=== PATIENT | female | born 1975 | race American Indian/Alaskan Native ===

== ENCOUNTER 2022-09-16 13:29 | Outpatient (REF) | payer MEDICAID, SELFPAY ==
[2022-09-16 16:16] LABS: MANUAL DIFF FLAG NO
[2022-09-16 16:20] LABS: Basophils Percent Auto 0.4 % (0-2); Eosinophils Absolute Auto 0.2 X10*3/uL (0.0-0.4); Eosinophils Percent Auto 2.6 % (0-4); Imm Gran Abs Auto 0.03 X10*3/uL (0.00-0.03); Imm Gran Pct Auto 0.4 % (0.0-0.4); Lymphocytes Absolute Auto 1.6 X10*3/uL (1.2-4.9); Lymphocytes Percent Auto 19.1 % (20-40); Mean Corpuscular HGB Conc 31.4 g/dl (31.0-35.0); Mean Corpuscular Hemoglobin 29.3 pg (27.0-33.0); Mean Corpuscular Volume 93.1 fL (80.0-98.0); Mean Platelet Volume 9.5 fL (9.4-12.3); Monocytes Absolute Auto 0.5 X10*3/uL (0.1-1.2); Monocytes Percent Auto 6.3 % (2-11); Neutrophils Absolute Auto 5.8 x10*3/uL (2.0-8.3); Neutrophils Percent Auto 71.2 % (45-73); Platelet Count 151 X10*3/uL (160-400); Red Blood Count 3.76 X10*6/uL (4.20-5.50); Red Cell Distribution Width 14.3 % (11.0-16.0); White Blood Count 8.1 X10*3/uL (4.8-10.8)
[2022-09-16 16:58] LABS: Alanine Aminotransferase 17 U/L (0-31); Albumin Level 3.9 g/dL (3.5-5.0); Alkaline Phosphatase 78 U/L (39-117); Anion Gap 11 (12-20); Aspartate Amino Transferase 16 U/L (5-31); Bilirubin Total 0.2 mg/dL (0.0-1.0); Blood Urea Nitrogen 11 mg/dL (9-16); C Reactive Protein 1.68 mg/dL (< or = 0.50); Calcium 9.3 mg/dL (8.4-10.2); Carbon Dioxide 26 mmol/L (22-29); Chloride 108 mmol/L (96-108); Estimated Glomerular Filt Rate > 60; Glucose Random 82 mg/dL (60-115); Potassium 3.7 mmol/L (3.3-5.1); Sodium 141 mmol/L (135-145); Total Protein 7.4 g/dL (6.5-8.0)
[2022-09-16 17:00] LABS: Cholesterol 153 mg/dL; HDL Cholesterol 33 mg/dL; LDL Cholesterol Calculated 85 mg/dl; Rheumatoid Factor < 13.0 IU/mL (<15.0); Triglycerides 176 mg/dL
[2022-09-16 17:06] LABS: TSH reflex Free T4 0.88 uIU/mL (0.32-4.0); Vitamin D 25-OH Total 52.2 ng/mL (>30)
[2022-09-16 18:33] LABS: Reflex LDLD? No
[2022-09-17 04:02] LABS: Syphilis Screen Nonreactive (Nonreactive)
[2022-09-17 04:19] LABS: HBS Num1 0.36 mIU/mL (0-7.99); HBc Num1 0.74 S/CO (0.00-0.79); HBsAGNum1 0.34 S/CO (0.00-0.99); HIV AB/AG Nonreactive (Nonreactive); HIV Num 1 0.08 S/CO (0.00-0.99); Hepatitis A Antibody IgM 0.25 Index (0-0.79); Hepatitis B Core Antibody Nonreactive (Nonreactive); Hepatitis B Surface Antigen Negative (Negative); ~HepC Num1 0.31 S/CO (0.00-0.79); ~Hepatitis A Antibody IgM Nonreactive (Nonreactive); ~Hepatitis B Surface Antibody NONREACTIVE (Nonreactive); ~Hepatitis C Antibody Nonreactive (Nonreactive)
[2022-09-18 07:08] LABS: Lyme Abs Screen <0.90 index
[2022-09-18 12:19] LABS: TS Negative Control Passed; TS Panel A 0; TS Panel B 0; TS Positive Control Passed; TSpotTB Negative (Negative)
[2022-09-18 14:33] LABS: Cyclic Citrullinated Peptide <16 UNITS
[2022-09-20 19:44] LABS: HCV Log PCR <1.18 NOT DETECTED Log IU/mL (NOT DETECTED); HepC Viral Load <15 NOT DETECTED IU/mL (NOT DETECTED)
[2022-09-28 13:29] LABS: Anti Nuclear Antibody Screen POSITIVE (NEGATIVE)
== END 2022-09-16 13:30 | disposition home or self-care (01) ==
LOC: HO.HHCL 13:29
PROVIDERS: Visit Provider Internal Medicine
DX: Z11.4 Encounter for screening for human immunodeficiency virus [HIV] (principal); Z11.1 Encounter for screening for respiratory tuberculosis; M06.9 Rheumatoid arthritis, unspecified; D64.9 Anemia, unspecified; I34.1 Nonrheumatic mitral (valve) prolapse
CPT/HCPCS: 36415; 80053; 80061; 82306; 84443; 85025; 86038; 86039; 86140; 86200; 86431; 86481; 86617; 86618; 86704; 86706; 86709; 86780; 86803; 87340; 87389; 87522

== ENCOUNTER → 2022-10-16 13:00 | Outpatient (REF) | payer MEDICAID, SELFPAY ==
--- NOTE | 2022-10-16 13:06 | CA_ITS ---
Transthoracic Echocardiogram Patient (Last, First, Middle): Yessi Hess, Gender: Female Date of : 1975 Age: 46 Procedure Date: 10/16/2022 Procedure Type: Transthoracic Echocardiogram Location: OP Height: 157.48 cm Weight: 65.77 kg BSA: 1.67 m2 Heart Rate: bpm BP: 108 / 68 mmHg Perfect Bind Machine Operator: TO Referring MD: Aleida Cameron MD Hogshead Wrecker: Phil Hughes MD Symptoms: MVP Study Quality: Fair, contrast ECG Rhythm: Sinus Conclusions: - 1. Normal LV systolic function with grade 1 diastolic dysfunction 2. Normal cardiac valvular Doppler 3. No gross pericardial effusion Findings Procedure Information Contrast agent, definity, is being given per protocol without apparent complications. Left Ventricle Normal left ventricular size, thickness, and systolic function. The visually estimated ejection fraction is between 60-65%. Spectral Doppler is indicative of an impaired relaxation filling pattern. E/E prime ratio is <8, consistent with normal filling pressures. Evidence suggests grade I (mild) diastolic dysfunction. Right Ventricle Normal right ventricular cavity size and systolic function. Atria Both atria are normal in size. Interatrial shunt cannot be excluded. Aortic Valve Normal aortic valve structure and function. There is no aortic valve stenosis. There is no aortic valve regurgitation. Mitral Valve Normal mitral valve structure and function. There is no mitral valve regurgitation. There is no mitral valve stenosis. Pulmonic Valve The pulmonic valve is likely normal. There is trace pulmonic valve regurgitation. Tricuspid Valve Normal tricuspid valve structure. Tricuspid regurgitation envelope is inadequate for calculation of right ventricular systolic pressure. Normal right atrial pressure. Great Vessels All visible segments of the aorta are normal in size. The pulmonary artery was not well visualized. Venous The inferior vena cava is normal in size and collapses greater than 50% with inspiration. Pericardium/Pleural There is no evidence of pericardial effusion. Prior Study Comparison No prior study available for comparison. Measurements 2D Linear Measurements IVSd: 1.00 0.6-0.9/0.6-1.0 cm LVIDd: 4.30 3.9-5.3/4.2-5.9 cm LVIDd Index: 2.57 2.4-3.2/2.2-3.1 cm/m2 LVIDs: 2.70 2.0-3.6 cm LVPWd: 1.00 0.7-1.1 cm LA Diam: 3.60 2.7-3.8/3.0-4.0 cm LAIDs Index: 2.16 1.5-2.3 cm/m2 LV Mass: 177.36 67-162/88-224 g LV Mass Index: 106.20 43-95/49-115 g/m2 LVOT Diam: 2.10 3.0+(-)1.3 cm 2D Systolic Function EF 4C: 60.80 >55% EF 2C: 58.30 >55% EF BiP: 60.00 >55% Mitral Valve MV Pk E: 0.48 MV PK A: 0.59 MV Decel Time: 159.00 E/A: 0.80 E'Lateral: 8.81 E'Medial: 8.59 E/E' Med: 5.60 E/E' Lat: 5.40 PHT: 47.00 MVA PHT: 4.68 Decel [place]: 3.02 Aortic Valve AoV Pk Edd: 1.39 AoV Mn Edd: 0.90 AoV VTI: 0.23 AoV Pk Grad: 8.00 Aov Mn Grad: 4.00 ELISABETH Cont.VTI: 2.06 LVOT LVOT Pk Edd: 0.80 LVOT Mn Edd: 0.55 LVOT VTI: 0.14 LVOT Pk Grad: 3.00 LVOT Mn Grad: 1.00 LVOT Diam: 2.10 LVOT Area: 3.46 Diastolic Function MV Pk E: 0.48 MV Pk A: 0.59 E/A: 0.80 E'Medial: 8.59 E/E' Med: 5.60 E' Laterial: 8.81 E/E' Lat: 5.40 Right Ventricle TAPSE (mm): 19.90 TVS' Edd: 10.80 Tricuspid Valve RA Press: 3.00 Great Vessels Aorta Sinus of Valsalva: 2.60 2.0-3.5 cm Ao Asc: 2.80 2.1-3.4 cm Updated in Other Vendor System with Status of Final Phil Hughes MD electronically signed on 10/17/2022 12:17:01 PM with status of Final
== END ==
LOC: HO.CARD 13:00
PROVIDERS: PCP Student in an Organized Health Care Education/Training Program; Visit Provider Internal Medicine
DX: I34.1 Nonrheumatic mitral (valve) prolapse (principal)
CPT/HCPCS: 93306; Q9957

== ENCOUNTER → 2022-10-16 13:06 | Outpatient (BNV) | payer MEDICAID, SELFPAY | PROVIDERS: PCP Student in an Organized Health Care Education/Training Program; Visit Provider Internal Medicine Cardiovascular Disease | DX: I34.1 Nonrheumatic mitral (valve) prolapse (principal) | CPT/HCPCS: 93306 ==

== ENCOUNTER 2022-10-21 12:42 | Outpatient (REF) | payer MEDICAID, SELFPAY ==
[2022-10-21 13:35] LABS: MANUAL DIFF FLAG NO
[2022-10-21 13:54] LABS: Basophils Percent Auto 0.2 % (0-2); Eosinophils Absolute Auto 0.1 X10*3/uL (0.0-0.4); Eosinophils Percent Auto 0.7 % (0-4); Hematocrit 34.2 % (37.0-47.0); Hemoglobin 10.9 g/dl (12.0-16.0); Imm Gran Abs Auto 0.04 X10*3/uL (0.00-0.03); Imm Gran Pct Auto 0.4 % (0.0-0.4); Lymphocytes Absolute Auto 0.8 X10*3/uL (1.2-4.9); Lymphocytes Percent Auto 7.8 % (20-40); Mean Corpuscular HGB Conc 31.9 g/dl (31.0-35.0); Mean Corpuscular Hemoglobin 29.1 pg (27.0-33.0); Mean Corpuscular Volume 91.4 fL (80.0-98.0); Mean Platelet Volume 9.5 fL (9.4-12.3); Monocytes Absolute Auto 0.3 X10*3/uL (0.1-1.2); Monocytes Percent Auto 3.1 % (2-11); Neutrophils Absolute Auto 9.4 x10*3/uL (2.0-8.3); Neutrophils Percent Auto 87.8 % (45-73); Platelet Count 167 X10*3/uL (160-400); Red Blood Count 3.74 X10*6/uL (4.20-5.50); Red Cell Distribution Width 13.8 % (11.0-16.0); White Blood Count 10.7 X10*3/uL (4.8-10.8)
[2022-10-21 14:05] LABS: Estimated Average Glucose 103 mg/dL; Hemoglobin A1c % 5.2 % (<6.0)
[2022-10-21 14:35] LABS: Iron 29 mcg/dL (30-160); Lactate Dehydrogenase 263 U/L (122-220); Percent Iron Saturation 14 % (15-50); Total Iron Binding Capacity 205 mcg/dL (228-428); Unsaturated Iron Binding 176 ug/dL
[2022-10-21 14:51] LABS: Ferritin 47 ng/mL (10-250)
[2022-10-21 15:04] LABS: Folate 12.4 ng/mL (> or = 4.0); Vitamin B12 497 pg/mL (200-900)
[2022-10-21 16:22] LABS: CT PCR NOT DETECTED (Not Detect.); NG PCR NOT DETECTED (Not Detect.)
== END 2022-10-21 12:43 | disposition home or self-care (01) ==
LOC: HO.HHCL 12:42
PROVIDERS: Visit Provider Student in an Organized Health Care Education/Training Program
DX: Z00.00 Encounter for general adult medical examination without abnormal findings (principal); D64.9 Anemia, unspecified; A04.8 Other specified bacterial intestinal infections; Z20.2 Contact with and (suspected) exposure to infections with a predominantly sexual mode of transmission
CPT/HCPCS: 0353U; 82607; 82728; 82746; 83036; 83540; 83615; 85025

== ENCOUNTER 2022-10-28 08:33 | Outpatient (REF) | payer MEDICAID, SELFPAY ==
--- NOTE | ~2022-10-28 | MM_ITS ---
EXAMINATION: MM SCREENING DIGITAL BREAST TOMOSYNTHESIS, BILATERAL CLINICAL INFORMATION: Screening. Asymptomatic. The patient has a history of prior left breast excision for benign disease. COMPARISON: Mammography: This study is compared with prior exams dating back to 2021. TECHNIQUE: Digital breast tomosynthesis is performed in both the craniocaudal and mediolateral oblique views along with computer-aided detection (CAD). Synthesized 2D images are generated from the tomosynthesis. FINDINGS: There are scattered areas of fibroglandular density (ACR BI-RADS breast composition Category b). There are no significant masses, abnormal calcifications, or other abnormalities. There is tissue marker in the superior aspect of the left breast from prior percutaneous biopsy. MM/MM tomosynthesis screening BI IMPRESSION: No mammographic evidence of malignancy. ASSESSMENT: BI-RADS BI-RADS 2 - Benign Findings RECOMMENDATION: Routine annual mammography screening. 1 year F/U This examination should not preclude the clinical evaluation of a suspicious palpable abnormality. This patient's information was entered into a reminder system with a target due date for their next mammogram.
== END 2022-10-28 08:34 | disposition home or self-care (01) ==
LOC: HO.MAMMO 08:33
PROVIDERS: PCP Student in an Organized Health Care Education/Training Program; Visit Provider Student in an Organized Health Care Education/Training Program
DX: Z12.31 Encounter for screening mammogram for malignant neoplasm of breast (principal)
CPT/HCPCS: 77063; 77067

== ENCOUNTER → 2022-10-28 08:45 | Outpatient (BNV) | payer MEDICAID, SELFPAY | PROVIDERS: PCP Student in an Organized Health Care Education/Training Program; Visit Provider Radiology Diagnostic Radiology | DX: Z12.31 Encounter for screening mammogram for malignant neoplasm of breast (principal) | CPT/HCPCS: 77063; 77067 ==

== ENCOUNTER 2022-10-30 | Outpatient (REF) | payer MEDICAID, SELFPAY ==
[2022-10-31 09:12] LABS: OBS1 NEGATIVE (NEGATIVE)
[2022-10-31 09:13] LABS: OBS Int Ctl Valid YES; OBS2 NEGATIVE (NEGATIVE); OBS3 NEGATIVE (NEGATIVE)
== END 2022-10-30 00:01 | disposition home or self-care (01) ==
LOC: HO.HHCLNP
PROVIDERS: Visit Provider Student in an Organized Health Care Education/Training Program
DX: D64.9 Anemia, unspecified (principal)
CPT/HCPCS: 82270

== ENCOUNTER 2022-12-10 09:46 | Outpatient (REF) | payer MEDICAID, SELFPAY ==
[2022-12-10 11:27] LABS: MANUAL DIFF FLAG NO
[2022-12-10 11:46] LABS: Basophils Percent Auto 0.3 % (0-2); Eosinophils Absolute Auto 0.2 X10*3/uL (0.0-0.4); Hemoglobin 10.9 g/dl (12.0-16.0); Imm Gran Abs Auto 0.01 X10*3/uL (0.00-0.03); Imm Gran Pct Auto 0.1 % (0.0-0.4); Lymphocytes Absolute Auto 1.7 X10*3/uL (1.2-4.9); Lymphocytes Percent Auto 24.9 % (20-40); Mean Corpuscular HGB Conc 31.1 g/dl (31.0-35.0); Mean Corpuscular Hemoglobin 28.3 pg (27.0-33.0); Mean Corpuscular Volume 90.9 fL (80.0-98.0); Mean Platelet Volume 9.8 fL (9.4-12.3); Monocytes Absolute Auto 0.4 X10*3/uL (0.1-1.2); Monocytes Percent Auto 6.4 % (2-11); Neutrophils Absolute Auto 4.4 x10*3/uL (2.0-8.3); Neutrophils Percent Auto 65.3 % (45-73); Platelet Count 155 X10*3/uL (160-400); Red Blood Count 3.85 X10*6/uL (4.20-5.50); Red Cell Distribution Width 13.8 % (11.0-16.0); White Blood Count 6.8 X10*3/uL (4.8-10.8)
[2022-12-10 11:59] LABS: C Reactive Protein 1.86 mg/dL (< or = 0.50)
[2022-12-10 12:22] LABS: Erythrocyte Sedimentation Rate 43 MM/HR (0-20)
== END 2022-12-10 09:47 | disposition home or self-care (01) ==
LOC: HO.HHCL 09:46
PROVIDERS: Visit Provider Internal Medicine
DX: L03.011 Cellulitis of right finger (principal)
CPT/HCPCS: 36415; 85025; 85652; 86140

== ENCOUNTER 2022-12-12 13:36 | Outpatient (REF) | payer MEDICAID, SELFPAY ==
[2022-12-17 15:24] LABS: H Pylori Breath Test Negative (Negative)
== END 2022-12-12 13:37 | disposition home or self-care (01) ==
LOC: HO.LNP 13:36
PROVIDERS: Visit Provider Student in an Organized Health Care Education/Training Program
DX: A04.8 Other specified bacterial intestinal infections (principal)
CPT/HCPCS: 83013

== ENCOUNTER 2022-12-19 14:59 | Outpatient (AMB) | payer MEDICAID, SELFPAY ==
--- NOTE | 2022-12-19 15:00 | MHC.OFFVIS ---
Intake Vital Signs 12/19/22 15:11 Height 5 ft 2 in Weight 143 lb 1.28 oz BMI 26.2 BP 108/64 Blood Pressure Location Rt brachial Position Sitting Pulse 120 H Pulse Source Pulse Oximeter Temp 97.2 F Temp Source Skin Pulse Oximetry (%) 98 Intake Visit Reasons: RA Intake Note: New pt presents today for RA consult. Previously seen by rheumatology in [place]. She has tried mtx and did not tolerate this due to gi upset. She is on Enbrel 50mg qwk, last dose was last week. She will need new rx as she brought this from [place] and is all out. [employer] Supervisor Required: Yes [employer] Supervisor Name: Sawyer [id number] Accompanied by: Self / Same As Patient Allergies No Known Allergies Allergy (Verified 12/19/22 15:22) Medication List - Last Reconciled 12/19/22 by Yahaira Sutherland MD acetaminophen 500 mg PO Q6H PRN ascorbic acid (vitamin C) 250 mg PO QAM etanercept (Enbrel SureClick) 50 mg subcut QWEEK famotidine 20 mg PO DAILY PRN ferrous sulfate (FeroSul) 325 mg PO QAM folic acid 1 mg PO QAM melatonin 3 mg PO BEDTIME PRN meloxicam mg PO HPI HPI Comments History of Present Illness Details This is a 47-year-old female with seronegative RA who presents as a new patient. She recently moved from [place]. She states that she was diagnosed with rheumatoid arthritis back in 2015. She was on methotrexate briefly and it was discontinued due to GI upset. She had been on Enbrel since 2017 and it is effective. She states that her joint pain is well controlled overall. She takes 2 mg of Medrol sporadically about once a week as needed for joint pain and fatigue. States that over last 2 weeks she noticed a painful mass on the radial aspect of her right middle finger. She was prescribed antibiotics by her PCP and it was not helpful. She denies any trauma to the finger. Mentions that her maternal uncle has RA. She denies any history of DVT/PE. Denies any fatigue or weight loss. [facility] Medical History Rheumatoid arthritis Surgical History History of partial hysterectomy Hx of cholecystectomy Family History Mother History of mastectomy, total HX: breast cancer Diabetes Hypertension Father No problems noted. Maternal Uncle Rheumatoid arthritis Social History Alcohol intake: current Alcohol intake frequency: does not drink Patient Tobacco Use Status: Never used Tobacco Female Reproductive History Menstrual Total pregnancies: 3 Number of Living Children: 1 Ab spontaneous: 2 Review of Systems Const Denies fatigue, Denies fever(s) and Denies weight loss Card Reports no additional complaints Musc Reports arthralgias Skin/Breast Reports new lesions and Reports skin swelling Psych Reports abnormal sleep pattern Endo Denies fatigue Physical Exam Vital Signs: Last Vital Signs Temp 97.2 F 12/19/22 15:11 Pulse 120 H 12/19/22 15:11 BP 108/64 12/19/22 15:11 Pulse Ox 98 12/19/22 15:11 BMI result Body Mass Index 26.2 Const General: cooperative, healthy appearing and comfortable Nutritional Appearance: overweight Orientation/consciousness: patient oriented x3 Limitations: no limitations HEENT Head: Yes normocephalic and Yes atraumatic Mouth: moist mucous membranes Resp Effort & Inspection: normal respiratory effort and able to speak in complete sentences Auscultation: clear to auscultation bilaterally Cardio Rate: regular rate Rhythm: regular rhythm Heart sounds: S1 normal heart sound present and S2 normal heart sound present GI Inspection: No distended Palpation (GI): Soft to palpation and nontender Skin Other: Neuro Other: No active synovitis General: patient oriented x3 Results Reviewed Results Reviewed: Labs 10/2020 CRP 2.28 nl <0.5 ESR 60 Assessment & Plan Assessment & Plan (1) Rheumatoid arthritis: Comment: -ve RF -ve CCP dx 2016 MTX 2016 ineffective and caused GI upset Enbrel 2017 effective Code(s): M06.9 - Rheumatoid arthritis, unspecified Qualifiers: Rheumatoid arthritis location: multiple sites Rheumatoid factor presence: without rheumatoid factor Qualified Code(s): M06.09 - Rheumatoid arthritis without rheumatoid factor, multiple sites Plan: This is a 47-year-old female who presents for evaluation of rheumatoid arthritis. She was diagnosed with a seronegative RA in [place] back in 2016. Records reviewed. She was initially started on methotrexate which was ineffective and caused GI upset. She had been on Enbrel since 2017 which had been effective. She has been using Enbrel weekly until last week. She just ran out. Today patient is doing well with no active synovitis. Her labs have shown persistently elevated inflammatory markers. She states that she takes Medrol 2 mg about once weekly. Will start prior authorization for Enbrel 50 mg once weekly. Patient can continue to take Medrol 2 mg as needed. Advised patient to keep a log of her Medrol intake and we will reassess next visit. Labs and x-rays before next visit in 6 weeks (2) Finger mass, right: Code(s): R22.31 - Localized swelling, mass and lump, right upper limb Plan: Patient has a mass on the radial aspect of the right middle finger. This started about 2 weeks ago. She was prescribed antibiotics without relief. Mass is tender. I referred her to Hand surgery for further evaluation Plan I spent 47 minutes reviewing patient's chart, evaluating patient, ordering diagnostic workup, counseling patient and documenting in the chart Orders: Orders Comprehensive Met. Panel 5 Weeks M06.9 - Rheumatoid arthritis, unspecified C Reactive Protein 5 Weeks M06.9 - Rheumatoid arthritis, unspecified XR hand wrist RT 5 Weeks M06.9 - Rheumatoid arthritis, unspecified XR foot LT min 3V 5 Weeks M06.9 - Rheumatoid arthritis, unspecified XR foot RT min 3V 5 Weeks M06.9 - Rheumatoid arthritis, unspecified Complete Blood Count Auto Diff 5 Weeks M06.9 - Rheumatoid arthritis, unspecified Erythrocyte Sedimentation Rate 5 Weeks M06.9 - Rheumatoid arthritis, unspecified XR hand wrist LT 5 Weeks M06.9 - Rheumatoid arthritis, unspecified Referrals Hand Surgery Referral R22.31 - Localized swelling, mass and lump, right upper limb Coding Level of Care Code New Pt Level 4 (95733) Diagnoses Rheumatoid arthritis of multiple sites with negative rheumatoid factor M06.09 Rheumatoid arthritis location: multiple sites Rheumatoid factor presence: without rheumatoid factor Finger mass, right R22.31
[2022-12-19 15:11] VITALS: BP 108/64; PULSE 120; TEMP 36.2; O2SAT 98; BMI 26.2
== END 2022-12-19 16:01 | disposition home or self-care (01) ==
PROVIDERS: PCP Student in an Organized Health Care Education/Training Program; Visit Provider Student in an Organized Health Care Education/Training Program
DX: M06.09 Rheumatoid arthritis without rheumatoid factor, multiple sites (principal); R22.31 Localized swelling, mass and lump, right upper limb
CPT/HCPCS: 99204

== ENCOUNTER → 2022-12-19 14:59 | Outpatient (BNVA) | payer MEDICAID, SELFPAY | PROVIDERS: Visit Provider Student in an Organized Health Care Education/Training Program | DX: M06.09 Rheumatoid arthritis without rheumatoid factor, multiple sites (principal); R22.31 Localized swelling, mass and lump, right upper limb | CPT/HCPCS: 99202 ==

== ENCOUNTER 2022-12-23 12:40 | Outpatient (AMB) | payer MEDICAID, SELFPAY ==
--- NOTE | 2022-12-23 13:34 | A.OFFVIS_ITS ---
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 This is located on her middle finger and started three weeks ago. She states she tries to remove the lump but the next day it returns. She denies any injury and it is causing her pain with touch and the tip of her finger feels hard. 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 She complains of a painful scab along the right middle finger radial paronychial fold. She says this began about 3 weeks ago when it was painful and swollen. She was given 7 days of antibiotics which helped maybe a little bit. She is concerned because the scab is still painful. [facility] Medical History Rheumatoid arthritis Surgical History History of partial hysterectomy Hx of cholecystectomy Family History Mother History of mastectomy, total HX: breast cancer Diabetes Hypertension Father No problems noted. Maternal Uncle Rheumatoid arthritis Social History Alcohol intake: current Alcohol intake frequency: does not drink Patient Tobacco Use Status: Never used Tobacco Physical Exam Const General: cooperative, healthy appearing and no acute distress Orientation/consciousness: oriented to person and oriented to place HEENT Head: Yes normocephalic and Yes atraumatic Eyes EOM: EOMs intact bilaterally Resp Effort & Inspection: normal respiratory effort and able to speak in complete sentences Cardio Jugular venous distension: no JVD Skin General skin exam: turgor normal Rashes: no rashes Neuro General: oriented to person and oriented to place Extrem Other: Evaluation of right Upper Extremity: Neuro: Median, ulnar, radial nerves motor and sensory intact. Vascular: Cap refill brisk. Regarding the right middle finger she does have a small scab measuring perhaps 2-3 mm in diameter along the radial aspect of the eponychial fold. The scab itself is tender to palpation. She is not particularly tender over the pad of the middle finger or about the rest of the finger. She has no tenderness when pushing on the nail itself. She can fully extend all of her digits and bring them all closed to a tight fist including the right middle finger. No surrounding erythema. Minimal if any swelling right around that eponychial area. Radiographs: None Psych Appearance: grossly normal Affect: normal affect Attitude: cooperative Assessment & Plan Assessment & Plan (1) Paronychia of finger of right hand: Code(s): L03.011 - Cellulitis of right finger Plan Assessment and plan: 1. Right middle finger resolving paronychia Again this began about 3 weeks ago. She did have 1 course of some kind of antibiotic for about 7 days. She says she has only been small soaking the finger intermittently. I educated her about paronychia infection. I told her I want her to soak this 7 or 8 times a day and hot salt water. When to give her another antibiotic for 7 days. At this point is pretty mild. She does not have any generalized swelling of the finger. We will have her come back in a week for a wound check. She can call and cancel if everything is going well. Coding Level of Care Code New Pt Level 3 (08061) Diagnoses Paronychia of finger of right hand L03.011
== END 2022-12-23 13:59 | disposition home or self-care (01) ==
PROVIDERS: PCP Student in an Organized Health Care Education/Training Program; Visit Provider Orthopaedic Surgery
DX: L03.011 Cellulitis of right finger (principal)
CPT/HCPCS: 99203

== ENCOUNTER → 2022-12-23 12:40 | Outpatient (BNVA) | payer MEDICAID, SELFPAY | PROVIDERS: PCP Student in an Organized Health Care Education/Training Program; Visit Provider Orthopaedic Surgery | DX: L03.011 Cellulitis of right finger (principal) | CPT/HCPCS: 99202 ==

== ENCOUNTER 2022-12-30 10:06 | Outpatient (AMB) | payer MEDICAID, SELFPAY ==
--- NOTE | 2022-12-30 10:32 | A.OFFVIS_ITS ---
Intake Intake Visit Reasons: OV- Paronychia wound check Intake Note: Yessi is a 47 year old belarusian speaking female who presents today for a wound check of her right hand middle finger. Allergies No Known Allergies Allergy (Verified 12/30/22 10:33) HPI OV- Paronychia wound check HPI Details 47-year-old right hand dominant female who presents in the office today for a follow up of a paronychia on the right hand middle digit, which began in the beginning of 11/2022. [facility] Medical History Rheumatoid arthritis Surgical History History of partial hysterectomy Hx of cholecystectomy Family History Mother History of mastectomy, total HX: breast cancer Diabetes Hypertension Father No problems noted. Maternal Uncle Rheumatoid arthritis Alcohol intake: current Alcohol intake frequency: does not drink Patient Tobacco Use Status: Never used Tobacco Review of Systems Const All systems reviewed & are unremarkable except as noted in HPI and below Physical Exam Const General: cooperative, healthy appearing and no acute distress Resp Effort & Inspection: normal respiratory effort and able to speak in complete sentences Cardio Rate: regular rate Peripheral pulses: Peripheral pulses 2+ throughout GI Palpation (GI): Soft to palpation Skin Lesions: no lesions Rashes: no rashes Extrem Other: Right middle finger: Pea sized eschar tissue along the radial aspect of the nail bed distal to the DIP. Mild surrounding erythema. No drainage. No signs of active infection. Able to flex and extend at the DIP. Sensation intact. Capillary refill is brisk. Assessment & Plan Assessment & Plan (1) Paronychia of finger of right hand: Code(s): L03.011 - Cellulitis of right finger Plan Ms. Hess is a 47-year-old right hand dominant female who presents in the office today for a follow up of a paronychia on the right hand middle digit, which began in the beginning of 11/2022. The patient is going to continue her antibiotics until the course is complete. I did educate the patient that there is a chance the antibiotics could be suppressing an infection. I explained to her that her symptoms may increase upon completion. She was educated on signs of infection, which are as follows but not limited to erythema, edema, drainage, or warmth. If she is to experience any of these symptoms she is to contact the office immediately or present to the ED. Follow up will be in 1 week for a wound check, or sooner if needed. Patient Instructions: Scribed for Claudine Moses PA-C by Sulma Burton medical sales associate, on 12/30/2022 at 10:12 am, EST. Coding Level of Care Code Global (12785) Diagnoses Paronychia of finger of right hand L03.011
== END 2022-12-30 10:40 | disposition home or self-care (01) ==
PROVIDERS: PCP Student in an Organized Health Care Education/Training Program; Visit Provider Physician Assistant
DX: L03.011 Cellulitis of right finger (principal)
CPT/HCPCS: 99213

== ENCOUNTER → 2022-12-30 10:06 | Outpatient (BNVA) | payer MEDICAID, SELFPAY | PROVIDERS: PCP Student in an Organized Health Care Education/Training Program; Visit Provider Physician Assistant | DX: L03.011 Cellulitis of right finger (principal) | CPT/HCPCS: 99212 ==

== ENCOUNTER 2023-01-05 11:54 | Outpatient (AMB) | payer MEDICAID, SELFPAY ==
--- NOTE | 2023-01-05 12:13 | MHC.OFFVIS ---
Intake Vital Signs 01/05/23 12:17 Height 5 ft 2 in Weight 143 lb BMI 26.2 Handedness Right Intake Visit Reasons: ov- Paronychia of finger of right hand Intake Note: Yessi is a 47 year old right hand dominant Mauritian speaking female who presents today for a wound check of her right hand middle finger. Patient reports is causing her a lot of pain, even when she bangs it accidentally. Allergies No Known Allergies Allergy (Verified 01/05/23 12:16) HPI ov- Paronychia of finger of right hand HPI Details 47-year-old right hand dominant female, who is Mauritian speaking, presents in the office today for a follow up of a paronychia on the right hand middle digit, which began in the beginning of 11/2022. The patient reports she has a lot of pain in the right hand and has been accidentally hitting the hand. [facility] Medical History Rheumatoid arthritis Surgical History History of partial hysterectomy Hx of cholecystectomy Family History Mother History of mastectomy, total HX: breast cancer Diabetes Hypertension Father No problems noted. Maternal Uncle Rheumatoid arthritis Alcohol intake: current Alcohol intake frequency: does not drink Patient Tobacco Use Status: Never used Tobacco Review of Systems Const All systems reviewed & are unremarkable except as noted in HPI and below Physical Exam Vital Signs: BMI result Body Mass Index 26.2 Const General: cooperative, healthy appearing and no acute distress Resp Effort & Inspection: normal respiratory effort and able to speak in complete sentences Cardio Rate: regular rate Peripheral pulses: Peripheral pulses 2+ throughout GI Palpation (GI): Soft to palpation Skin Lesions: no lesions Rashes: no rashes Extrem Other: Right middle finger: Pea sized eschar tissue along the radial aspect of the nail bed distal to the DIP. No erythema. No drainage. No signs of active infection. Able to flex and extend at the DIP. Sensation intact. Capillary refill is brisk. Assessment & Plan Assessment & Plan (1) Paronychia of finger of right hand: Code(s): L03.011 - Cellulitis of right finger Plan Ms. Hess is a 47-year-old right hand dominant female, who is Mauritian speaking, presents in the office today for a follow up of a paronychia on the right hand middle digit, which began in the beginning of 11/2022. The patient reports she has a lot of pain in the right hand and has been accidentally hitting the hand. The patient is going to continue her antibiotics until the course is complete. I did educate the patient that there is a chance the antibiotics could be suppressing an infection. I explained to her that her symptoms may increase upon completion. She was educated on signs of infection, which are as follows but not limited to erythema, edema, drainage, or warmth. If she is to experience any of these symptoms she is to contact the office immediately or present to the ED. Follow up will be in 2 weeks, or sooner if needed. Patient Instructions: Scribed for Claudine Moses PA-C by Sulma Burton medical education specialist, on 01/05/2023 at 11:59 am, EST. Coding Level of Care Code Est Pt Level 3 (96961) Diagnoses Paronychia of finger of right hand L03.011
[2023-01-05 12:17] VITALS: BMI 26.2
== END 2023-01-05 12:21 | disposition home or self-care (01) ==
PROVIDERS: PCP Student in an Organized Health Care Education/Training Program; Visit Provider Physician Assistant
DX: L03.011 Cellulitis of right finger (principal)
CPT/HCPCS: 99213

== ENCOUNTER → 2023-01-05 11:54 | Outpatient (BNVA) | payer MEDICAID, SELFPAY | PROVIDERS: PCP Student in an Organized Health Care Education/Training Program; Visit Provider Physician Assistant | DX: L03.011 Cellulitis of right finger (principal); M06.9 Rheumatoid arthritis, unspecified | CPT/HCPCS: 99212 ==

== ENCOUNTER 2023-01-12 18:20 | Outpatient (REF) | payer MEDICAID, SELFPAY ==
[2023-01-17 09:38] LABS: HPV 16 RNA NOT DETECTED (NOT DETECTED); HPV mRNA E6/E7 rflx Detected (Not Detected)
== END 2023-01-12 18:21 | disposition home or self-care (01) ==
LOC: HO.HHCLNP 18:20
PROVIDERS: Visit Provider Advanced Practice Midwife
DX: Z12.4 Encounter for screening for malignant neoplasm of cervix (principal); Z11.51 Encounter for screening for human papillomavirus (HPV)
CPT/HCPCS: 87624; 87625; 88142

== ENCOUNTER 2023-01-22 11:44 | Outpatient (REF) | payer MEDICAID, SELFPAY ==
--- NOTE | ~2023-01-22 | XR_ITS ---
EXAMINATION: XR BILATERAL FEET CLINICAL INFORMATION: Rheumatoid arthritis. COMPARISON: None available. TECHNIQUE: 3 views of each foot. FINDINGS: Left Foot: Mild degenerative changes in the first tarsometatarsal joint with joint space narrowing and hypertrophic change. Small plantar calcaneal spur. Tiny calcific/ossific fragment along the lateral aspect of the first metatarsophalangeal joint of indeterminate age and etiology. Tiny calcifications in the soft tissues of the distal leg. Right Foot: Tiny calcific/ossific fragment along the medial aspect of the IP joint of the great toe of indeterminate age and etiology. Tiny calcifications in the soft tissues of the distal leg. Small amorphous calcifications adjacent to the lateral sesamoid of the first metatarsal head. Tiny calcific/ossific density adjacent to the first metatarsal head more medially. XR/XR foot RT min 3V IMPRESSION: Tiny calcific/ossific fragments in the bilateral feet as detailed above of indeterminate age and etiology. Correlation with clinical exam recommended to determine further management. Recommend follow-up imaging in 10-14 days if fracture is suspected.
--- NOTE | ~2023-01-22 | XR_ITS ---
EXAMINATION: XR RIGHT HAND AND WRIST SERIES XR LEFT HAND AND WRIST SERIES CLINICAL INFORMATION: Rheumatoid arthritis, unspecified. COMPARISON: Radiographs of the right and left feet January 2023. TECHNIQUE: 4 views of the right hand and wrist. 4 views of the left hand and wrist. FINDINGS: RIGHT HAND AND WRIST: There is mild deformity of the distal 5th metacarpal compatible with an old fracture. The bones, joints and soft tissues are otherwise unremarkable. No joint space narrowing. No marginal erosions. No soft tissue calcifications. LEFT HAND AND WRIST: The bones, joints and soft tissues appear normal. No joint space narrowing, erosions, soft tissue calcifications, or malalignment. XR/XR hand wrist LT IMPRESSION: RIGHT HAND AND WRIST: Old 5th metacarpal fracture. No radiographic signs of arthritis. LEFT HAND AND WRIST: Normal. No radiographic signs of arthritis.
--- NOTE | ~2023-01-22 | XR_ITS ---
EXAMINATION: XR RIGHT HAND AND WRIST SERIES XR LEFT HAND AND WRIST SERIES CLINICAL INFORMATION: Rheumatoid arthritis, unspecified. COMPARISON: Radiographs of the right and left feet January 2023. TECHNIQUE: 4 views of the right hand and wrist. 4 views of the left hand and wrist. FINDINGS: RIGHT HAND AND WRIST: There is mild deformity of the distal 5th metacarpal compatible with an old fracture. The bones, joints and soft tissues are otherwise unremarkable. No joint space narrowing. No marginal erosions. No soft tissue calcifications. LEFT HAND AND WRIST: The bones, joints and soft tissues appear normal. No joint space narrowing, erosions, soft tissue calcifications, or malalignment. XR/XR hand wrist RT IMPRESSION: RIGHT HAND AND WRIST: Old 5th metacarpal fracture. No radiographic signs of arthritis. LEFT HAND AND WRIST: Normal. No radiographic signs of arthritis.
--- NOTE | ~2023-01-22 | XR_ITS ---
EXAMINATION: XR BILATERAL FEET CLINICAL INFORMATION: Rheumatoid arthritis. COMPARISON: None available. TECHNIQUE: 3 views of each foot. FINDINGS: Left Foot: Mild degenerative changes in the first tarsometatarsal joint with joint space narrowing and hypertrophic change. Small plantar calcaneal spur. Tiny calcific/ossific fragment along the lateral aspect of the first metatarsophalangeal joint of indeterminate age and etiology. Tiny calcifications in the soft tissues of the distal leg. Right Foot: Tiny calcific/ossific fragment along the medial aspect of the IP joint of the great toe of indeterminate age and etiology. Tiny calcifications in the soft tissues of the distal leg. Small amorphous calcifications adjacent to the lateral sesamoid of the first metatarsal head. Tiny calcific/ossific density adjacent to the first metatarsal head more medially. XR/XR foot LT min 3V IMPRESSION: Tiny calcific/ossific fragments in the bilateral feet as detailed above of indeterminate age and etiology. Correlation with clinical exam recommended to determine further management. Recommend follow-up imaging in 10-14 days if fracture is suspected.
[2023-01-22 12:08] LABS: MANUAL DIFF FLAG NO
[2023-01-22 12:49] LABS: Basophils Percent Auto 0.1 % (0-2); Eosinophils Absolute Auto 0.2 X10*3/uL (0.0-0.4); Eosinophils Percent Auto 3.4 % (0-4); Hematocrit 34.5 % (37.0-47.0); Hemoglobin 10.8 g/dl (12.0-16.0); Imm Gran Abs Auto 0.02 X10*3/uL (0.00-0.03); Imm Gran Pct Auto 0.3 % (0.0-0.4); Lymphocytes Absolute Auto 1.3 X10*3/uL (1.2-4.9); Lymphocytes Percent Auto 18.1 % (20-40); Mean Corpuscular HGB Conc 31.3 g/dl (31.0-35.0); Mean Corpuscular Hemoglobin 27.3 pg (27.0-33.0); Mean Corpuscular Volume 87.3 fL (80.0-98.0); Mean Platelet Volume 8.9 fL (9.4-12.3); Monocytes Absolute Auto 0.4 X10*3/uL (0.1-1.2); Monocytes Percent Auto 6.2 % (2-11); Neutrophils Percent Auto 71.9 % (45-73); Platelet Count 143 X10*3/uL (160-400); Red Blood Count 3.95 X10*6/uL (4.20-5.50)
[2023-01-22 13:15] LABS: Alanine Aminotransferase 13 U/L (0-31); Alkaline Phosphatase 71 U/L (39-117); Anion Gap 14 (12-20); Aspartate Amino Transferase 21 U/L (5-31); Bilirubin Total 0.4 mg/dL (0.0-1.0); Blood Urea Nitrogen 11 mg/dL (9-16); C Reactive Protein 4.87 mg/dL (< or = 0.50); Calcium 9.6 mg/dL (8.4-10.2); Carbon Dioxide 25 mmol/L (22-29); Chloride 106 mmol/L (96-108); Estimated Glomerular Filt Rate > 60; Glucose Random 87 mg/dL (60-115); Potassium 4.1 mmol/L (3.3-5.1); Sodium 141 mmol/L (135-145); Total Protein 7.8 g/dL (6.5-8.0)
[2023-01-22 13:45] LABS: Erythrocyte Sedimentation Rate 55 MM/HR (0-20)
== END 2023-01-22 11:45 | disposition home or self-care (01) ==
LOC: HO.LAB 11:44
PROVIDERS: PCP Student in an Organized Health Care Education/Training Program; Visit Provider Student in an Organized Health Care Education/Training Program
DX: M06.9 Rheumatoid arthritis, unspecified (principal)
CPT/HCPCS: 36415; 73110; 73130; 73630; 80053; 85025; 85652; 86140

== ENCOUNTER 2023-01-29 08:52 | Outpatient (AMB) | payer MEDICAID, SELFPAY ==
[2023-01-29 09:07] VITALS: BP 120/74; PULSE 76; TEMP 36.2; BMI 25.4
--- NOTE | 2023-01-29 09:07 | A.OFFVIS_ITS ---
Intake Vital Signs 3 01/29/23 09:07 Height 5 ft 2 in Weight 138 lb 14.259 oz BMI 25.4 BP 120/74 Blood Pressure Location Rt brachial Position Sitting Pulse 76 Pulse Source Pulse Oximeter Temp 97.2 F Temp Source Skin Intake Visit Reasons: RA Intake Note: Pt last seen 12/19/22 presents today for follow up and test results. Reports not taking Enbrel for about two months due to growth on right middle finger. Cobol Engineer Required: Yes Cobol Engineer Name: [email or web address] [id number] Information Interpreted: clinical only Accompanied by: Self / Same As Patient Allergies No Known Allergies Allergy (Verified 01/29/23 09:07) Medication List - Last Reconciled 01/29/23 by Yahaira Sutherland MD acetaminophen 500 mg PO Q6H PRN ascorbic acid (vitamin C) 250 mg PO QAM Enbrel SureClick (etanercept) 50 mg subcut QWEEK NS famotidine 20 mg PO DAILY PRN ferrous sulfate (FeroSul) 325 mg PO QAM folic acid 1 mg PO QAM melatonin 3 mg PO BEDTIME PRN meloxicam mg PO methylprednisolone (Medrol) 2 mg PO DAILY HPI HPI Comments 2 History of Present Illness0 Details 47-year-old female with seronegative RA returns for follow-up. She has remained off Enbrel since last visit. She was evaluated by hand surgery for her right finger mass and was deemed to have a resolving paronychia. She was prescribed an Augmentin course. She states that her finger feels about the same. She has minimal pain deep to the site of the scab. The scab has grown somewhat. She feels that she needs to restart her Enbrel. She continues to take Medrol 2 mg daily Initial history: This is a 47-year-old female with seronegative RA who presents as a new patient. She recently moved from [place]. She states that she was diagnosed with rheumatoid arthritis back in 2016. She was on methotrexate briefly and it was discontinued due to GI upset. She had been on Enbrel since 2017 and it is effective. She states that her joint pain is well controlled overall. She takes 2 mg of Medrol sporadically about once a week as needed for joint pain and fatigue. States that over last 2 weeks she noticed a painful mass on the radial aspect of her right middle finger. She was prescribed antibiotics by her PCP and it was not helpful. She denies any trauma to the finger. Mentions that her maternal uncle has RA. She denies any history of DVT/PE. Denies any fatigue or weight loss. [facility] Medical History Rheumatoid arthritis Surgical History History of partial hysterectomy Hx of cholecystectomy Family History Mother History of mastectomy, total HX: breast cancer Diabetes Hypertension Father No problems noted. Maternal Uncle Rheumatoid arthritis Social History Alcohol intake: never Patient Tobacco Use Status: Never used Tobacco Review of Systems Card Reports no additional complaints Musc Reports arthralgias Skin/Breast Reports new lesions and Reports skin swelling Physical Exam Vital Signs: Last Vital Signs Temp 97.2 F 01/29/23 09:07 Pulse 76 01/29/23 09:07 BP 120/74 01/29/23 09:07 BMI result Body Mass Index 25.4 Const General: cooperative, healthy appearing and comfortable Nutritional Appearance: overweight Orientation/consciousness: patient oriented x3 Limitations: no limitations HEENT Head: Yes normocephalic and Yes atraumatic Mouth: moist mucous membranes Resp Effort & Inspection: normal respiratory effort and able to speak in complete sentences Auscultation: clear to auscultation bilaterally Cardio Rate: regular rate Rhythm: regular rhythm Heart sounds: S1 normal heart sound present and S2 normal heart sound present GI Inspection: No distended Palpation (GI): Soft to palpation and nontender Skin Other: Neuro Other: No active synovitis General: patient oriented x3 Extrem Other: No active synovitis The eschar on the radial aspect of the right middle finger DIP has enlarged in size. There is no surrounding erythema or tenderness. No warmth. Patient is able to move her finger normally Results Reviewed Results Reviewed: Labs 10/2020 CRP 2.28 nl <0.5 ESR 60 Assessment & Plan Assessment & Plan (1) Rheumatoid arthritis: Comment: -ve RF -ve CCP dx 2016 MTX 2016 ineffective and caused GI upset Enbrel 2017 effective Code(s): M06.9 - Rheumatoid arthritis, unspecified Qualifiers: Rheumatoid arthritis location: multiple sites Rheumatoid factor presence: without rheumatoid factor Qualified Code(s): M06.09 - Rheumatoid arthritis without rheumatoid factor, multiple sites Plan: This is a 47-year-old female who presents for evaluation of rheumatoid arthritis. She was diagnosed with a seronegative RA in [place] back in 2016. Records reviewed. She was initially started on methotrexate which was ineffective and caused GI upset. She had been on Enbrel since 2017 which had been effective. Enbrel was held for the last 6-7 weeks due to a resolving Arlene infection on her right middle finger. On exam today I do not believe patient has any active infection. She has a large eschar the radial aspect of the right middle finger DIP. Restart Enbrel 50 mg weekly. Advised patient to stop Medrol 2 mg after 2 weeks Labs before next visit in 3 months (2) Finger mass, right: Code(s): R22.31 - Localized swelling, mass and lump, right upper limb Plan: Patient has an eschar on the radial aspect of the right 3rd finger DIP, the eschar has enlarged. There are no signs of infection. Will refer patient to wound care. Advised patient to let us know if the wound becomes painful, draining or she starts getting a fever Plan I spent 27 minutes reviewing patient's chart, evaluating patient, ordering diagnostic workup, counseling patient and documenting in the chart Orders: Orders 2 Complete Blood Count Auto Diff 3 Months M06.9 - Rheumatoid arthritis, unspecified C Reactive Protein 3 Months M06.9 - Rheumatoid arthritis, unspecified Comprehensive Met. Panel 3 Months M06.9 - Rheumatoid arthritis, unspecified Erythrocyte Sedimentation Rate 3 Months M06.9 - Rheumatoid arthritis, unspecified Referrals 2 Wound Care Referral L03.011 - Cellulitis of right finger Coding Level of Care Code Est Pt Level 4 (13716) Diagnoses Rheumatoid arthritis of multiple sites with negative rheumatoid factor M06.09 Rheumatoid arthritis location: multiple sites Rheumatoid factor presence: without rheumatoid factor Finger mass, right R22.31
== END 2023-01-29 09:48 | disposition home or self-care (01) ==
PROVIDERS: PCP Student in an Organized Health Care Education/Training Program; Visit Provider Student in an Organized Health Care Education/Training Program
DX: M06.09 Rheumatoid arthritis without rheumatoid factor, multiple sites (principal); R22.31 Localized swelling, mass and lump, right upper limb
CPT/HCPCS: 99214

== ENCOUNTER → 2023-01-29 08:52 | Outpatient (BNVA) | payer MEDICAID, SELFPAY | PROVIDERS: PCP Student in an Organized Health Care Education/Training Program; Visit Provider Student in an Organized Health Care Education/Training Program | DX: M06.09 Rheumatoid arthritis without rheumatoid factor, multiple sites (principal); R22.31 Localized swelling, mass and lump, right upper limb | CPT/HCPCS: 99212 ==

== ENCOUNTER 2023-04-29 12:51 | Outpatient (REF) | payer MEDICAID, SELFPAY ==
[2023-04-29 13:03] LABS: MANUAL DIFF FLAG NO
[2023-04-29 14:07] LABS: Basophils Percent Auto 0.3 % (0-2); Eosinophils Absolute Auto 0.2 X10*3/uL (0.0-0.4); Eosinophils Percent Auto 2.8 % (0-4); Hematocrit 32.9 % (37.0-47.0); Hemoglobin 10.4 g/dl (12.0-16.0); Imm Gran Abs Auto 0.02 X10*3/uL (0.00-0.03); Imm Gran Pct Auto 0.3 % (0.0-0.4); Lymphocytes Absolute Auto 1.7 X10*3/uL (1.2-4.9); Lymphocytes Percent Auto 21.7 % (20-40); Mean Corpuscular HGB Conc 31.6 g/dl (31.0-35.0); Mean Corpuscular Hemoglobin 27.8 pg (27.0-33.0); Mean Platelet Volume 9.2 fL (9.4-12.3); Monocytes Absolute Auto 0.6 X10*3/uL (0.1-1.2); Monocytes Percent Auto 7.8 % (2-11); Neutrophils Absolute Auto 5.3 x10*3/uL (2.0-8.3); Neutrophils Percent Auto 67.1 % (45-73); Platelet Count 143 X10*3/uL (160-400); Red Blood Count 3.74 X10*6/uL (4.20-5.50); Red Cell Distribution Width 15.8 % (11.0-16.0); White Blood Count 7.8 X10*3/uL (4.8-10.8)
[2023-04-29 14:41] LABS: Alanine Aminotransferase 42 U/L (0-31); Alkaline Phosphatase 71 U/L (39-117); Anion Gap 10 (12-20); Aspartate Amino Transferase 37 U/L (5-31); Bilirubin Total 0.4 mg/dL (0.0-1.0); Blood Urea Nitrogen 11 mg/dL (9-16); C Reactive Protein 2.73 mg/dL (< or = 0.50); Calcium 9.3 mg/dL (8.4-10.2); Carbon Dioxide 27 mmol/L (22-29); Chloride 108 mmol/L (96-108); Estimated Glomerular Filt Rate > 60; Glucose Random 85 mg/dL (60-115); Potassium 3.5 mmol/L (3.3-5.1); Sodium 141 mmol/L (135-145); Total Protein 7.6 g/dL (6.5-8.0)
[2023-04-29 14:50] LABS: Erythrocyte Sedimentation Rate 46 MM/HR (0-20)
== END 2023-04-29 12:52 | disposition home or self-care (01) ==
LOC: HO.LAB 12:51
PROVIDERS: PCP Student in an Organized Health Care Education/Training Program; Visit Provider Student in an Organized Health Care Education/Training Program
DX: M06.9 Rheumatoid arthritis, unspecified (principal)
CPT/HCPCS: 36415; 80053; 85025; 85652; 86140

== ENCOUNTER 2023-04-30 13:30 | Outpatient (AMB) | payer MEDICAID, SELFPAY ==
--- NOTE | 2023-04-30 13:37 | A.OFFVIS_ITS ---
Intake Vital Signs 3 04/30/23 13:38 Height 5 ft 2 in Weight 136 lb 14.513 oz BMI 25.0 BP 122/68 Blood Pressure Location Rt brachial Position Sitting Intake Visit Reasons: RA/CONFIRMED Intake Note: Patient last seen 01/29/23 presents today for follow up and test results. Journeyman Electrician Pv Installer Required: Yes Journeyman Electrician Pv Installer Language: Visitor Services Specialist Name: [id number] Accompanied by: Self / Same As Patient Allergies No Known Allergies Allergy (Verified 04/30/23 13:42) Medication List - Last Reconciled 04/30/23 by Yahaira Sutherland MD acetaminophen 500 mg PO Q6H PRN ascorbic acid (vitamin C) 250 mg PO QAM Enbrel SureClick (etanercept) 50 mg subcut QWEEK NS famotidine 20 mg PO DAILY PRN ferrous sulfate (FeroSul) 325 mg PO QAM folic acid 1 mg PO QAM melatonin 3 mg PO BEDTIME PRN meloxicam mg PO methylprednisolone (Medrol) 2 mg PO DAILY silver sulfadiazine 1% (Silvadene) 1 appl topical BID HPI HPI Comments 2 History of Present Illness0 Details 47-year-old female with seronegative RA returns for follow-up. She states that she has been doing fairly well overall. She was having a healing wound on the tip of her right 3rd finger., when she went to [place] it healed, when she came back to [place] the wound opened up and is a little painful. She states that she is doing fairly well in terms of her arthritis. She continues to take Enbrel regularly. Initial history: This is a 47-year-old female with seronegative RA who presents as a new patient. She recently moved from [place]. She states that she was diagnosed with rheumatoid arthritis back in 2016. She was on methotrexate briefly and it was discontinued due to GI upset. She had been on Enbrel since 2017 and it is effective. She states that her joint pain is well controlled overall. She takes 2 mg of Medrol sporadically about once a week as needed for joint pain and fatigue. States that over last 2 weeks she noticed a painful mass on the radial aspect of her right middle finger. She was prescribed antibiotics by her PCP and it was not helpful. She denies any trauma to the finger. Mentions that her maternal uncle has RA. She denies any history of DVT/PE. Denies any fatigue or weight loss. [facility] Medical History Rheumatoid arthritis Surgical History History of partial hysterectomy Hx of cholecystectomy Family History Mother History of mastectomy, total HX: breast cancer Diabetes Hypertension Father No problems noted. Maternal Uncle Rheumatoid arthritis Social History Alcohol intake: never Patient Tobacco Use Status: Never used Tobacco Review of Systems Card Reports no additional complaints and Denies dyspnea Resp Denies cough and Denies dyspnea Musc Denies arthralgias and Denies joint swelling Skin/Breast Reports new lesions and Reports skin swelling Physical Exam Vital Signs: Last Vital Signs BP 122/68 04/30/23 13:38 BMI result Body Mass Index 25.0 Const General: cooperative, healthy appearing and comfortable Nutritional Appearance: overweight Orientation/consciousness: patient oriented x3 Limitations: no limitations HEENT Head: Yes normocephalic and Yes atraumatic Mouth: moist mucous membranes Resp Effort & Inspection: normal respiratory effort and able to speak in complete sentences Auscultation: clear to auscultation bilaterally Cardio Rate: regular rate Rhythm: regular rhythm Heart sounds: S1 normal heart sound present and S2 normal heart sound present GI Inspection: No distended Palpation (GI): Soft to palpation and nontender Skin Other: Neuro Other: No active synovitis General: patient oriented x3 Extrem Other: Clear Raynaud's affecting right 3rd and 4th digits with cool tips and bluish discoloration Closed wound on right 3rd digital tip. Mildly tender to palpation, no erythema. No discharge Left 4th PIP swelling without tenderness Results Reviewed Results Reviewed: Labs 10/2020 CRP 2.28 nl <0.5 ESR 60 Assessment & Plan Assessment & Plan (1) Rheumatoid arthritis: Comment: -ve RF -ve CCP dx 2016 MTX 2016 ineffective and caused GI upset Enbrel 2017 effective Code(s): M06.9 - Rheumatoid arthritis, unspecified Qualifiers: Rheumatoid arthritis location: multiple sites Rheumatoid factor presence: without rheumatoid factor Qualified Code(s): M06.09 - Rheumatoid arthritis without rheumatoid factor, multiple sites Plan: This is a 47-year-old female with seronegative RA who presents for follow-up. Doing well overall on Enbrel 50 mg weekly. She gets intermittent swollen joints. Patient was prescribed Medrol 2 mg daily before. She does not want to take anymore Medrol. Can take meloxicam 7.5 mg twice daily as needed for joint pain or swelling Labs before next visit in 3 months (2) Raynaud's disease: Code(s): I73.00 - Raynaud's syndrome without gangrene Qualifiers: Raynaud?s-associated gangrene presence: without gangrene Qualified Code(s): I73.00 - Raynaud's syndrome without gangrene Plan: Patient has clear Raynaud's on exam today. Digital tip ulceration likely related to Raynaud's. Symptoms improved when in [place] and worsened when back in [facility] Discussed Raynaud's and different management strategies including keeping core and extremity temperature form. Using gloves, glove warmers. Start amlodipine 2.5 mg daily for 1 week then stay on 5 mg daily Use Silvadene on any open wounds Use cloth based Band-Aids Will check scleroderma antibodies (3) HANNAH positive: Code(s): R76.8 - Other specified abnormal immunological findings in serum Plan: Will check further sub serologies Plan I spent 46 minutes reviewing patient's chart, evaluating patient, ordering diagnostic workup, counseling patient and documenting in the chart Orders: Orders 2 Comprehensive Met. Panel 3 Months M60.9 - Myositis, unspecified MSA Panel Extended 3 Months M60.9 - Myositis, unspecified Anti DNA DS Antibody 3 Months M32.9 - Systemic lupus erythematosus, unspecified DNA Double Stranded-Crithidia 3 Months M32.9 - Systemic lupus erythematosus, unspecified UA w Microscopic 3 Months M32.9 - Systemic lupus erythematosus, unspecified Scleroderma 12 Panel 3 Months M34.9 - Systemic sclerosis, unspecified Complete Blood Count Auto Diff 3 Months M60.9 - Myositis, unspecified C Reactive Protein 3 Months M60.9 - Myositis, unspecified Creatine Kinase Total 3 Months M60.9 - Myositis, unspecified Erythrocyte Sedimentation Rate 3 Months M60.9 - Myositis, unspecified Anti Extractable Nuclear Ag 3 Months M32.9 - Systemic lupus erythematosus, unspecified Complement C3 3 Months M32.9 - Systemic lupus erythematosus, unspecified Complement C4 3 Months M32.9 - Systemic lupus erythematosus, unspecified Protein Creatinine Ratio, Ur 3 Months M32.9 - Systemic lupus erythematosus, unspecified Sjogren's Antibodies 3 Months M32.9 - Systemic lupus erythematosus, unspecified Medications: New 2 meloxicam 7.5 mg PO BID PRN 30 tabs 1RF pain (scale score 7-10) silver sulfadiazine 1% (Silvadene) apply a 1.5 mm thickness 1 appl topical BID 20 grams 1RF amlodipine Take 1 tab daily for 1 week then 2 tabs daily 180 tabs 0RF Coding Level of Care Code Est Pt Level 4 (81946) Diagnoses Rheumatoid arthritis of multiple sites with negative rheumatoid factor M06.09 Rheumatoid arthritis location: multiple sites Rheumatoid factor presence: without rheumatoid factor Raynaud's disease without gangrene I73.00 Raynaud?s-associated gangrene presence: without gangrene HANNAH positive R76.8
[2023-04-30 13:38] VITALS: BP 122/68; BMI 25.0
== END 2023-04-30 14:10 | disposition home or self-care (01) ==
PROVIDERS: PCP Student in an Organized Health Care Education/Training Program; Visit Provider Student in an Organized Health Care Education/Training Program
DX: M06.09 Rheumatoid arthritis without rheumatoid factor, multiple sites (principal); I73.00 Raynaud's syndrome without gangrene; R76.8 Other specified abnormal immunological findings in serum
CPT/HCPCS: 99214

== ENCOUNTER → 2023-04-30 13:30 | Outpatient (BNVA) | payer MEDICAID, SELFPAY | PROVIDERS: PCP Student in an Organized Health Care Education/Training Program; Visit Provider Student in an Organized Health Care Education/Training Program | DX: M06.09 Rheumatoid arthritis without rheumatoid factor, multiple sites (principal); I73.00 Raynaud's syndrome without gangrene; R76.8 Other specified abnormal immunological findings in serum | CPT/HCPCS: 99212 ==

== ENCOUNTER 2023-05-26 10:18 | Outpatient (REF) | payer MEDICAID, SELFPAY ==
[2023-05-26 11:34] LABS: MANUAL DIFF FLAG NO
[2023-05-26 11:55] LABS: Basophils Percent Auto 0.2 % (0-2); Eosinophils Absolute Auto 0.3 X10*3/uL (0.0-0.4); Eosinophils Percent Auto 3.1 % (0-4); Hematocrit 35.3 % (37.0-47.0); Hemoglobin 10.9 g/dl (12.0-16.0); Imm Gran Abs Auto 0.02 X10*3/uL (0.00-0.03); Imm Gran Pct Auto 0.2 % (0.0-0.4); Lymphocytes Percent Auto 24.5 % (20-40); Mean Corpuscular HGB Conc 30.9 g/dl (31.0-35.0); Mean Corpuscular Hemoglobin 27.6 pg (27.0-33.0); Mean Corpuscular Volume 89.4 fL (80.0-98.0); Mean Platelet Volume 9.8 fL (9.4-12.3); Monocytes Absolute Auto 0.5 X10*3/uL (0.1-1.2); Monocytes Percent Auto 5.7 % (2-11); Neutrophils Absolute Auto 5.4 x10*3/uL (2.0-8.3); Neutrophils Percent Auto 66.3 % (45-73); Platelet Count 136 X10*3/uL (160-400); Red Blood Count 3.95 X10*6/uL (4.20-5.50); White Blood Count 8.1 X10*3/uL (4.8-10.8)
[2023-05-26 11:59] LABS: Appearance Urine Cloudy; Color Urine Yellow; Glucose Urine UA Negative (Negative); Leukocyte Esterase Urine Trace (Negative); Nitrite Urine Negative (Negative); PH 5.5 (5.0-9.0); Specific Gravity - Urine 1.025 (1.005-1.025); UMIC TRIGGER UA YES; Urine Blood Negative (Negative); Urine Ketones Negative (Negative); Urine Protein Negative (Neg-Trace)
[2023-05-26 12:08] LABS: Bacteria Urine 1+ (None Seen); Hyaline Casts Urine 0-2 /LPF (0-2); RBC Urine 0-2 /HPF (0-2)
[2023-05-26 12:54] LABS: Erythrocyte Sedimentation Rate 49 MM/HR (0-20)
[2023-05-26 16:47] LABS: Alanine Aminotransferase 52 U/L (0-31); Albumin Level 4.1 g/dL (3.5-5.0); Alkaline Phosphatase 63 U/L (39-117); Anion Gap 13 (12-20); Aspartate Amino Transferase 40 U/L (5-31); Bilirubin Total 0.3 mg/dL (0.0-1.0); Blood Urea Nitrogen 11 mg/dL (9-16); C Reactive Protein 2.03 mg/dL (< or = 0.50); Calcium 9.5 mg/dL (8.4-10.2); Carbon Dioxide 26 mmol/L (22-29); Chloride 107 mmol/L (96-108); Estimated Glomerular Filt Rate > 60; Glucose Random 87 mg/dL (60-115); Potassium 3.9 mmol/L (3.3-5.1); Sodium 142 mmol/L (135-145)
[2023-05-26 20:34] LABS: Creatinine Urine 205.58 mg/dL; Protein/Creatinine Ratio, Ur 0.05 (<0.2); Total Protein Urine Random 11 mg/dL (<12)
[2023-05-27 19:38] LABS: Anti DNA DS Antibody <1 IU/mL; Antibody to SS-A Antigen 3.1 POS AI (<1.0 NEG); Antibody to SS-B Antigen <1.0 NEG AI (<1.0 NEG); SM/Ribonucleoprotein Ab <1.0 NEG AI (<1.0 NEG); Smith Protein <1.0 NEG AI (<1.0 NEG)
[2023-05-28 14:33] LABS: Complement C3 110 mg/dL (83-193)
[2023-05-31 13:27] LABS: DNAds, Crithidia Antibody Negative (Negative)
[2023-06-04 18:14] LABS: Centromere Protein A Ab <11 SI (<11); Centromere Protein B Ab <11 SI (<11); Fibrillarin Ab <11 SI (<11); PM SCL 100 Ab <11 SI (<11); PM SCL 75 Ab <11 SI (<11); RNA Polymerase III RP11 Ab <11 SI (<11); RNA Polymerase III RP155 Ab <11 SI (<11); SCL-70 Extractable Nuclear Ab <11 SI (<11); Th-To Ab <11 SI (<11); U1 SNRNP RNP 70KD <11 SI (<11); U1 SNRNP RNP A <11 SI (<11); U1 SNRNP RNP C <11 SI (<11)
[2023-06-07 19:04] LABS: Cytosolic 5'nuc 1A Ab IgG 7 Units; Ej Ab <11 SI (<11); HMGCR Ab IgG <2 CU (<20); Jo-1 Ab <11 SI (<11); MDA5 Ab <11 SI (<11); Mi-2 alpha Ab <11 SI (<11); Mi-2 beta Ab <11 SI (<11); NXP-2 (MJ) Ab <11 SI (<11); Oj Ab <11 SI (<11); Pl-12 Ab <11 SI (<11); SRP Ab <11 SI (<11); TIF1 gamma Ab <11 SI (<11)
[2023-06-12 12:48] LABS: Pl-7 Ab 80
== END 2023-05-26 10:19 | disposition home or self-care (01) ==
LOC: HO.HHCL 10:18
PROVIDERS: Visit Provider Student in an Organized Health Care Education/Training Program
DX: M32.9 Systemic lupus erythematosus, unspecified (principal); M34.9 Systemic sclerosis, unspecified
CPT/HCPCS: 36415; 80053; 81001; 82550; 82570; 83516; 83520; 84156; 84182; 85025; 85652; 86140; 86160; 86225; 86235; 86255

== ENCOUNTER 2023-05-27 09:15 | Outpatient (AMB) | payer MEDICAID, SELFPAY ==
[2023-05-27 09:22] VITALS: BP 112/68; BMI 25.1
--- NOTE | 2023-05-27 09:22 | MHC.OFFVIS ---
Intake Vital Signs 05/27/23 09:22 Height 5 ft 2 in Weight 137 lb 5.568 oz BMI 25.1 BP 112/68 Blood Pressure Location Rt brachial Position Sitting Pulse Source Pulse Oximeter Oxygen Delivery Method Room Air Intake Visit Reasons: RA Intake Note: Pt seen today with complaints of R hand pain and swelling. Senior Product Integrity Engineer Required: Yes Senior Product Integrity Engineer Language: Char Conveyor Tender Cellar Name: [email or web address] Information Interpreted: clinical only Accompanied by: Self / Same As Patient Allergies No Known Allergies Allergy (Verified 05/27/23 09:24) Medication List - Last Reconciled 05/27/23 by Yahaira Sutherland MD acetaminophen 500 mg PO Q6H PRN ascorbic acid (vitamin C) 250 mg PO QAM Enbrel SureClick (etanercept) 50 mg subcut QWEEK NS famotidine 20 mg PO DAILY PRN ferrous sulfate (FeroSul) 325 mg PO QAM folic acid 1 mg PO QAM melatonin 3 mg PO BEDTIME PRN meloxicam 7.5 mg PO BID PRN silver sulfadiazine 1% (Silvadene) 1 appl topical BID HPI HPI Comments History of Present Illness Details 47-year-old female with seronegative RA returns for follow-up. Patient called last week due to swelling of her left hand. She had been recently started on amlodipine by me. She was advised to reduce her amlodipine to 2.5 mg daily. She stated that the swelling of her left hand improved. She denies any swelling of her ankles. Wounds on her fingertips improving Initial history: This is a 47-year-old female with seronegative RA who presents as a new patient. She recently moved from [place]. She states that she was diagnosed with rheumatoid arthritis back in 2016. She was on methotrexate briefly and it was discontinued due to GI upset. She had been on Enbrel since 2017 and it is effective. She states that her joint pain is well controlled overall. She takes 2 mg of Medrol sporadically about once a week as needed for joint pain and fatigue. States that over last 2 weeks she noticed a painful mass on the radial aspect of her right middle finger. She was prescribed antibiotics by her PCP and it was not helpful. She denies any trauma to the finger. Mentions that her maternal uncle has RA. She denies any history of DVT/PE. Denies any fatigue or weight loss. [facility] Medical History Rheumatoid arthritis Surgical History History of partial hysterectomy Hx of cholecystectomy Family History Mother History of mastectomy, total HX: breast cancer Diabetes Hypertension Father No problems noted. Maternal Uncle Rheumatoid arthritis Social History Alcohol intake: never Patient Tobacco Use Status: Never used Tobacco Review of Systems [facility] Denies arthralgias and Reports joint swelling Physical Exam Vital Signs: Last Vital Signs BP 112/68 05/27/23 09:22 Oxygen Delivery Method Room Air 05/27/23 09:22 BMI result Body Mass Index 25.1 Const General: cooperative, healthy appearing and comfortable Nutritional Appearance: overweight Orientation/consciousness: patient oriented x3 Limitations: no limitations HEENT Head: Yes normocephalic and Yes atraumatic Mouth: moist mucous membranes Resp Effort & Inspection: normal respiratory effort and able to speak in complete sentences Skin Other: Wounds on her fingertips closed Neuro Other: No active synovitis General: patient oriented x3 Extrem Other: Mild right wrist swelling and pain with flexion and extension Tenderness along the right 3rd extensor tendon Left 3rd PIP swelling without much tenderness No ankle pitting edema Assessment & Plan Assessment & Plan (1) Rheumatoid arthritis: Comment: -ve RF -ve CCP dx 2016 MTX 2016 ineffective and caused GI upset Enbrel 2017 partially effective Code(s): M06.9 - Rheumatoid arthritis, unspecified Qualifiers: Rheumatoid arthritis location: multiple sites Rheumatoid factor presence: without rheumatoid factor Qualified Code(s): M06.09 - Rheumatoid arthritis without rheumatoid factor, multiple sites Plan: This is a 47-year-old female with seronegative RA who presents for follow-up. On Enbrel 50 mg weekly. Does not take Medrol or meloxicam. On exam patient has multiple swollen joints, inflammatory markers remain elevated. Will need to switch DMARDs. Discussed risks and benefits of Humira. Patient agreed to proceed. Will start prior authorization for Humira Labs before next visit in 2 months (2) Raynaud's disease: Code(s): I73.00 - Raynaud's syndrome without gangrene Qualifiers: Raynaud?s-associated gangrene presence: without gangrene Qualified Code(s): I73.00 - Raynaud's syndrome without gangrene Plan: Raynaud's symptoms improving. Wounds have healed. Patient called last week complaining of left hand swelling. On exam however this seems like an RA flare rather than edema from amlodipine. Patient is back to 2.5 mg daily which is not effective for Raynaud's. The weather has warmed up. Patient can discontinue amlodipine for now and we will watch her symptoms Discussed Raynaud's and different management strategies including keeping core and extremity temperature form. Using gloves, glove warmers. Use Silvadene on any open wounds Use cloth based Band-Aids scleroderma antibodies pending (3) HANNHA positive: Code(s): R76.8 - Other specified abnormal immunological findings in serum Plan: Will check further sub serologies Plan I spent 46 minutes reviewing patient's chart, evaluating patient, ordering diagnostic workup, counseling patient and documenting in the chart Orders: Orders Comprehensive Met. Panel 2 Months M06.09 - Rheumatoid arthritis without rheumatoid factor, multiple sites Erythrocyte Sedimentation Rate 2 Months M06.09 - Rheumatoid arthritis without rheumatoid factor, multiple sites Complete Blood Count Auto Diff 2 Months M06.09 - Rheumatoid arthritis without rheumatoid factor, multiple sites C Reactive Protein 2 Months M06.09 - Rheumatoid arthritis without rheumatoid factor, multiple sites Creatine Kinase Total 2 Months G72.9 - Myopathy, unspecified Coding Level of Care Code Est Pt Level 5 (42214) Diagnoses Rheumatoid arthritis of multiple sites with negative rheumatoid factor M06.09 Rheumatoid arthritis location: multiple sites Rheumatoid factor presence: without rheumatoid factor Raynaud's disease without gangrene I73.00 Raynaud?s-associated gangrene presence: without gangrene HANNAH positive R76.8
== END 2023-05-27 09:50 | disposition home or self-care (01) ==
PROVIDERS: PCP Student in an Organized Health Care Education/Training Program; Visit Provider Student in an Organized Health Care Education/Training Program
DX: M06.09 Rheumatoid arthritis without rheumatoid factor, multiple sites (principal); I73.00 Raynaud's syndrome without gangrene; R76.8 Other specified abnormal immunological findings in serum
CPT/HCPCS: 99215

== ENCOUNTER → 2023-05-27 09:15 | Outpatient (BNVA) | payer MEDICAID, SELFPAY | PROVIDERS: PCP Student in an Organized Health Care Education/Training Program; Visit Provider Student in an Organized Health Care Education/Training Program | DX: M06.09 Rheumatoid arthritis without rheumatoid factor, multiple sites (principal); R76.8 Other specified abnormal immunological findings in serum; I73.00 Raynaud's syndrome without gangrene | CPT/HCPCS: 99212 ==

== ENCOUNTER 2023-06-15 08:00 | Outpatient (REF) | payer MEDICAID, SELFPAY ==
--- NOTE | ~2023-06-15 | US_ITS ---
EXAMINATION: US ABDOMEN COMPLETE CLINICAL INFORMATION: Transaminitis. COMPARISON: None available. TECHNIQUE: Real-time imaging of the abdominal viscera. FINDINGS: PANCREAS: Obscured by bowel gas. ABDOMINAL AORTA: The proximal, mid, and distal segments are normal in caliber. INFERIOR VENA CAVA: Visualized portions are normal. LIVER: The liver is normal in size. The liver contour is normal. There is diffuse increased liver parenchymal echogenicity, most commonly hepatic steatosis. No focal hepatic lesion. There is no intrahepatic biliary duct dilatation seen. GALLBLADDER: Surgically absent. COMMON BILE DUCT: Normal in caliber measuring 0.2 cm in diameter. RIGHT KIDNEY: Normal. No hydronephrosis. No renal calculi or focal parenchymal lesions. The kidney measures 8.9 cm in maximum dimension. LEFT KIDNEY: Normal. No hydronephrosis. No renal calculi or focal parenchymal lesions. The kidney measures 10.6 cm in maximum dimension. SPLEEN: Normal. The spleen measures 10.5 cm in maximum dimension. FREE FLUID: None. US/US abdomen complete IMPRESSION: Diffuse increased liver parenchymal echogenicity most commonly due to hepatic steatosis, but other chronic hepatocellular disease can have a similar ultrasound appearance. No biliary ductal dilatation.
== END 2023-06-15 08:01 | disposition home or self-care (01) ==
LOC: HO.US 08:00
PROVIDERS: PCP Student in an Organized Health Care Education/Training Program; Visit Provider Student in an Organized Health Care Education/Training Program
DX: R74.01 Elevation of levels of liver transaminase levels (principal)
CPT/HCPCS: 76700

== ENCOUNTER 2023-06-22 14:38 | Outpatient (REF) | payer MEDICAID, SELFPAY ==
[2023-06-22 17:27] LABS: MANUAL DIFF FLAG NO
[2023-06-22 17:41] LABS: Basophils Percent Auto 0.3 % (0-2); Eosinophils Absolute Auto 0.5 X10*3/uL (0.0-0.4); Eosinophils Percent Auto 6.9 % (0-4); Hematocrit 31.6 % (37.0-47.0); Hemoglobin 9.8 g/dl (12.0-16.0); Imm Gran Abs Auto 0.02 X10*3/uL (0.00-0.03); Imm Gran Pct Auto 0.3 % (0.0-0.4); Lymphocytes Absolute Auto 1.3 X10*3/uL (1.2-4.9); Lymphocytes Percent Auto 19.6 % (20-40); Mean Corpuscular Hemoglobin 28.3 pg (27.0-33.0); Mean Corpuscular Volume 91.3 fL (80.0-98.0); Mean Platelet Volume 10.9 fL (9.4-12.3); Monocytes Absolute Auto 0.4 X10*3/uL (0.1-1.2); Monocytes Percent Auto 5.1 % (2-11); Neutrophils Absolute Auto 4.6 x10*3/uL (2.0-8.3); Neutrophils Percent Auto 67.8 % (45-73); Platelet Count 100 X10*3/uL (160-400); Red Blood Count 3.46 X10*6/uL (4.20-5.50); Red Cell Distribution Width 15.5 % (11.0-16.0); White Blood Count 6.8 X10*3/uL (4.8-10.8)
[2023-06-22 17:51] LABS: Alanine Aminotransferase 89 U/L (0-31); Albumin Level 3.6 g/dL (3.5-5.0); Alkaline Phosphatase 65 U/L (39-117); Aspartate Amino Transferase 52 U/L (5-31); Bilirubin Direct 0.1 mg/dL (0.0-0.5); Bilirubin Total 0.3 mg/dL (0.0-1.0); Total Protein 7.4 g/dL (6.5-8.0)
[2023-06-22 18:31] LABS: Erythrocyte Sedimentation Rate 60 MM/HR (0-20)
[2023-06-23 08:36] LABS: HBS Num1 0.68 mIU/mL (0-7.99); HBc Num1 0.15 S/CO (0.00-0.79); HBsAGNum1 0.18 S/CO (0.00-0.99); Hepatitis A Antibody IgM 0.09 Index (0-0.79); Hepatitis B Core Antibody Nonreactive (Nonreactive); Hepatitis B Surface Antigen Negative (Negative); ~HepC Num1 0.18 S/CO (0.00-0.79); ~Hepatitis A Antibody IgM Nonreactive (Nonreactive); ~Hepatitis B Surface Antibody NONREACTIVE (Nonreactive); ~Hepatitis C Antibody Nonreactive (Nonreactive)
== END 2023-06-22 14:39 | disposition home or self-care (01) ==
LOC: HO.HHCL 14:38
PROVIDERS: Visit Provider Internal Medicine
DX: M65.9 Synovitis and tenosynovitis, unspecified (principal)
CPT/HCPCS: 36415; 80076; 85025; 85652; 86704; 86706; 86709; 86803; 87340

== ENCOUNTER 2023-07-07 08:28 | Outpatient (REF) | payer MEDICAID, SELFPAY ==
[2023-07-07 11:52] LABS: Hematocrit 33.6 % (37.0-47.0); Hemoglobin 10.5 g/dl (12.0-16.0); Mean Corpuscular HGB Conc 31.3 g/dl (31.0-35.0); Mean Corpuscular Hemoglobin 28.4 pg (27.0-33.0); Mean Corpuscular Volume 90.8 fL (80.0-98.0); Mean Platelet Volume 10.3 fL (9.4-12.3); Platelet Count 138 X10*3/uL (160-400); Red Cell Distribution Width 15.9 % (11.0-16.0); White Blood Count 7.1 X10*3/uL (4.8-10.8)
[2023-07-07 12:10] LABS: Alanine Aminotransferase 104 U/L (0-31); Alkaline Phosphatase 69 U/L (39-117); Anion Gap 10 (12-20); Aspartate Amino Transferase 64 U/L (5-31); Bilirubin Total 0.2 mg/dL (0.0-1.0); Blood Urea Nitrogen 8 mg/dL (9-16); Calcium 9.5 mg/dL (8.4-10.2); Carbon Dioxide 28 mmol/L (22-29); Chloride 107 mmol/L (96-108); Cholesterol 166 mg/dL (<200); Estimated Glomerular Filt Rate > 60; Glucose Random 90 mg/dL (60-115); HDL Cholesterol 39 mg/dL (>40); Iron 50 mcg/dL (30-160); LDL Cholesterol Calculated 105 mg/dL (<100); Percent Iron Saturation 24 % (15-50); Potassium 3.7 mmol/L (3.3-5.1); Sodium 141 mmol/L (135-145); Total Iron Binding Capacity 211 mcg/dL (228-428); Total Protein 7.7 g/dL (6.5-8.0); Triglycerides 112 mg/dL (<150); Unsaturated Iron Binding 161 ug/dL
[2023-07-07 12:28] LABS: Ferritin 57 ng/mL (10-250)
== END 2023-07-07 08:29 | disposition home or self-care (01) ==
LOC: HO.HHCL 08:28
PROVIDERS: Visit Provider Student in an Organized Health Care Education/Training Program
DX: D64.9 Anemia, unspecified (principal); B35.1 Tinea unguium
CPT/HCPCS: 36415; 80053; 80061; 82728; 83540; 85027

== ENCOUNTER 2023-07-20 10:17 | Outpatient (REF) | payer MEDICAID, SELFPAY ==
[2023-07-20 10:30] LABS: MANUAL DIFF FLAG NO
[2023-07-20 10:51] LABS: Basophils Percent Auto 0.4 % (0-2); Eosinophils Absolute Auto 0.1 X10*3/uL (0.0-0.4); Eosinophils Percent Auto 2.4 % (0-4); Hematocrit 32.5 % (37.0-47.0); Hemoglobin 10.1 g/dl (12.0-16.0); Imm Gran Abs Auto 0.02 X10*3/uL (0.00-0.03); Imm Gran Pct Auto 0.4 % (0.0-0.4); Lymphocytes Absolute Auto 1.3 X10*3/uL (1.2-4.9); Lymphocytes Percent Auto 23.6 % (20-40); Mean Corpuscular HGB Conc 31.1 g/dl (31.0-35.0); Mean Corpuscular Hemoglobin 28.1 pg (27.0-33.0); Mean Corpuscular Volume 90.3 fL (80.0-98.0); Mean Platelet Volume 10.2 fL (9.4-12.3); Monocytes Absolute Auto 0.3 X10*3/uL (0.1-1.2); Monocytes Percent Auto 5.3 % (2-11); Neutrophils Absolute Auto 3.7 x10*3/uL (2.0-8.3); Neutrophils Percent Auto 67.9 % (45-73); Platelet Count 148 X10*3/uL (160-400); Red Cell Distribution Width 15.8 % (11.0-16.0); White Blood Count 5.5 X10*3/uL (4.8-10.8)
[2023-07-20 11:13] LABS: Alanine Aminotransferase 85 U/L (0-31); Albumin Level 3.7 g/dL (3.5-5.0); Alkaline Phosphatase 70 U/L (39-117); Anion Gap 9 (12-20); Aspartate Amino Transferase 61 U/L (5-31); Bilirubin Total 0.3 mg/dL (0.0-1.0); Blood Urea Nitrogen 7 mg/dL (9-16); C Reactive Protein 3.37 mg/dL (< or = 0.50); Calcium 9.6 mg/dL (8.4-10.2); Carbon Dioxide 28 mmol/L (22-29); Chloride 109 mmol/L (96-108); Estimated Glomerular Filt Rate > 60; Glucose Random 88 mg/dL (60-115); Potassium 3.8 mmol/L (3.3-5.1); Sodium 142 mmol/L (135-145); Total Protein 7.5 g/dL (6.5-8.0)
[2023-07-20 11:34] LABS: Erythrocyte Sedimentation Rate 54 MM/HR (0-20)
[2023-07-21 10:44] LABS: Alpha 1 Anti-trypsin 181 mg/dL (83-199); Ceruloplasmin 28 mg/dL (14-48); IgA 350 mg/dL (47-310); IgG 1568 mg/dL (600-1640); IgM 104 mg/dL (50-300)
[2023-07-21 20:08] LABS: Myeloperoxidase Antibody <1.0 AI; Proteinase 3 PR3 Antibodies <1.0 AI
[2023-07-23 12:33] LABS: Anti Nuclear Antibody Screen POSITIVE (NEGATIVE)
[2023-07-23 12:52] LABS: Mitochondrial Antibodies NEGATIVE (NEGATIVE)
[2023-07-24 22:48] LABS: Smooth Muscle Antibody <20 U (<20)
[2023-07-27 04:15] LABS: Liver Kidney Microsomal Ab <=20.0 U (<=20.0)
== END 2023-07-20 10:18 | disposition home or self-care (01) ==
LOC: HO.LAB 10:17
PROVIDERS: Absent Provider Student in an Organized Health Care Education/Training Program; PCP Student in an Organized Health Care Education/Training Program; Visit Provider Student in an Organized Health Care Education/Training Program
DX: R74.01 Elevation of levels of liver transaminase levels (principal); M06.09 Rheumatoid arthritis without rheumatoid factor, multiple sites; G72.9 Myopathy, unspecified; L98.9 Disorder of the skin and subcutaneous tissue, unspecified
CPT/HCPCS: 36415; 80053; 82103; 82390; 82550; 82595; 82784; 85025; 85652; 86015; 86021; 86038; 86039; 86140; 86376; 86381

== ENCOUNTER 2023-07-22 12:56 | Outpatient (REF) | payer MEDICAID, SELFPAY ==
[2023-07-29 22:49] LABS: Cryoglobulin, Qual Negative (Negative)
== END 2023-07-22 12:57 | disposition home or self-care (01) ==
LOC: HO.LAB 12:56
PROVIDERS: PCP Student in an Organized Health Care Education/Training Program; Visit Provider Student in an Organized Health Care Education/Training Program
DX: R74.01 Elevation of levels of liver transaminase levels (principal)
CPT/HCPCS: 36415; 82595

== ENCOUNTER 2023-07-27 14:09 | Outpatient (AMB) | payer MEDICAID, SELFPAY ==
--- NOTE | 2023-07-27 14:15 | MHC.OFFVIS ---
Vital Signs 07/27/23 14:16 Height 5 ft 2 in Weight 138 lb 10.732 oz BMI 25.4 BP 118/64 Blood Pressure Location Rt brachial Position Sitting Pulse 98 Pulse Source Pulse Oximeter Pulse Oximetry (%) 100 Oxygen Delivery Method Room Air Intake Visit Reasons: RA/MCTD Intake Note: Patient last seen 05/27/23 presents today for follow up and test results. Manager Mountain Required: Yes Manager Mountain Language: Skid Road Man Name: Lucie PERKINS # Allergies No Known Allergies Allergy (Verified 07/27/23 14:18) Medication List - Last Reconciled 07/27/23 by Yahaira Sutherland MD acetaminophen 500 mg PO Q6H PRN ascorbic acid (vitamin C) 250 mg PO QAM famotidine 20 mg PO DAILY PRN ferrous sulfate (FeroSul) 325 mg PO QAM folic acid 1 mg PO QAM melatonin 3 mg PO BEDTIME PRN meloxicam 7.5 mg PO BID PRN prednisone 20 mg PO DAILY 28 days silver sulfadiazine 1% (Silvadene) 1 appl topical BID HPI Comments Details: 47-year-old female with seronegative RA returns for follow-up. She did not start Humira as she was not sure how to use the pens. She states that she is doing well overall. Denies any joint pain or swelling. She has having a lesion on her right 4th finger. Feels that she has a wound. She has not sure whether the wound has healed. Denies any skin rashes. Denies any cough or shortness of breath Initial history: This is a 47-year-old female with seronegative RA who presents as a new patient. She recently moved from [place]. She states that she was diagnosed with rheumatoid arthritis back in 2016. She was on methotrexate briefly and it was discontinued due to GI upset. She had been on Enbrel since 2017 and it is effective. She states that her joint pain is well controlled overall. She takes 2 mg of Medrol sporadically about once a week as needed for joint pain and fatigue. States that over last 2 weeks she noticed a painful mass on the radial aspect of her right middle finger. She was prescribed antibiotics by her PCP and it was not helpful. She denies any trauma to the finger. Mentions that her maternal uncle has RA. She denies any history of DVT/PE. Denies any fatigue or weight loss. PFSH Medical History Rheumatoid arthritis Surgical History History of partial hysterectomy Hx of cholecystectomy Family History Mother History of mastectomy, total HX: breast cancer Diabetes Hypertension Father No problems noted. Maternal Uncle Rheumatoid arthritis Social History Alcohol intake: never Patient Tobacco Use Status: Never used Tobacco Female Reproductive History Menstrual Total pregnancies: 3 Number of Living Children: 1 Ab spontaneous: 2 Review of Systems Const Denies fever(s) and Denies weight loss Card Denies dyspnea and Denies dyspnea on exertion Resp Denies cough, Denies dyspnea and Denies dyspnea on exertion Musc Denies arthralgias and Denies joint swelling Skin/Breast Reports wounds Physical Exam Vital Signs: Last Vital Signs Pulse 98 07/27/23 14:16 BP 118/64 07/27/23 14:16 Pulse Ox 100 07/27/23 14:16 Oxygen Delivery Method Room Air 07/27/23 14:16 BMI result Body Mass Index 25.4 Const General: cooperative, healthy appearing and comfortable Nutritional Appearance: overweight Orientation/consciousness: patient oriented x3 Limitations: no limitations HEENT Head: Yes normocephalic and Yes atraumatic Mouth: moist mucous membranes Resp Effort & Inspection: normal respiratory effort and able to speak in complete sentences Skin Other: V neck sign Muscle heliotrope rash Neuro General: patient oriented x3 Extrem Other: Mild right wrist swelling but no pain with flexion and extension Left 3rd PIP swelling without tenderness Negative MCP squeeze test bilaterally No ankle pitting edema Results Reviewed Results Reviewed: Labs 10/2020 CRP 2.28 nl <0.5 ESR 60 Assessment & Plan Assessment & Plan (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 Labs showed positive anti PL [address] antibody. Clinical picture consistent with antisynthetase syndrome. Discussed with patient the nature of the condition with help of Lucie our medical delivery technician. Patient denies any cough or shortness of breath however given the significant association of antisynthetase syndrome with ILD will check HRCT chest. Hold Humira for now. Start prednisone 20 mg daily for 4 weeks. Labs before next visit in 4 weeks Plan I spent 46 minutes reviewing patient's chart, evaluating patient, ordering diagnostic workup, counseling patient and documenting in the chart Orders: Orders Comprehensive Met. Panel 4 Weeks G72.9 - Myopathy, unspecified C Reactive Protein 4 Weeks G72.9 - Myopathy, unspecified Erythrocyte Sedimentation Rate 4 Weeks G72.9 - Myopathy, unspecified Gamma Glutamyl Transpeptidase 4 Weeks G72.9 - Myopathy, unspecified CT chest wo con - High Res Today J84.9 - Interstitial pulmonary disease, unspecified Complete Blood Count Auto Diff 4 Weeks G72.9 - Myopathy, unspecified Creatine Kinase Total 4 Weeks G72.9 - Myopathy, unspecified Medications: New prednisone 20 mg PO DAILY 28 days 28 tabs 0RF Coding Level of Care Code Est Pt Level 4 (49044) Diagnoses Antisynthetase syndrome D89.89
[2023-07-27 14:16] VITALS: BP 118/64; PULSE 98; O2SAT 100; BMI 25.4
== END 2023-07-27 14:32 | disposition home or self-care (01) ==
PROVIDERS: PCP Student in an Organized Health Care Education/Training Program; Referring Provider Student in an Organized Health Care Education/Training Program; Visit Provider Student in an Organized Health Care Education/Training Program
DX: D89.89 Other specified disorders involving the immune mechanism, not elsewhere classified (principal)
CPT/HCPCS: 99214

== ENCOUNTER → 2023-07-27 14:09 | Outpatient (BNVA) | payer MEDICAID, SELFPAY | PROVIDERS: PCP Student in an Organized Health Care Education/Training Program; Visit Provider Student in an Organized Health Care Education/Training Program | DX: D89.89 Other specified disorders involving the immune mechanism, not elsewhere classified (principal) | CPT/HCPCS: 99212 ==

== ENCOUNTER 2023-08-27 07:24 | Outpatient (REF) | payer MEDICAID, SELFPAY ==
--- NOTE | ~2023-08-27 | CT_ITS ---
EXAMINATION: CT CHEST WITHOUT CONTRAST HIGH RESOLUTION CLINICAL INFORMATION: 47-year-old female, Interstitial pulmonary disease, unspecified. COMPARISON: No prior available. TECHNIQUE: Multidetector volumetric CT imaging of the chest was obtained after without intravenous contrast. Thin section axial, Axial MIP volume rendering instructed from the axial data set. Sagittal and coronal reformatted images were obtained. An expiratory phase was not acquired. A prone acquisition was not acquired. This CT examination was performed using dose optimization techniques as appropriate, variously including the following: *Automated exposure control *Adjustment of mA and/or kV according to patient size (this includes techniques or standardized protocols for targeted exams where dose is matched to indication/reason for exam; i.e. extremities or head) *Use of iterative reconstruction technique DLP: 139 mGy-cm Please note, due to [facility] contractual, systems, and staffing issues, an [facility] radiologist was not available for review and dictation of this case until 10/09/2023. FINDINGS: PULMONARY NODULES: -None. There are no suspicious pulmonary nodules. LUNGS: -Lungs demonstrate subtle subpleural interstitial changes consisting of inter and intralobular septal thickening with superimposed subpleural groundglass opacity, involving the superolateral bilateral upper lobes, right middle lobe, lingula, and lateral and posterior lower lobes, with lower lobe predominance. No peribronchovascular interstitial thickening. -No significant bronchiectasis or bronchial thickening. -No fissural thickening or retraction. -No segmental consolidations. -Small airways, and central airways and trachea are normal. -There is mild prominence of the pulmonary arteries accompanying the associated bronchi, which may reflect increased pulmonary pressures. -No pleural effusions or pneumothorax. No gross subpleural honeycombing is present. -No pleural mass. MEDIASTINUM: -Of note is diffuse dilation and mild thickening of the esophagus throughout its course, with a small amount of layering internal debris/secretions. -There are a few subcentimeter mediastinal lymph nodes, the largest measuring 8 mm in the precarinal region. No pathologic lymphadenopathy is present. -The main pulmonary artery is prominent but does not measure enlarged by strict size criteria. It is larger than the ascending aorta, a nonspecific finding. -The aorta is normal in caliber and course without aneurysm. There is a two-vessel branching pattern. -The heart size is top normal. No pericardial effusion. AXILLA/CHEST WALL: No abnormal lymphadenopathy or mass. UPPER ABDOMEN: There has been a prior cholecystectomy. There is a calcific granuloma in segment 3 of the liver. Liver otherwise normal. -Remainder of the imaged upper abdominal contents appear normal. OSSEOUS STRUCTURES: No suspicious lytic or blastic bone lesions. Mild arthritic changes are noted in the spine. CT/CT chest wo con - High Res IMPRESSION: 1. Early subpleural interstitial changes as described, predominantly in the anterolateral upper lobes, right middle lobe, lingula, and posterolateral lower lobes, with basilar predominance. Differential diagnosis includes NSIP, UIP, and fibrotic lung disease based upon underlying collagen vascular disease. Other etiologies not excluded although provided history is essentially absent. 2. Diffuse dilation and thickening of the esophagus, raising the possibility of SCLERODERMA and scleroderma related lung disease. 3. Mild prominence of the main pulmonary artery could suggest underlying mild pulmonary hypertension. 4. No suspicious adenopathy. No suspicious pulmonary nodules. No significant bronchiectasis or bronchial wall thickening. Electronically signed by: Jorje Camarillo MD 10/09/2023 05:11 PM EDT
[2023-08-27 08:01] LABS: MANUAL DIFF FLAG NO
[2023-08-27 08:17] LABS: Basophils Percent Auto 0.4 % (0-2); Eosinophils Absolute Auto 0.1 X10*3/uL (0.0-0.4); Eosinophils Percent Auto 0.9 % (0-4); Hematocrit 36.3 % (37.0-47.0); Hemoglobin 11.4 g/dl (12.0-16.0); Imm Gran Abs Auto 0.02 X10*3/uL (0.00-0.03); Imm Gran Pct Auto 0.3 % (0.0-0.4); Lymphocytes Absolute Auto 2.5 X10*3/uL (1.2-4.9); Lymphocytes Percent Auto 32.2 % (20-40); Mean Corpuscular HGB Conc 31.4 g/dl (31.0-35.0); Mean Corpuscular Hemoglobin 28.5 pg (27.0-33.0); Mean Corpuscular Volume 90.8 fL (80.0-98.0); Mean Platelet Volume 8.8 fL (9.4-12.3); Monocytes Absolute Auto 0.5 X10*3/uL (0.1-1.2); Neutrophils Absolute Auto 4.7 x10*3/uL (2.0-8.3); Neutrophils Percent Auto 60.2 % (45-73); Platelet Count 120 X10*3/uL (160-400); Red Cell Distribution Width 16.1 % (11.0-16.0); White Blood Count 7.9 X10*3/uL (4.8-10.8)
[2023-08-27 08:51] LABS: Alanine Aminotransferase 43 U/L (0-31); Albumin Level 3.7 g/dL (3.5-5.0); Alkaline Phosphatase 73 U/L (39-117); Anion Gap 15 (12-20); Aspartate Amino Transferase 19 U/L (5-31); Bilirubin Total 0.3 mg/dL (0.0-1.0); Blood Urea Nitrogen 13 mg/dL (9-16); Calcium 9.2 mg/dL (8.4-10.2); Carbon Dioxide 24 mmol/L (22-29); Chloride 107 mmol/L (96-108); Estimated Glomerular Filt Rate > 60; Gamma Glutamyl Transpeptidase 28 U/L (7-33); Glucose Random 86 mg/dL (60-115); Potassium 3.8 mmol/L (3.3-5.1); Sodium 142 mmol/L (135-145); Total Protein 6.6 g/dL (6.5-8.0)
[2023-08-27 09:02] LABS: Erythrocyte Sedimentation Rate 17 MM/HR (0-20)
== END 2023-08-27 07:25 | disposition home or self-care (01) ==
LOC: HO.CT 07:24
PROVIDERS: PCP Student in an Organized Health Care Education/Training Program; Visit Provider Student in an Organized Health Care Education/Training Program
DX: J84.9 Interstitial pulmonary disease, unspecified (principal); G72.9 Myopathy, unspecified
CPT/HCPCS: 36415; 71250; 80053; 82550; 82977; 85025; 85652; 86140

== ENCOUNTER → 2023-08-27 07:26 | Outpatient (BNV) | payer MEDICAID, SELFPAY | PROVIDERS: PCP Student in an Organized Health Care Education/Training Program; Visit Provider Radiology Diagnostic Radiology | DX: J84.9 Interstitial pulmonary disease, unspecified (principal) | CPT/HCPCS: 71250 ==

== ENCOUNTER 2023-08-31 12:42 | Outpatient (AMB) | payer MEDICAID, SELFPAY ==
--- NOTE | 2023-08-31 12:43 | MHC.OFFVIS ---
Vital Signs 08/31/23 12:48 Height 5 ft 2 in Weight 134 lb 7.712 oz BMI 24.6 BP 115/74 Blood Pressure Location Lt brachial Position Sitting Respiration 16 Pulse 76 Pulse Source Pulse Oximeter Pulse Oximetry (%) 98 Oxygen Delivery Method Room Air Intake Visit Reasons: Anti-synthetase/CM Intake Note: Patient presents for Anti-synthetase. Regional Coordinator Required: Yes Regional Coordinator Services: Regional Coordinator Present Regional Coordinator Name: Kevin [id number] Allergies No Known Allergies Allergy (Verified 08/31/23 12:47) Medication List - Last Reconciled 08/31/23 by Yahaira Sutherland MD acetaminophen 500 mg PO Q6H PRN ascorbic acid (vitamin C) 250 mg PO QAM famotidine 20 mg PO DAILY PRN ferrous sulfate (FeroSul) 325 mg PO QAM folic acid 1 mg PO QAM melatonin 3 mg PO BEDTIME PRN meloxicam 7.5 mg PO BID PRN prednisone 20 mg PO DAILY 28 days silver sulfadiazine 1% (Silvadene) 1 appl topical BID HPI Comments Details: 47-year-old female with newly diagnosed and different state antibody syndrome previously diagnosed with seronegative RA who presents for follow-up. She has been taking prednisone 20 mg daily for the last month. States that she feels well overall. No side effects related to prednisone. Denies any swollen or tender joints today. Initial history: This is a 47-year-old female with seronegative RA who presents as a new patient. She recently moved from [place]. She states that she was diagnosed with rheumatoid arthritis back in 2016. She was on methotrexate briefly and it was discontinued due to GI upset. She had been on Enbrel since 2017 and it is effective. She states that her joint pain is well controlled overall. She takes 2 mg of Medrol sporadically about once a week as needed for joint pain and fatigue. States that over last 2 weeks she noticed a painful mass on the radial aspect of her right middle finger. She was prescribed antibiotics by her PCP and it was not helpful. She denies any trauma to the finger. Mentions that her maternal uncle has RA. She denies any history of DVT/PE. Denies any fatigue or weight loss. [facility] Medical History Rheumatoid arthritis Surgical History History of partial hysterectomy Hx of cholecystectomy Family History Mother History of mastectomy, total HX: breast cancer Diabetes Hypertension Father No problems noted. Maternal Uncle Rheumatoid arthritis Social History Alcohol intake: never Patient Tobacco Use Status: Never used Tobacco Female Reproductive History Menstrual Total pregnancies: 3 Number of Living Children: 1 Ab spontaneous: 2 Review of Systems Const Denies fever(s) and Denies weight loss Card Denies dyspnea and Denies dyspnea on exertion Resp Denies cough, Denies dyspnea and Denies dyspnea on exertion Musc Denies arthralgias and Denies joint swelling Physical Exam Vital Signs: Last Vital Signs Pulse 76 08/31/23 12:48 Resp 16 08/31/23 12:48 BP 115/74 08/31/23 12:48 Pulse Ox 98 08/31/23 12:48 Oxygen Delivery Method Room Air 08/31/23 12:48 BMI result Body Mass Index 24.6 Const General: cooperative, healthy appearing and comfortable Nutritional Appearance: overweight Orientation/consciousness: patient oriented x3 Limitations: no limitations HEENT Head: Yes normocephalic and Yes atraumatic Mouth: moist mucous membranes Resp Effort & Inspection: normal respiratory effort and able to speak in complete sentences Skin Other: V neck sign Mechanics hands Subtle heliotrope rash Neuro General: patient oriented x3 Extrem Other: No active synovitis today Nailfold capillaroscopy shows few dilated loops Assessment & Plan Assessment & Plan (1) Antisynthetase syndrome: Comment: previously diagnosed with seroneg RA -ve RF -ve CCP dx 2016 MTX 2016 ineffective and caused GI upset Enbrel 2017 partially effective Antisynthetase antibody syndrome diagnosed 07/2023 based on (V-neck sign, heliotrope rash, 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 She has been on prednisone 20 mg daily for the last month with improvement. There is no active synovitis on exam, CPK remarkably improved. HRCT chest was done no official read that but I do not see any significant ILD. I will await official radiology read Reduce prednisone 15 mg daily for 1 month, 10 mg daily for 1 month Discussed risks and benefits of hydroxychloroquine. Patient agreed to proceed. Start hydroxychloroquine 300 mg daily Check TPMT level, can consider adding azathioprine. In the future a JASON inhibitor can be considered Labs before next visit in 2 months (2) Long-term use of hydroxychloroquine: Code(s): Z79.899 - Other longitudinal float operator (current) drug therapy Category: Medical Plan: Discussed risk of retinopathy associated with hydroxychloroquine. 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 wheel polisher (3) Thrombocytopenia: Code(s): D69.6 - Thrombocytopenia, unspecified Category: Medical Plan: Referred to heme/Onc Plan I spent 46 minutes reviewing patient's chart, evaluating patient, ordering diagnostic workup, counseling patient and documenting in the chart Orders: Orders Complete Blood Count Auto Diff 2 Months D89.89 - Other specified disorders involving the immune mechanism, not elsewhere classified, G72.9 - Myopathy, unspecified Comprehensive Met. Panel 2 Months D89.89 - Other specified disorders involving the immune mechanism, not elsewhere classified, G72.9 - Myopathy, unspecified Beta-2 Glycoprotein Antibody 2 Months R76.0 - Raised antibody titer Cardiolipin Antibodies 2 Months R76.0 - Raised antibody titer Lupus Anticoagulant Panel 2 Months R76.0 - Raised antibody titer C Reactive Protein 2 Months D89.89 - Other specified disorders involving the immune mechanism, not elsewhere classified, G72.9 - Myopathy, unspecified Erythrocyte Sedimentation Rate 2 Months D89.89 - Other specified disorders involving the immune mechanism, not elsewhere classified, G72.9 - Myopathy, unspecified Hepatitis A,B,C Profile 2 Months Z11.59 - Encounter for screening for other viral diseases T Spot TB 2 Months Z11.7 - Encounter for testing for latent tuberculosis infection HIV Ab/Ag 2 Months Z11.59 - Encounter for screening for other viral diseases Creatine Kinase Total 2 Months D89.89 - Other specified disorders involving the immune mechanism, not elsewhere classified, G72.9 - Myopathy, unspecified Gamma Glutamyl Transpeptidase 2 Months D89.89 - Other specified disorders involving the immune mechanism, not elsewhere classified, G72.9 - Myopathy, unspecified Thiopurine Methyltransferase 2 Months Z51.81 - Encounter for therapeutic drug level monitoring, Z79.624 - termite treater (current) use of inhibitors of nucleotide synthesis Referrals Hematology & Oncology Referral D69.6 - Thrombocytopenia, unspecified Ophthalmology Referral Z79.899 - Other longitudinal float operator (current) drug therapy Medications: New prednisone Take 3 tabs daily for 1 month, then 2 tabs daily for 1 month 150 tabs 0RF hydroxychloroquine 300 mg (1.5 x 200 mg) PO DAILY 90 tabs 0RF Discontinued prednisone Discontinued Reason: Doctor's Order 20 mg PO DAILY 28 days 28 tabs 0RF Coding Level of Care Code Est Pt Level 5 (57205) Complex EM visit Add On G2211 Diagnoses Antisynthetase syndrome D89.89 Long-term use of hydroxychloroquine Z79.899 Thrombocytopenia D69.6
[2023-08-31 12:48] VITALS: BP 115/74; PULSE 76; RESP 16; O2SAT 98; BMI 24.6
== END 2023-08-31 13:10 | disposition home or self-care (01) ==
PROVIDERS: PCP Student in an Organized Health Care Education/Training Program; Referring Provider Student in an Organized Health Care Education/Training Program; Visit Provider Student in an Organized Health Care Education/Training Program
DX: D89.89 Other specified disorders involving the immune mechanism, not elsewhere classified (principal); Z79.899 Other long term (current) drug therapy; D69.6 Thrombocytopenia, unspecified
CPT/HCPCS: 99215

== ENCOUNTER → 2023-08-31 12:42 | Outpatient (BNVA) | payer MEDICAID, SELFPAY | PROVIDERS: PCP Student in an Organized Health Care Education/Training Program; Visit Provider Student in an Organized Health Care Education/Training Program | DX: D89.89 Other specified disorders involving the immune mechanism, not elsewhere classified (principal); D69.6 Thrombocytopenia, unspecified; G72.9 Myopathy, unspecified; Z79.52 Long term (current) use of systemic steroids; Z79.899 Other long term (current) drug therapy | CPT/HCPCS: 99212 ==

== ENCOUNTER 2023-10-29 13:29 | Outpatient (REF) | payer MEDICAID, SELFPAY ==
[2023-10-29 13:47] LABS: MANUAL DIFF FLAG NO
[2023-10-29 13:55] LABS: Basophils Percent Auto 0.3 % (0-2); Eosinophils Absolute Auto 0.1 X10*3/uL (0.0-0.4); Eosinophils Percent Auto 1.8 % (0-4); Hemoglobin 10.9 g/dl (12.0-16.0); Imm Gran Abs Auto 0.02 X10*3/uL (0.00-0.03); Imm Gran Pct Auto 0.3 % (0.0-0.4); Lymphocytes Absolute Auto 1.1 X10*3/uL (1.2-4.9); Lymphocytes Percent Auto 13.8 % (20-40); Mean Corpuscular HGB Conc 32.1 g/dl (31.0-35.0); Mean Corpuscular Hemoglobin 29.2 pg (27.0-33.0); Mean Corpuscular Volume 91.2 fL (80.0-98.0); Mean Platelet Volume 9.3 fL (9.4-12.3); Monocytes Absolute Auto 0.4 X10*3/uL (0.1-1.2); Monocytes Percent Auto 4.6 % (2-11); Neutrophils Absolute Auto 6.3 x10*3/uL (2.0-8.3); Neutrophils Percent Auto 79.2 % (45-73); Platelet Count 112 X10*3/uL (160-400); Red Blood Count 3.73 X10*6/uL (4.20-5.50); Red Cell Distribution Width 14.3 % (11.0-16.0); White Blood Count 7.9 X10*3/uL (4.8-10.8)
[2023-10-29 14:26] LABS: Alanine Aminotransferase 21 U/L (0-31); Albumin Level 3.8 g/dL (3.5-5.0); Alkaline Phosphatase 74 U/L (39-117); Anion Gap 10 (12-20); Aspartate Amino Transferase 22 U/L (5-31); Bilirubin Total 0.2 mg/dL (0.0-1.0); Blood Urea Nitrogen 9 mg/dL (9-16); C Reactive Protein 3.11 mg/dL (< or = 0.50); Calcium 9.2 mg/dL (8.4-10.2); Carbon Dioxide 29 mmol/L (22-29); Chloride 109 mmol/L (96-108); Estimated Glomerular Filt Rate > 60; Gamma Glutamyl Transpeptidase 19 U/L (7-33); Glucose Random 81 mg/dL (60-115); Potassium 3.6 mmol/L (3.3-5.1); Sodium 144 mmol/L (135-145)
[2023-10-29 14:35] LABS: Erythrocyte Sedimentation Rate 36 MM/HR (0-20)
[2023-10-30 08:37] LABS: HBS Num1 1.04 mIU/mL (0-7.99); HBc Num1 0.14 S/CO (0.00-0.79); HBsAGNum1 2.03 S/CO (0.00-0.99); Hepatitis A Antibody IgM 0.12 Index (0-0.79); Hepatitis B Core Antibody Nonreactive (Nonreactive); ~HepC Num1 0.14 S/CO (0.00-0.79); ~Hepatitis A Antibody IgM Nonreactive (Nonreactive); ~Hepatitis B Surface Antibody NONREACTIVE (Nonreactive); ~Hepatitis C Antibody Nonreactive (Nonreactive)
[2023-10-30 09:25] LABS: HBsAGNum2 Nonreactive; HBsAGNum3 Nonreactive; HIV AB/AG Nonreactive (Nonreactive); HIV Num 2 0.06 S/CO; HIV Num 3 0.07 S/CO; Hepatitis B Surface Antigen NEGATIVE (Negative)
[2023-10-30 21:28] LABS: Cardiolipin IgG Ab <2.0 GPL-U/mL; Cardiolipin IgM Ab <2.0 MPL-U/mL
[2023-11-01 23:23] LABS: TS Negative Control Passed; TS Panel A 0; TS Panel B 1; TS Positive Control Passed; TSpotTB Negative (Negative)
[2023-11-02 06:59] LABS: Beta-2 Glycoprotein IgA <2.0 U/mL (<20.0); Beta-2 Glycoprotein IgG <2.0 U/mL (<20.0); Beta-2 Glycoprotein IgM <2.0 U/mL (<20.0)
[2023-11-10 17:17] LABS: TPMT Activity 13
== END 2023-10-29 13:30 | disposition home or self-care (01) ==
LOC: HO.LAB 13:29
PROVIDERS: PCP Student in an Organized Health Care Education/Training Program; Visit Provider Student in an Organized Health Care Education/Training Program
DX: G72.9 Myopathy, unspecified (principal); R76.0 Raised antibody titer; D89.89 Other specified disorders involving the immune mechanism, not elsewhere classified; Z11.59 Encounter for screening for other viral diseases; Z11.7 Encounter for testing for latent tuberculosis infection; Z51.81 Encounter for therapeutic drug level monitoring; Z79.624 Long term (current) use of inhibitors of nucleotide synthesis
CPT/HCPCS: 36415; 80053; 82550; 82977; 84433; 85025; 85597; 85598; 85613; 85652; 85730; 86140; 86146; 86147; 86481; 86704; 86706; 86709; 86803; 87340; 87389

== ENCOUNTER 2023-11-02 12:32 | Outpatient (AMB) | payer MEDICAID, SELFPAY ==
[2023-11-02 12:39] VITALS: BP 116/62; PULSE 78; BMI 24.4
--- NOTE | 2023-11-02 12:39 | A.OFFVIS_ITS ---
Vital Signs 11/02/23 12:39 Height 5 ft 2 in Weight 133 lb 6.075 oz BMI 24.4 BP 116/62 Blood Pressure Location Lt brachial Position Sitting Pulse 78 Pulse Source Pulse Oximeter Intake Visit Reasons: Antisynthetase Intake Note: Patient last seen by Doctor Yahaira Sutherland on 08/31/23. Presents today for Antisynthetase follow up and test results. 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 She states that her joints are doing well now. She is currently on hydroxychloroquine 200 mg daily and prednisone 10 mg daily. Has not had any recent skin ulcers. Denies any cough or shortness of breath. She states that she can do multiple fights of stairs without any shortness of breath. States that she gets intermittent acid reflux, she uses famotidine about twice a week. Initial history: This is a 47-year-old female with seronegative RA who presents as a new patient. She recently moved from [place]. She states that she was diagnosed with rheumatoid arthritis back in 2016. She was on methotrexate briefly and it was discontinued due to GI upset. She had been on Enbrel since 2017 and it is effective. She states that her joint pain is well controlled overall. She takes 2 mg of Medrol sporadically about once a week as needed for joint pain and fatigue. States that over last 2 weeks she noticed a painful mass on the radial aspect of her right middle finger. She was prescribed antibiotics by her PCP and it was not helpful. She denies any trauma to the finger. Mentions that her maternal uncle has RA. She denies any history of DVT/PE. Denies any fatigue or weight loss. [facility] Medical History (Updated 11/02/23 @ 13:29 by Yahaira Sutherland MD) Paronychia of finger of right hand Rheumatoid arthritis Surgical History History of partial hysterectomy Hx of cholecystectomy Family History Mother History of mastectomy, total HX: breast cancer Diabetes Hypertension Father No problems noted. Maternal Uncle Rheumatoid arthritis Social History Alcohol intake: never Patient Tobacco Use Status: Never used Tobacco Female Reproductive History Menstrual Total pregnancies: 3 Number of Living Children: 1 Ab spontaneous: 2 Review of Systems Const Denies fever(s) and Denies weight loss Card Denies dyspnea and Denies dyspnea on exertion Resp Denies cough, Denies dyspnea and Denies dyspnea on exertion GI Reports heartburn Musc Denies arthralgias, Denies joint swelling and Denies muscle weakness Physical Exam Vital Signs: Last Vital Signs Pulse 78 11/02/23 12:39 BP 116/62 11/02/23 12:39 BMI result Body Mass Index 24.4 Const General: cooperative, healthy appearing and comfortable Nutritional Appearance: overweight Orientation/consciousness: patient oriented x3 Limitations: no limitations HEENT Head: Yes normocephalic and Yes atraumatic Mouth: moist mucous membranes Resp Effort & Inspection: normal respiratory effort and able to speak in complete sentences Skin Other: Subtle V neck sign Mechanics hands almost resolved Subtle heliotrope rash Neuro General: patient oriented x3 Extrem Other: No active synovitis today Nailfold capillaroscopy shows few dilated loops Mild bluish discoloration of her fingertips Proximal muscle strength 5/5 all 4 extremities Results Reviewed Results Reviewed: CT/CT chest wo con - High Res IMPRESSION: 1. Early subpleural interstitial changes as described, predominantly in the anterolateral upper lobes, right middle lobe, lingula, and posterolateral lower lobes, with basilar predominance. Differential diagnosis includes NSIP, UIP, and fibrotic lung disease based upon underlying collagen vascular disease. Other etiologies not excluded although provided history is essentially absent. 2. Diffuse dilation and thickening of the esophagus, raising the possibility of SCLERODERMA and scleroderma related lung disease. 3. Mild prominence of the main pulmonary artery could suggest underlying mild pulmonary hypertension. 4. No suspicious adenopathy. No suspicious pulmonary nodules. No significant bronchiectasis or bronchial wall thickening. 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 She is on prednisone 10 mg daily and hydroxychloroquine 200 mg daily. Doing well with no active synovitis. No muscle weakness on exam. Denies any pulmonary complaints. Gets intermittent GERD symptoms. Uses famotidine about twice a week. CT chest reviewed with patient. She only has minimal early ILD. She also has prominence of her pulmonary artery however her 2D echo in 2022 was unremarkable shows dilated esophagus I discussed patient's condition and multiple organ involvement and its management Raynaud's: Well controlled now, advised patient that the weather will be getting colder in the coming few months Use gloves and glove warmers avoid any cuts. Amlodipine may be added in the future if needed GERD and esophageal dysmotility: Advised patient to sleep elevated. Use multiple pillows. Discontinue famotidine and take omeprazole 40 mg regularly daily Inflammatory arthritis: Doing well on current regimen of hydroxychloroquine 300 mg daily and prednisone 10 mg daily. Azathioprine 50 mg daily will be added today in an attempt to further lower the prednisone requirement ILD: Referred to pulm GI dysmotility: Advised patient to sleep elevated and take omeprazole 40 mg daily 30 minutes before breakfast Labs in 1 month, if labs are good, I will refill the azathioprine (2) Long-term use of hydroxychloroquine: Code(s): Z79.899 - Other computer terminal operator (current) drug therapy Category: Medical Plan: Discussed risk of retinopathy associated with hydroxychloroquine. 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 die lay out worker (3) Thrombocytopenia: Code(s): D69.6 - Thrombocytopenia, unspecified Category: Medical Plan: Referred to heme/Onc (4) GERD (gastroesophageal reflux disease): Code(s): K21.9 - Gastro-esophageal reflux disease without esophagitis Category: Medical Qualifiers: Esophagitis presence: esophagitis presence not specified Qualified Code(s): K21.9 - Gastro-esophageal reflux disease without esophagitis (5) ILD (interstitial lung disease): Code(s): J84.9 - Interstitial pulmonary disease, unspecified Category: Medical Plan I spent 46 minutes reviewing patient's chart, evaluating patient, ordering diag nostic workup, counseling patient and documenting in the chart Orders: Orders C Reactive Protein 2 Months G72.9 - Myopathy, unspecified Erythrocyte Sedimentation Rate 2 Months G72.9 - Myopathy, unspecified Creatine Kinase Total 2 Months G72.9 - Myopathy, unspecified Comprehensive Met. Panel 1 Month D89.89 - Other specified disorders involving the immune mechanism, not elsewhere classified, G72.9 - Myopathy, unspecified Erythrocyte Sedimentation Rate 1 Month D89.89 - Other specified disorders involving the immune mechanism, not elsewhere classified, G72.9 - Myopathy, unspecified Complete Blood Count Auto Diff 2 Months G72.9 - Myopathy, unspecified Comprehensive Met. Panel 2 Months G72.9 - Myopathy, unspecified Complete Blood Count Auto Diff 1 Month D89.89 - Other specified disorders involving the immune mechanism, not elsewhere classified, G72.9 - Myopathy, unspecified C Reactive Protein 1 Month D89.89 - Other specified disorders involving the immune mechanism, not elsewhere classified, G72.9 - Myopathy, unspecified Creatine Kinase Total 1 Month D89.89 - Other specified disorders involving the immune mechanism, not elsewhere classified, G72.9 - Myopathy, unspecified Referrals Ophthalmology Referral Z79.899 - Other computer terminal operator (current) drug therapy Pulmonology Referral D89.89 - Other specified disorders involving the immune mechanism, not elsewhere classified Medications: New omeprazole 30 minutes before breakfast 40 mg PO DAILY 90 caps 1RF azathioprine 50 mg PO DAILY 30 tabs 0RF Changed From prednisone Take 3 tabs daily for 1 month, then 2 tabs daily for 1 month 150 tabs 0RF To prednisone 10 mg (2 x 5 mg) PO DAILY 180 tabs 0RF Refilled hydroxychloroquine 300 mg (1.5 x 200 mg) PO DAILY 135 tabs 1RF Coding Level of Care Code Est Pt Level 5 (20562) Complex EM visit Add On G2211 Diagnoses Antisynthetase syndrome D89.89 Long-term use of hydroxychloroquine Z79.899 Thrombocytopenia D69.6 Gastroesophageal reflux disease, unspecified whether esophagitis present K21.9 Esophagitis presence: esophagitis presence not specified ILD (interstitial lung disease) J84.9
== END 2023-11-02 13:14 | disposition home or self-care (01) ==
PROVIDERS: PCP Student in an Organized Health Care Education/Training Program; Visit Provider Student in an Organized Health Care Education/Training Program
DX: D89.89 Other specified disorders involving the immune mechanism, not elsewhere classified (principal); Z79.899 Other long term (current) drug therapy; D69.6 Thrombocytopenia, unspecified; K21.9 Gastro-esophageal reflux disease without esophagitis; J84.9 Interstitial pulmonary disease, unspecified
CPT/HCPCS: 99215

== ENCOUNTER → 2023-11-02 12:32 | Outpatient (BNVA) | payer MEDICAID, SELFPAY | PROVIDERS: PCP Student in an Organized Health Care Education/Training Program; Visit Provider Student in an Organized Health Care Education/Training Program | DX: D89.89 Other specified disorders involving the immune mechanism, not elsewhere classified (principal); D69.6 Thrombocytopenia, unspecified; J84.9 Interstitial pulmonary disease, unspecified; K21.9 Gastro-esophageal reflux disease without esophagitis; G72.9 Myopathy, unspecified; Z79.899 Other long term (current) drug therapy | CPT/HCPCS: 99212 ==

== ENCOUNTER → 2023-11-04 10:02 | Outpatient (BNV) | payer MEDICAID, SELFPAY | PROVIDERS: PCP Student in an Organized Health Care Education/Training Program; Referring Provider Student in an Organized Health Care Education/Training Program; Visit Provider Internal Medicine | DX: D69.6 Thrombocytopenia, unspecified (principal) | CPT/HCPCS: 99204 ==

== ENCOUNTER 2023-11-19 09:28 | Outpatient (AMB) | payer MEDICAID, SELFPAY ==
[2023-11-19 09:37] VITALS: BP 110/72; PULSE 109; O2SAT 99; BMI 24.8
--- NOTE | 2023-11-19 09:37 | A.OFFVIS_ITS ---
Vital Signs 11/19/23 09:37 Height 5 ft 2 in Weight 135 lb 9.349 oz BMI 24.8 BP 110/72 Blood Pressure Location Lt brachial Position Sitting Pulse 109 H Pulse Source Doppler Pulse Oximetry (%) 99 Oxygen Delivery Method Room Air Intake Visit Reasons: ILD Hydro Technician Required: Yes Hydro Technician Name: Nimisha Ambrocio Keesha Allergies No Known Allergies Allergy (Verified 11/19/23 09:43) HPI HPI ILD: Details: 48-year-old lady, nonsmoker, with recent diagnosis of antisynthetase syndrome and rheumatoid arthritis referred for pulmonary evaluation after CT chest showed early interstitial lung disease. Patient denies any pulmonary related concerns or complaints. She is currently on hydroxychloroquine and azathioprine. She denies family history of inflammatory, immunologic, or pulmonary diseases. [facility] Medical History (Updated 11/04/23 @ 12:25 by Tammi Wright MD) Complicated grief Health care maintenance Severe anxiety Paronychia of finger of right hand Rheumatoid arthritis Surgical History (Updated 11/04/23 @ 12:25 by Tammi Wright MD) History of partial hysterectomy Hx of cholecystectomy Family History Mother History of mastectomy, total HX: breast cancer Diabetes Hypertension Father No problems noted. Maternal Uncle Rheumatoid arthritis Social History Alcohol intake: never Patient Tobacco Use Status: Never used Tobacco Current occupational status: unemployed Gender identity: Female Review of Systems Const Denies daytime sleepiness, Denies excessive sweating, Denies fatigue, Denies fever(s), Denies lethargy, Denies malaise, Denies night sweats, Denies snoring and Denies weight loss Eyes Denies blurry vision and Denies itchy eyes ENT Denies nasal congestion, Denies post nasal drip, Denies sinus pain, Denies sinus pressure and Denies other ( Thrush) Card Denies chest pain, Denies pedal edema, Denies dyspnea, Denies orthopnea and Denies paroxysmal nocturnal dyspnea Resp Denies cough, Denies hemoptysis, Denies excessive phlegm production, Denies dyspnea, Denies snoring and Denies wheezing GI Denies abdominal pain and Denies heartburn Musc Denies myalgias, Denies arthralgias and Denies joint swelling Skin/Breast Denies rash Neuro Denies memory loss and Denies seizure-like activity Psych Denies abnormal sleep pattern, Denies anxiety and Denies memory loss Endo Denies excessive sweating, Denies fatigue and Denies heat intolerance Ever/Lymph Denies easy bruising Aller/Immun Denies itchy eyes, Denies seasonal rhinorrhea and Denies wheezing Physical Exam Vital Signs: Last Vital Signs Pulse 109 H 11/19/23 09:37 BP 110/72 11/19/23 09:37 Pulse Ox 99 11/19/23 09:37 Oxygen Delivery Method Room Air 11/19/23 09:37 BMI result Body Mass Index 24.8 Const General: no acute distress and alert Nutritional Appearance: not obese Orientation/consciousness: Other orientation findings ( oriented) HEENT Head: Yes atraumatic Eyes General: appearance normal, both eyes and all related structures Sclerae: sclerae normal EOM: EOMs intact bilaterally Neck Neck: Yes supple Lymphatic: no lymphadenopathy noted Resp Effort & Inspection: normal respiratory effort and no use of accessory muscles Auscultation: clear to auscultation bilaterally Cardio Rate: regular rate Rhythm: regular rhythm Heart sounds: no gallops, no murmurs and no rubs Skin General skin exam: other ( warm) Extrem General: No clubbing, No cyanosis and No edema Assessment & Plan Assessment & Plan (1) ILD (interstitial lung disease): Code(s): J84.9 - Interstitial pulmonary disease, unspecified Category: Medical (2) Rheumatoid arthritis: Code(s): M06.9 - Rheumatoid arthritis, unspecified Category: Medical Qualifiers: Rheumatoid arthritis location: multiple sites Rheumatoid factor presence: without rheumatoid factor Qualified Code(s): M06.09 - Rheumatoid arthritis without rheumatoid factor, multiple sites Plan Likely rheumatoid arthritis related interstitial lung disease. Results of CT chest reviewed, only minimal early fibrosis. Will obtain full PFT. Will continue to monitor clinically. Orders: Orders PFT pulmonary function test Today J84.9 - Interstitial pulmonary disease, unspecified Coding Level of Care Code New Pt Level 4 (37139) Diagnoses ILD (interstitial lung disease) J84.9 Rheumatoid arthritis of multiple sites with negative rheumatoid factor M06.09 Rheumatoid arthritis location: multiple sites Rheumatoid factor presence: without rheumatoid factor
== END 2023-11-19 10:02 | disposition home or self-care (01) ==
PROVIDERS: PCP Student in an Organized Health Care Education/Training Program; Referring Provider Student in an Organized Health Care Education/Training Program; Visit Provider Internal Medicine Pulmonary Disease
DX: J84.9 Interstitial pulmonary disease, unspecified (principal); M06.09 Rheumatoid arthritis without rheumatoid factor, multiple sites
CPT/HCPCS: 99204

== ENCOUNTER → 2023-11-19 09:28 | Outpatient (BNVA) | payer MEDICAID, SELFPAY | PROVIDERS: PCP Student in an Organized Health Care Education/Training Program; Referring Provider Student in an Organized Health Care Education/Training Program; Visit Provider Internal Medicine Pulmonary Disease | DX: K76.0 Fatty (change of) liver, not elsewhere classified (principal); K21.9 Gastro-esophageal reflux disease without esophagitis; R74.01 Elevation of levels of liver transaminase levels; Z86.19 Personal history of other infectious and parasitic diseases | CPT/HCPCS: 99212 ==

== ENCOUNTER 2023-11-19 10:13 | Outpatient (AMB) | payer MEDICAID, SELFPAY ==
[2023-11-19 10:18] VITALS: BP 113/55; BMI 24.8
--- NOTE | 2023-11-19 10:18 | MHC.OFFVIS ---
Vital Signs 11/19/23 10:18 Height 5 ft 2 in Weight 135 lb 12.876 oz BMI 24.8 BP 113/55 L Blood Pressure Location Lt brachial Position Sitting Intake Visit Reasons: Transaminitis Intake Note: New patient in office today referred for transaminitis. CC: Patient reports that she underwent an EGD and colonoscopy in [place] but she was never told the results. She states that her PCP, Dr. Fan has the records. Denies having any GI symptoms or concerns today. Commercial Credit Reviewer Required: Yes Accompanied by: Self / Same As Patient Allergies No Known Allergies Allergy (Verified 11/19/23 10:22) HPI HPI Transaminitis: Details: 47-year-old female here for initial evaluation of transaminitis. She is referred by [facility]. PMX Rheumatoid arthritis History of H pylori Severe GERD Severe anxiety with depression a history of thrombocytopenia Anitsynthase syndrome Raynaud's * SURGICAL HISTORY Hysterectomy Cholecystectomy EGD/COLONOSCOPY 2022 in [place] neg study colon, HP EGD; per pt report - No fhx of crc or polyps but mom NIDDM and breast ca * ALLERGIES: NKDA * [employer] LABS: Laboratory Tests 10/29/23 11/04/23 13:47 10:56 WBC 8.1 Hgb 11.4 L Hct 35.9 L MCV 90.7 MCH 28.8 Plt Count 110 L Estimated GFR > 60 Ferritin 39 Total Bilirubin 0.2 GGT 19 AST 22 ALT 21 Alkaline Phosphatase 74 Laboratory Tests 06/22/23 10/29/23 14:47 13:47 Hepatitis A IgM Ab Nonreactive Hep Bs Antigen Negative Hep Bs Antibody NONREACTIVE Hep B Core Total Ab Nonreactive Hepatitis C Ab (EIA) Nonreactive HIV 1&2 Ab/P24 Ag 4thGn Nonreactive US ABD 06/16/23 FINDINGS: PANCREAS: Obscured by bowel gas. ABDOMINAL AORTA: The proximal, mid, and distal segments are normal in caliber. INFERIOR VENA CAVA: Visualized portions are normal. LIVER: The liver is normal in size. The liver contour is normal. There is diffuse increased liver parenchymal echogenicity, most commonly hepatic steatosis. No focal hepatic lesion. There is no intrahepatic biliary duct dilatation seen. GALLBLADDER: Surgically absent. COMMON BILE DUCT: Normal in caliber measuring 0.2 cm in diameter. RIGHT KIDNEY: Normal. No hydronephrosis. No renal calculi or focal parenchymal lesions. The kidney measures 8.9 cm in maximum dimension. LEFT KIDNEY: Normal. No hydronephrosis. No renal calculi or focal parenchymal lesions. The kidney measures 10.6 cm in maximum dimension. SPLEEN: Normal. The spleen measures 10.5 cm in maximum dimension. FREE FLUID: None. US/US abdomen complete IMPRESSION: Diffuse increased liver parenchymal echogenicity most commonly due to hepatic steatosis, but other chronic hepatocellular disease can have a similar ultrasound appearance. No biliary ductal dilatation. TODAY'S VISIT French #HANNAH Jha She was concerned because they did a study in [place] and they found some fatty liver. she has normal transaminases but thrombocytopenia that appears chronic. She has seen Dr. Wright for this. They seem to be monitoring it and not finding any concerning pathology. Her mother has fatty liver and NIDDM and breast ca. She does not drink ETOH. Will complete autoimmune work up to be thorough. Patient was educated this is likely fatty liver and that she needs to control her weight, control her blood sugar should she become diabetic and avoid alcohol. Will get repeat HP stool - she did not take the abx r/t lack of education and strange taste in throat (flagyl?) If we confirm that she does have H pylori then will consider treating care with a regimen that does not contain Flagyl to see if we can find something that she will tolerate better. She was not educate about the importance of treating the infection nor about using probiotics to sweeney off any untoward affects of the strong antibiotics. She is agreeable to being treated pending the test results. She is appreciative of the better Education and understanding. Only occasional diarrhea with greasy foods s/p alberto. ROV 4 weeks. [facility] Medical History Complicated grief Health care maintenance Severe anxiety Paronychia of finger of right hand Rheumatoid arthritis Surgical History History of esophagogastroduodenoscopy (EGD) H/O colonoscopy History of partial hysterectomy Hx of cholecystectomy Family History Mother History of mastectomy, total HX: breast cancer Diabetes Hypertension Father No problems noted. Maternal Uncle Rheumatoid arthritis Social History Alcohol intake: never Patient Tobacco Use Status: Never used Tobacco Current occupational status: unemployed Gender identity: Female Review of Systems Const Denies fatigue, Denies fever(s), Denies night sweats, Denies poor appetite and Denies weight loss ENT Reports Normal hearing present, Denies dysphagia, Denies odynophagia, Denies throat swelling and Denies tongue swelling Card Reports no additional complaints Resp Reports no additional complaints GI Details: Denies abdominal pain, Denies melena, Denies bloating, Denies hematochezia, Denies constipation, Denies GI cramping, Denies dysphagia, Denies excessive flatus, Denies early satiety, Reports heartburn, Denies diarrhea, Denies nausea, Denies odynophagia, Denies vomiting and Denies hematemesis Skin/Breast Denies pruritus, Denies lesions, Denies rash and Denies jaundice Neuro Reports Normal hearing present and Denies Abnormal speech present Endo Denies fatigue Aller/Immun Denies throat swelling and Denies tongue swelling Physical Exam Vital Signs: Last Vital Signs BP 113/55 L 11/19/23 10:18 BMI result Body Mass Index 24.8 Const General: cooperative, no acute distress, well developed and well groomed Nutritional Appearance: average body habitus and well nourished Orientation/consciousness: oriented to person, oriented to place and oriented to time Limitations: language barrier HEENT Head: Yes normocephalic and Yes atraumatic Eyes General: appearance normal, both eyes and all related structures Pupils: Equal, round and reactive pupils present Neck Neck: Yes normal visual inspection and Yes no lymphadenopathy Thyroid: Thyroid normal Resp Effort & Inspection: normal respiratory effort and able to speak in complete sentences Auscultation: clear to auscultation bilaterally Cardio Rate: regular rate Rhythm: regular rhythm Heart sounds: Normal, physiologic split S2 sound present Peripheral pulses: radial pulses present and posterior tibial pulses present GI Inspection: No distended, No Abdominal panniculus present and Yes obesity (some central adiposity) Palpation (GI): Soft to palpation, nontender, no guarding, not rigid and No hepatosplenomegaly present Percussion: Yes normal to percussion Auscultation: normal bowel sounds Rectal Exam - Female: deferred Abdomen image: 1. surgical scar Skin General skin exam: no rashes or lesions noted, turgor normal, skin not dry, no jaundice, No spider nevi and no striae Rashes: no rashes Nails: normal Neuro General: oriented to person, oriented to place and oriented to time Cranial nerves: Yes Equal, round and reactive pupils present and Yes Normal hearing present Speech: No Abnormal speech present Extrem General: Yes normal to inspection, No clubbing, No cyanosis and No edema Psych Appearance: grossly normal and well kempt Mental Status: mental status grossly normal Speech and movement: Normal speech and movement present Affect: normal affect Attitude: cooperative Thought process: Normal thought process present and not confabulating Thought content: Normal thought content present Insight: Limited insight present (Psych) Judgement: Limited judgement present (Psych) Assessment & Plan Assessment & Plan (1) Hepatic steatosis: Code(s): K76.0 - Fatty (change of) liver, not elsewhere classified Category: Medical (2) History of Helicobacter pylori infection: Code(s): Z86.19 - Personal history of other infectious and parasitic diseases Category: Medical (3) GERD (gastroesophageal reflux disease): Code(s): K21.9 - Gastro-esophageal reflux disease without esophagitis Category: Medical Qualifiers: Esophagitis presence: esophagitis presence not specified Qualified Code(s): K21.9 - Gastro-esophageal reflux disease without esophagitis Plan French #HANNAH Live She was concerned because they did a study in [place] and they found some fatty liver. she has normal transaminases but thrombocytopenia that appears chronic. She has seen Dr. Wright for this. They seem to be monitoring it and not finding any concerning pathology. Her mother has fatty liver and NIDDM and breast ca. She does not drink ETOH. Will complete autoimmune work up to be thorough. Patient was educated this is likely fatty liver and that she needs to control her weight, control her blood sugar should she become diabetic and avoid alcohol. Will get repeat HP stool - she did not take the abx r/t lack of education and strange taste in throat (flagyl?) If we confirm that she does have H pylori then will consider treating care with a regimen that does not contain Flagyl to see if we can find something that she will tolerate better. She was not educate about the importance of treating the infection nor about using probiotics to sweeney off any untoward affects of the strong antibiotics. She is agreeable to being treated pending the test results. She is appreciative of the better Education and understanding. Only occasional diarrhea with greasy foods s/p alberto. ROV 4 weeks. Orders: Orders Alpha Fetoprotein Today K21.9 - Gastro-esophageal reflux disease without esophagitis, Z86.19 - Personal history of other infectious and parasitic diseases HANNAH Reflex Titer and Pattern Today K21.9 - Gastro-esophageal reflux disease without esophagitis, Z86.19 - Personal history of other infectious and parasitic diseases Mitochondrial Antibody Today K21.9 - Gastro-esophageal reflux disease without esophagitis, Z86.19 - Personal history of other infectious and parasitic diseases Smooth Muscle Antibody Today K21.9 - Gastro-esophageal reflux disease without esophagitis, Z86.19 - Personal history of other infectious and parasitic diseases Liver Fibrosis Pnl Today K21.9 - Gastro-esophageal reflux disease without esophagitis, Z86.19 - Personal history of other infectious and parasitic diseases Gamma Glutamyl Transpeptidase Today K21.9 - Gastro-esophageal reflux disease without esophagitis, Z86.19 - Personal history of other infectious and parasitic diseases H pylori Ag Stool Today K21.9 - Gastro-esophageal reflux disease without esophagitis, Z86.19 - Personal history of other infectious and parasitic diseases Coding Level of Care Code New Pt Level 3 (31621) Diagnoses Hepatic steatosis K76.0 History of Helicobacter pylori infection Z86.19 Gastroesophageal reflux disease, unspecified whether esophagitis present K21.9 Esophagitis presence: esophagitis presence not specified
== END 2023-11-19 11:16 | disposition home or self-care (01) ==
PROVIDERS: PCP Student in an Organized Health Care Education/Training Program; Visit Provider Nurse Practitioner
DX: K76.0 Fatty (change of) liver, not elsewhere classified (principal); Z86.19 Personal history of other infectious and parasitic diseases; K21.9 Gastro-esophageal reflux disease without esophagitis
CPT/HCPCS: 99203

== ENCOUNTER 2023-11-19 11:26 | Outpatient (REF) | payer MEDICAID, SELFPAY ==
[2023-11-19 12:36] LABS: Gamma Glutamyl Transpeptidase 42 U/L (7-33)
[2023-11-24 09:18] LABS: Alpha Fetoprotein 1.7 ng/mL
[2023-11-24 10:18] LABS: Mitochondrial Antibodies NEGATIVE (NEGATIVE)
[2023-11-25 11:49] LABS: Anti Nuclear Antibody Screen POSITIVE (NEGATIVE)
[2023-11-25 14:09] LABS: Smooth Muscle Antibody <20 U (<20)
[2023-11-25 17:09] LABS: FIB-ALT 61 U/L (6-29); FIB-Alpha-2-Macroglobulin 178 mg/dL (106-279); FIB-Apolipoprotein A1 124 mg/dL (101-198); FIB-GGT 35 U/L (3-55); FIB-Haptoglobin 230 mg/dL (43-212); FIB-Total Bilirubin 0.2 mg/dL (0.2-1.2); Liver Fibrosis Score 0.07; Liver Fibrosis Stage F0; Nec Inflam Act Grade A0-A1; Nec Inflam Act Score 0.29; Reference ID 5155455
== END 2023-11-19 11:27 | disposition home or self-care (01) ==
LOC: HO.LAB 11:26
PROVIDERS: PCP Student in an Organized Health Care Education/Training Program; Visit Provider Nurse Practitioner
DX: J84.9 Interstitial pulmonary disease, unspecified (principal); M06.09 Rheumatoid arthritis without rheumatoid factor, multiple sites; K21.9 Gastro-esophageal reflux disease without esophagitis; Z86.19 Personal history of other infectious and parasitic diseases
CPT/HCPCS: 36415; 81596; 82105; 82977; 86015; 86038; 86039; 86381; 99202

== ENCOUNTER 2023-11-20 13:38 | Outpatient (AMB) | payer MEDICAID, SELFPAY ==
--- NOTE | 2023-11-20 13:41 | MHC.OFFVIS ---
Vital Signs 11/20/23 13:50 Height 5 ft 2 in Weight 137 lb 12.623 oz BMI 25.2 BP 92/60 Blood Pressure Location Lt brachial Position Sitting Pulse 94 Pulse Source Pulse Oximeter Pulse Oximetry (%) 99 Oxygen Delivery Method Room Air Intake Visit Reasons: Antisynthetase syndrome Intake Note: Patient presents for Antisynthetase Syndrome. Patient is requesting Medrol once a moth for pain. Patient stated she use to take them in [place] and it really helped with pain. Youth Care Worker Required: Yes Youth Care Worker Language: [employer] Worker Services: Youth Care Worker Present Youth Care Worker Name: [id number] Information Interpreted: non-clinical & clinical Allergies No Known Allergies Allergy (Verified 11/20/23 13:49) Medication List - Last Reconciled 11/20/23 by Yahaira Sutherland MD acetaminophen 500 mg PO Q6H PRN azathioprine 50 mg PO DAILY famotidine 20 mg PO DAILY PRN hydroxychloroquine 300 mg (1.5 x 200 mg) PO DAILY omeprazole 40 mg PO DAILY prednisone 10 mg (2 x 5 mg) PO DAILY silver sulfadiazine 1% (Silvadene) 1 appl topical BID HPI Comments Details: 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 She states that her joints are doing well now. She is currently on hydroxychloroquine 300 mg daily, azathioprine 50 mg daily and prednisone 10 mg daily. Has not had any recent skin ulcers. Denies any cough or shortness of breath. She states that she can do multiple fights of stairs without any shortness of breath. States that azathioprine has been well tolerated so far without any significant GI upset Initial history: This is a 47-year-old female with seronegative RA who presents as a new patient. She recently moved from [place]. She states that she was diagnosed with rheumatoid arthritis back in 2016. She was on methotrexate briefly and it was discontinued due to GI upset. She had been on Enbrel since 2017 and it is effective. She states that her joint pain is well controlled overall. She takes 2 mg of Medrol sporadically about once a week as needed for joint pain and fatigue. States that over last 2 weeks she noticed a painful mass on the radial aspect of her right middle finger. She was prescribed antibiotics by her PCP and it was not helpful. She denies any trauma to the finger. Mentions that her maternal uncle has RA. She denies any history of DVT/PE. Denies any fatigue or weight loss. [facility] Medical History Complicated grief Health care maintenance Severe anxiety Paronychia of finger of right hand Rheumatoid arthritis Surgical History History of esophagogastroduodenoscopy (EGD) H/O colonoscopy History of partial hysterectomy Hx of cholecystectomy Family History Mother History of mastectomy, total HX: breast cancer Diabetes Hypertension Father No problems noted. Maternal Uncle Rheumatoid arthritis Social History Alcohol intake: never Patient Tobacco Use Status: Never used Tobacco Current occupational status: unemployed Gender identity: Female Female Reproductive History Menstrual Total pregnancies: 3 Number of Living Children: 1 Ab spontaneous: 2 Review of Systems Const Denies fever(s) and Denies weight loss Card Denies dyspnea and Denies dyspnea on exertion Resp Denies cough, Denies dyspnea and Denies dyspnea on exertion Musc Denies arthralgias, Denies joint swelling and Denies muscle weakness Physical Exam Vital Signs: Last Vital Signs Pulse 94 11/20/23 13:50 BP 92/60 11/20/23 13:50 Pulse Ox 99 11/20/23 13:50 Oxygen Delivery Method Room Air 11/20/23 13:50 BMI result Body Mass Index 25.2 Const General: cooperative, healthy appearing and comfortable Nutritional Appearance: overweight Orientation/consciousness: patient oriented x3 Limitations: no limitations HEENT Head: Yes normocephalic and Yes atraumatic Mouth: moist mucous membranes Resp Effort & Inspection: normal respiratory effort and able to speak in complete sentences Skin Other: Subtle V neck sign Subtle Gottron's rashes on PIPs Subtle heliotrope rash Neuro General: patient oriented x3 Extrem Other: No active synovitis today Nailfold capillaroscopy shows few dilated loops Proximal muscle strength 5/5 all 4 extremities Results Reviewed Results Reviewed: CT/CT chest wo con - High Res IMPRESSION: 1. Early subpleural interstitial changes as described, predominantly in the anterolateral upper lobes, right middle lobe, lingula, and posterolateral lower lobes, with basilar predominance. Differential diagnosis includes NSIP, UIP, and fibrotic lung disease based upon underlying collagen vascular disease. Other etiologies not excluded although provided history is essentially absent. 2. Diffuse dilation and thickening of the esophagus, raising the possibility of SCLERODERMA and scleroderma related lung disease. 3. Mild prominence of the main pulmonary artery could suggest underlying mild pulmonary hypertension. 4. No suspicious adenopathy. No suspicious pulmonary nodules. No significant bronchiectasis or bronchial wall thickening. Electronically signed by: Jorje Camarillo MD 10/09/2023 05:11 PM Assessment & Plan Assessment & Plan (1) Antisynthetase syndrome: Comment: previously diagnosed with seroneg RA -ve RF -ve CCP dx 2016 MTX 2016 ineffective and caused GI upset Enbrel 2017 partially effective DC 07/2023 Antisynthetase antibody syndrome diagnosed 07/2023 based on (V-neck sign, heliotrope rash, experimental mechanic's hands, Raynaud's, esophageal dysmotility, CPK 2k no associated muscle weakness ++Pl-7 Ab ++SSa) Prednisone started 07/2023 effective HCQ added 08/2023 Aza added 10/2023 Code(s): D89.89 - Other specified disorders involving the immune mechanism, not elsewhere classified Category: Medical Plan: 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 She is on prednisone 10 mg daily azathioprine 50 mg daily and hydroxychloroquine 200 mg daily. Doing well with no active synovitis. No muscle weakness on exam. Denies any pulmonary complaints. I discussed patient's condition and multiple organ involvement and its management Raynaud's: Well controlled now, advised patient that the weather will be getting colder in the coming few months Use gloves and glove warmers avoid any cuts. Amlodipine may be added in the future if needed GERD and esophageal dysmotility: Advised patient to sleep elevated. Use multiple pillows. Continue with take omeprazole 40 mg regularly daily Inflammatory arthritis: Doing well on current regimen of hydroxychloroquine 300 mg daily, azathioprine 50 mg daily and prednisone 10 mg daily. Patient prefers Medrol over prednisone. I will switch prednisone 10 mg daily to Medrol 8 mg daily. Plan to increase azathioprine to 100 mg daily if safety labs are normal in 2 weeks ILD: Evaluated by Pulmonary, PFTs were ordered Labs in 2 weeks, if labs are good, I increase azathioprine to 100 mg daily Labs before next visit in 2 months (2) Long-term use of hydroxychloroquine: Code(s): Z79.899 - Other medical terminologist (current) drug therapy Category: Medical Plan: Discussed risk of retinopathy associated with hydroxychloroquine. 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 keg raiser (3) Thrombocytopenia: Code(s): D69.6 - Thrombocytopenia, unspecified Category: Medical Plan: Evaluated by heme/Onc. Nothing concerning was found. I will check G6PD (4) GERD (gastroesophageal reflux disease): Code(s): K21.9 - Gastro-esophageal reflux disease without esophagitis Category: Medical Qualifiers: Esophagitis presence: esophagitis presence not specified Qualified Code(s): K21.9 - Gastro-esophageal reflux disease without esophagitis Plan: Continue with omeprazole. Recently evaluated by GI (5) ILD (interstitial lung disease): Code(s): J84.9 - Interstitial pulmonary disease, unspecified Category: Medical Plan: As mentioned above Plan I spent 26 minutes reviewing patient's chart, evaluating patient, ordering diagnostic workup, counseling patient and documenting in the chart Orders: Orders Mztnrbz-5-Unfyefufy Dehydrogen 2 Weeks Z79.899 - Other long-term (current) drug therapy Medications: New methylprednisolone (Medrol) 8 mg (2 x 4 mg) PO DAILY 60 tabs 2RF Discontinued prednisone Discontinued Reason: Doctor's Order 10 mg (2 x 5 mg) PO DAILY 180 tabs 0RF Coding Level of Care Code Est Pt Level 4 (13723) Complex EM visit Add On G2211 Diagnoses Antisynthetase syndrome D89.89 Long-term use of hydroxychloroquine Z79.899 Thrombocytopenia D69.6 Gastroesophageal reflux disease, unspecified whether esophagitis present K21.9 Esophagitis presence: esophagitis presence not specified ILD (interstitial lung disease) J84.9
[2023-11-20 13:50] VITALS: BP 92/60; PULSE 94; O2SAT 99; BMI 25.2
== END 2023-11-20 14:13 | disposition home or self-care (01) ==
PROVIDERS: PCP Student in an Organized Health Care Education/Training Program; Referring Provider Student in an Organized Health Care Education/Training Program; Visit Provider Student in an Organized Health Care Education/Training Program
DX: D89.89 Other specified disorders involving the immune mechanism, not elsewhere classified (principal); Z79.899 Other long term (current) drug therapy; D69.6 Thrombocytopenia, unspecified; K21.9 Gastro-esophageal reflux disease without esophagitis; J84.9 Interstitial pulmonary disease, unspecified
CPT/HCPCS: 99214

== ENCOUNTER → 2023-11-20 13:38 | Outpatient (BNVA) | payer MEDICAID, SELFPAY | PROVIDERS: PCP Student in an Organized Health Care Education/Training Program; Visit Provider Student in an Organized Health Care Education/Training Program | DX: D89.89 Other specified disorders involving the immune mechanism, not elsewhere classified (principal); D69.6 Thrombocytopenia, unspecified; K21.9 Gastro-esophageal reflux disease without esophagitis; J84.9 Interstitial pulmonary disease, unspecified; Z79.899 Other long term (current) drug therapy | CPT/HCPCS: 99212 ==

== ENCOUNTER 2023-11-25 18:06 | Outpatient (REF) | payer MEDICAID, SELFPAY ==
[2023-11-30 12:47] LABS: HPV mRNA E6/E7 Not Detected (Not Detected)
== END 2023-11-25 18:07 | disposition home or self-care (01) ==
LOC: HO.LNP 18:06
PROVIDERS: Visit Provider Advanced Practice Midwife
DX: R87.810 Cervical high risk human papillomavirus (HPV) DNA test positive (principal)
CPT/HCPCS: 87624; 88175

== ENCOUNTER 2023-11-27 13:58 | Outpatient (REF) | payer MEDICAID, SELFPAY ==
--- NOTE | ~2023-11-27 | MM_ITS ---
EXAMINATION: MM SCREENING DIGITAL BREAST TOMOSYNTHESIS, BILATERAL CLINICAL INFORMATION: Screening. Asymptomatic. COMPARISON: Mammography: Comparison is made with available priors TECHNIQUE: Digital breast mammography with tomosynthesis is performed in both the craniocaudal and mediolateral oblique views along with computer-aided detection (CAD). FINDINGS: The breasts are heterogeneously dense, which may obscure small masses (ACR BI-RADS breast composition Category c). Left marker clip. There are no significant masses, abnormal calcifications, or other abnormalities. MM/MM tomosynthesis screening BI IMPRESSION: No mammographic evidence of malignancy. ASSESSMENT: BI-RADS BI-RADS 2 - Benign Findings RECOMMENDATION: Routine annual mammography screening. 1 year F/U This examination should not preclude the clinical evaluation of a suspicious palpable abnormality. This patient's information was entered into a reminder system with a target due date for their next mammogram. Electronically signed by: Arlene Little DO 12/09/2023 04:03 PM EDT
== END 2023-11-27 13:59 | disposition home or self-care (01) ==
LOC: HO.MAMMO 13:58
PROVIDERS: PCP Student in an Organized Health Care Education/Training Program; Visit Provider Advanced Practice Midwife
DX: Z12.31 Encounter for screening mammogram for malignant neoplasm of breast (principal)
CPT/HCPCS: 77063; 77067

== ENCOUNTER → 2023-11-27 14:00 | Outpatient (BNV) | payer MEDICAID, SELFPAY | PROVIDERS: PCP Student in an Organized Health Care Education/Training Program; Visit Provider Internal Medicine | DX: Z12.31 Encounter for screening mammogram for malignant neoplasm of breast (principal) | CPT/HCPCS: 77063; 77067 ==

== ENCOUNTER 2023-12-09 13:13 | Outpatient (REF) | payer MEDICAID, SELFPAY ==
[2023-12-09 13:38] LABS: MANUAL DIFF FLAG NO
[2023-12-09 14:14] LABS: Basophils Percent Auto 0.3 % (0-2); Eosinophils Absolute Auto 0.1 X10*3/uL (0.0-0.4); Eosinophils Percent Auto 1.2 % (0-4); Hematocrit 37.8 % (37.0-47.0); Hemoglobin 12.1 g/dl (12.0-16.0); Imm Gran Abs Auto 0.04 X10*3/uL (0.00-0.03); Imm Gran Pct Auto 0.4 % (0.0-0.4); Lymphocytes Absolute Auto 1.8 X10*3/uL (1.2-4.9); Lymphocytes Percent Auto 15.9 % (20-40); Mean Corpuscular Hemoglobin 29.4 pg (27.0-33.0); Mean Corpuscular Volume 91.7 fL (80.0-98.0); Mean Platelet Volume 9.5 fL (9.4-12.3); Monocytes Absolute Auto 0.6 X10*3/uL (0.1-1.2); Monocytes Percent Auto 5.7 % (2-11); Neutrophils Absolute Auto 8.5 x10*3/uL (2.0-8.3); Neutrophils Percent Auto 76.5 % (45-73); Platelet Count 148 X10*3/uL (160-400); Red Blood Count 4.12 X10*6/uL (4.20-5.50); Red Cell Distribution Width 14.7 % (11.0-16.0); White Blood Count 11.1 X10*3/uL (4.8-10.8)
[2023-12-09 14:44] LABS: Alanine Aminotransferase 19 U/L (0-31); Albumin Level 4.2 g/dL (3.5-5.0); Alkaline Phosphatase 85 U/L (39-117); Anion Gap 17 (12-20); Aspartate Amino Transferase 24 U/L (5-31); Bilirubin Total 0.3 mg/dL (0.0-1.0); Blood Urea Nitrogen 12 mg/dL (9-16); C Reactive Protein 3.12 mg/dL (< or = 0.50); Calcium 9.6 mg/dL (8.4-10.2); Carbon Dioxide 23 mmol/L (22-29); Chloride 107 mmol/L (96-108); Estimated Glomerular Filt Rate > 60; Glucose Random 84 mg/dL (60-115); Sodium 143 mmol/L (135-145); Total Protein 7.7 g/dL (6.5-8.0)
[2023-12-09 14:54] LABS: Erythrocyte Sedimentation Rate 40 MM/HR (0-20)
[2023-12-17 16:18] LABS: Glucose-6-Phosphate Dehydrogen 22.9 U/g Hgb (7.0-20.5)
== END 2023-12-09 13:14 | disposition home or self-care (01) ==
LOC: HO.LAB 13:13
PROVIDERS: PCP Student in an Organized Health Care Education/Training Program; Visit Provider Student in an Organized Health Care Education/Training Program
DX: G72.9 Myopathy, unspecified (principal); D89.89 Other specified disorders involving the immune mechanism, not elsewhere classified; Z79.899 Other long term (current) drug therapy
CPT/HCPCS: 36415; 80053; 82550; 82955; 85025; 85652; 86140

== ENCOUNTER 2023-12-17 14:21 | Outpatient (AMB) | payer MEDICAID, SELFPAY ==
--- NOTE | 2023-12-17 14:31 | A.OFFVIS_ITS ---
Vital Signs 12/17/23 14:33 Height 5 ft 2 in Weight 138 lb BMI 25.2 BP 101/54 L Blood Pressure Location Lt brachial Position Sitting Pulse 100 Intake Visit Reasons: Follow up labs /elevated liver enzymes Intake Note: Yessi presents to in office visit today follow up of labs and Hepatic steatosis. CC: Patient reports doing well and denies having any GI symptoms. Optomechanical Technician Required: Yes Accompanied by: Self / Same As Patient Allergies No Known Allergies Allergy (Verified 01/28/24 13:03) HPI HPI Follow up labs /elevated liver enzymes: Details: Assessment & Plan (1) Hepatic steatosis: Code(s): K76.0 - Fatty (change of) liver, not elsewhere classified Category: Medical (2) History of Helicobacter pylori infection: Code(s): Z86.19 - Personal history of other infectious and parasitic diseases Category: Medical (3) GERD (gastroesophageal reflux disease): Code(s): K21.9 - Gastro-esophageal reflux disease without esophagitis Category: Medical Qualifiers: Esophagitis presence: esophagitis presence not specified Qualified Code(s): K21.9 - Gastro-esophageal reflux disease without esophagitis Plan [place] #HANNAH Live She was concerned because they did a study in [place] and they found some fatty liver. she has normal transaminases but thrombocytopenia that appears chronic. She has seen Dr. Wright for this. They seem to be monitoring it and not finding any concerning pathology. Her mother has fatty liver and NIDDM and breast ca. She does not drink ETOH. Will complete autoimmune work up to be thorough. Patient was educated this is likely fatty liver and that she needs to control her weight, control her blood sugar should she become diabetic and avoid alcohol. Will get repeat HP stool - she did not take the abx r/t lack of education and strange taste in throat (flagyl?) If we confirm that she does have H pylori then will consider treating care with a regimen that does not contain Flagyl to see if we can find something that she will tolerate better. She was not educate about the importance of treating the infection nor about using probiotics to sweeney off any untoward affects of the strong antibiotics. She is agreeable to being treated pending the test results. She is appreciative of the better Education and understanding. Only occasional diarrhea with greasy foods s/p alberto. ROV 4 weeks. Orders: Orders Alpha Fetoprotein Today K21.9 - Gastro-esophageal reflux disease without esophagitis, Z86.19 - Personal history of other infectious and parasitic disease s HANNAH Reflex Titer and Pattern Today K21.9 - Gastro-esophageal reflux disease without esophagitis, Z86.19 - Personal history of other infectious and parasitic diseases Mitochondrial Antibody Today K21.9 - Gastro-esophageal reflux disease without esophagitis, Z86.19 - Personal history of other infectious and parasitic diseases Smooth Muscle Antibody Today K21.9 - Gastro-esophageal reflux disease without esophagitis, Z86.19 - Personal history of other infectious and parasitic diseases Liver Fibrosis Pnl Today K21.9 - Gastro-esophageal reflux disease without esophagitis, Z86.19 - Personal history of other infectious and parasitic diseases Gamma Glutamyl Transpeptidase Today K21.9 - Gastro-esophageal reflux disease without esophagitis, Z86.19 - Personal history of other infectious and parasitic diseases H pylori Ag Stool Today K21.9 - Gastro-esophageal reflux disease without esophagitis, Z86.19 - Personal history of other infectious and parasitic diseases LABS: Laboratory Tests 11/19/23 12/09/23 11:50 13:35 WBC 11.1 H Hgb 12.1 Hct 37.8 Plt Count 148 L D Estimated GFR > 60 Total Bilirubin 0.3 AST 24 ALT 19 Alkaline Phosphatase 85 Liver GGT 35 Liver Fibrosis Stage F0 Necroinflammator Grade A0-A1 C-Reactive Protein 3.12 H Alpha Fetoprotein 1.7 HANNAH Screen POSITIVE A HANNAH Titer 1:320 H HANNAH Pattern A Anti-Mitochondrial Ab NEGATIVE Anti-Smooth Muscle Ab <20 TODAY'S VISIT [place] #[facility] Live I explain the findings and that she has CINTRON and can be monitored by her PCP and if the transaminases rise above 2x the upper limit then return her to our service. SHe has no sx r/t HP and so declines to retest and this is not terribly important unless sx retrun. Would have to do stool sample since she is on chronic o2o. prn/ PFSH Medical History (Updated 02/18/24 @ 12:28 by VINCENT Tee) Hepatic steatosis Transaminitis Complicated grief Health care maintenance Severe anxiety Paronychia of finger of right hand Rheumatoid arthritis Surgical History History of esophagogastroduodenoscopy (EGD) H/O colonoscopy History of partial hysterectomy Hx of cholecystectomy Family History Mother History of mastectomy, total HX: breast cancer Diabetes Hypertension Father No problems noted. Maternal Uncle Rheumatoid arthritis Social History Alcohol intake: never Patient Tobacco Use Status: Never used Tobacco Current occupational status: unemployed Gender identity: Female Review of Systems Const Denies fatigue, Denies fever(s), Denies night sweats, Denies poor appetite and Denies weight loss ENT Reports Normal hearing present, Denies dental pain, Denies dysphagia, Denies hearing loss, Denies mouth pain, Denies odynophagia, Denies throat swelling, Denies tongue swelling and Reports other (Dentition adequate) Card Reports no additional complaints Resp Reports no additional complaints GI Details: Denies abdominal pain, Denies melena, Denies bloating, Denies hematochezia, Denies constipation, Denies GI cramping, Denies dysphagia, Denies excessive flatus, Denies early satiety, Denies heartburn, Denies diarrhea, Denies nausea, Denies odynophagia, Denies vomiting and Denies hematemesis Skin/Breast Denies pruritus, Denies lesions, Denies rash and Denies jaundice Neuro Reports Normal hearing present and Denies Abnormal speech present Endo Denies fatigue Aller/Immun Denies throat swelling and Denies tongue swelling Physical Exam Vital Signs: Last Vital Signs Pulse 100 12/17/23 14:33 BP 101/54 L 12/17/23 14:33 BMI result Body Mass Index 25.2 Const General: cooperative, no acute distress, well developed and well groomed Nutritional Appearance: average body habitus and well nourished Orientation/consciousness: oriented to person, oriented to place and oriented to time Limitations: No language barrier HEENT Head: Yes normocephalic and Yes atraumatic Eyes General: appearance normal, both eyes and all related structures Pupils: Equal, round and reactive pupils present Neck Neck: Yes normal visual inspection and Yes no lymphadenopathy Thyroid: Thyroid normal Resp Effort & Inspection: normal respiratory effort and able to speak in complete sentences Auscultation: clear to auscultation bilaterally Cardio Rate: regular rate Rhythm: regular rhythm Heart sounds: Normal, physiologic split S2 sound present Peripheral pulses: radial pulses present and posterior tibial pulses present GI Inspection: No distended and No Abdominal panniculus present Palpation (GI): Soft to palpation, nontender, no guarding, not rigid and No hepatosplenomegaly present Percussion: Yes normal to percussion Auscultation: normal bowel sounds Rectal Exam - Female: deferred Skin General skin exam: no rashes or lesions noted, turgor normal, skin not dry, no jaundice, No spider nevi and no striae Rashes: no rashes Nails: normal Neuro General: oriented to person, oriented to place and oriented to time Cranial nerves: Yes Equal, round and reactive pupils present and Yes Normal hearing present Speech: No Abnormal speech present Extrem General: Yes normal to inspection, No clubbing, No cyanosis and No edema Psych Appearance: grossly normal and well kempt Mental Status: mental status grossly normal Speech and movement: Normal speech and movement present Affect: normal affect Attitude: cooperative Thought process: Normal thought process present and not confabulating Thought content: Normal thought content present Insight: Good insight present (Psych) Judgement: Good judgement present (Psych) Results Reviewed Results Reviewed: Laboratory Tests 11/19/23 12/09/23 11:50 13:35 WBC 11.1 H Hgb 12.1 Hct 37.8 Plt Count 148 L D Estimated GFR > 60 Total Bilirubin 0.3 AST 24 ALT 19 Alkaline Phosphatase 85 Liver GGT 35 Liver Fibrosis Stage F0 Necroinflammator Grade A0-A1 C-Reactive Protein 3.12 H Alpha Fetoprotein 1.7 HANNAH Screen POSITIVE A HANNAH Titer 1:320 H HANNAH Pattern A Anti-Mitochondrial Ab NEGATIVE Anti-Smooth Muscle Ab <20 Assessment & Plan Assessment & Plan (1) GERD (gastroesophageal reflux disease): Code(s): K21.9 - Gastro-esophageal reflux disease without esophagitis Category: Medical Qualifiers: Esophagitis presence: esophagitis presence not specified Qualified Code(s): K21.9 - Gastro-esophageal reflux disease without esophagitis (2) History of Helicobacter pylori infection: Code(s): Z86.19 - Personal history of other infectious and parasitic diseases Category: Medical (3) CINTRON (nonalcoholic steatohepatitis): Comment: CINTRON and can be monitored by her PCP and if the transaminases rise above 2x the upper limit then return her to GI service. Laboratory Tests BASELINE LAB 10/29/23 11/04/23 13:47 10:56 WBC 8.1 Hgb 11.4 L Hct 35.9 L MCV 90.7 MCH 28.8 Plt Count 110 L Estimated GFR > 60 Ferritin 39 Total Bilirubin 0.2 GGT 19 AST 22 ALT 21 Alkaline Phosphatase 74 06/22/23 10/29/23 Hepatitis A IgM Ab Nonreactive Hep Bs Antigen Negative Hep Bs Antibody NONREACTIVE Hep B Core Total Ab Nonreactive Hepatitis C Ab (EIA) Nonreactive HIV 1&2 Ab/P24 Ag 4thGn Nonreactive 11/18/2409/30/24 WBC 11.1 H Hgb 12.1 Hct 37.8 Plt Count 148 L D Estimated GFR > 60 Total Bilirubin 0.3 AST 24 ALT 19 Alkaline Phosphatase 85 Liver GGT 35 Liver Fibrosis Stage F0 Necroinflammator Grade A0-A1 C-Reactive Protein 3.12 H Alpha Fetoprotein 1.7 HANNAH Screen POSITIVE A HANNAH Titer 1:320 H HANNAH Pattern A Anti-Mitochondrial Ab NEGATIVE Anti-Smooth Muscle Ab <20 US ABD 06/16/23 FINDINGS: PANCREAS: Obscured by bowel gas. ABDOMINAL AORTA: The proximal, mid, and distal segments are normal in caliber. INFERIOR VENA CAVA: Visualized portions are normal. LIVER: The liver is normal in size. The liver contour is normal. There is diffuse increased liver parenchymal echogenicity, most commonly hepatic steatosis. No focal hepatic lesion. There is no intrahepatic biliary duct dilatation seen. GALLBLADDER: Surgically absent. COMMON BILE DUCT: Normal in caliber measuring 0.2 cm in diameter. RIGHT KIDNEY: Normal. No hydronephrosis. No renal calculi or focal parenchymal lesions. The kidney measures 8.9 cm in maximum dimension. LEFT KIDNEY: Normal. No hydronephrosis. No renal calculi or focal parenchymal lesions. The kidney measures 10.6 cm in maximum dimension. SPLEEN: Normal. The spleen measures 10.5 cm in maximum dimension. FREE FLUID: None. US/US abdomen complete IMPRESSION: Diffuse increased liver parenchymal echogenicity most commonly due to hepatic steatosis, but other chronic hepatocellular disease can have a similar ultrasound appearance. No biliary ductal dilatation. Code(s): K75.81 - Nonalcoholic steatohepatitis (CINTRON) Category: Medical Plan [place] #[facility] Live I explain the findings and that she has CINTRON and can be monitored by her PCP and if the transaminases rise above 2x the upper limit then return her to our service. SHe has no sx r/t HP and so declines to retest and this is not terribly important unless sx retrun. Would have to do stool sample since she is on chronic o2o. prn Coding Level of Care Code Est Pt Level 3 (48724) Diagnoses Gastroesophageal reflux disease, unspecified whether esophagitis present K21.9 Esophagitis presence: esophagitis presence not specified History of Helicobacter pylori infection Z86.19 CINTRON (nonalcoholic steatohepatitis) K75.81
[2023-12-17 14:33] VITALS: BP 101/54; PULSE 100; BMI 25.2
== END 2023-12-17 14:48 | disposition home or self-care (01) ==
LOC: HO.HGI 14:22
PROVIDERS: PCP Student in an Organized Health Care Education/Training Program; Visit Provider Nurse Practitioner
DX: K21.9 Gastro-esophageal reflux disease without esophagitis (principal); Z86.19 Personal history of other infectious and parasitic diseases; K75.81 Nonalcoholic steatohepatitis (NASH)
CPT/HCPCS: 99213

== ENCOUNTER → 2023-12-17 14:21 | Outpatient (BNVA) | payer MEDICAID, SELFPAY | PROVIDERS: PCP Student in an Organized Health Care Education/Training Program; Visit Provider Nurse Practitioner | DX: K76.0 Fatty (change of) liver, not elsewhere classified (principal); K21.9 Gastro-esophageal reflux disease without esophagitis; K75.81 Nonalcoholic steatohepatitis (NASH); Z86.19 Personal history of other infectious and parasitic diseases | CPT/HCPCS: 99212 ==

== ENCOUNTER 2023-12-23 12:37 | Outpatient (REF) | payer MEDICAID, SELFPAY | END 2023-12-23 12:38 | disposition home or self-care (01) | LOC: HO.RESP 12:37 | PROVIDERS: PCP Student in an Organized Health Care Education/Training Program; Visit Provider Internal Medicine Pulmonary Disease | DX: Z13.89 Encounter for screening for other disorder (principal) ==

== ENCOUNTER 2024-01-28 12:54 | Outpatient (AMB) | payer MEDICAID, SELFPAY ==
--- NOTE | 2024-01-28 13:00 | MHC.OFFVIS ---
Vital Signs 01/28/24 13:04 Height 5 ft 2 in Weight 143 lb 11.862 oz BMI 26.3 BP 98/70 Blood Pressure Location Lt brachial Position Sitting Pulse 94 Pulse Source Pulse Oximeter Pulse Oximetry (%) 98 Oxygen Delivery Method Room Air Intake Visit Reasons: Antisynthetase Intake Note: Patient presents for Antisynthetase. 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 She is currently on hydroxychloroquine 300 mg daily, azathioprine 100 mg daily and Medrol 8 mg daily. Right middle finger has been a little painful, when she bumps it when washing dishes it is quite tender. She has not had any open wounds. She denies any joint pain, swelling or stiffness. Denies any muscle weakness, denies any cough or shortness of breath. Initial history: This is a 47-year-old female with seronegative RA who presents as a new patient. She recently moved from [place]. She states that she was diagnosed with rheumatoid arthritis back in 2016. She was on methotrexate briefly and it was discontinued due to GI upset. She had been on Enbrel since 2017 and it is effective. She states that her joint pain is well controlled overall. She takes 2 mg of Medrol sporadically about once a week as needed for joint pain and fatigue. States that over last 2 weeks she noticed a painful mass on the radial aspect of her right middle finger. She was prescribed antibiotics by her PCP and it was not helpful. She denies any trauma to the finger. Mentions that her maternal uncle has RA. She denies any history of DVT/PE. Denies any fatigue or weight loss. [facility] Medical History Complicated grief Health care maintenance Severe anxiety Paronychia of finger of right hand Rheumatoid arthritis Surgical History History of esophagogastroduodenoscopy (EGD) H/O colonoscopy History of partial hysterectomy Hx of cholecystectomy Family History Mother History of mastectomy, total HX: breast cancer Diabetes Hypertension Father No problems noted. Maternal Uncle Rheumatoid arthritis Social History Alcohol intake: never Patient Tobacco Use Status: Never used Tobacco Current occupational status: unemployed Gender identity: Female Female Reproductive History Menstrual Total pregnancies: 3 Number of Living Children: 1 Ab spontaneous: 2 Review of Systems Const Denies fever(s) and Denies weight loss Card Denies dyspnea and Denies dyspnea on exertion Resp Denies cough, Denies dyspnea and Denies dyspnea on exertion Musc Denies arthralgias, Denies joint swelling and Denies muscle weakness Skin/Breast Reports lesions Physical Exam Vital Signs: Last Vital Signs Pulse 94 01/28/24 13:04 BP 98/70 01/28/24 13:04 Pulse Ox 98 01/28/24 13:04 Oxygen Delivery Method Room Air 01/28/24 13:04 BMI result Body Mass Index 26.3 Const General: cooperative, healthy appearing and comfortable Nutritional Appearance: overweight Orientation/consciousness: patient oriented x3 Limitations: no limitations HEENT Head: Yes normocephalic and Yes atraumatic Mouth: moist mucous membranes Resp Effort & Inspection: normal respiratory effort and able to speak in complete sentences Skin Other: Subtle V neck sign Neuro General: patient oriented x3 Extrem Other: No active synovitis today Normal bilateral hand financial services counselor strength Nailfold capillaroscopy shows few dilated loops Proximal muscle strength 5/5 all 4 extremities There are no open skin ulcers today. 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 She is on Medrol 8 mg daily azathioprine 100 mg daily and hydroxychloroquine 300 mg daily. Doing well with no active synovitis. No muscle weakness on exam. Denies any pulmonary complaints. I discussed patient's condition and multiple organ involvement and its management Raynaud's: Seems that patient has a digital ulcer under her right 3rd nail that is already healed. There are no active open ulcers. I again emphasized the importance of conservative measures for Raynaud's. Advised patient to keep her fingers and core warm. Use gloves, glove warmers if needed. Avoid any trauma to her hands, avoid any cuts. Advised patient to avoid trauma to her finger. Amlodipine may be considered but patient is borderline hypotensive, fluoxetine may be considered in the future GERD and esophageal dysmotility: Advised patient to sleep elevated. Use multiple pillows. Continue with take omeprazole 40 mg regularly daily Inflammatory arthritis: Doing great on current regimen of hydroxychloroquine 300 mg daily, azathioprine 100 mg daily and Medrol 8 mg daily. 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 dairy bacteriologist (3) Thrombocytopenia: Code(s): D69.6 - Thrombocytopenia, unspecified Category: Medical Plan: Evaluated by heme/Onc. Nothing concerning was found. (4) GERD (gastroesophageal reflux disease): Code(s): K21.9 - Gastro-esophageal reflux disease without esophagitis Category: Medical Qualifiers: Esophagitis presence: esophagitis presence not specified Qualified Code(s): K21.9 - Gastro-esophageal reflux disease without esophagitis Plan: Continue with omeprazole. Recently evaluated by GI (5) ILD (interstitial lung disease): Code(s): J84.9 - Interstitial pulmonary disease, unspecified Category: Medical Plan: As mentioned above Plan I spent 26 minutes reviewing patient's chart, evaluating patient, ordering diagnostic workup, counseling patient and documenting in the chart Orders: Orders Complete Blood Count Auto Diff 3 Months D89.89 - Other specified disorders involving the immune mechanism, not elsewhere classified, K76.0 - Fatty (change of) liver, not elsewhere classified, R74.01 - Elevation of levels of liver transaminase levels Comprehensive Met. Panel 3 Months D89.89 - Other specified disorders involving the immune mechanism, not elsewhere classified, K76.0 - Fatty (change of) liver, not elsewhere classified, R74.01 - Elevation of levels of liver transaminase levels Erythrocyte Sedimentation Rate 3 Months D89.89 - Other specified disorders involving the immune mechanism, not elsewhere classified, K76.0 - Fatty (change of) liver, not elsewhere classified, R74.01 - Elevation of levels of liver transaminase levels Creatine Kinase Total 3 Months D89.89 - Other specified disorders involving the immune mechanism, not elsewhere classified, K76.0 - Fatty (change of) liver, not elsewhere classified, R74.01 - Elevation of levels of liver transaminase levels C Reactive Protein Today D89.89 - Other specified disorders involving the immune mechanism, not elsewhere classified, K76.0 - Fatty (change of) liver, not elsewhere classified, R74.01 - Elevation of levels of liver transaminase levels Erythrocyte Sedimentation Rate Today D89.89 - Other specified disorders involving the immune mechanism, not elsewhere classified, K76.0 - Fatty (change of) liver, not elsewhere classified, R74.01 - Elevation of levels of liver transaminase levels C Reactive Protein 3 Months D89.89 - Other specified disorders involving the immune mechanism, not elsewhere classified, K76.0 - Fatty (change of) liver, not elsewhere classified, R74.01 - Elevation of levels of liver transaminase levels Complete Blood Count Auto Diff Today D89.89 - Other specified disorders involving the immune mechanism, not elsewhere classified, K76.0 - Fatty (change of) liver, not elsewhere classified, R74.01 - Elevation of levels of liver transaminase levels Comprehensive Met. Panel Today D8.89 - Other specified disorders involving the immune mechanism, not elsewhere classified, K76.0 - Fatty (change of) liver, not elsewhere classified, R74.01 - Elevation of levels of liver transaminase levels Creatine Kinase Total Today D89.89 - Other specified disorders involving the immune mechanism, not elsewhere classified, K76.0 - Fatty (change of) liver, not elsewhere classified, R74.01 - Elevation of levels of liver transaminase levels Coding Level of Care Code Est Pt Level 4 (41587) Complex EM visit Add On G2211 Diagnoses Antisynthetase syndrome D89.89 Long-term use of hydroxychloroquine Z79.899 Thrombocytopenia D69.6 Gastroesophageal reflux disease, unspecified whether esophagitis present K21.9 Esophagitis presence: esophagitis presence not specified ILD (interstitial lung disease) J84.9
[2024-01-28 13:04] VITALS: BP 98/70; PULSE 94; O2SAT 98; BMI 26.3
== END 2024-01-28 13:27 | disposition home or self-care (01) ==
PROVIDERS: PCP Student in an Organized Health Care Education/Training Program; Visit Provider Student in an Organized Health Care Education/Training Program
DX: D89.89 Other specified disorders involving the immune mechanism, not elsewhere classified (principal); Z79.899 Other long term (current) drug therapy; D69.6 Thrombocytopenia, unspecified; K21.9 Gastro-esophageal reflux disease without esophagitis; J84.9 Interstitial pulmonary disease, unspecified
CPT/HCPCS: 99214

== ENCOUNTER 2024-01-28 12:54 | Outpatient (REF) | payer MEDICAID, SELFPAY ==
[2024-01-28 13:51] LABS: MANUAL DIFF FLAG NO
[2024-01-28 14:05] LABS: Basophils Percent Auto 0.3 % (0-2); Eosinophils Absolute Auto 0.1 X10*3/uL (0.0-0.4); Eosinophils Percent Auto 1.2 % (0-4); Hematocrit 36.1 % (37.0-47.0); Hemoglobin 11.5 g/dl (12.0-16.0); Imm Gran Abs Auto 0.04 X10*3/uL (0.00-0.03); Imm Gran Pct Auto 0.4 % (0.0-0.4); Lymphocytes Absolute Auto 1.5 X10*3/uL (1.2-4.9); Lymphocytes Percent Auto 14.1 % (20-40); Mean Corpuscular HGB Conc 31.9 g/dl (31.0-35.0); Mean Corpuscular Hemoglobin 28.8 pg (27.0-33.0); Mean Corpuscular Volume 90.5 fL (80.0-98.0); Mean Platelet Volume 9.2 fL (9.4-12.3); Monocytes Absolute Auto 0.8 X10*3/uL (0.1-1.2); Monocytes Percent Auto 7.1 % (2-11); Neutrophils Absolute Auto 8.3 x10*3/uL (2.0-8.3); Neutrophils Percent Auto 76.9 % (45-73); Platelet Count 132 X10*3/uL (160-400); Red Blood Count 3.99 X10*6/uL (4.20-5.50); Red Cell Distribution Width 14.4 % (11.0-16.0); White Blood Count 10.8 X10*3/uL (4.8-10.8)
[2024-01-28 14:33] LABS: Alanine Aminotransferase 34 U/L (0-31); Alkaline Phosphatase 69 U/L (39-117); Anion Gap 9 (12-20); Aspartate Amino Transferase 27 U/L (5-31); Bilirubin Total 0.3 mg/dL (0.0-1.0); Blood Urea Nitrogen 11 mg/dL (9-16); C Reactive Protein 2.31 mg/dL (< or = 0.50); Calcium 9.1 mg/dL (8.4-10.2); Carbon Dioxide 28 mmol/L (22-29); Chloride 110 mmol/L (96-108); Estimated Glomerular Filt Rate > 60; Glucose Random 93 mg/dL (60-115); Potassium 3.6 mmol/L (3.3-5.1); Sodium 143 mmol/L (135-145); Total Protein 7.2 g/dL (6.5-8.0)
[2024-01-28 14:45] LABS: Erythrocyte Sedimentation Rate 29 MM/HR (0-20)
== END 2024-01-28 12:55 | disposition home or self-care (01) ==
LOC: HO.LAB 12:54
PROVIDERS: PCP Student in an Organized Health Care Education/Training Program; Visit Provider Student in an Organized Health Care Education/Training Program
DX: D89.89 Other specified disorders involving the immune mechanism, not elsewhere classified (principal); K76.0 Fatty (change of) liver, not elsewhere classified; R74.01 Elevation of levels of liver transaminase levels; Z79.899 Other long term (current) drug therapy; D69.6 Thrombocytopenia, unspecified; K21.9 Gastro-esophageal reflux disease without esophagitis; J84.9 Interstitial pulmonary disease, unspecified
CPT/HCPCS: 36415; 80053; 82550; 85025; 85652; 86140; 99212

== ENCOUNTER 2024-02-11 07:33 | Outpatient (REF) | payer MEDICAID, SELFPAY ==
--- NOTE | 2024-02-11 08:03 | PFT_ITS ---
Indication: Interstitial lung disease Spirometry [FEV1 to FVC 88%; FEV1 1.61 L; FVC 1.84 L. No significant response to bronchodilators noted.] Lung Volumes [Total lung capacity 58% predicted; expiratory reserve volume 71% predicted] Diffusion Capacity [DLCO 60% predicted] Comparisons [Not available] Interpretation [No obstructive ventilatory defects identified. No significant response to bronchodilators noted. However, there is a restrictive ventilatory defect consistent with moderate restrictive lung disease. This is consistent with her underlying parenchymal disease. The patient does have a moderate diffusion impairment as well. Clinical correlation warranted.] MTDD
[2024-02-11 09:34] VITALS: PULSE 89; O2SAT 99
== END 2024-02-11 07:34 | disposition home or self-care (01) ==
LOC: HO.RESP 07:33
PROVIDERS: PCP Student in an Organized Health Care Education/Training Program; Visit Provider Internal Medicine Pulmonary Disease
DX: J84.9 Interstitial pulmonary disease, unspecified (principal)
CPT/HCPCS: 94010; 94640; 94727; 94729

== ENCOUNTER → 2024-02-11 08:03 | Outpatient (BNV) | payer MEDICAID, SELFPAY | PROVIDERS: PCP Student in an Organized Health Care Education/Training Program; Visit Provider Hospitalist | DX: J84.9 Interstitial pulmonary disease, unspecified (principal) | CPT/HCPCS: 94060; 94727; 94729 ==

== ENCOUNTER → 2024-05-19 13:44 | Outpatient (BNVA) | payer SELFPAY | PROVIDERS: PCP Student in an Organized Health Care Education/Training Program; Visit Provider Internal Medicine Pulmonary Disease ==

== ENCOUNTER 2024-06-14 13:44 | Outpatient (REF) | payer MEDICAID, SELFPAY ==
[2024-06-14 14:44] LABS: Bacterial Vaginosis PCR NEGATIVE (Negative); Candida Group PCR NOT DETECTED (Not Detect); Candida glab krusei PCR NOT DETECTED (Not Detect); Trichomonas vaginalis PCR NOT DETECTED (Not Detect)
--- OUTSIDE RECORDS SUMMARY | 2024-06-14 15:04 | XMS_ITS | Encounter Summary ---
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 Operator Name Role Phone Nenita Croft MD Primary Care Pro vider Encounter Details Date Type Department Care Team ([facility] st Contact Info) Description 01/19/2024 Orders Only [facility] [address] [place] [address] Provider, MD Paul Social History Tobacco Use Types Packs/Day Years Used Date Smoking Tobacco: Never Smokeless Tobacco: Never Alcohol Use Standard Drinks/Week Comments Not Currently 0 (1 standard drink = 0.6 oz pur e alcohol) social Depression Answer Date Recorded Patient Health Questionnaire-9 Score 17 01/21/2023 Patient Health Questionnaire-9 Score 17 01/21/2023 Last PHQ-9: Questionnaire Data Not on file 1 03/24/2022 Housing Stability Answer Date Recorded What is your housing situation today? I do not have housing (Staying with others, in a hotel, in a fpc, living outside on the street, on a beach, in a car, or in a park 11/19/[address] you li ve. Do you have problems with any of the following? None of the above 11/19/2022 Food Insecurity Answer Date Recorded Within the past 12 months, y ou worried that your food would run out before you got money to buy more: Never True 12/09/2022 Within the past 12 months,th e food you bought just didn't last and you didn't have enough money to get more: Never True Transportation Answer Date Recorded In the past 12 months, has l ack of transportation kept you from medical appts, meetings, work or from getting things needed for daily living? Yes, it has kept me from medical appointments or getting medications. 11/19/2022 Utilities Answer Date Recorded In the past 12 months, has t he electric, gas, oil or water company threatened to shut off services in your home? No 12/09/2022 Depression Answer Date Recorded Patient Health Questionnaire-2 Score 4 01/21/2023 Comments No Sex and Gender Information Value Date Recorded Sex Assigned at Female 09/11/2022 1:22 PM EDT Legal Sex Female 1:21 PM EDT Gender Identity Female 09/11/2022 1:22 PM EDT Sexual Orientation Straight 09/11/2022 1: 22 PM EDT documented as of this encounter Plan of Treatment Upcoming Encounters Date Type Department Care Team (Late st Contact Info) Description 07/06/2024 10:45 AM EDT Office Visit [facility] [address] [place] [address] [phone] Nenita Croft MD [address] [place] [address] [phone] documented as of this encounter Procedures Procedure Name Priority Date/Time Associated Diagnosis Comments COLONOSCOPY Routine 01/23/2022 7:33 AM EST documented in this encounter Results * Hm Colonoscopy (01/23/2022 7:33 AM EST) Colonoscopy Normal Normal Narrative Sugar Valdez - 01/23/2022 7:33 AM EST Please see scanned result on 05/29/2023 in 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
--- OUTSIDE RECORDS SUMMARY | 2024-06-14 15:05 | XMS_ITS | Clinical Summary ---
Author Organization [employer] Address [address] [place] [address] 7 [place] [address] Care Team Providers Care Product Responsibility Liaison Name Role Phone Nenita Croft MD Primary Care Pro vider Allergies No known active allergies Medications * This document contains information received from the source organization and may not represent a complete record from that organization. azaTHIOprine (Imuran) 50 MG tablet Take 50 mg by mouth Once per day. 4 Active hydroxychloroqu ine (Plaquenil) 200 MG tablet TAKE 1.5 TABLETS BY MOUTH EVERY DAY 4 Active predniSONE (Deltasone) 5 MG tablet Take 10 mg by mouth Once per day. 4 Active famotidine (Pepcid) 20 MG tablet Take 1 tablet (20 mg) by mouth if needed at bedtime for heartburn. 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 See above Take PRD x 1w then restart Enbrel 1w later. 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 [place] Other straight-identified cis- female (pronouns she/her/hers) with previous documented hx of Depression, Anxiety, and grief who presents for Anxiety and Depression During IBH Consult Yessi presenting with depressed mood, loss of interests/pleasure , changes in sleep difficulty falling asleep and restless/keyed up/On edge, easily fatigued, difficulty concentrating/Mind going blank , irritability, muscle tension, and sleep disturbance difficulty falling asleep; for a period of 6-12 mo, for all symptoms in the context of one year anniversary of the of her and moving from other stated. Not having her own place and still adjusting to her moving from [place] to [place] on 08/2022. PLAN: New/Additional Services needed Off-site services for , Behavioral Health Integration Plan External OP BH therapy referral and OP psychiatry Referral, Patient Self Plan Patient to utilize skills provided in intervention , Patient to reach out to [facility] team as needed, Patient to engage in OP therapy , and Patient to reach out to [facility] as needed. Patient provided with [facility] information to contact them and request status of referral submitted in 10/2022. Patient will reach out to this ad copy writer to provide an update. Assessment & Plan (12/12/2022 9:59 AM EDT): Assessment: Patient presents with anxiety, depression and grief symptoms. Passive SI without plan or intention. Reason for visit was to assess symptoms and provide support to patient. Symptoms are present in the context of 1 year of her , moving to [place] from on 08/2022, not having her own place. Provided psychoeducation around coping mechanisms to manage anxiety and depressive sxs and discuss the grief process. Referral previously made to [facility] for OP services. At this time Yessi Hess meets criteria for Visit Diagnoses: Problem List Items Addressed This Visit Other Moderately severe depression Complicated grief Severe anxiety Patient ready to address current needs Yes Strengths include Yessi is in action stage of change and her motivation will serve as treatment engagement. PLAN: 1. Follow up with [facility] [place]: Recommended for follow-up: Patient will be follow up with [facility]-, per provider request. 2. Patient goal is improve mental health 3. Behavioral Recommendations a. Ind. Therapy, referral submitted b. Use of coping skills provided c. [facility] follow up Assessment & Plan (11/06/2022 10:03 AM EDT): Patient with symptoms of anhedonia, hopelessness, sleep disturbance, fatigued, poor appetite, feelings of guilt, over-worrying, trouble relaxing, fearfulness, persistent yearning, emotional pain, bitterness, avoidance of reminders of the loss, detached, feelings of loneliness, finding life meaningless and emotional numbness. Symptoms occur nearly everyday and have been present since February 2021 when Yessi's unexpectedly . These symptoms are presented in the context of losing her in February 2021. Referral for OP individual therapy placed on 10/22/22 with Alejandra ([phone]). Pt reported feeling better since our last appointment. She has started incorporating coping mechanisms to bring her back to the present. At this time Yessi Hess meets criteria for Visit Diagnoses: Problem List Items Addressed This Visit Other Depression Complicated grief Patient ready to address current needs Yes Strengths include motivation and readiness to change. PLAN: 1. Follow up with [facility] [place]: Not recommended for follow-up 2. Patient goal is to start individual therapy 3. Behavioral Recommendations a. Continue practicing mindfulness techniques b. Do activities in memory of her loved one c. Referral for OP individual therapy (placed on 10/22) Complicated grief 10/21/2022 Assessment & Plan (11/06/2022 10:03 AM EDT): Patient with symptoms of anhedonia, hopelessness, sleep disturbance, fatigued, poor appetite, feelings of guilt, over-worrying, trouble relaxing, fearfulness, persistent yearning, emotional pain, bitterness, avoidance of reminders of the loss, detached, feelings of loneliness, finding life meaningless and emotional numbness. Symptoms occur nearly everyday and have been present since February 2021 when Yessi's unexpectedly . These symptoms are presented in the context of losing her in February 2021. Referral for OP individual therapy placed on 10/22/22 with Alejandra ([phone]). Pt reported feeling better since our last appointment. She has started incorporating coping mechanisms to bring her back to the present. At this time Yessi Hess meets criteria for Visit Diagnoses: Problem List Items Addressed This Visit Other Depression Complicated grief Patient ready to address current needs Yes Strengths include motivation and readiness to change. PLAN: 1. Follow up with [facility] [place]: Not recommended for follow-up 2. Patient goal is to start individual therapy 3. Behavioral Recommendations a. Continue practicing mindfulness techniques b. Do activities in memory of her loved one c. Referral for OP individual therapy (placed on 10/22) Assessment & Plan (10/24/2022 3:18 PM EDT): Patient with symptoms of anhedonia, hopelessness, sleep disturbance, fatigued, poor appetite and feelings, over-worrying, trouble relaxing and fearfulness. Yessi addressed symptoms of persistent yearning, emotional pain, bitterness, avoidance of reminders of the loss, detached, feelings of loneliness, finding life meaningless and emotional numbness. Symptoms occur nearly everyday and have been present since February 2021 when Yessi's unexpectedly . These symptoms are presented in the context of losing her in February 2021. Patient will benefit from receiving OP individual therapy and incorporating mindfulness techniques/self-care into daily routine. At this time Yessi Hess meets criteria for Visit Diagnoses: Problem List Items Addressed This Visit Other Complicated grief - Primary Relevant Orders Referral to Behavioral Health Patient ready to address current needs Yes Strengths include strong family jarquin. PLAN: 1. Follow up with [facility] [place]: Not recommended for follow-up 2. Patient goal is to create a new normal after her 's . 3. Behavioral Recommendations a. Referral for OP individual therapy b. Incorporating mindfulness techniques and self-care c. Do activities in memory of her loved one. Encounters Date Type Department Care Team Description 06/14/2024 10:15 AM EDT Office Visit [facility] [address] [place] [phone] Joe Alejandra CNM Vulvar itching (Primary Dx) 06/14/2024 Telephone [facility] [address] [facility] [place] [address] Joe Alejandra CNM Results 06/14/2024 Orders Only [facility] [address] [place] [address] Joe Alejandra CNM 06/14/2024 Travel 06/10/2024 Telephone [facility] [place] [address] Nenita Croft MD chartprep 04/22/2024 Population Health Risk Score [facility] [address] [place] [phone] Provider, Population Health Generic 04/19/2024 Telephone [facility] [place] [address] Nenita Croft MD June recalls from Last 3 Months Immunizations Name Administration Dates Next Due Pneumococcal Conjugate PCV 20 07/08/2023 Tdap 07/08/2023 Family History Medical History Relation Name Comments Breast cancer Mother Diabetes type II Mother htn Mother Relation Name Status Comments Mother Social History Tobacco Use Types Packs/Day Years Used Date Smoking Tobacco: Former Cigarettes Passive Smoke Exposure: Past Smokeless Tobacco: Former Tobacco Cessation:Counseling Given: Not Answered Alcohol Use Standard Drinks/Week Comments Not Currently [...] with others, in a hotel, in a skilled nursing, living outside on the street, on a [...] Orientation Straight 09/11/2022 1: 22 PM EDT Last Filed Vital Signs Vital Sign Reading Time Taken Comments Blood Pressure 131/68 06/14/2024 10:10 AM EDT Pulse 98 06/14/2024 10:10 AM EDT Temperature 36.8 ??C (98.2 ??F) 06/14/2024 10:10 AM E DT Respiratory Rate 16 06/14/2024 10:10 AM EDT Oxygen Saturation 99% 06/14/2024 10:10 AM EDT Inhaled Oxygen Concentration - - Weight 61.7 kg (136 lb 2 oz) 06/14/2024 10:10 AM EDT Height 157.5 cm (5' 2 ) 06/14/2024 10:10 AM EDT Body Mass Index 24.9 06/14/2024 10:10 AM EDT Plan of Treatment Upcoming Encounters Date Type Department Care Team (Late st Contact Info) Description 07/06/2024 10:45 AM EDT Office Visit [facility] [address] [place], [place] [phone] Nenita Croft MD [address] [place], [place] [phone] Health Maintenance Due Date Last Done Comments CT Colonography 1977 FIT DNA/Cologuard 1977 FIT 1977 FOBT 1975 Sigmoidoscopy 1977 COVID-19 Vaccine (#1) 1982 Alcohol/Substance Use Screening 1989 Family Planning (PISQ) 1992 Hepatitis B Vaccines (1 of 3 - 19+ 3-dose series) 1996 Zoster Vaccines (1 of 2) 1996 Influenza Vaccine (#1) 2023 SDOH Screening 10/22/2023 10/21/2022 Depression Screening 01/22/2024 01/21/2023, 01/22/20 23 HPV/Cotest 11/24/2024 11/25/2023, 01/12/2023 Pap Smear 11/24/2024 11/25/2023, 01/12/2023 Tobacco Screening 06/14/2025 06/14/2024 Mammogram 11/26/2025 11/27/2023, 10/28/2022 Colonoscopy 01/23/2027 01/23/2022 Colorectal Cancer Screening 01/23/2027 DTaP/Tdap/Td Vaccines (2 - Td or Tdap) 07/07/2033 07/08/2023 RSV Patients and Patients Aged 60 years or older (1 - 1-dose 75+ series) 2052 Pneumococcal Vaccine: Pediatrics (0 to 5 Years) and At-Risk Patients (6 to 49) Years) Completed 07/08/2023 HIV Screening Completed 10/29/2023, 09/16/2022 Hepatitis C Screening Completed 10/29/2023 , 06/22/2023, 09/16/2022, Additional history exists HIB Vaccines Aged Out No longer eligi ble based on patient's age to complete this topic HPV Vaccines Aged Out No longer eligi ble based on patient's age to complete this topic Hepatitis A Vaccines Aged Out No long er eligible based on patient's age to complete this topic IPV Vaccines Aged Out No longer eligi ble based on patient's age to complete this topic Meningococcal Vaccine Aged Out No bartolome renae eligible based on patient's age to complete this topic RSV under 20 months Aged Out No longe r eligible based on patient's age to complete this topic Rotavirus Vaccines Aged Out No longer eligible based on patient's age to complete this topic Procedures Procedure Name Priority Date/Time Associated Diagnosis Comments BACTERIAL VAGINOSIS PANEL Routine 06/14/2024 10:41 AM EDT Vulvar itching BI MAMMOGRAM SCREENING TOMOSYNTHESIS BILATERAL Routine 11/27/2023 2:00 PM EDT Breast cancer screening by mammogram [facility] PAP AND HPV MRNA E6/E7 Routine 11/25/2023 11:50 AM EDT HEPATITIS PANEL, GENERAL Routine 10/29/2023 1:47 PM EDT HIV 1/2 ANTIGEN/ANTIBODY, FOURTH GENERATION W/RFL Routine 10/29/2023 1:47 PM EDT HM COLONOSCOPY Routine 01/23/2022 7:33 AM EST from Last 3 Months or Most Recently Relevant to Health Maintenance Results * Bacterial Vaginosis Panel (06/14/2024 10:41 AM EDT) TRICHOMONAS VAGINALIS DETECTION BY PCR NOT DETECTED Not Detect [facility] BACTERIAL VAGINOSIS DETECTION BY PCR NEGATIVE Negative [facility] Comment:The BV organism targ ets of the Xpert Xpress MVP test can becommensal in women; Xpert Xpress MVP positive results forbacterial vaginosis should be considered in conjunction withother clinical and patient information to determine thedisease status. Organisms that are not detected by the XpertXpress MVP test have also been reported to be associatedwith BV and aerobic vaginitis.The Xpert Xpress MVP test performance has not been evaluatedin patients under the age of 14. TIKI GROUP DETECTION BY PCR NOT DETECTED Not Detect [facility] Tiki glab krusei PCR NOT DETECTED Not Detect [facility] Swab Vaginal structure / Unknown 06/14/2024 10:41 AM EDT 06/14/2024 1:45 PM EDT us Joe RODRIGUEZ LAB MICROBIOLOGY - GENERA L ORDERABLES Final Result [facility] [address] [place] [address] [place] [phone] * BI Mammogram Screening Tomosynthesis Bilateral (11/27/2023 2:00 PM EDT) Anatomical Region Laterality Modality Breast Bilateral Mammography 11/27/2023 2:00 PM EDT Narrative 12/09/2023 4:05 PM EDT ? [facility] [place] ? [address] ?[place] [address] ? Mammography Report ? Signed ? Patient: Deshawn Toth,Yessi I ?MR#: ?? [id number] ? : 1975 ?Acct:[id number] ? Age/Sex: 48 / F ?ADM Date: 11/26/ ? Loc: HO.MAMMO ? Attending Dr: Joe Alejandra CNM ? Ordering Physician: JOE ALEJANDRA CNM ?Results: 2 ?? Benign Findings ? Date of Service: 11/26/ ?Follow Up: 1 Year From Orig ?? inal Mammogram ? Procedure(s): MM tomosynthesis screening BI ?? Accession Number(s): [id number] ? cc: Nenita Croft MD; JOE ALEJANDRA CNM ? EXAMINATION: ?? MM SCREENING DIGITAL BREAST TOMOSYNTHESIS, BILATERAL ? CLINICAL INFORMATION: ? Screening. Asymptomatic. ? COMPARISON: ?? Mammography: Comparison is made with available priors ? TECHNIQUE: ?? Digital breast mammography with tomosynthesis is performed in both the ?? craniocaudal and mediolateral oblique views along with computer-aided ?? detection (CAD). ? FINDINGS: ?? The breasts are heterogeneously dense, which may obscure small masses ?? (ACR BI-RADS breast composition Category c). ?? Left marker clip. ?? There are no significant masses, abnormal calcifications, or other ?? abnormalities. ? MM/MM tomosynthesis screening BI ?? IMPRESSION: ?? No mammographic evidence of malignancy. ? ASSESSMENT: ? BI-RADS BI-RADS 2 - Benign Findings ? RECOMMENDATION: ?? Routine annual mammography screening. ? 1 year F/U ? This examination should not preclude the clinical evaluation of a ?? suspicious palpable abnormality. ? This patient's information was entered into a reminder system with a ?? target due date for their next mammogram. ? Electronically signed by: ??Arlene Little DO ??12/09/2023 04:03 PM EDT ? Dictated By: ?Arlene Little DO ? Signed By: ?<Electronically signed by Arlene Little, DO in OV> ? 12/09/23 1603 ? DD/ 1400 ? TD/TT: 11/27/23 1420 ? Metal Cut Off Saw Tender: ? Procedure Note Kiel, Image - 12/09/2023 [facility] [address] [place] [address] Mammography Report Signed Patient: Yessi Garcia IMR#: [id number] : 1975Acct:[id number] Age/Sex: 48 / FADM Date: 11/27/23 Loc: [facility] Attending Dr: Joe Alejandra CNM Ordering Physician: JOE ALEJANDRAesults: 2 Benign Findings Date of Service: 11/27/23Follow Up: 1 Year From Orig inal Mammogram Procedure(s): MM tomosynthesis screening BI Accession Number(s): [id number] cc: Nenita Croft MD; JOE ALEJANDRA CNM EXAMINATION: MM SCREENING DIGITAL BREAST TOMOSYNTHESIS, BILATERAL CLINICAL INFORMATION: Screening. Asymptomatic. COMPARISON: Mammography: Comparison is made with available priors TECHNIQUE: Digital breast mammography with tomosynthesis is performed in both the craniocaudal and mediolateral oblique views along with computer-aided detection (CAD). FINDINGS: The breasts are heterogeneously dense, which may obscure small masses (ACR BI-RADS breast composition Category c). Left marker clip. There are no significant masses, abnormal calcifications, or other abnormalities. MM/MM tomosynthesis screening BI IMPRESSION: No mammographic evidence of malignancy. ASSESSMENT: BI-RADS BI-RADS 2 - Benign Findings RECOMMENDATION: Routine annual mammography screening. 1 year F/U This examination should not preclude the clinical evaluation of a suspicious palpable abnormality. This patient's information was entered into a reminder system with a target due date for their next mammogram. Electronically signed by: Arlene Little DO 12/09/2023 04:03 PM EDT Dictated By: Arlene Little DO Signed By: <Electronically signed by Arlene Little DO in OV> 12/09/23 1603 DD/ 1400 TD/TT: 11/27/23 1420 Metal Cut Off Saw Tender: Joe Alejandra CNM IMG BI PROCEDURES Final R esult * ThinPrep Imaging Pap and HPV mRNA E6/E7 (11/25/2023 11:50 AM EDT) HPV nRNA E6/E7 Not Detected Not Detected [facility] Comment:Methodology: Transcr iption-Mediated AmplificationThis assay detects E6/E7 viral messenger RNA (mRNA) from 14high-risk HPV types (16,18,31,33,35,39,45,51,52,56,58,59,66,68).Cervical sources are required for HPV testing.If a vaginal source from a patient who has had atotal hysterectomy with removal of cervix wassubmitted, please contact the testing laboratoryfor alternative testing options.For additional information, please refer tohttp://education.Mysafeplace.natue/faq/WUY207o5(This link if provided for information/educational purposes only.)THIS TEST WAS PERFORMED AT:[facility] [address] [phone] WALTON MD SOURCE: SEE NOTE [facility] Comment:Cervix Report Status: [facility] Clinical Information: SEE NOTE [facility] Comment:None given LMP: SEE NOTE [facility] Comment:NONE GIVEN Prev. PAP: SEE NOTE [facility] Comment:NONE GIVEN Prev. BX: SEE NOTE [facility] Comment:NONE GIVEN Statement Of Adequacy: SEE NOTE [facility] Comment:Satisfactory for micha luation.Endocervical/transformation zone component absent. General Categorization: [facility] Interpretation/Result: SEE NOTE [facility] Comment:Cytology Results: Ne gative for intraepitheliallesion or malignancy. Cytology Comment SEE NOTE [facility] Comment:This Pap test has be en evaluated with computerassisted technology. Proof Technician: SEE NOTE [facility] Comment:[place], CT(ASCP)CT scre ening location: [address] [address] Review Proof Technician: SEE NOTE [facility] Comment:MSM, CT(ASCP)CT scre ening location: [place] [address] Pathologist [facility] PAP Infection [facility] See Note SEE NOTE [facility] Comment:EXPLANATORY NOTE:The Pap is a screening test for cervical cancer. It isnot a diagnostic test and is subject to false negativeand false positive results. It is most reliable when asatisfactory sample, regularly obtained, is submittedwith relevant clinical findings and history, and whenthe Pap result is evaluated along with historic andcurrent clinical information. 11/25/2023 11:5 0 AM EDT 11/25/2023 6:08 PM EDT Narrative [facility] - 12/01/2023 11:20 AM EDT SEE SCANNED RESULTS IN EMRCERVIX us Joe Alejandra [facility] PATHOLOGY ORDERABLES Final Result Performing Organization Address [facility] Co de Phone Number [facility] [address] [place] [address] [phone] * Hepatitis Panel, General (10/29/2023 1:47 PM EDT) Hepatitis A IgM Nonreactive Nonreactive [facility] Comment:IgM antibodies to TRINH V not detected; does not exclude earlyacute or recovered HAV infection. ~Hepatitis B Surface Antibody NONREACTIVE Nonreactive [facility] Comment:Nonreactive: < 8.00 mIU/mL Hepatitis B Core Antibody Nonreactive Nonreactive [facility] Hepatitis C Antibody Nonreactive Nonreactive [facility] Comment:Antibodies to HCV no t detected; does not exclude early acuteHCV infection. 10/29/2023 1:47 PM EDT 10/29/2023 1:47 PM EDT us Generic External Data Provider LAB BLOOD ORDERAB LES Final Result Performing Organization Address [facility] Co de Phone Number [facility] [address] [place] [phone] * HIV-1/2 Antigen and Antibodies, Fourth Generation, with Reflexes (10/29/2023 1:47 PM EDT) Pathologist [facility] HIV AB/AG Nonreactive Nonreactive [facility] Comment:HIV-1 p24 Ag and/or HIV-1/HIV-2 Ab not detected.A test result that is nonreactive does not exclude thepossibility of exposure to or infection with HIV-1 and/orHIV-2. Nonreactive results in this assay for individualswith prior exposure to HIV-1 and/or HIV-2 may be due toantigen and antibody levels that are below the limit ofdetection of this assay.The [employer] HIV Ag/Ab Combo assay result andsupplemental assay results should be interpreted inconjunction with the patient's clinical presentation,history and other laboratory results. If the results areinconsistent with clinical evidence, additional testing issuggested to confirm the result. 10/29/2023 1:47 PM EDT 10/29/2023 1:47 PM EDT us Generic External Data Provider LAB BLOOD ORDERAB LES Final Result [facility] [address] [place] [address] [phone] * Hm Colonoscopy (01/23/2022 7:33 AM EST) Colonoscopy Normal Normal Narrative Sugar Valdez - 01/23/2022 7:33 AM EST Please see scanned result on 05/29/2023 in multimedia services manager ,unable to attach report Historical Provider HEALTH MAINTENANCE Edited Result - Final from Last 3 Months or Most Recently Relevant to Health Maintenance Insurance [facility] Care Teams Product Responsibility Liaison Relationship Specialty Start Date End Date Nenita Croft MD [address] [place] [phone] PCP - General Internal Medicine 09/11/22
--- OUTSIDE RECORDS SUMMARY | 2024-06-14 15:05 | XMS_ITS | Encounter Summary ---
Author Organization [employer] Address [address] [place] [id number] Care Team Providers Care Automotive Metalsmith Name Role Phone Nenita Croft MD Primary Care Pro vider Reason for Visit * Reason Onset Date Comments chartprep 06/10/2024 Encounter Details Date Type Department Care Team (Late st Contact Info) Description 06/10/[address] [facility] MEDICINE [address] [place] [address] Nenita Croft MD [address] [place] [address] chartprep Social History Tobacco Use Types Packs/Day Years [...] PM EDT documented as of this encounter Miscellaneous Notes * Telephone Encounter - Fe Kumar MA - 06/10/2024 2:58 PM EDT ..Chart Prep Labs: not done Images: not applicable Vaccines due: Covid Due, Hep B Due, Flu Due, and Shingles in pharmacy Due Referrals: Not Applicable Screenings: Not Applicable Overdue care gaps: SDOH, PQ9, Disability , and Oral Health documented in this encounter Plan of Treatment Upcoming Encounters Date Type Department Care Team (Late st Contact Info) Description 07/06/2024 10:45 AM EDT Office Visit [facility] MED[facility]INE [address] [place] [address] Nenita Croft MD [address] [place] [address] documented as of this encounter Visit Diagnoses Not on filedocumented in this encounter Additional Health Concerns Assessment Noted Time PHQ-9 Depression Total Score: 17 023 4:18 PM EST documented as of this encounter Care Teams Automotive Metalsmith Relationship Specialty Start Date End Date Nenita Croft MD [address] [place] [phone] PCP - General Internal Medicine 09/11/22 documented as of this encounter
--- OUTSIDE RECORDS SUMMARY | 2024-06-14 15:05 | XMS_ITS | Encounter Summary ---
Author Organization [employer] Address [address] [place] [address] [place] [address] Care Team Providers Care Deboner Name Role Phone Nenita Croft MD Primary Care Pro vider Reason for Visit * Reason Onset Date Comments Results 06/14/2024 Encounter Details Date Type Department Care Team ([facility] st Contact Info) Description 06/14/2024 Telephone [facility] MEDICINE [address] [place] [address] Nena Escobar CNM [address] [place] [address] Results Social History Tobacco Use Types Packs/Day Years Used Date Smoking Tobacco: Former Cigarettes Passive Smoke Exposure: Past Smokeless Tobacco: Former Alcohol Use Standard Drinks/Week Comments Not Currently [...] with others, in a hotel, in a long-term, living outside on the street, on a [...] encounter Miscellaneous Notes * Telephone Encounter - Doreen Santamaria RN - 06/14/2024 3:00 PM EDT Telephone call x1 to pt, no answer at main number, left voicemail to call back [facility]. Called other number on file, not in service. Will task to call again. * Telephone Encounter - Doreen Santamaria RN - 06/14/2024 2:57 PM EDT ----- Message from Nena Escobar sent at 06/14/2024 2:46 PM EDT ----- Please let Yessi know her yeast and bacterial vaginosis testing was negative. I am going to send invaginal estrogen cream for her to try. Use a small amount (about finger tip worth) and apply to vaginal opening nightly x 2 weeks, then continue twi ce a week after that. Let me know if not helpful. Thanks! documented in this encounter Plan of Treatment Upcoming Encounters Date Type Department Care Team (Late st Contact Info) Description 07/06/2024 10:45 AM EDT Office Visit [facility] MEDICINE [address] [place] [address] Nenita Croft MD [address] [place] [address] documented as of this encounter Visit Diagnoses Not on filedocumented in this encounter Additional Health Concerns Assessment Noted Time PHQ-9 Depression Total Score: 17 023 4:18 PM EST documented as of this encounter Care Teams Deboner Relationship Specialty Start Date End Date Nenita Croft MD [address] [place], [place] [phone] PCP - General Internal Medicine 09/11/22 documented as of this encounter
--- OUTSIDE RECORDS SUMMARY | 2024-06-14 15:05 | XMS_ITS | Encounter Summary ---
Author Organization [employer] Address [address] [place] [address] 7 [place] [address] Care Team Providers Care Trust Accounts Supervisor Name Role Phone Nenita Croft MD Primary Care Pro vider Encounter Details Date Type Department Care Team (Latest Contact Info) Description 06/14/2024 Travel Social History Tobacco Use Types Packs/Day Years [...] with others, in a hotel, in a care home, living outside on the street, on a [...] Description 07/06/2024 10:45 AM EDT Office Visit [facility] [address] [place] [address] Nenita Croft MD [address] [place] [phone] documented as of this encounter Visit Diagnoses Not on filedocumented in this encounter Additional Health Concerns Assessment Noted Time PHQ-9 Depression Total Score: 17 023 4:18 PM EST documented as of this encounter Care Teams Trust Accounts Supervisor Relationship Specialty Start Date End Date Nenita Croft MD [address] [place] [phone] PCP - General Internal Medicine 09/11/22 documented as of this encounter
--- OUTSIDE RECORDS SUMMARY | 2024-06-14 15:05 | XMS_ITS | Encounter Summary ---
Author Organization [email or web address] Address [address] [place] [address] 7 [place] [address] Care Team Providers Care Senior Care Provider Name Role Phone Nenita Croft MD Primary Care Pro vider Encounter Details Date Type Department Care Team ([facility] st Contact Info) Description 06/14/2024 10:15 AM EDT Office Visit [facility] MEDICINE [address] [place] [address] Nena Escobar, [facility] [address] [place] [address] Vulvar itching (Primary Dx) Social History Tobacco Use Types Packs/Day Years [...] the past 12 months, has t he [email or web address], oil or water [employer] threatened to shut off services in your home? No 12/09/2022 Depression Answer Date Recorded Patient Health Questionnaire-2 Score 4 01/21/2023 Comments No Sex and Gender Information Value Date Recorded Sex Assigned at Female 09/11/2022 1:22 PM EDT Legal Sex Female 1:21 PM EDT Gender Identity Female 09/11/2022 1:22 PM EDT Sexual Orientation Straight 09/11/2022 1: 22 PM EDT documented as of this encounter Last Filed Vital Signs Vital Sign Reading [...] Mass Index 24.9 06/14/2024 10:10 AM EDT documented in this encounter Progress Notes * Nena Escobar CNM - 06/14/2024 10:15 AM EDT Subjective Patient ID: Yessi Toth is a 48 y.o. female who presents for [employer] visit Notes external vulvar itching for 2 weeks. No other urinary or vaginal symptoms. Not sexually active since last visit with me. No vasomotor symptoms. Pap NIL/HPV neg 11/2023. 1Pap NIL/HPV pos, neg 16/18/45 in 11/2022. NIL/HPV neg pap 11/2021, preceded by LSIL/HPV pos, neg 16/18 subtypes in 2017. Cotesting due 11/2024. Hysterectomy for inflammation in her mid 30s, ovaries remain. 2021. On daily prednisone. Mammogram BIRADS 2, cat c 11/2023. Review of Systems Constitutional: Negative for chills and fever. Genitourinary: Negative for dysuria, hematuria, vaginal bleeding, vaginal discharge and vaginal pain. Objective BP 131/68 (BP Location: Left arm, Patient Position: Sitting, BP Cuff Size: Adult) Pulse 98 Temp98.2 ??F (36.8 ??C) (Oral) Resp 16 Ht 5' 2 (1.575 m) Wt 136 lb 2 oz (61.7 kg) SpO2 99% BMI 24.90 kg/m?? Physical Exam Constitutional: Appearance: Normal appearance. Genitourinary: Labia: Right: No rash, tenderness, lesion or injury. Left: No rash, tenderness, lesion or injury. Comments: Mild atrophic changes of introitus Neurological: Mental Status: She is alert. Psychiatric: Mood and Affect: Mood normal. Behavior: Behavior normal. Assessment/Plan Diagnoses and all orders for this visit: Vulvar itching - Bacterial Vaginosis Panel Exam suggestive of atrophy. Will rule out bacterial vaginosis/vulvovaginal candidiasis and contact with results. If all testing negative, let's try vaginal estrogen cream. documented in this encounter Miscellaneous Notes * Result Encounter Note - Nena Escobar CNM - 06/14/2024 10:15 AM EDT Please let Yessi know her yeast and bacterial vaginosis testing was negative. I am going to send invaginal estrogen cream for her to try. Use a small amount (about finger tip worth) and apply to vaginal opening nightly x 2 weeks, then continue twice a week after that. Let me know if not helpful. Thanks! documented in this encounter Plan of Treatment Upcoming Encounters Date Type Department Care Team (Late st Contact Info) Description 07/06/2024 10:45 AM EDT Office Visit [facility] MEDICINE [address] [place] [address] Nenita Croft MD [address] [place] [address] documented as of this encounter Procedures Procedure Name Priority Date/Time Associated Diagnosis Comments BACTERIAL VAGINOSIS PANEL Routine 06/14/2024 10:41 AM EDT Vulvar itching documented in this encounter Results * Bacterial Vaginosis Panel (06/14/2024 10:41 AM EDT) TRICHOMONAS VAGINALIS DETECTION BY PCR NOT DETECTED Not Detect [facility] BACTERIAL VAGINOSIS DETECTION BY PCR NEGATIVE Negative [facility] Comment:The BV organism targ ets of [...] DETECTION BY PCR NOT DETECTED Not Detect [facility] Tiki glab krusei PCR NOT DETECTED Not Detect [facility] Swab Vaginal structure / Unknown 06/14/2024 10:41 AM EDT 06/14/2024 1:45 PM EDT us Nena Escobar CNM LAB MICROBIOLOGY - GENERA L ORDERABLES Final Result [facility] [address] [place] [address] [phone] documented in this encounter Visit Diagnoses Diagnosis Vulvar itching- Primary documented in this encounter Additional Health Concerns Assessment Noted Time PHQ-9 Depression Total Score: 17 12/13/2 023 4:18 PM EST documented as of this encounter Care Teams Senior Care Provider Relationship Specialty Start Date End Date Nenita Croft MD [address] [place] [phone] PCP - General Internal Medicine 09/11/22 documented as of this encounter
--- OUTSIDE RECORDS SUMMARY | 2024-06-14 15:05 | XMS_ITS | Encounter Summary ---
Author Organization [employer] Address [address] [facility] 7 [place] [address] Care Team Providers Care Sales Representative Health Insurance Name Role Phone Nenita Croft MD Primary Care Pro vider Encounter Details Date Type Department Care Team ([facility] st Contact Info) Description 06/14/2024 Orders Only [facility] MEDICINE [address] [place] [address] Nena Escobar CNM [address] [place] [address] Social History Tobacco Use Types Packs/Day Years [...] with others, in a hotel, in a mcc, living outside on the street, on a [...] Description 07/06/2024 10:45 AM EDT Office Visit [facility] MEDICINE [address] [place] [phone] Nenita Croft MD [address] [place] [address] [phone] documented as of this encounter Visit Diagnoses Not on filedocumented in this encounter Additional Health Concerns Assessment Noted Time PHQ-9 Depression Total Score: 17 023 4:18 PM EST documented as of this encounter Care Teams Sales Representative Health Insurance Relationship Specialty Start Date End Date Nenita Croft MD [address] [place] [phone] PCP - General Internal Medicine 09/11/22 documented as of this encounter
== END 2024-06-14 13:45 | disposition home or self-care (01) ==
LOC: HO.HHCLNP 13:44
PROVIDERS: Visit Provider Advanced Practice Midwife
DX: L29.2 Pruritus vulvae (principal)
CPT/HCPCS: 81515

== ENCOUNTER 2024-06-17 09:55 | Outpatient (REF) | payer MEDICAID, SELFPAY ==
[2024-06-17 10:05] LABS: MANUAL DIFF FLAG NO
--- OUTSIDE RECORDS SUMMARY | 2024-06-17 10:20 | XMS_ITS | Encounter Summary ---
Author Organization [employer] Address [address] [facility] 7 [place] [address] Care Team Providers Care Sawmill Moulder Operator Name Role Phone Nenita Croft MD Primary Care Pro vider Encounter Details Date Type Department Care Team ([facility] st Contact Info) Description 01/19/2024 Orders Only [facility] MEDICINE [address] [place] [address] Provider, MD Paul Social History Tobacco Use [...] Description 07/06/2024 10:45 AM EDT Office Visit [facility] MED[facility]INE [address] [place] [address] [phone] Nenita Croft MD [address] [place] [address] [phone] documented as of this encounter Procedures Procedure Name Priority Date/Time Associated Diagnosis Comments COLONOSCOPY Routine 01/23/2022 7:33 AM EST documented in this encounter Results * Hm Colonoscopy (01/23/2022 7:33 AM EST) Colonoscopy Normal Normal Narrative Sugar Valdez - 01/23/2022 7:33 AM EST Please see scanned result on 05/29/2023 in family mediator ,unable to attach report us Historical Provider HEALTH MAINTENANCE Edited Result - Final documented in this encounter Visit Diagnoses Not on filedocumented in this encounter Additional Health Concerns Assessment Noted Time PHQ-9 Depression Total Score: 17 023 4:18 PM EST documented as of this encounter Care Teams Sawmill Moulder Operator Relationship Specialty Start Date End Date Nenita Croft MD [address] [place] [address] [phone] PCP - General Internal Medicine 09/11/22 documented as of this encounter
--- OUTSIDE RECORDS SUMMARY | 2024-06-17 10:20 | XMS_ITS | Encounter Summary ---
Author Organization [employer] Address [address] [place] [address] [place] [address] Care Team Providers Care Habilitation Worker Name Role Phone Nenita Croft MD Primary Care Pro vider Reason for Visit * Reason Onset Date Comments Results 06/14/2024 Encounter Details Date Type Department Care Team ([facility] st Contact Info) Description 06/14/2024 Telephone [facility] MEDICINE [address] [place] [address] Nena Escobar CNM [address] [place] [address] Results Social History Tobacco Use Types Packs/Day [...] the past 12 months, has t he [employer], gas, oil or water company threatened to [...] Telephone Encounter - Doreen Santamaria RN - 06/15/2024 9:14 AM EDT Telephone call x2 to pt with [facility] financial planning consultant #[id number] after initial call drop. Advised pt that testing for yeast and bacterial vaginosis was negative. Informed that provider sent vaginal estrogen creamto pharmacy, reviewed med instructions: small amount (about finger tip worth) and apply to vaginal opening nightly x 2 weeks, then continue twice a week after that. Advised pt to call back if ineffective after a few weeks. Pt verbalized understanding, no further questions. * Telephone Encounter - Doreen Santamaria RN - 06/14/2024 3:00 PM EDT Telephone call x1 to pt, no answer at main number, left voicemail to call back [facility]. Called other number on file, not in service. Will task to call again. * Telephone Encounter - Doreen Santamaria RN - 06/14/2024 2:57 PM EDT ----- Message from Nena Shawn sent at 06/14/2024 2:46 PM EDT ----- [...] Description 07/06/2024 10:45 AM EDT Office Visit [facility] MEDICINE [address] [place] [phone] Nenita Croft MD [address] [place] [phone] documented as of this encounter Visit Diagnoses Not on filedocumented in this encounter Additional Health Concerns Assessment Noted Time PHQ-9 Depression Total Score: 17 023 4:18 PM EST documented as of this encounter Care Teams Habilitation Worker Relationship Specialty Start Date End Date Nenita Croft MD [address] [place] [phone] PCP - General Internal Medicine 09/11/22 documented as of this encounter
--- OUTSIDE RECORDS SUMMARY | 2024-06-17 10:20 | XMS_ITS | Clinical Summary ---
Author Organization [employer] Address [address] [place] [address] 7 [place] [address] Care Team Providers Care Autocad Technician Name Role Phone Nenita Croft MD Primary [...] NOTE: ID: Yessi is a 47 y.o. Persian Other straight-identified cis- female (pronouns she/her/hers) with [...] and still adjusting to her moving from [place] to [place] on 08/2022. PLAN: New/Additional Services needed Off-site services for , Behavioral Health Integration Plan External OP BH therapy referral and OP psychiatry Referral, Patient Self Plan Patient to utilize skills provided in intervention , [facility], Patient to engage in OP therapy , and Patient to reach out to [facility] as needed. Patient provided with [place] information to contact them and request status of referral submitted in 10/2022. Patient will reach out to this journalists and other writers to provide an update. Assessment & Plan (12/12/2022 9:59 AM EDT): Assessment: Patient presents with anxiety, depression and grief symptoms. Passive SI without plan or intention. Reason for visit was to assess symptoms and provide support to patient. Symptoms are present in the context of 1 year of her , moving to [place] from on 08/2022, not having her own place. Provided psychoeducation around coping mechanisms to manage anxiety and depressive sxs and discuss the grief process. Referral previously made to [place] for OP services. At this time Yessi Hess meets criteria for Visit Diagnoses: Problem List Items Addressed This Visit Other Moderately severe depression Complicated grief Severe anxiety Patient ready to address current needs Yes Strengths include Yessi is in action stage of change and her motivation will serve as treatment engagement. PLAN: 1. Follow up with [facility]: Recommended for follow-up: Patient will be follow up with [facility]-, per provider request. 2. Patient goal is improve mental health 3. Behavioral Recommendations a. Ind. Therapy, referral submitted b. Use of coping skills provided c. [facility] follow up Assessment & Plan (11/06/2022 10:03 [...] individual therapy placed on 10/22/22 with Alejandra ([phone]). Pt reported feeling better since our last appointment. She has started incorporating coping mechanisms to bring her back to the present. At this time Yessi Hess meets criteria for Visit Diagnoses: Problem List Items Addressed This Visit Other Depression Complicated grief Patient ready to address current needs Yes Strengths include motivation and readiness to change. PLAN: 1. Follow up with [facility]: Not recommended for follow-up 2. Patient goal [...] individual therapy placed on 10/22/22 with Alejandra ([phone]). Pt reported feeling better since our last appointment. She has started incorporating coping mechanisms to bring her back to the present. At this time Yessi Hess meets criteria for Visit Diagnoses: Problem List Items Addressed This Visit Other Depression Complicated grief Patient ready to address current needs Yes Strengths include motivation and readiness to change. PLAN: 1. Follow up with [facility]: Not recommended for follow-up 2. Patient goal [...] family jarquin. PLAN: 1. Follow up with [facility]: Not recommended for follow-up 2. Patient goal is to create a new normal after her 's . 3. Behavioral Recommendations a. Referral for OP individual therapy b. Incorporating mindfulness techniques and self-care c. Do activities in memory of her loved one. Encounters Date Type Department Care Team Description 06/14/2024 10:15 AM EDT Office Visit [facility] [address] [place] [phone] Joe Alejandra CNM Vulvar itching (Primary Dx) 06/14/2024 Telephone [facility] [address] [facility] [place] [address] Joe Alejandra CNM Results 06/14/2024 Orders Only [facility] [address] [place] [address] Joe Alejandra CNM 06/14/2024 Travel 06/10/2024 Telephone [facility] [place] [address] Nenita Croft MD chartprep 04/22/2024 Population Health Risk Score [facility] [address] [place] [phone] Provider, Population Health Generic 04/19/2024 Telephone [facility] [place] [address] Nenita Croft MD June recalls from Last [...] with others, in a hotel, in a fci, living outside on the street, on a [...] 10:45 AM EDT Office Visit [facility] [address] [place], [place] [phone] Nenita Croft MD [address] [place], [place] [phone] Health Maintenance Due Date Last Done Comments [...] DETECTION BY PCR NOT DETECTED Not Detect [facility] BACTERIAL VAGINOSIS DETECTION BY PCR NEGATIVE Negative [facility] Comment:The BV organism targ ets [...] DETECTION BY PCR NOT DETECTED Not Detect [facility] Tiki glab krusei PCR NOT DETECTED Not Detect [facility] Swab Vaginal structure / Unknown 06/14/2024 10:41 AM EDT 06/14/2024 1:45 PM EDT us Joe RODIRGUEZ LAB MICROBIOLOGY - GENERA L ORDERABLES Final Result [facility] [address] [place] [address] [place] [phone] * BI Mammogram Screening Tomosynthesis Bilateral (11/27/2023 2:00 PM EDT) Anatomical Region Laterality Modality Breast Bilateral Mammography 11/27/2023 2:00 PM EDT Narrative 12/09/2023 4:05 PM EDT ? [facility] ? [address] ?[place] [address] ? Mammography Report ? Signed ? Patient: Deshawn Toth,Yessi I ?MR#: ?? [id number] ? : 1975 ?Acct:[id number] ? Age/Sex: 48 / F ?ADM Date: 11/26/ ? Loc: HO.MAMMO ? Attending Dr: Joe Alejandra CNM ? Ordering Physician: JOE ALEJANDRA CNM ?Results: 2 ?? Benign Findings ? Date of Service: 11/26/ ?Follow Up: 1 Year From Orig ?? inal Mammogram ? Procedure(s): MM tomosynthesis screening BI ?? Accession Number(s): [id number] ? cc: Nenita Croft MD; JOE ALEJANDRA [...] DD/ 1400 ? TD/TT: 11/27/23 1420 ? Biological Lab Technician: ? Procedure Note Kiel, Image - 12/09/2023 [facility] [address] [place] [address] Mammography Report Signed Patient: Yessi Garcia IMR#: [id number] : 1975Acct:[id number] Age/Sex: 48 / FADM Date: 11/27/23 Loc: [facility] Attending Dr: Joe Alejandra CNM Ordering Physician: JOE ALEJANDRAesults: 2 Benign Findings Date of Service: 11/27/23Follow Up: 1 Year From Orig inal Mammogram Procedure(s): MM tomosynthesis screening BI Accession Number(s): [id number] cc: Nenita Croft MD; JOE ALEJANDRA CNM [...] 12/09/23 1603 DD/ 1400 TD/TT: 11/27/23 1420 Biological Lab Technician: Joe Alejandra CNM IMG BI PROCEDURES Final R esult * ThinPrep Imaging Pap and HPV mRNA E6/E7 (11/25/2023 11:50 AM EDT) HPV nRNA E6/E7 Not Detected Not Detected [facility] Comment:Methodology: Transcr iption-Mediated AmplificationThis assay detects E6/E7 viral messenger RNA (mRNA) from 14high-risk HPV types (16,18,31,33,35,39,45,51,52,56,58,59,66,68).Cervical sources are required for HPV testing.If a vaginal source from a patient who has had atotal hysterectomy with removal of cervix wassubmitted, please contact the testing laboratoryfor alternative testing options.For additional information, please refer [email or web address]/BBJ785e7(This link if provided for information/educational purposes only.)THIS TEST WAS PERFORMED AT:[employer] [address] [phone] WALTON MD SOURCE: SEE NOTE [facility] Comment:Cervix Report Status: [facility] Clinical Information: SEE NOTE [facility] Comment:None given LMP: SEE NOTE [facility] Comment:NONE GIVEN Prev. PAP: SEE NOTE [facility] Comment:NONE GIVEN Prev. BX: SEE NOTE [facility] Comment:NONE GIVEN Statement Of Adequacy: SEE NOTE [facility] Comment:Satisfactory for micha luation.Endocervical/transformation zone component absent. General Categorization: [facility] Interpretation/Result: SEE NOTE [facility] Comment:Cytology Results: Ne gative for intraepitheliallesion or malignancy. Cytology Comment SEE NOTE [facility] Comment:This Pap test has be en evaluated with computerassisted technology. Drafting Instructor: SEE NOTE [facility] Comment:[place], [place](ASCP)CT scre ening location: [address] [address] Review Drafting Instructor: SEE NOTE [facility] Comment:[place], CT(ASCP)CT scre ening location: [place] [address] Pathologist [facility] PAP Infection [facility] See Note SEE NOTE [facility] Comment:EXPLANATORY NOTE:The Pap is a [...] AM EDT 11/25/2023 6:08 PM EDT Narrative [facility] - 12/01/2023 11:20 AM EDT SEE SCANNED RESULTS IN EMRCERVIX us Joe Alejandra [facility] PATHOLOGY ORDERABLES Final Result Performing Organization Address [facility] Co de Phone Number [facility] [address] [place] [phone] [phone] * Hepatitis Panel, General (10/29/2023 1:47 PM EDT) Hepatitis A IgM Nonreactive Nonreactive [facility] Comment:IgM antibodies to TRINH V not detected; does not exclude earlyacute or recovered HAV infection. ~Hepatitis B Surface Antibody NONREACTIVE Nonreactive [facility] Comment:Nonreactive: < 8.00 mIU/mL Hepatitis B Core Antibody Nonreactive Nonreactive [facility] Hepatitis C Antibody Nonreactive Nonreactive [facility] Comment:Antibodies to HCV no t detected; does not exclude early acuteHCV infection. 10/29/2023 1:47 PM EDT 10/29/2023 1:47 PM EDT us Generic External Data Provider LAB BLOOD ORDERAB LES Final Result Performing Organization Address [facility] Co de Phone Number [facility] [address] [place] [phone] * HIV-1/2 Antigen and Antibodies, Fourth Generation, with Reflexes (10/29/2023 1:47 PM EDT) Pathologist [facility] HIV AB/AG Nonreactive Nonreactive [facility] Comment:HIV-1 p24 Ag and/or HIV-1/HIV-2 Ab not detected.A test result that is nonreactive does not exclude thepossibility of exposure to or infection with HIV-1 and/orHIV-2. Nonreactive results in this assay for individualswith prior exposure to HIV-1 and/or HIV-2 may be due toantigen and antibody levels that are below the limit ofdetection of this assay.The [employer] HIV Ag/Ab Combo assay result andsupplemental assay results should be interpreted inconjunction with the patient's clinical presentation,history and other laboratory results. If the results areinconsistent with clinical evidence, additional testing issuggested to confirm the result. 10/29/2023 1:47 PM EDT 10/29/2023 1:47 PM EDT us Generic External Data Provider LAB BLOOD ORDERAB LES Final Result [facility] [address] [place] [address] [phone] * Hm Colonoscopy (01/23/2022 7:33 AM EST) Colonoscopy Normal Normal Narrative Sugar Valdez - 01/23/2022 7:33 AM EST Please see scanned result on 05/29/2023 in media relations specialist ,unable to attach report Historical Provider HEALTH MAINTENANCE Edited Result - Final from Last 3 Months or Most Recently Relevant to Health Maintenance Insurance [facility] STANDARD Care Teams Autocad Technician Relationship Specialty Start Date End Date Nenita Croft MD [address] [place] [phone] PCP - General Internal Medicine 09/11/22
--- OUTSIDE RECORDS SUMMARY | 2024-06-17 10:20 | XMS_ITS | Encounter Summary ---
Author Organization [employer] Address [address] [facility] 7 [place] [address] Care Team Providers Care Furniture Restorer Name Role Phone Nenita Croft MD Primary Care Pro vider Encounter Details Date Type Department Care Team ([facility] st Contact Info) Description 06/14/2024 Orders Only [facility] [address] [place] [address] Nena Escobar CNM [address] [place] [address] Social History Tobacco Use Types Packs/Day Years [...] with others, in a hotel, in a half-way, living outside on the street, on a [...] Description 07/06/2024 10:45 AM EDT Office Visit [facility] [address] [place] [phone] Nenita Croft MD [address] [place] [phone] documented as of this encounter Visit Diagnoses Not on filedocumented in this encounter Additional Health Concerns Assessment Noted Time PHQ-9 Depression Total Score: 17 023 4:18 PM EST documented as of this encounter Care Teams Furniture Restorer Relationship Specialty Start Date End Date Nenita Croft MD [address] [place] [phone] PCP - General Internal Medicine 09/11/22 documented as of this encounter
--- OUTSIDE RECORDS SUMMARY | 2024-06-17 10:21 | XMS_ITS | Encounter Summary ---
Author Organization [employer] Address [address] [place] [address] 7 [place] [address] Care Team Providers Care Box Blank Machine Feeder Name Role Phone Nenita Croft MD Primary [...] with others, in a hotel, in a penitentiary, living outside on the street, on a [...] Description 07/06/2024 10:45 AM EDT Office Visit [facility] [address] [place] [phone] Nenita Croft MD [address] [place] [phone] documented as of this encounter Visit Diagnoses Not on filedocumented in this encounter Additional Health Concerns Assessment Noted Time PHQ-9 Depression Total Score: 17 023 4:18 PM EST documented as of this encounter Care Teams Box Blank Machine Feeder Relationship Specialty Start Date End Date Nenita Croft MD [address] [place] [phone] PCP - General Internal Medicine 09/11/22 documented as of this encounter
--- OUTSIDE RECORDS SUMMARY | 2024-06-17 10:21 | XMS_ITS | Encounter Summary ---
Author Organization [employer] Address [address] [place] [address] 7 [place] [address] Care Team Providers Care Puddler Helper Name Role Phone Nenita Croft MD Primary Care Pro vider Encounter Details Date Type Department Care Team ([facility] st Contact Info) Description 06/14/2024 10:15 AM EDT Office Visit [facility] [address] [place] [address] Nena Escobar, [facility] [address] [place] [address] Vulvar itching (Primary Dx) Social History Tobacco [...] with others, in a hotel, in a halfway, living outside on the street, on a [...] the past 12 months, has t he Tyres on the Drive, [place], oil or water [employer] threatened to shut off services in your [...] a 48 y.o. 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 Notes external vulvar itching for 2 [...] Miscellaneous Notes * Result Encounter Note - eNna Escobra CNM - 06/14/2024 10:15 AM EDT Please [...] 07/06/2024 10:45 AM EDT Office Visit [facility] [address] [place] [address] Nenita Croft MD [address] [place] [address] documented as of this encounter Procedures Procedure Name Priority Date/Time Associated Diagnosis Comments BACTERIAL VAGINOSIS PANEL Routine 06/14/2024 10:41 AM EDT Vulvar itching documented in this encounter Results * Bacterial Vaginosis Panel (06/14/2024 10:41 AM EDT) TRICHOMONAS VAGINALIS DETECTION BY PCR NOT DETECTED Not Detect [facility] BACTERIAL VAGINOSIS DETECTION BY PCR NEGATIVE Negative [facility] Comment:The BV organism targ ets [...] DETECTION BY PCR NOT DETECTED Not Detect [facility] Tiki glab krusei PCR NOT DETECTED Not Detect [facility] Swab Vaginal structure / Unknown 06/14/2024 10:41 AM EDT 06/14/2024 1:45 PM EDT us Nena Escobar CNM LAB MICROBIOLOGY - GENERA L ORDERABLES Final Result [facility] [address] [place] [phone] [phone] documented in this encounter Visit Diagnoses Diagnosis Vulvar itching- Primary documented in this encounter Additional Health Concerns Assessment Noted Time PHQ-9 Depression Total Score: 17 12/13/2 023 4:18 PM EST documented as of this encounter Care Teams Puddler Helper Relationship Specialty Start Date End Date Nenita Croft MD [address] [place] [phone] PCP - General Internal Medicine 09/11/22 documented as of this encounter
[2024-06-17 10:35] LABS: Basophils Percent Auto 0.3 % (0-2); Eosinophils Absolute Auto 0.1 X10*3/uL (0.0-0.4); Eosinophils Percent Auto 2.2 % (0-4); Hematocrit 34.5 % (37.0-47.0); Hemoglobin 10.8 g/dl (12.0-16.0); Imm Gran Abs Auto 0.01 X10*3/uL (0.00-0.03); Imm Gran Pct Auto 0.2 % (0.0-0.4); Lymphocytes Absolute Auto 1.1 X10*3/uL (1.2-4.9); Lymphocytes Percent Auto 16.4 % (20-40); Mean Corpuscular HGB Conc 31.3 g/dl (31.0-35.0); Mean Corpuscular Hemoglobin 28.1 pg (27.0-33.0); Mean Corpuscular Volume 89.6 fL (80.0-98.0); Mean Platelet Volume 9.6 fL (9.4-12.3); Monocytes Absolute Auto 0.4 X10*3/uL (0.1-1.2); Monocytes Percent Auto 5.5 % (2-11); Neutrophils Absolute Auto 4.9 x10*3/uL (2.0-8.3); Neutrophils Percent Auto 75.4 % (45-73); Platelet Count 127 X10*3/uL (160-400); Red Blood Count 3.85 X10*6/uL (4.20-5.50); Red Cell Distribution Width 14.2 % (11.0-16.0); White Blood Count 6.4 X10*3/uL (4.8-10.8)
[2024-06-17 11:12] LABS: Alanine Aminotransferase 20 U/L (0-31); Albumin Level 3.9 g/dL (3.5-5.0); Alkaline Phosphatase 78 U/L (39-117); Anion Gap 11 (12-20); Aspartate Amino Transferase 26 U/L (5-31); Bilirubin Total 0.2 mg/dL (0.0-1.0); Blood Urea Nitrogen 9 mg/dL (9-16); C Reactive Protein 2.75 mg/dL (< or = 0.50); Carbon Dioxide 25 mmol/L (22-29); Chloride 107 mmol/L (96-108); Estimated Glomerular Filt Rate > 60; Glucose Random 90 mg/dL (60-115); Potassium 3.6 mmol/L (3.3-5.1); Sodium 139 mmol/L (135-145); Total Protein 7.2 g/dL (6.5-8.0)
[2024-06-17 11:16] LABS: Erythrocyte Sedimentation Rate 48 MM/HR (0-20)
== END 2024-06-17 09:56 | disposition home or self-care (01) ==
LOC: HO.LAB 09:55
PROVIDERS: Absent Provider Student in an Organized Health Care Education/Training Program; PCP Student in an Organized Health Care Education/Training Program; Referring Provider Student in an Organized Health Care Education/Training Program; Visit Provider Student in an Organized Health Care Education/Training Program
DX: D89.89 Other specified disorders involving the immune mechanism, not elsewhere classified (principal); R74.01 Elevation of levels of liver transaminase levels; K76.0 Fatty (change of) liver, not elsewhere classified
CPT/HCPCS: 36415; 80053; 82550; 85025; 85652; 86140

== ENCOUNTER 2024-06-30 14:24 | Outpatient (AMB) | payer MEDICAID, SELFPAY ==
[2024-06-30 14:27] VITALS: BP 104/62; PULSE 95; O2SAT 100; BMI 25.1
--- NOTE | 2024-06-30 14:27 | A.OFFVIS_ITS ---
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 Patient denies any changes in her underlying symptoms. She denies dyspnea on exertion. Patient continues on Mastisol prednisone, azathioprine, and hydroxychloroquine from her relationship advisor. [facility] Medical History (Updated 02/18/24 @ 12:28 by VINCENT Tee) Hepatic steatosis Transaminitis Complicated grief Health care maintenance Severe anxiety Paronychia of finger of right hand Rheumatoid arthritis Surgical History History of esophagogastroduodenoscopy (EGD) H/O colonoscopy History of partial hysterectomy Hx of cholecystectomy Family History Mother History of mastectomy, total HX: breast cancer Diabetes Hypertension Father No problems noted. Maternal Uncle Rheumatoid arthritis Social History Alcohol intake: never Patient Tobacco Use Status: Never used Tobacco Current occupational status: unemployed Gender identity: Female Review of Systems Const Denies daytime sleepiness, Denies excessive sweating, Denies fatigue, Denies fever(s), Denies lethargy, Denies malaise, Denies night sweats, Denies snoring and Denies weight loss Eyes Denies blurry vision and Denies itchy eyes ENT Denies nasal congestion, Denies post nasal drip, Denies sinus pain, Denies sinus pressure and Denies other ( Thrush) Card Denies chest pain, Denies pedal edema, Denies dyspnea, Denies orthopnea and Denies paroxysmal nocturnal dyspnea Resp Denies cough, Denies hemoptysis, Denies excessive phlegm production, Denies dyspnea, Denies snoring and Denies wheezing GI Denies abdominal pain and Denies heartburn Musc Denies myalgias, Denies arthralgias and Denies joint swelling Skin/Breast Denies rash Neuro Denies memory loss and Denies seizure-like activity Psych Denies abnormal sleep pattern, Denies anxiety and Denies memory loss Endo Denies excessive sweating, Denies fatigue and Denies heat intolerance Ever/Lymph Denies easy bruising Aller/Immun Denies itchy eyes, Denies seasonal rhinorrhea and Denies wheezing Physical Exam Vital Signs: Last Vital Signs Pulse 95 06/30/24 14:27 BP 104/62 06/30/24 14:27 Pulse Ox 100 06/30/24 14:27 Oxygen Delivery Method Room Air 06/30/24 14:27 BMI result Body Mass Index 25.1 Const General: no acute distress and alert Nutritional Appearance: not obese Orientation/consciousness: Other orientation findings ( oriented) HEENT Head: Yes atraumatic Eyes General: appearance normal, both eyes and all related structures Sclerae: sclerae normal EOM: EOMs intact bilaterally Neck Neck: Yes supple Lymphatic: no lymphadenopathy noted Resp Effort & Inspection: normal respiratory effort and no use of accessory muscles Auscultation: clear to auscultation bilaterally Cardio Rate: regular rate Rhythm: regular rhythm Heart sounds: no gallops, no murmurs and no rubs Skin General skin exam: other ( warm) Extrem General: No clubbing, No cyanosis and No edema Assessment & Plan Assessment & Plan (1) ILD (interstitial lung disease): Code(s): J84.9 - Interstitial pulmonary disease, unspecified Category: Medical (2) Rheumatoid arthritis: Code(s): M06.9 - Rheumatoid arthritis, unspecified Category: Medical Qualifiers: Rheumatoid arthritis location: multiple sites Rheumatoid factor presence: without rheumatoid factor Qualified Code(s): M06.09 - Rheumatoid arthritis without rheumatoid factor, multiple sites Plan Rheumatoid arthritis associated interstitial lung disease, currently on hydroxychloroquine, azathioprine, and methylprednisolone by her relationship advisor. From pulmonary perspective now essentially asymptomatic. Does have underlying restrictive physiology and fibrosis. Will repeat CT chest in 12 months. Orders: Orders CT chest wo IV con 06/28/25 J84.9 - Interstitial pulmonary disease, unspecified Coding Level of Care Code Est Pt Level 4 (41720) Diagnoses ILD (interstitial lung disease) J84.9 Rheumatoid arthritis of multiple sites with negative rheumatoid factor M06.09 Rheumatoid arthritis location: multiple sites Rheumatoid factor presence: without rheumatoid factor
== END 2024-06-30 14:44 | disposition home or self-care (01) ==
LOC: HO.HPS 14:25
PROVIDERS: PCP Student in an Organized Health Care Education/Training Program; Visit Provider Internal Medicine Pulmonary Disease
DX: J84.9 Interstitial pulmonary disease, unspecified (principal); M06.09 Rheumatoid arthritis without rheumatoid factor, multiple sites
CPT/HCPCS: 99214

== ENCOUNTER → 2024-06-30 14:24 | Outpatient (BNVA) | payer MEDICAID, SELFPAY | PROVIDERS: PCP Student in an Organized Health Care Education/Training Program; Visit Provider Internal Medicine Pulmonary Disease | DX: J84.9 Interstitial pulmonary disease, unspecified (principal); M06.09 Rheumatoid arthritis without rheumatoid factor, multiple sites | CPT/HCPCS: 99212 ==

== ENCOUNTER 2024-07-01 12:16 | Outpatient (AMB) | payer MEDICAID, SELFPAY ==
--- NOTE | 2024-07-01 12:29 | MHC.OFFVIS ---
Vital Signs 07/01/24 12:34 Height 5 ft 2 in Weight 137 lb 12.623 oz BMI 25.2 BP 112/62 Blood Pressure Location Lt brachial Position Sitting Pulse 85 Pulse Source Pulse Oximeter Pulse Oximetry (%) 98 Oxygen Delivery Method Room Air Intake Visit Reasons: Antisynthetase Intake Note: Patient presents for Antisynthetase follow up. 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 Sutherland. At that time she was following up for her antisynthetase antibody syndrome. She was on hydroxychloroquine 300 mg daily, azathioprine 100 mg daily and Medrol 8 mg daily. Exam showed an patient came with ulcer to the tip of her right 3rd finger under the nail. There was no evidence of active synovitis. Conservative management for her Raynaud's was emphasized and plan was to decrease her Medrol Today, Patient doing well No worsening rashes No worsening SOB No prolonged AM stiffness Rheumatologic History: Initial history: This is a 47-year-old female with seronegative RA who presents as a new patient. She recently moved from [place]. She states that she was diagnosed with rheumatoid arthritis back in 2016. She was on methotrexate briefly and it was discontinued due to GI upset. She had been on Enbrel since 2017 and it is effective. She states that her joint pain is well controlled overall. She takes 2 mg of Medrol sporadically about once a week as needed for joint pain and fatigue. States that over last 2 weeks she noticed a painful mass on the radial aspect of her right middle finger. She was prescribed antibiotics by her PCP and it was not helpful. She denies any trauma to the finger. Mentions that her maternal uncle has RA. She denies any history of DVT/PE. Denies any fatigue or weight loss. Current Rheumatology Medication(s): Medrol 4mg bid Hydroxychloroquine 300mg daily Azathioprine 100mg daily [facility] Medical History (Updated 07/01/24 @ 12:53 by Mercedez Mckenzie MD) Hepatic steatosis Transaminitis Complicated grief Health care maintenance Severe anxiety Paronychia of finger of right hand Surgical History History of esophagogastroduodenoscopy (EGD) H/O colonoscopy History of partial hysterectomy Hx of cholecystectomy Family History Mother History of mastectomy, total HX: breast cancer Diabetes Hypertension Father No problems noted. Maternal Uncle Rheumatoid arthritis Social History Alcohol intake: never Patient Tobacco Use Status: Never used Tobacco Current occupational status: unemployed Gender identity: Female Review of Systems Const Details: Review of Systems Constitutional: Denies fever, chills, weight loss ENT: Denies vision changes, eye pain or eye redness, dental caries, dry mouth GI: Denies nausea, vomiting, diarrhea, abdominal pain, change in BM Pulm: Denies SOB, ARGUETA, hemoptysis, wheezing Cards: Denies chest pain, palpitations Skin: Denies Raynaud's, rash, nail changes, photosensitivity, PATIENT CARE SECRETARY: Denies headaches, weakness, paresthesias, recurrent falls MSK: as per HPI All other systems reviewed and are unremarkable except noted above Physical Exam Vital Signs: Last Vital Signs Pulse 85 07/01/24 12:34 BP 112/62 07/01/24 12:34 Pulse Ox 98 07/01/24 12:34 Oxygen Delivery Method Room Air 07/01/24 12:34 BMI result Body Mass Index 25.2 Vital signs reviewed Physical Examination CONSTITUITIONAL Patient alert and cooperative. Well appearing and in no apparent painful distress HEENT Conjunctiva and sclera clear. ?Pupils equal round and reactive to light. ?No lymphadenopathy. ? CHEST/RESPIRATORY SYSTEM Normal respiratory effort and able to speak in complete sentences. ?Clear to auscultation bilaterally. ?No crackles, rales, rhonchi, wheezes heard. CARDIAC SYSTEM Regular rate and rhythm. ?S1 and S2 heard no murmurs. ?Radial pulses intact bilaterally MSK Hands: ?Able to make a fist. No synovitis noted to the MCPs, PIPs or DIPs. ?No tenderness to palpation of these joints. No deformities noted. ? Wrists: ?Full range of motion at the wrists without pain. ?No tenderness to palpation or synovitis noted to the wrists. Elbows: Full range of motion without pain. No tenderness, weakness, swelling, increased warmth or erythema. Shoulders: Full range of active range of motion without pain. No tenderness, weakness, swelling, increased warmth or erythema. Hips: Full range of motion without pain. Hip bursa: No tenderness to palpation Knees: ?Full range of motion. ?No tenderness, swelling, increased warmth or erythema.?No effusion or crepitations Ankles: Full range of motion. ?No tenderness, swelling, increased warmth or erythema.? Feet: ?Negative squeeze test. ?No tenderness to palpation or swelling of the MTPs. Tender points:?No tenderness to palpation of the bilateral trapezius, supraspinatus, greater trochanters, anterior costochondral junctions, bilateral gluteal areas, bilateral suboccipital muscle insertions SKIN Salt and pepper rash to scalp V sign to anterior chest Results Reviewed Results Reviewed: Laboratory Tests 01/28/24 06/17/24 13:50 10:05 WBC 6.4 RBC 3.85 L Hgb 10.8 L Hct 34.5 L Plt Count 127 L ESR 29 H 48 H Sodium 139 Potassium 3.6 Chloride 107 Carbon Dioxide 25 BUN 9 Creatinine 0.73 AST 26 ALT 20 Alkaline Phosphatase 78 Total Creatine Kinase 227 H 493 H C-Reactive Protein 2.31 H 2.75 H Laboratory Tests 09/16/22 05/26/23 11/19/23 13:41 10:24 11:50 Rheumatoid Factor < 13.0 Cycl Citrul Peptide IgG <16 HANNAH Screen POSITIVE A HANNAH Titer 1:320 H PL-7 Antibody 80 H SS-A/Ro Antibody 3.1 POS A FINDINGS: PULMONARY NODULES: -None. There are no suspicious pulmonary nodules. LUNGS: -Lungs demonstrate subtle subpleural interstitial changes consisting of inter and intralobular septal thickening with superimposed subpleural groundglass opacity, involving the superolateral bilateral upper lobes, right middle lobe, lingula, and lateral and posterior lower lobes, with lower lobe predominance. No peribronchovascular interstitial thickening. -No significant bronchiectasis or bronchial thickening. -No fissural thickening or retraction. -No segmental consolidations. -Small airways, and central airways and trachea are normal. -There is mild prominence of the pulmonary arteries accompanying the associated bronchi, which may reflect increased pulmonary pressures. -No pleural effusions or pneumothorax. No gross subpleural honeycombing is present. -No pleural mass. MEDIASTINUM: -Of note is diffuse dilation and mild thickening of the esophagus throughout its course, with a small amount of layering internal debris/secretions. -There are a few subcentimeter mediastinal lymph nodes, the largest measuring 8 mm in the precarinal region. No pathologic lymphadenopathy is present. -The main pulmonary artery is prominent but does not measure enlarged by strict size criteria. It is larger than the ascending aorta, a nonspecific finding. -The aorta is normal in caliber and course without aneurysm. There is a two-vessel branching pattern. -The heart size is top normal. No pericardial effusion. AXILLA/CHEST WALL: No abnormal lymphadenopathy or mass. UPPER ABDOMEN: There has been a prior cholecystectomy. There is a calcific granuloma in segment 3 of the liver. Liver otherwise normal. -Remainder of the imaged upper abdominal contents appear normal. OSSEOUS STRUCTURES: No suspicious lytic or blastic bone lesions. Mild arthritic changes are noted in the spine. IMPRESSION: 1. Early subpleural interstitial changes as described, predominantly in the anterolateral upper lobes, right middle lobe, lingula, and posterolateral lower lobes, with basilar predominance. Differential diagnosis includes NSIP, UIP, and fibrotic lung disease based upon underlying collagen vascular disease. Other etiologies not excluded although provided history is essentially absent. 2. Diffuse dilation and thickening of the esophagus, raising the possibility of SCLERODERMA and scleroderma related lung disease. 3. Mild prominence of the main pulmonary artery could suggest underlying mild pulmonary hypertension. 4. No suspicious adenopathy. No suspicious pulmonary nodules. No significant bronchiectasis or bronchial wall thickening. Assessment & Plan Assessment & Plan (1) Antisynthetase syndrome: Comment: previously diagnosed with seroneg RA -ve RF -ve CCP dx 2016 MTX 2016 ineffective and caused GI upset Enbrel 2017 partially effective DC 07/2023 Antisynthetase antibody syndrome diagnosed 07/2023 based on (V-neck sign, heliotrope rash, washing machine mechanic's hands, Raynaud's, esophageal dysmotility, CPK 2k no associated muscle weakness ++Pl-7 Ab ++SSa) Prednisone started 07/2023 effective HCQ added 08/2023 Aza added 10/2023 Code(s): D89.89 - Other specified disorders involving the immune mechanism, not elsewhere classified Category: Medical Plan: #Antisynthetase syndrome Patient is a 48 y.o. female with antisynthetase syndrome. Having more rash type symptoms. Start MMF, stop azathioprine. We will try to taper her prednisone Plan - Decrease medrol 4mg daily - Stop azathioprine - MMF 500mg bid - Hydroxychloroquine 300mg daily - RTC 3 months - Labs before visit: CBC, CMP, ESR, CRP, CK, Aldolase (2) Raynaud's disease: Code(s): I73.00 - Raynaud's syndrome without gangrene Category: Medical Qualifiers: Raynaud?s-associated gangrene presence: without gangrene Qualified Code(s): I73.00 - Raynaud's syndrome without gangrene Plan: #Raynaud's Patient with secondary raynaud's with nailfold capillary changes Recommended conservative measures such as keep core temperature warm, avoiding cold exposure, and wearing gloves (3) Encounter for continuous churn buttermaker use of mycophenolate mofetil: Code(s): Z79.624 - jail (current) use of inhibitors of nucleotide synthesis Plan: #Long-term Use of Mycophenolate/Mycophenolic Acid Discussed with patient the benefits and risks of mycophenolate/mycophenolic acid for the management of the rheumatic condition Benefits include improved disease control and reduction of mortality Risks include GI upset especially diarrhea, anemia, leukopenia, hepatotoxicity, lymphoproliferative malignancies, PML Mycophenolate and mycophenolic acid are teratogenic and should be avoided in patients who are desiring the Monitoring: ?CBC, LFTs, BMP Recommended holding medication during and for up to 1 week after resolution of a febrile illness (4) jail (current) use of systemic steroids: Code(s): Z79.52 - jail (current) use of systemic steroids Plan: #Long-term Use of Steroids Discussed with patient the risks and benefits of steroid for managing the rheumatic condition Benefits include: - Reduced pain, improved mobility, increased participation in activities, and decreased progression of disease Risks include: - GI upset, potential ultrasound worsening or formation (especially in patients > 65 years old), elevated blood pressure/worsening hypertension, elevated blood sugar/worsening diabetes control, worsening of bone density, elevated lipids/worsening triglycerides, cataract formation, weight gain Recommended using proton pump inhibitors (PPIs) for the duration of steroid use to reduce the risk of gastric ulcers and vitamin-D daily to reduce the risk of osteoporosis Labs checked: ?A1c, T spot, hepatitis-B and C serologies Pneumocystis jiroveci prophylaxis: ?Patient with risk factors including steroids greater than 50 mg for more than 30 days, age greater than 60 years, and lung involvement from underlying rheumatic disease requires prophylaxis and will be given so (5) Long-term use of hydroxychloroquine: Code(s): Z79.899 - Other continuous churn buttermaker (current) drug therapy Category: Medical Plan: #Long-term Use of Hydroxychloroquine Discussed with patient the risks and benefits of hydroxychloroquine in managing the rheumatic condition Benefits include: - Reduced pain, reduce mortality, maintenance of remission and reduction of flares Risks include: - GI upset, skin hyperpigmentation, retinal toxicity (especially after more than 5 years of use), myopathy Advised yearly ophthalmology visits Plan I spent 30 minutes reviewing the record and labs, taking a history, examining the patient, discussing the treatment plan, ordering diagnostic work up and documenting in the medical record Medications: New mycophenolate mofetil 500 mg PO BID 90 days 180 tabs 1RF D89.89 - Other specified disorders involving the immune mechanism, not elsewhere classified Changed From methylprednisolone (Medrol) 8 mg (2 x 4 mg) PO DAILY 60 tabs 2RF D89.89 - Other specified disorders involving the immune mechanism, not elsewhere classified To methylprednisolone (Medrol) 4 mg PO DAILY 90 days 90 tabs 1RF D89.89 - Other specified disorders involving the immune mechanism, not elsewhere classified Refilled hydroxychloroquine 300 mg (1.5 x 200 mg) PO DAILY 135 tabs 1RF Discontinued azathioprine Discontinued Reason: Doctor's Order 100 mg PO DAILY 90 tabs 0RF Coding Level of Care Code Est Pt Level 4 (24813) Complex EM visit Add On G2211 Diagnoses Antisynthetase syndrome D89.89 Raynaud's disease without gangrene I73.00 Raynaud?s-associated gangrene presence: without gangrene Encounter for senior care use of mycophenolate mofetil Z79.624 intermediate frame tender (current) use of systemic steroids Z79.52 Long-term use of hydroxychloroquine Z79.899
[2024-07-01 12:34] VITALS: BP 112/62; PULSE 85; O2SAT 98; BMI 25.2
== END 2024-07-01 13:17 | disposition home or self-care (01) ==
LOC: HO.RHE 12:17
PROVIDERS: PCP Student in an Organized Health Care Education/Training Program; Visit Provider Student in an Organized Health Care Education/Training Program
DX: D89.89 Other specified disorders involving the immune mechanism, not elsewhere classified (principal); I73.00 Raynaud's syndrome without gangrene; Z79.624 Long term (current) use of inhibitors of nucleotide synthesis; Z79.52 Long term (current) use of systemic steroids; Z79.899 Other long term (current) drug therapy
CPT/HCPCS: 99214

== ENCOUNTER → 2024-07-01 12:16 | Outpatient (BNVA) | payer MEDICAID, SELFPAY | PROVIDERS: PCP Student in an Organized Health Care Education/Training Program; Visit Provider Student in an Organized Health Care Education/Training Program | DX: D89.89 Other specified disorders involving the immune mechanism, not elsewhere classified (principal); M06.00 Rheumatoid arthritis without rheumatoid factor, unspecified site; I73.00 Raynaud's syndrome without gangrene; Z79.624 Long term (current) use of inhibitors of nucleotide synthesis; Z79.52 Long term (current) use of systemic steroids; Z79.899 Other long term (current) drug therapy | CPT/HCPCS: 99212 ==

== ENCOUNTER 2024-08-10 15:54 | Outpatient (REF) | payer MEDICAID, SELFPAY ==
--- NOTE | ~2024-08-10 | US_ITS ---
CLINICAL HISTORY: PALPABLE MASS LEFT LOWER CHEST WALL Targeted ultrasound of left lower chest wall mass Comparison: None Technique: Targeted sonographic imaging, including color Doppler imaging to the area of interest of left lower chest wall was performed by the engraving supervisor. Multiple wine sales representative static and cine images were saved for review. Findings/impression: The imaged soft tissues normal, no mass, fluid collection or abnormal vascular flow. This document has been electronically signed by: Venecia Ryan MD on 08/11/2024 14:44:08
== END 2024-08-10 15:55 | disposition home or self-care (01) ==
LOC: HO.US 15:54
PROVIDERS: PCP Student in an Organized Health Care Education/Training Program; Visit Provider Student in an Organized Health Care Education/Training Program
DX: R22.2 Localized swelling, mass and lump, trunk (principal)
CPT/HCPCS: 76705

== ENCOUNTER → 2024-08-10 16:18 | Outpatient (BNV) | payer MEDICAID, SELFPAY | PROVIDERS: PCP Student in an Organized Health Care Education/Training Program; Visit Provider Radiology Diagnostic Radiology | DX: R22.2 Localized swelling, mass and lump, trunk (principal) | CPT/HCPCS: 76705 ==

== ENCOUNTER 2024-08-22 09:27 | Outpatient (REF) | payer MEDICAID, SELFPAY ==
--- OUTSIDE RECORDS SUMMARY | 2024-08-22 09:53 | XMS_ITS | Encounter Summary ---
Author Organization [employer] Address [address] [facility] [address] [place] [address] Care Team Providers Care Web Specialist Name Role Phone Nenita Croft MD Primary Care Pro vider Encounter Details Date Type Department Care Team ([facility] st Contact Info) Description 01/19/2024 Orders Only [facility] [address] [place] [address] Provider, MD Paul Social History Tobacco Use [...] with others, in a hotel, in a [place] [facility] [place], living outside on the street, on a [...] Care Team (Late st Contact Info) Description 09/07/2024 11:30 AM EDT Office Visit [facility] [address] [place] [address] [phone] Nenita Croft MD [address] [place] [address] [phone] documented as of this encounter Procedures Procedure Name Priority Date/Time Associated Diagnosis Comments COLONOSCOPY Routine 01/23/2022 7:33 AM EST documented in this encounter Results * Hm Colonoscopy (01/23/2022 7:33 AM EST) Colonoscopy Normal Normal Narrative Sugar Valdez - 01/23/2022 7:33 AM EST Please see scanned result on 05/29/2023 in supervisor intermediates ,unable to attach report us Historical Provider HEALTH MAINTENANCE Edited Result - Final documented in this encounter Visit Diagnoses Not on filedocumented in this encounter Additional Health Concerns Assessment Noted Time PHQ-9 Depression Total Score: 17 023 4:18 PM EST documented as of this encounter Care Teams Web Specialist Relationship Specialty Start Date End Date Nenita Croft MD [address] [place] [address] [phone] PCP - General Internal Medicine 09/11/22 documented as of this encounter
[2024-08-22 11:01] LABS: Hematocrit 36.0 % (37.0-47.0); Hemoglobin 11.2 g/dl (12.0-16.0); Mean Corpuscular HGB Conc 31.1 g/dl (31.0-35.0); Mean Corpuscular Hemoglobin 28.0 pg (27.0-33.0); Mean Corpuscular Volume 90.0 fL (80.0-98.0); NRBC Abs Auto 0.000 X10*3/uL (0.0-0.012); NRBC Pct Auto 0.0 /100WBC (0.0-0.2); Platelet Count 113 X10*3/uL (160-400); Red Blood Count 4.00 X10*6/uL (4.20-5.50); White Blood Count 6.6 X10*3/uL (4.8-10.8)
[2024-08-22 11:07] LABS: Hemoglobin A1C 110.5187 umol/L; Total Hemoglobin (HGBA1C) 2976.3564 umol/L
[2024-08-22 11:59] LABS: Alanine Aminotransferase 14 U/L (0-31); Albumin Level 4.3 g/dL (3.5-5.0); Alkaline Phosphatase 78 U/L (39-117); Anion Gap 9 (12-20); Aspartate Amino Transferase 17 U/L (5-31); Blood Urea Nitrogen 12 mg/dL (9-16); Calcium 9.1 mg/dL (8.4-10.2); Carbon Dioxide 28 mmol/L (22-29); Chloride 109 mmol/L (96-108); Cholesterol 153 mg/dL (<200); Estimated Glomerular Filt Rate > 60; HDL Cholesterol 38 mg/dL (>40); Iron 74 mcg/dL (30-160); Percent Iron Saturation 33 % (15-50); Potassium 3.1 mmol/L (3.3-5.1); Sodium 143 mmol/L (135-145); Total Iron Binding Capacity 224 mcg/dL (228-428); Total Protein 7.3 g/dL (6.5-8.0); Triglycerides 107 mg/dL (<150); Unsaturated Iron Binding 150 ug/dL
[2024-08-22 12:17] LABS: HBS Num1 1.10 mIU/mL (0-7.99); HBc Num1 0.07 S/CO (0.00-0.79); HBsAGNum1 0.31 S/CO (0.00-0.99); HIV Num 1 0.05 S/CO (0.00-0.99); Hepatitis B Surface Antigen Negative (Negative); ~HepC Num1 0.15 S/CO (0.00-0.79); ~Hepatitis B Surface Antibody NONREACTIVE (Nonreactive); ~Hepatitis C Antibody Nonreactive (Nonreactive)
[2024-08-22 12:20] LABS: Syphilis Screen Nonreactive (Nonreactive)
[2024-08-22 12:26] LABS: Folate 13.1 ng/mL (> or = 4.0); Vitamin B12 434 pg/mL (200-900)
[2024-08-22 12:27] LABS: Ferritin 29 ng/mL (10-250)
== END 2024-08-22 09:28 | disposition home or self-care (01) ==
LOC: HO.LAB 09:27
PROVIDERS: PCP Student in an Organized Health Care Education/Training Program; Visit Provider Student in an Organized Health Care Education/Training Program
DX: Z11.4 Encounter for screening for human immunodeficiency virus [HIV] (principal); Z11.3 Encounter for screening for infections with a predominantly sexual mode of transmission; Z11.59 Encounter for screening for other viral diseases; Z00.00 Encounter for general adult medical examination without abnormal findings
CPT/HCPCS: 36415; 80053; 80061; 82306; 82607; 82728; 82746; 83036; 83540; 84443; 85027; 86704; 86706; 86780; 86803; 87340; 87389

== ENCOUNTER 2024-08-31 10:04 | Outpatient (REF) | payer MEDICAID, SELFPAY ==
--- OUTSIDE RECORDS SUMMARY | 2024-08-31 10:55 | XMS_ITS | Encounter Summary ---
Author Organization [employer] Address [address] [facility] [address] [place] [address] Care Team Providers Care Shactor Name Role Phone Nenita Croft MD Primary Care Pro vider Encounter Details Date Type Department Care Team ([facility] st Contact Info) Description 01/19/2024 Orders Only [facility] [address] [place] [address] Provider, MD Paul Social History Tobacco Use [...] Description 09/07/2024 11:30 AM EDT Office Visit [facility] [address] [place] [address] [phone] Nenita Croft MD [address] [place] [address] [phone] documented as of this encounter Procedures Procedure Name Priority Date/Time Associated Diagnosis Comments COLONOSCOPY Routine 01/23/2022 7:33 AM EST documented in this encounter Results * Hm Colonoscopy (01/23/2022 7:33 AM EST) Colonoscopy Normal Normal Narrative Sugar Valdez - 01/23/2022 7:33 AM EST Please see scanned result on 05/29/2023 in assistant media planner ,unable to attach report us Historical Provider HEALTH MAINTENANCE Edited Result - Final documented in this encounter Visit Diagnoses Not on filedocumented in this encounter Additional Health Concerns Assessment Noted Time PHQ-9 Depression Total Score: 17 023 4:18 PM EST documented as of this encounter Care Teams Shactor Relationship Specialty Start Date End Date Nenita Croft MD [address] [place] [address] [phone] PCP - General Internal Medicine 09/11/22 documented as of this encounter
[2024-08-31 11:31] LABS: MANUAL DIFF FLAG NO
[2024-08-31 11:37] LABS: Hematocrit 35.1 % (37.0-47.0); Hemoglobin 11.2 g/dl (12.0-16.0); Imm Gran Abs Auto 0.01 X10*3/uL (0.00-0.03); Imm Gran Pct Auto 0.2 % (0.0-0.4); Lymphocytes Absolute Auto 1.4 X10*3/uL (1.2-4.9); Mean Corpuscular HGB Conc 31.9 g/dl (31.0-35.0); Mean Corpuscular Hemoglobin 28.8 pg (27.0-33.0); Mean Corpuscular Volume 90.2 fL (80.0-98.0); NRBC Abs Auto 0.000 X10*3/uL (0.0-0.012); NRBC Pct Auto 0.0 /100WBC (0.0-0.2); Platelet Count 115 X10*3/uL (160-400); Red Blood Count 3.89 X10*6/uL (4.20-5.50); White Blood Count 6.1 X10*3/uL (4.8-10.8)
[2024-08-31 11:47] LABS: Anion Gap 10 (12-20); Blood Urea Nitrogen 10 mg/dL (9-16); Calcium 8.8 mg/dL (8.4-10.2); Carbon Dioxide 26 mmol/L (22-29); Chloride 111 mmol/L (96-108); Estimated Glomerular Filt Rate > 60; Magnesium 2.0 mg/dL (1.6-2.6); Potassium 4.0 mmol/L (3.3-5.1); Sodium 143 mmol/L (135-145)
[2024-08-31 13:20] LABS: CT PCR Urine NOT DETECTED (Not Detect.); NG PCR Urine NOT DETECTED (Not Detect.)
== END 2024-08-31 10:05 | disposition home or self-care (01) ==
LOC: HO.HHCL 10:04
PROVIDERS: Student in an Organized Health Care Education/Training Program; PCP Student in an Organized Health Care Education/Training Program; Visit Provider Student in an Organized Health Care Education/Training Program
DX: Z00.00 Encounter for general adult medical examination without abnormal findings (principal); E87.6 Hypokalemia; D89.89 Other specified disorders involving the immune mechanism, not elsewhere classified; R74.01 Elevation of levels of liver transaminase levels; K76.0 Fatty (change of) liver, not elsewhere classified
CPT/HCPCS: 36415; 80048; 82550; 83735; 85025; 87491; 87591

== ENCOUNTER 2024-09-09 09:32 | Outpatient (REF) | payer MEDICAID, SELFPAY ==
--- OUTSIDE RECORDS SUMMARY | 2024-09-07 11:30 | XMS_ITS | Encounter Summary ---
Author Organization [employer] Address [address] [place] [id number] Care Team Providers Care Supervisor Car And [employer] Name Role Phone Nenita Croft MD Primary Care Pro vider Encounter Details Date Type Department Care Team (Late st Contact Info) Description 09/07/2024 11:30 AM EDT Office Visit [facility] [address] [place] [address] Nenita Croft MD [address] [place] [address] Health care maintenance (Primary Dx); Moderately severe depression; Antisynthetase syndrome (CMS/HCC); Housing insecurity; Food insecurity Social History Tobacco Use Types Packs/Day Years Used Date Smoking Tobacco: Never Passive Smoke Exposure: Past Smokeless Tobacco: Former Tobacco Cessation:Counseling Given: Not Answered Alcohol Use Standard Drinks/Week Comments Not Currently 0 (1 standard drink = 0.6 oz pur e alcohol) social Depression Answer Date Recorded Patient Health Questionnaire-9 Score 9 07/06/2024 Patient Health Questionnaire-9 Score 9 07/06/2024 Last PHQ-9: Questionnaire Data Not on file 0 07/06/2024 Housing Stability Answer Date Recorded What is your housing situation today? I do not have housing (Staying with others, in a hotel, in a retirement, living outside on the street, on a beach, in a car, or in a park 06/28/[address] you li ve. Do you have problems with any of the following? None of the above 06/28/2024 Food Insecurity Answer Date Recorded Within the past 12 months, y ou worried that your food would run out before you got money to buy more: Never True 06/28/2024 Within the past 12 months,th e food you bought just didn't last and you didn't have enough money to get more: Never True Transportation Answer Date Recorded In the past 12 months, has l ack of transportation kept you from medical appts, meetings, work or from getting things needed for daily living? No 06/28/2024 Utilities Answer Date Recorded In the past 12 months, has t he electric, gas, oil or water company threatened to shut off services in your home? No 06/28/2024 Depression Answer Date Recorded Patient Health Questionnaire-2 Score 4 07/06/2024 Internet Access Answer Date Recorded Internet Access Q1 Yes 06/28/2024 Internet Access Q2 Not on file 06/28/2024 Comments No Sex and Gender Information Value Date Recorded Sex Assigned at Female 09/11/2022 1:22 PM EDT Legal Sex Female 1:21 PM EDT Gender Identity Female 09/11/2022 1:22 PM EDT Sexual Orientation Straight 09/11/2022 1: 22 PM EDT documented as of this encounter Last Filed Vital Signs Vital Sign Reading Time Taken Comments Blood Pressure 110/80 09/07/2024 11:30 AM EDT Pulse 67 09/07/2024 11:30 AM EDT Temperature 36.1 C (96.9 F) 09/07/2024 11:30 AM EDT Respiratory Rate 20 09/07/2024 11:3 0 AM EDT Oxygen Saturation 96% 09/07/2024 11: 30 AM EDT Inhaled Oxygen Concentration - - Weight 59.3 kg (130 lb 12.8 oz) 025 11:30 AM EDT Height 157.5 cm (5' 2 ) 09/07/2024 11:3 0 AM EDT Body Mass Index 23.92 09/07/2024 11:30 AM EDT documented in this encounter Progress Notes * Nenita Do MD - 09/07/2024 11:30 AM EDT Subjective Patient ID: Yessi Toth is a 48 y.o. female who presents for f up apt HPI 48 y o F from [place] (came [place] live in [place] ago) with PMX of antisynthetase antibody syndrome, ILD ,thrombocytopenia , hx of MV prolapse per pt,depression,anemia , hx of H pylori s/p incomplete tx w neg PARAG Comes to f up labs -reports resolution of mass sensation in her left side of lower chest ,normal soft tissue US ----- -LMP: s/p hysterectomy from unknown reason ------- Assessment and Plan: Health care maintenance -Annual exam done 06/2024 -T-spot 10/2023 neg -pap smear 11/2023 Neg/ HPV Neg to repeat in 1 y for hx of abn pap smear w JR -MM 11/2023 BI-RADS 2 ,dense breast -Tyrer-Cuzick Risk Assessment Calculator 9.4% -colonoscopy 02/2022( brought records from [facility]) :hemorrhoids ,diverticulosis,bx wnl -vaccines: Tdap 06/2023 and p20 06/2023 , Hep B not immune -refuse vaccine for now,s/p COVID 19 x3 per pt -refuse booster and refuse Flu vaccine . Denies HPV vaccine and not interested. ----- -08/31/2024 k+ 4-wnl , mag wnl, CK 102 wnl<----08/22/2024 K3.1 Noted on labs to have low potassium K+ 3.1 initially that self resolved on repeated chem Pt started recently on mycophenolate that may cause low K+ Advised for food rich in potassium and to continue to monitor w his office support specialist Antisynthetase antibody syndrome Inflammatory arthritis From review labs done in [place] she has neg antiCCP and RF w + HANNAH and elevated ESR and CRP -08/31/2024 CK 102 wnl -06/17/2024 CK 493 ,CRP 2.75,ESR 48 -06/2023 CRP 2.73<--4.87, ESR 60<-- 46<--55 -09/2022 As well w neg RF,neg CCP,HANNAH + 1: 320 ,CRP 1.68 mild elevated -She has dx RA x 6-8y -TTE 10/16/2022: normal LV systolic function ,EF 60-65% with grade 1 diastolic dysfunction. Normal cardiac valvular doppler only trace pulmonic valve regurgitation -rheumato 07/01/2024 -Started recently on mycophenolate mofetil 500 mg PO BID ,continue methylprednisolone (Medrol) 4 mg from 8 mg PO daily,continue hydroxychloroquine 300 mg (1.5 x 200 mg) daily and stopped azathioprine -Pt will f in 3 mo if not happy will care then will request here rheumatology referral for 2nd [place] [facility] [place]advised tylenol prn x for mild pain ,px meloxicam 7.5 mg -1 tab prn for mod pain and 2 tab prn formore severe pain -Referred to 3d artist-pt on hydroxychloroquine ---states in waiting list to [facility] for to 11/2024 GERD ,hx of h pylori infection -reports dx of h pylori in [place] by EGD but never completed tx Now symptoms of mainly GERD -EGD 02/2022( done at [facility]) : hiatal hernia ,gastritis , h pylori + chronic gastritis in bx -h pylori neg 12/2022 -CT chest wo contrast 08/27/23 : Diffuse dilation and thickening of the esophagus, raising the possibility of SCLERODERMA and scleroderma related lung disease. -f w GI already -famotidine prn avoid -- for thrombocytopenia -explained to take only PRN -try tumps prn Anemia Thrombocytopenia -08/22/2024 hb 11.2platelets 113 ,iron panel wnl ,ferritin wnl -06/17/2024 hb 10.8, WBC 6.4, platelets 127 ,chem wnl 11/2023 hb 10.9, platelets 112<----Hb 10.5<--- 9.8<--- 10.4<--10.8, platelet 138<---100 < ---143<---143<--155 ,ferritin and iron panel wnl 01/2023 MCV wnl, iron is low ,ferritin wnl LDH 263 elv , FOBT x3 neg -off iron -so not seem to do difference LDH elev can be seen from rheumatologic dx,last chem w normal bilirubin so unlikely hemolysis denies BRPR melenas,hematuria ,S/p hysterectomy -f w sleeping car conductor-Dr Wright for thrombocytopenia/anemia-states was told f PRN -Advised avoid NSAIDS for thrombocytopenia Depression/Grieving PHQ9: 9<--11, no SI but thoughts to be better off ,insomnia , no hallucinations and no miguel Feeling depressed since of > 1 year ago but states to be stable -BH refuse -pt wants to hold on antidepressants Housing problem Food access issues -referred to housing for CM -pt received info already-has [employer] -lost 7 pounds in last 2 mo ,issues getting food access--I called CM today and request they come and talk to pt in office to further assist w this , pt reports to have food stamps -Multivitamin px per pt request today --pt w food insecurities Onychomycosis Findings of possible onychomycosis in her toenails -will hold for now terbinafine for LFTs. Pt tried ciclopirox for 2 mo w no major changes ,wants to hold for now on continue med -may consider in future for terbinafine if stable LFTS -From last labs LFTS normalized -will re exam feet at next apt Transaminitis -08/22/2024 LFTs wnl -F w GI 11/2023 : Chem Lfts wnl<--05/2023 AST 64<---52 ALT 104<--89 , liver fibrosis F0 ,antismooth neg, HANNAH + 1:320,AMA neg,AFP neg, GGT 42-mild levated ,T-spot neg ,cardiolipins neg, ESR 36CRP 3.11 CK 503 -07/2023 cryoglobulin neg .immunoglobulin A elevated ,ceruloplasmin wnl.A1AT wnl, ANCA wnl .previoushep viral panel neg -Abd US 06/2023 :Diffuse increased liver parenchymal echogenicity most commonly due to hepatic steatosis, but other chronic hepatocellular disease can have a similar ultrasound appearance. No biliary ductal dilatation -11/2023 fIBrosure no fibrosis F0 -GI 12/2023 f for CINTRON and can be monitored by her PCP and if the transaminases rise above 2x the upper limit then return her to our service. 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 Results of CT chest reviewed, only minimal early fibrosis. -CT chest wo contrast 08/27/23 : Early subpleural interstitial changes as described, predominantly in the anterolateral upper lobes, right middle lobe, lingula, and posterolateral lower lobes, with basilar predominance. Differential diagnosis includes NSIP,UIP, and fibrotic lung disease based upon underlying collagen vascular disease. Other etiologies not excluded although provided history is essentially absent. Diffuse dilation and thickening of the esophagus, raising the possibility of SCLERODERMA and scleroderma related lung disease. Mild prominence of the main pulmonary artery could suggest underlying mild pulmonary hypertension. No suspicious adenopathy. No suspicious pulmonary nodules. No significant bronchiectasis or bronchial wall thickening. -pulmo 06/2024 Does have underlying restrictive physiology and fibrosis. Will repeat CT chest in 12months. Chest wall mass-resolved -Soft tissue US 08/2024 The imaged soft tissues normal, no mass, fluid collection or abnormal vascular flow. Per pt no longer noted mass sensation Chronic insomnia -refuse BH for CBT -will avoid mirtazapine and trazodone for med interactions w her rheumatologic meds -trial w melatonin 5 mg HS-helping Review of Systems Constitutional: Negative. Respiratory: Negative. Cardiovascular: Negative. Objective BP 110/80 (BP Location: Left arm, Patient Position: Sitting, BP Cuff Size: Adult) Pulse 67 Temp96.9 ??F (36.1 ??C) (Temporal) Resp 20 Ht 5' 2 (1.575 m) Wt 130 lb 12.8 oz (59.3 kg) FbV728% BMI 23.92 kg/m?? Physical Exam Constitutional: General: She is not in acute distress. Appearance: Normal appearance. Neurological: Mental Status: She is alert. 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
[2024-09-09 10:45] LABS: Alanine Aminotransferase 18 U/L (0-31); Albumin Level 4.2 g/dL (3.5-5.0); Alkaline Phosphatase 84 U/L (39-117); Anion Gap 12 (12-20); Aspartate Amino Transferase 17 U/L (5-31); Blood Urea Nitrogen 13 mg/dL (9-16); Calcium 8.5 mg/dL (8.4-10.2); Carbon Dioxide 27 mmol/L (22-29); Chloride 108 mmol/L (96-108); Estimated Glomerular Filt Rate > 60; Potassium 3.8 mmol/L (3.3-5.1); Sodium 143 mmol/L (135-145); Total Protein 7.1 g/dL (6.5-8.0)
== END 2024-09-09 09:33 | disposition home or self-care (01) ==
LOC: HO.LAB 09:32
PROVIDERS: PCP Student in an Organized Health Care Education/Training Program; Referring Provider Student in an Organized Health Care Education/Training Program; Visit Provider Student in an Organized Health Care Education/Training Program
DX: Z79.899 Other long term (current) drug therapy (principal)
CPT/HCPCS: 36415; 80053; 85652; 86140

== ENCOUNTER 2024-10-12 13:38 | Outpatient (AMB) | payer MEDICAID, SELFPAY ==
[2024-10-12 13:41] VITALS: BP 112/66; PULSE 70; O2SAT 100; BMI 24.1
--- NOTE | 2024-10-12 13:41 | MHC.OFFVIS ---
Vital Signs 10/12/24 13:41 Height 5 ft 2 in Weight 131 lb 9.855 oz BMI 24.1 BP 112/66 Blood Pressure Location Lt brachial Position Sitting Pulse 70 Pulse Source Pulse Oximeter Pulse Oximetry (%) 100 Oxygen Delivery Method Room Air Intake Visit Reasons: Antisynthetase Intake Note: Patient last seen by Doctor Mercedez Mckenzie on 07/01/24. Presents today for ASyS follow up and test results. 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 here today for follow up Interval History: Patient last seen 07/01/24 with me - On medrol 4mg bid, azathioprine, and HCQ - Doing well but complaining of rashes - Stopped Aza and started MMF - decreased medrol to 4mg daily Today - On medrol 4mg od, MMF 500mg bid, and HCQ 300mg daily - Doing well, rashes improved - No complaints - Requesting derm referral for skin hyperpigmentation Rheumatologic History: previously diagnosed with seroneg RA -ve RF -ve CCP dx 2016 MTX 2016 ineffective and caused GI upset Enbrel 2017 partially effective DC 07/2023 Antisynthetase antibody syndrome diagnosed 07/2023 based on (V-neck sign, heliotrope rash, mechanic general operational test's hands, Raynaud's, esophageal dysmotility, CPK 2k no associated muscle weakness ++Pl-7 Ab ++SSa) Prednisone started 07/2023 effective HCQ added 08/2023 Aza added 10/2023 - 06/2024 MMF 06/2024 Initial history: This is a 47-year-old female with seronegative RA who presents as a new patient. She recently moved from [place]. She states that she was diagnosed with rheumatoid arthritis back in 2015. She was on methotrexate briefly and it was discontinued due to GI upset. She had been on Enbrel since 2017 and it is effective. She states that her joint pain is well controlled overall. She takes 2 mg of Medrol sporadically about once a week as needed for joint pain and fatigue. States that over last 2 weeks she noticed a painful mass on the radial aspect of her right middle finger. She was prescribed antibiotics by her PCP and it was not helpful. She denies any trauma to the finger. Mentions that her maternal uncle has RA. She denies any history of DVT/PE. Denies any fatigue or weight loss. Current Rheumatology Medication(s): Medrol 4mg daily Hydroxychloroquine 300mg daily MMF 500mg bid [facility] Medical History Hepatic steatosis Transaminitis Complicated grief Health care maintenance Severe anxiety Paronychia of finger of right hand Surgical History History of esophagogastroduodenoscopy (EGD) H/O colonoscopy History of partial hysterectomy Hx of cholecystectomy Family History Mother History of mastectomy, total HX: breast cancer Diabetes Hypertension Father No problems noted. Maternal Uncle Rheumatoid arthritis Social History Alcohol intake: never Patient Tobacco Use Status: Never used Tobacco Current occupational status: unemployed Gender identity: Female Review of Systems Const Details: Review of Systems Constitutional: Denies fever, chills, weight loss ENT: Denies vision changes, eye pain or eye redness, dental caries, dry mouth GI: Denies nausea, vomiting, diarrhea, abdominal pain, change in BM Pulm: Denies SOB, ARGUETA, hemoptysis, wheezing Cards: Denies chest pain, palpitations Skin: Denies Raynaud's, nail changes, photosensitivity, CAR SEAT UPHOLSTERER: Denies headaches, weakness, paresthesias, recurrent falls MSK: as per HPI All other systems reviewed and are unremarkable except noted above Physical Exam Exam Exam: Vital signs reviewed Physical Examination CONSTITUITIONAL Patient alert and cooperative. Well appearing and in no apparent painful distress HEENT Conjunctiva and sclera clear. No lymphadenopathy. CHEST/RESPIRATORY SYSTEM Normal respiratory effort and able to speak in complete sentences. Clear to auscultation bilaterally. No crackles, rales, rhonchi, wheezes heard. CARDIAC SYSTEM Regular rate and rhythm. S1 and S2 heard no murmurs. Radial pulses intact bilaterally MSK Hands Right Hand: Able to make a fist. No swelling or tenderness to palpation of the MCPs, PIPs or DIPs. No deformities noted. Left Hand: Able to make a fist. No swelling or tenderness to palpation of the MCPs, PIPs or DIPs. No deformities noted. Wrists Right Wrist: Full ROM to flexion and extension. No swelling or TTP Left Wrist: Full ROM to flexion and extension. No swelling or TTP Elbows Right Elbow: Full ROM. No swelling or TTP. No TTP of the medial epicondyle. No TTP of the lateral epicondyle Left Elbow: Full ROM. No swelling or TTP. No TTP of the medial epicondyle. No TTP of the lateral epicondyle Shoulders Right shoulder: Full ROM. No swelling noted. No TTP of the AC joint. No TTP of the subacromial bursa. No TTP of the posterior shoulder Left shoulder: Full ROM. No swelling noted. No TTP of the AC joint. No TTP of the subacromial bursa. No TTP of the posterior shoulder Knees Right knee: Full ROM. No swelling noted. No TTP of the knee joint line. No TTP of pes anserine bursa Left knee: Full ROM. No swelling noted. No TTP of the knee joint line. No TTP of pes anserine bursa. Ankles Right ankle: Good ankle dorsiflexion and plantar flexion. No swelling. No TTP of the ankle joint Left ankle: Good ankle dorsiflexion and plantar flexion. No swelling. No TTP of the ankle joint Feet Right foot: Negative squeeze test Left foot: Negative squeeze test Tender points? No tenderness to palpation of the bilateral trapezius, supraspinatus, anterior costochondral junctions, bilateral suboccipital muscle insertions SKIN Hair thinning Vital Signs: Last Vital Signs Pulse 70 10/12/24 13:41 BP 112/66 10/12/24 13:41 Pulse Ox 100 10/12/24 13:41 Oxygen Delivery Method Room Air 10/12/24 13:41 BMI result Body Mass Index 24.1 Results Reviewed Results Reviewed: Laboratory Tests 05/11/0308/31/24 09/09/24 10:05 10:14 09:48 WBC 6.1 RBC 3.89 L Hgb 11.2 L Hct 35.1 L Plt Count 115 L ESR 48 H 28 H Sodium 143 Potassium 3.8 Chloride 108 Carbon Dioxide 27 BUN 13 Creatinine 0.80 AST 17 ALT 18 C-Reactive Protein 1.07 H Assessment & Plan Assessment & Plan (1) Antisynthetase syndrome: Comment: previously diagnosed with seroneg RA -ve RF -ve CCP dx 2016 MTX 2016 ineffective and caused GI upset Enbrel 2017 partially effective DC 07/2023 Antisynthetase antibody syndrome diagnosed 07/2023 based on (V-neck sign, heliotrope rash, mechanic general operational test's hands, Raynaud's, esophageal dysmotility, CPK 2k no associated muscle weakness ++Pl-7 Ab ++SSa) Prednisone started 07/2023 effective HCQ added 08/2023 Aza added 10/2023 Code(s): D89.89 - Other specified disorders involving the immune mechanism, not elsewhere classified Category: Medical Plan: #Antisynthetase syndrome Patient is a 48 y.o. female with antisynthetase syndrome. Doing well on MMF Plan - Continue medrol 4mg daily, plan to srop at next visit - MMF 500mg bid - Hydroxychloroquine 300mg daily - RTC 4 months - Labs before visit: CBC, CMP, ESR, CRP (2) Raynaud's disease: Code(s): I73.00 - Raynaud's syndrome without gangrene Category: Medical Qualifiers: Raynaud?s-associated gangrene presence: without gangrene Qualified Code(s): I73.00 - Raynaud's syndrome without gangrene Plan: #Raynaud's Patient with secondary raynaud's with nailfold capillary changes Recommended conservative measures such as keep core temperature warm, avoiding cold exposure, and wearing gloves (3) Encounter for long term acute care registered nurse use of mycophenolate mofetil: Code(s): Z79.624 - buttermaker helper (current) use of inhibitors of nucleotide synthesis Plan: #Long-term Use of Mycophenolate/Mycophenolic Acid Discussed with patient the benefits and risks of mycophenolate/mycophenolic acid for the management of the rheumatic condition Benefits include improved disease control and reduction of mortality Risks include GI upset especially diarrhea, anemia, leukopenia, hepatotoxicity, lymphoproliferative malignancies, PML Mycophenolate and mycophenolic acid are teratogenic and should be avoided in patients who are desiring the Monitoring: ?CBC, LFTs, BMP Recommended holding medication during and for up to 1 week after resolution of a febrile illness (4) penitentiary (current) use of systemic steroids: Code(s): Z79.52 - buttermaker helper (current) use of systemic steroids Plan: #Long-term Use of Steroids Discussed with patient the risks and benefits of steroid for managing the rheumatic condition Benefits include: - Reduced pain, improved mobility, increased participation in activities, and decreased progression of disease Risks include: - GI upset, potential ultrasound worsening or formation (especially in patients > 65 years old), elevated blood pressure/worsening hypertension, elevated blood sugar/worsening diabetes control, worsening of bone density, elevated lipids/worsening triglycerides, cataract formation, weight gain Recommended using proton pump inhibitors (PPIs) for the duration of steroid use to reduce the risk of gastric ulcers and vitamin-D daily to reduce the risk of osteoporosis Labs checked: ?A1c, T spot, hepatitis-B and C serologies Pneumocystis jiroveci prophylaxis: ?Patient with risk factors including steroids greater than 50 mg for more than 30 days, age greater than 60 years, and lung involvement from underlying rheumatic disease requires prophylaxis and will be given so (5) Long-term use of hydroxychloroquine: Code(s): Z79.899 - Other long term acute care registered nurse (current) drug therapy Category: Medical Plan: #Long-term Use of Hydroxychloroquine Discussed with patient the risks and benefits of hydroxychloroquine in managing the rheumatic condition Benefits include: - Reduced pain, reduce mortality, maintenance of remission and reduction of flares Risks include: - GI upset, skin hyperpigmentation, retinal toxicity (especially after more than 5 years of use), myopathy Advised yearly ophthalmology visits Plan I spent 30 minutes reviewing the record and labs, taking a history, examining the patient, discussing the treatment plan, ordering diagnostic work up and documenting in the medical record Orders: Orders Comprehensive Met. Panel 4 Months Z79.899 - Other care home (current) drug therapy Complete Blood Count Auto Diff 4 Months Z79.899 - Other long term acute care registered nurse (current) drug therapy C Reactive Protein 4 Months Z79.899 - Other long term acute care registered nurse (current) drug therapy Erythrocyte Sedimentation Rate 4 Months Z79.899 - Other care home (current) drug therapy Referrals Dermatology Referral L81.9 - Disorder of pigmentation, unspecified Medications: Refilled hydroxychloroquine 300 mg (1.5 x 200 mg) PO DAILY 135 tabs 1RF methylprednisolone (Medrol) 4 mg PO DAILY 90 tabs 1RF 90 days D89.89 - Other specified disorders involving the immune mechanism, not elsewhere classified mycophenolate mofetil 500 mg PO BID 180 tabs 1RF 90 days D89.89 - Other specified disorders involving the immune mechanism, not elsewhere classified Discontinued omeprazole 30 minutes before breakfast Discontinued Reason: Patient no longer taking 40 mg PO DAILY 90 caps 1RF Coding Level of Care Code Est Pt Level 4 (99953) Complex EM visit Add On G2211 Diagnoses Antisynthetase syndrome D89.89 Raynaud's disease without gangrene I73.00 Raynaud?s-associated gangrene presence: without gangrene Encounter for care home use of mycophenolate mofetil Z79.624 buttermaker helper (current) use of systemic steroids Z79.52 Long-term use of hydroxychloroquine Z79.899
--- OUTSIDE RECORDS SUMMARY | 2024-10-12 15:48 | XMS_ITS | Encounter Summary ---
Author Organization [employer] Address [address] [place] [address] Care Team Providers Care Delivery Table Feeder Name Role Phone Nenita Croft MD Primary Care Pro vider Encounter Details Date Type Department Care Team ([facility] st Contact Info) Description 01/19/2024 Orders Only [facility] [address] [place] [address] Provider, MD Paul Social History Tobacco Use [...] with others, in a hotel, in a senior living, living outside on the street, on a [...] Care Team (Late st Contact Info) Description 11/24/2024 9:45 AM EDT Procedure Visit [facility] [address] [place] [address] [phone] Nena Escobar CNM [address], [place] [phone] documented as of this encounter Procedures Procedure Name Priority Date/Time Associated Diagnosis Comments COLONOSCOPY Routine 01/23/2022 7:33 AM EST documented in this encounter Results * Colonoscopy (01/23/2022 7:33 AM EST) Colonoscopy Normal Normal Narrative CourtneySugar hooper - 01/23/2022 7:33 AM EST Please see scanned result on 05/29/2023 in media relations manager ,unable to attach report us Historical Provider HEALTH MAINTENANCE Edited Result - Final documented in this encounter Visit Diagnoses Not on filedocumented in this encounter Additional Health Concerns Assessment Noted Time PHQ-9 Depression Total Score: 17 023 4:18 PM EST documented as of this encounter Care Teams Delivery Table Feeder Relationship Specialty Start Date End Date Nenita Croft MD [address], [place] [phone] PCP - General Internal Medicine 09/11/22 documented as of this encounter
--- OUTSIDE RECORDS SUMMARY | 2024-10-12 15:49 | XMS_ITS | Clinical Summary ---
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 methylPREDNISo lone (Medrol) 4 MG tablet Take 4 mg by mouth Once per day. Active hydroxychloroq uine (Plaquenil) 200 MG tablet Take 300 mg by mouth Once per day. Active mycophenolate (Cellcept) 500 MG tablet Take 500 mg by mouth in the morning and 500 mg in the evening. Active famotidine (Pepcid) 20 MG tablet Take 1 tablet (20 mg) by mouth if needed at bedtime for heartburn. 90 tablet 08/11/19 25 Active Multiple Vitamin (multivitamin) tablet Take 1 tablet by mouth Once per day. 90 tablet 3 09/08/19 25 Active melatonin 5 MG tablet TAKE 1 TABLET BY MOUTH EVERY DAY AT BEDTIME 30 tablet 2 09/28/19 25 Active fluticasone (Flonase Allergy Relief) 50 MCG/ACT nasal spray Administer 1 spray into each nostril Once per day. Shake gently. Before first use, prime pump. After use, clean tip and replace cap. 16 g 12 10/04/19 25 026 Active Nirmatrelvir&R itonavir 300/100 (Paxlovid, 300/100,) 20 x 150 MG & 10 x 100MG tablet therapy pack Take 300 mg by mouth 2 times daily. Take 3 tablets 2x/day for 5 days 30 each 10/04/19 Active melatonin 5 MG tablet Take 1 tablet (5 mg) by mouth at bedtime. 30 tablet 2 07/07/19 25 025 Discontinued amoxicillin-cl avulanate (Augmentin) 875-125 MG tabletIndicati ons:Swelling of right parotid gland Take 1 tablet by mouth 2 times daily for 10 days. 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 See above Take PRD x 1w then restart Enbrel 1w later. FU with rheumatology Transaminitis 05/30/2023 Onychomycosis 05/30/2023 Housing insecurity 12/12/2022 Severe anxiety 12/12/2022 Anemia 10/21/2022 GERD [...] and still adjusting to [place] on [place]. PLAN: New/Additional Services needed Off-site services for BH, Behavioral Health Integration Plan External OP therapy referral and OP psychiatry Referral, Patient Self Plan Patient to utilize skills provided in intervention , Patient to reach out to [facility] team as needed, Patient to engage in OP therapy , and Patient to reach out to [facility] as needed. Patient provided with [facility] information to contact them and request status of referral submitted in 10/2022. Patient will reach out to this instructional writer to provide an update. Assessment & Plan (12/12/2022 9:59 AM EDT): Assessment: Patient presents with anxiety, depression and grief symptoms. Passive SI without plan or intention. Reason for visit was to assess symptoms and provide support to patient. Symptoms are present in the context of 1 year of her , [place] from on 08/[place], not having her own place. Provided psychoeducation around coping mechanisms to manage anxiety and depressive sxs and discuss the grief process. Referral previously made to [facility] for OP services. At this time Yessi Hess meets criteria for Visit Diagnoses: Problem List Items Addressed This Visit Other Moderately severe depression Complicated grief Severe anxiety Patient ready to address current needs Yes Strengths include Yessi is in action stage of change and her motivation will serve as treatment engagement. PLAN: 1. Follow up with [facility]: Recommended for follow-up: Patient will be follow up with [facility]-, per provider request. 2. Patient goal is improve mental health 3. Behavioral Recommendations a. Ind. Therapy, referral submitted b. Use of coping skills provided c. [facility] follow up Assessment & Plan (11/06/2022 10:03 [...] individual therapy placed on 10/22/22 with Alejandra ([phone]). Pt reported feeling better since our last appointment. She has started incorporating coping mechanisms to bring her back to the present. At this time Yessi Hess meets criteria for Visit Diagnoses: Problem List Items Addressed This Visit Other Depression Complicated grief Patient ready to address current needs Yes Strengths include motivation and readiness to change. PLAN: 1. Follow up with [facility]: Not recommended for follow-up 2. Patient [...] individual therapy placed on 10/22/22 with Alejandra ([phone]). Pt reported feeling better since our last appointment. She has started incorporating coping mechanisms to bring her back to the present. At this time Yessi Hess meets criteria for Visit Diagnoses: Problem List Items Addressed This Visit Other Depression Complicated grief Patient ready to address current needs Yes Strengths include motivation and readiness to change. PLAN: 1. Follow up with [facility]: Not recommended for follow-up 2. Patient [...] family jarquin. PLAN: 1. Follow up with [facility]: Not recommended for follow-up 2. Patient goal is to create a new normal after her 's . 3. Behavioral Recommendations a. Referral for OP individual therapy b. Incorporating mindfulness techniques and self-care c. Do activities in memory of her loved one. Resolved Problems Problem Noted Date Diagnosed Date Resolved Date Chest wall mass 07/06/2024 09/07/2024 Skin lesion 12/12/2022 09/07/2024 Encounters Date Type Department Care Team Description 10/03/2024 10:20 AM EDT Office Visit [facility] [address] [place] [phone] Imer Clemens MD COVID-19 (Primary Dx) 10/03/2024 Travel 09/27/[address] [address] Nenita Croft MD 09/21/[address] [address] Joe Alejandra CNM November09/12/2024 10:40 AM EDT Office Visit [facility] [address] [address] Sarah Sears NP Swelling of right parotid gland (Primary Dx) 09/12/2024 Travel 09/07/2024 11:30 AM EDT Office Visit [address] [address] Nenita Croft MD Health care maintenance (Primary Dx); Moderately severe depression; Antisynthetase syndrome (CMS/HCC); Housing insecurity; Food insecurity 09/07/2024 Patient Outreach [address] [address] Nenita Croft MD Care Coordination ([facility] outreach for SDOH housing search-referral completed ) 09/07/2024 Travel 09/06/[address] [address] Nenita Croft MD CHART PREP 08/31/2024 Results Follow-Up [address] [address] Nenita Croft MD Basic Metabolic Panel, Magnesium 08/31/2024 Orders Only GENERIC EXTERNAL DATA DEPARTMENT Provider, Generic External Data 08/22/2024 Results Follow-Up [address] [address] Nenita Croft MD CBC, Iron And Total Iron Binding Capacity, Ferritin, Additional followed-up results: 12 08/22/2024 Orders Only [address] [address] Nenita Croft MD Hypokalemia (Primary Dx) 08/10/2024 Orders Only [address] [address] Nenita Croft MD 08/10/[address] [address] Nenita Croft MD 08/05/2024 8:40 AM EDT Office Visit [address] [address] Sarah Sears NP Rash (Primary Dx) from Last 3 Months Immunizations Immunization Administration Dates Next Due Pneumococcal Conjugate PCV [...] with others, in a hotel, in a jail, living outside on the street, on a [...] Sign Reading Time Taken Comments Blood Pressure 111/55 10/03/2024 10:15 AM EDT Pulse 73 10/03/2024 10:15 AM EDT Temperature 37.3 C (99.1 F) 10/03/2024 10:15 AM EDT Respiratory Rate 18 10/03/2024 10:15 AM EDT Oxygen Saturation 98% 10/03/2024 10:15 AM EDT Inhaled Oxygen Concentration - - Weight 58.5 kg (129 lb) 10/03/2024 10:15 AM EDT Height 157.5 cm (5' 2 ) 09/12/2024 10:44 AM EDT Body Mass Index 23.59 09/12/2024 10:44 AM EDT Plan of Treatment Upcoming Encounters Date Type Department Care Team (Late st Contact Info) Description 11/24/2024 9:45 AM EDT Procedure Visit [facility] [address] [place], [place] [phone] Joe Alejandra, BRENDEN [address] [place] [address] Health Maintenance Due Date Last Done Comments CT Colonography 1977 FIT DNA/Cologuard 1977 FIT 1977 FOBT 1977 Sigmoidoscopy 1977 COVID-19 Vaccine (#1) 1982 Family Planning (PISQ) 1992 Hepatitis B Vaccines (1 of 3 - 19+ 3-dose series) 1996 Zoster Vaccines (1 of 2) 1996 Influenza Vaccine (#1) 2024 HPV/Cotest 11/24/2024 11/25/2023, 01/12/2023 Pap Smear 11/24/2024 11/25/2023, 01/12/2023 Depression Monitoring 01/06/2025 07/06/2024, 025 SDOH Screening 06/28/2025 06/28/2024 Alcohol/Substance Use Screening 07/06/2025 07/06/2024 Disability Screening 07/06/2025 07/06/2024 Tobacco Screening 10/03/2025 10/03/2024 Mammogram 11/26/2025 11/27/2023, 10/28/2022 Colonoscopy 01/23/2027 01/23/2022 Colorectal Cancer Screening 01/23/2027 DTaP/Tdap/Td Vaccines (2 - Td or Tdap) 07/07/2033 07/08/2023 RSV Patients and Patients Aged 60 years or older (1 - 1-dose 75+ series) 2052 Pneumococcal Vaccine: Pediatrics (0 to 5 Years) and At-Risk Patients (6 to 49) Years Completed 07/08/2023 HIV Screening Completed 08/22/2024, 10/10, 09/16/2022 Hepatitis C Screening Completed 08/22/2024 , 10/29/2023, 06/22/2023, Additional history exists HIB Vaccines Aged Out [...] patient's age to complete this topic Meningococcal B Vaccine Aged Out No l onger eligible based on patient's age to complete [...] Procedure Name Priority Date/Time Associated Diagnosis Comments POCT INFLUENZA B (ID NOW RAPID MOLECULAR) Routine 10/03/2024 11:08 AM EDT COVID-19 POCT INFLUENZA A (ID NOW RAPID MOLECULAR) Routine 10/03/2024 11:08 AM EDT COVID-19 POCT RAPID COVID ANTIGEN Routine 10/03/2024 11:08 AM EDT COVID-19 CHLAMYDIA/TRICHOMONAS/ NEISSERIA GONORRHOEAE, PCR, URINE Routine 08/31/2024 10:14 AM EDT CREATINE KINASE, TOTAL Routine 10:14 AM EDT CBC WITH AUTO DIFFERENTIAL Routine 08/31/2024 10:14 AM EDT MAGNESIUM Routine 08/31/2024 10:14 AM EDT Hypokalemia BASIC METABOLIC PANEL Routine 08/31/2024 10:14 AM EDT Hypokalemia VITAMIN B12/FOLATE, SERUM PANEL Routine 08/22/2024 9:42 AM EDT Annual physical exam VITAMIN D,25-OH,TOTAL,IA Routine 08/22/2024 9:42 AM EDT Annual physical exam TSH W/REFLEX TO FT4 Routine 08/22/2024 9 :42 AM EDT Annual physical exam SYPHILIS SCREEN Routine 08/22/2024 9:42 AM EDT Annual physical exam LIPID PANEL, STANDARD Routine 08/22/2024 9:42 AM EDT Annual physical exam HIV 1/2 ANTIGEN/ANTIBODY, FOURTH GENERATION W/RFL Routine 08/22/2024 9:42 AM EDT Annual physical exam HEPATITIS C AB W/REFL TO HCV RNA, QN, PCR Routine 08/22/2024 9:42 AM EDT Annual physical exam HEPATITIS B SURFACE ANTIGEN, EIA Routine 08/22/2024 9:42 AM EDT Annual physical exam HEPATITIS B SURFACE ANTIBODY, QUALITATIVE Routine 08/22/2024 9:42 AM EDT Annual physical exam HEPATITIS B CORE AB TOTAL Routine 08/22/2024 9:42 AM EDT Annual physical exam HEMOGLOBIN A1C Routine 08/22/2024 9:42 AM EDT Annual physical exam COMPREHENSIVE METABOLIC PANEL Routine 08/22/2024 9:42 AM EDT Annual physical exam FERRITIN Routine 08/22/2024 9:42 AM EDT Annual physical exam IRON AND TOTAL IRON BINDING CAPACITY Routine 08/22/2024 9:42 AM EDT Annual physical exam CBC Routine 08/22/2024 9:42 AM EDT Annual physical exam US ABDOMEN LIMITED Routine 08/11/2024 2: 44 PM EDT BI MAMMOGRAM SCREENING TOMOSYNTHESIS BILATERAL Routine 11/27/2023 2:00 PM EDT Breast cancer screening by mammogram THINPREP IMAGING PAP AND HPV MRNA E6/E7 Routine 11/25/2023 11:50 AM EDT HM COLONOSCOPY Routine 01/23/2022 7:33 AM EST from Last 3 Months or Most Recently Relevant to Health Maintenance Results * Influenza B (ID NOW Rapid Molecular) (10/03/2024 11:08 AM EDT) [facility] Influenza B Negative Negative, Indeterminate [facility] Swab 10/03/2024 11:0 8 AM EDT us Imer Clemens MD POINT OF CARE TEST ENTER/EDIT OR DERABLES Final Result Performing Organization Address [facility]/ZIP Co de Phone Number [facility] [address] [place] [phone] * Influenza A (ID NOW Rapid Molecular) (10/03/2024 11:08 AM EDT) [facility] Influenza A Negative Negative, Indeterminate [facility] Swab 10/03/2024 11:0 8 AM EDT us Imer Clemens MD POINT OF CARE TEST ENTER/EDIT OR DERABLES Final Result Performing Organization Address [facility] Co de Phone Number [facility] [address] [place] [phone] * (ABNORMAL) POCT Rapid COVID Ag (10/03/2024 11:08 AM EDT) [facility] Rapid COVID Ag Positive [facility] Swab 10/03/2024 11:0 8 AM EDT us Imer Clemens MD POINT OF CARE TEST ENTER/EDIT OR DERABLES Final Result Performing Organization Address City/[facility]/ZIP Co de Phone Number [facility] [address] [place] [phone] * Chlamydia/Trichomonas/Neisseria gonorrhoeae, PCR, Urine (08/31/2024 10:14 AM EDT) CT PCR, Urine NOT DETECTED Not Detect. [facility] Comment:A not detected test result does not exclude the possibilityof infection because test results can be affected byimproper specimen collection, concurrent antibiotic therapy,or the number of organisms in the specimen which may bebelow the sensitivity of the test. As with many diagnostictests, results from the Xpert CT/NG assay should beinterpreted in conjunction with other laboratory andclinical data available to the clinician.The Xpert CT/NG assay should not be used for the evaluationof suspected sexual abuse or for other medico-legalindications. Additional testing is recommended in anycircumstance when false positive or false negative resultscould lead to adverse medical, social or psychologicalconsequences. NG PCR, Urine NOT DETECTED Not Detect. [facility] Comment:A not detected test result does not exclude the possibilityof infection because test results can be affected byimproper specimen collection, concurrent antibiotic therapy,or the number of organisms in the specimen which may bebelow the sensitivity of the test. As with many diagnostictests, results from the Xpert CT/NG assay should beinterpreted in conjunction with other laboratory andclinical data available to the clinician.The Xpert CT/NG assay should not be used for the evaluationof suspected sexual abuse or for other medico-legalindications. Additional testing is recommended in anycircumstance when false positive or false negative resultscould lead to adverse medical, social or psychologicalconsequences. 08/31/2024 10:1 4 AM EDT 08/31/2024 11:29 AM EDT us Nenita Do MD LAB URINE ORDERAB LES Final Result [facility] [address] [place] [phone] * (ABNORMAL) CBC auto differential (08/31/2024 10:14 AM EDT) White Blood Count 6.1 4.8 - 10.8 X10*3/uL [facility] Red Blood Count 3.89(L) 4.20 - 5.50 X10*6/uL [facility] Hemoglobin 11.2(L) 12.0 - 16.0 g/dl [facility] Hematocrit 35.1(L) 37.0 - 47.0 % [facility] Mean Corpuscular Volume 90.2 80.0 - 98.0 fL [facility] Mean Corpuscular Hemoglobin 28.8 27.0 - 33.0 pg [facility] Mean Corpuscular HGB Conc 31.9 31.0 - 35.0 g/dl [facility] Red Cell Distribution Width 14.7 11.0 - 16.0 % [facility] Platelet Count 115(L) 160 - 400 X10*3/uL [facility] Mean Platelet Volume 10.1 9.4 - 12.3 fL [facility] Neutrophils Percent Auto 68.7 45 - 73 % [facility] Imm Gran Pct Auto 0.2 0.0 - 0.4 % [facility] Lymphocytes Percent Auto 22.3 20 - 40 % [facility] Monocytes Percent Auto 6.9 2 - 11 % [facility] Eosinophils Percent Auto 1.6 0 - 4 % [facility] Basophils Percent Auto 0.3 0 - 2 % [facility] NRBC Pct Auto 0.0 0.0 - 0.2 /100WBC [facility] Neutrophils Absolute Auto 4.2 2.0 - 8.3 x10*3/uL [facility] Imm Gran Abs Auto 0.01 0.00 - 0.03 X10*3/uL [facility] Lymphocytes Absolute Auto 1.4 1.2 - 4.9 X10*3/uL [facility] Monocytes Absolute Auto 0.4 0.1 - 1.2 X10*3/uL [facility] Eosinophils Absolute Auto 0.1 0.0 - 0.4 X10*3/uL [facility] Basophils Absolute Auto 0.0 0.0 - 0.2 X10*3/uL [facility] NRBC Abs Auto 0.000 0.0 - 0.012 X10*3/uL [facility] 08/31/2024 10:1 4 AM EDT 08/31/2024 11:24 AM EDT us Generic External Data Provider LAB BLOOD ORDERAB LES Final Result Performing Organization Address [facility]/ZIP Co de Phone Number [facility] [address] [place] [phone] * Magnesium (08/31/2024 10:14 AM EDT) Magnesium 2.0 1.6 - 2.6 mg/dL [facility] Blood Venous blood specimen / Unknown 08/31/2024 10:14 AM EDT 08/31/2024 11:24 AM EDT us Nenita Do MD LAB BLOOD ORDERAB LES Final Result Performing Organization Address [facility] Co de Phone Number [facility] [address] [place] [phone] * Creatine Kinase, Total (08/31/2024 10:14 AM EDT) Creatine Kinase Total 104 26 - 140 U/L [facility] 08/31/2024 10:1 4 AM EDT 08/31/2024 11:24 AM EDT us Generic External Data Provider LAB BLOOD ORDERAB LES Final Result Performing Organization Address [facility]/ZIP Co de Phone Number [facility] [address] [place] [phone] * (ABNORMAL) Basic Metabolic Panel (08/31/2024 10:14 AM EDT) Sodium 143 135 - 145 mmol/L [facility] Potassium 4.0 3.3 - 5.1 mmol/L [facility] Chloride 111(H) 96 - 108 mmol/L [facility] Carbon Dioxide 26 22 - 29 mmol/L [facility] Anion Gap 10(L) 12 - 20 [facility] Urea Nitrogen (BUN) 10 9 - 16 mg/dL [facility] Creatinine, Serum 0.77 0.5 - 1.4 mg/dL [facility] Estimated Glomerular Filt Rate >60 [facility] Comment:Chronic Kidney Disea se: Estimated GFR < 60 mL/min/1.44m4Nkhqhg Kidney Disease: Estimated GFR < 15 mL/min/1.73m2 Glucose 88 60 - 115 mg/dL [facility] Calcium 8.8 8.4 - 10.2 mg/dL [facility] Blood Venous blood specimen / Unknown 08/31/2024 10:14 AM EDT 08/31/2024 11:24 AM EDT us Nenita Do MD LAB BLOOD ORDERAB LES Final Result Performing Organization Address City/[facility]/ZIP Co de Phone Number [facility] [address] [place] [phone] * Syphilis Screen (08/22/2024 9:42 AM EDT) Syphilis Screen Nonreactive Nonreactive [facility] Blood 08/22/2024 9:42 AM EDT 08/22/2024 9:42 AM EDT Nenita Do MD LAB BLOOD ORDERAB LES Final Result Performing Organization Address City/[facility]/ZIP Co de Phone Number [facility] [address] [place] [phone] * Vitamin D, 25-Hydroxy, Total, Immunoassay (08/22/2024 9:42 AM EDT) Vitamin D 25-OH Total 39.4 >30 ng/mL [facility] Comment: Health Based Reference Values*< 20 ng/mL Fttxkdyon78-67 ng/mL Insufficient> 30 ng/mL Sufficient*Efraín SOUZA. N Engl J Med. 2007;357:266-280There is no well-established upper level of normal vitamin Dlevels. Some laboratories use 50 ng/mL as an upper limit ofnormal. However, toxicity is patient-dependent and may occurat any level. Careful correlation with the patient'spresentation is necessary and, if there is concern forvitamin D toxicity, treatment should be consideredirrespective of the serum level.Care must be taken in interpreting Vitamin D results fromdifferent laboratories and methodologies. Published datademonstrated that results from patients undergoinghemodialysis may show a negative bias when tested withvarious automated 25-OH vitamin D assays when compared toLC-MS/MS.When testing samples from patients whose predominant form ofVitamin D is Vitamin D2, such as patients receiving VitaminD2 supplementation, results that are subtherapeutic shouldbe confirmed with another method such as LC-MS/MS. Blood Venous blood specimen / Unknown 08/22/2024 9:42 AM EDT 08/22/2024 9:42 AM EDT us Nenita Do MD LAB BLOOD ORDERAB LES Final Result [facility] [address] [place] [phone] * Vitamin B12 (Cobalamin) and Folate Panel, Serum (08/22/2024 9:42 AM EDT) Vitamin B12 434 200 - 900 pg/mL [facility] Comment:NORMAL 200-900 PG/ML INDETERMINATE 160-199 PG/ML DEFICIENT < 160 PG/ML Folate 13.1 > or = 4.0 ng/mL [facility] Comment:Reference Values:> o r = 4.0 ng/mL< 4.0 ng/mL suggests folate deficiency Methotrexate, aminopterin and folinic acid(leucovorin) are chemotherapeutic agents whose molecularstructures are similar to folate; therefore, the Architectfolate assay cannot be used for patients using these drugs. Blood 08/22/2024 9:42 AM EDT 08/22/2024 9:42 AM EDT Nenita Do MD LAB BLOOD ORDERAB LES Final Result Performing Organization Address [facility] Co de Phone Number [facility] [address] [place] [phone] * TSH with Reflex to Free T4 (08/22/2024 9:42 AM EDT) TSH reflex Free T4 0.74 0.32 - 4.0 uIU/mL [facility] Blood 08/22/2024 9:42 AM EDT 08/22/2024 9:42 AM EDT Nenita Do MD LAB BLOOD ORDERAB LES Final Result Performing Organization Address [facility] de Phone Number [facility] [address] [place] [phone] * Hepatitis C Antibody with Reflex to HCV, RNA, Quantitative, Real-Time PCR (08/22/2024 9:42 AM EDT) Hepatitis C Antibody Nonreactive Nonreactive [facility] Comment:Antibodies to HCV no t detected; does not exclude early acuteHCV infection. Blood Venous blood specimen / Unknown 08/22/2024 9:42 AM EDT 08/22/2024 9:42 AM EDT Nenita Do MD LAB BLOOD ORDERAB LES Final Result Performing Organization Address [facility] Co de Phone Number [facility] [address] [place] [phone] * (ABNORMAL) Iron And Total Iron Binding Capacity (08/22/2024 9:42 AM EDT) Iron 74 30 - 160 mcg/dL [facility] Total Iron Binding Capacity 224(L) 228 - 428 mcg/dL [facility] Percent Iron Saturation 33 15 - 50 % [facility] Unsaturated Iron Binding 150 ug/dL [facility] Blood Venous blood specimen / Unknown 08/22/2024 9:42 AM EDT 08/22/2024 9:42 AM EDT us Nenita Do MD LAB BLOOD ORDERAB LES Final Result Performing Organization Address [facility]/ZIP Co de Phone Number [facility] [address] [place] [phone] * Hepatitis B surface antigen, EIA (08/22/2024 9:42 AM EDT) Hepatitis B Surface Ag Negative Negative [facility] Blood Venous blood specimen / Unknown 08/22/2024 9:42 AM EDT 08/22/2024 9:42 AM EDT us Nenita Do MD LAB BLOOD ORDERAB LES Final Result Performing Organization Address City/[facility]/ZIP Co de Phone Number [facility] [address] [place] [phone] * Hepatitis B Core Antibody, Total (08/22/2024 9:42 AM EDT) Hepatitis B Core Antibody Nonreactive Nonreactive [facility] Blood Venous blood specimen / Unknown 08/22/2024 9:42 AM EDT 08/22/2024 9:42 AM EDT us Nenita Do MD LAB BLOOD ORDERAB LES Final Result Performing Organization Address City/[facility]/ZIP Co de Phone Number [facility] [address] [place], [place] [phone] * HIV-1/2 Antigen and Antibodies, Fourth Generation, with Reflexes (08/22/2024 9:42 AM EDT) Pathologist [facility] HIV AB/AG Nonreactive Nonreactive [facility] Comment:HIV-1 p24 Ag and/or HIV-1/HIV-2 Ab not detected.A test result that is nonreactive does not exclude thepossibility of exposure to or infection with HIV-1 and/orHIV-2. Nonreactive results in this assay for individualswith prior exposure to HIV-1 and/or HIV-2 may be due toantigen and antibody levels that are below the limit ofdetection of this assay.The [employer] HIV Ag/Ab Combo assay result andsupplemental assay results should be interpreted inconjunction with the patient's clinical presentation,history and other laboratory results. If the results areinconsistent with clinical evidence, additional testing issuggested to confirm the result. Blood Venous blood specimen / Unknown 08/22/2024 9:42 AM EDT 08/22/2024 9:42 AM EDT us Nenita Do MD LAB BLOOD ORDERAB LES Final Result Performing Organization Address [facility]/ZIP Co de Phone Number [facility] [address] [place] [phone] * Hepatitis B Surface Antibody, Qualitative (08/22/2024 9:42 AM EDT) Pathologist [facility] ~Hepatitis B Surface Antibody NONREACTIVE Nonreactive [facility] Comment:Nonreactive: < 8.00 mIU/mL Blood Venous blood specimen / Unknown 08/22/2024 9:42 AM EDT 08/22/2024 9:42 AM EDT us Nenita Do MD LAB BLOOD ORDERAB LES Final Result Performing Organization Address City/[facility]/ZIP Co de Phone Number [facility] [address] [place] [phone] * (ABNORMAL) CBC (08/22/2024 9:42 AM EDT) White Blood Count 6.6 4.8 - 10.8 X10*3/uL [facility] Red Blood Count 4.00(L) 4.20 - 5.50 X10*6/uL [facility] Hemoglobin 11.2(L) 12.0 - 16.0 g/dl [facility] Hematocrit 36.0(L) 37.0 - 47.0 % [facility] Mean Corpuscular Volume 90.0 80.0 - 98.0 fL [facility] Mean Corpuscular Hemoglobin 28.0 27.0 - 33.0 pg [facility] Mean Corpuscular HGB Conc 31.1 31.0 - 35.0 g/dl [facility] Red Cell Distribution Width 14.6 11.0 - 16.0 % [facility] Platelet Count 113(L) 160 - 400 X10*3/uL [facility] Mean Platelet Volume 10.0 9.4 - 12.3 fL [facility] NRBC Pct Auto 0.0 0.0 - 0.2 /100WBC [facility] NRBC Abs Auto 0.000 0.0 - 0.012 X10*3/uL [facility] Blood Venous blood specimen / Unknown 08/22/2024 9:42 AM EDT 08/22/2024 9:42 AM EDT us Nenita Do MD LAB BLOOD ORDERAB LES Final Result [facility] [address] [place] [phone] * Hemoglobin A1c (08/22/2024 9:42 AM EDT) Hemoglobin A1c 5.5 <6.0 % [facility] Comment:Hemoglobin A1C Refer ence Range Adults: 4.8 - 6.0 % Non diabetic: < 6.0 % Goal: < 7.0 %Additional Action Suggested: > 8.0 %Note: Hemoglobin A1c results are invalid for patients with abnormal amounts of HbF. Blood transfusions may impact the HbA1c concentration in the patient sample. Estimated Average Glucose 111 mg/dL [facility] Comment:eAG = Estimated ave rage glucose which is %A1C expressed asaverage glucose, using the formula of the L7J-UcgqjbuDscfgvy Glucose study (ADAG), Diabetes Care, Vol.31,#8,Sep. 2007 Blood Venous blood specimen / Unknown 08/22/2024 9:42 AM EDT 08/22/2024 9:42 AM EDT us Nenita Do MD LAB BLOOD ORDERAB LES Final Result Performing Organization Address City/[facility]/ZIP Co de Phone Number [facility] [address] [place] [phone] * Ferritin (08/22/2024 9:42 AM EDT) Ferritin 29 10 - 250 ng/mL [facility] Blood Venous blood specimen / Unknown 08/22/2024 9:42 AM EDT 08/22/2024 9:42 AM EDT us Nenita Do MD LAB BLOOD ORDERAB LES Final Result Performing Organization Address [facility]/ZIP Co de Phone Number [facility] [address] [place] [phone] * (ABNORMAL) Lipid Panel, Standard (08/22/2024 9:42 AM EDT) Triglycerides 107 <150 mg/dL [facility] Comment:Desirable Triglyceri de: less than 150 mg/dLBorderline High Triglyceride 150-199 mg/dLHigh Triglyceride: 200-499 mg/dLVery High Triglyceride: greater than or equal to 5OO mg/dL Cholesterol 153 <200 mg/dL [facility] Comment:Desirable Cholestero l: less than 200 mg/dLBorderline High Cholesterol: 200-239 mg/dLHigh Cholesterol: greater than 239 mg/dL LDL Cholesterol Calculated 94 <100 mg/dL [facility] Comment:Desirable LDL: less than 100 mg/dLNear Optimal/Above Optimal LDL: 110- 129 mg/dLBorderline High LDL: 130-159 mg/dLHigh LDL: 160-189 mg/dLVery High LDL: greater than or equal to 190 mg/dL HDL Cholesterol 38(L) >40 mg/dL [facility] Comment:Desirable HDL: great er than 40 mg/dL Note: This HDL assay may give artificially low results in patients with liver disease. Blood Venous blood specimen / Unknown 08/22/2024 9:42 AM EDT 08/22/2024 9:42 AM EDT us Nenita Do MD LAB BLOOD ORDERAB LES Final Result [facility] [address] [place] [phone] * (ABNORMAL) Comprehensive Metabolic Panel (08/22/2024 9:42 AM EDT) Sodium 143 135 - 145 mmol/L [facility] Potassium 3.1(L) 3.3 - 5.1 mmol/L [facility] Chloride 109(H) 96 - 108 mmol/L [facility] Carbon Dioxide 28 22 - 29 mmol/L [facility] Anion Gap 9(L) 12 - 20 [facility] Urea Nitrogen (BUN) 12 9 - 16 mg/dL [facility] Creatinine, Serum 0.85 0.5 - 1.4 mg/dL [facility] Estimated Glomerular Filt Rate >60 [facility] Comment:Chronic Kidney Disea se: Estimated GFR < 60 mL/min/1.49b4Gymwrk Kidney Disease: Estimated GFR < 15 mL/min/1.73m2 Glucose 91 60 - 115 mg/dL [facility] Calcium 9.1 8.4 - 10.2 mg/dL [facility] Bilirubin, Total 0.4 0.0 - 1.0 mg/dL [facility] Aspartate Amino Transferase 17 5 - 31 U/L [facility] Alanine Aminotransferase 14 0 - 31 U/L [facility] Total Protein 7.3 6.5 - 8.0 g/dL [facility] Albumin Level 4.3 3.5 - 5.0 g/dL [facility] Alkaline Phosphatase 78 39 - 117 U/L [facility] Blood Venous blood specimen / Unknown 08/22/2024 9:42 AM EDT 08/22/2024 9:42 AM EDT us Nenita Do MD LAB BLOOD ORDERAB LES Final Result Performing Organization Address City/State/[facility] Co de Phone Number [facility] [address] [place] [phone] * US Abdomen Limited (08/11/2024 2:44 PM EDT) Anatomical Region Laterality Modality Abdomen Ultrasound 08/11/2024 2:44 PM EDT Narrative 08/11/2024 2:45 PM EDT [place] [address] Ultrasound Report Signed Patient: Yessi Garcia I MR#: [id number] : 1975 Acct:[id number] Age/Sex: 48 / F ADM Date: 08/10/24 Loc: . Attending Dr: Nenita Do MD Ordering Physician: Nenita Croft MD Date of Service: 08/10/24 Procedure(s): US abdomen limited Accession Number(s): [id number] cc: Nenita Croft MD CLINICAL HISTORY: PALPABLE MASS LEFT LOWER CHEST WALL Targeted ultrasound of left lower chest wall mass Comparison: None Technique: Targeted sonographic imaging, including color Doppler imaging to the area of interest of left lower chest wall was performed by the vp packaging. Multiple medical office representative static and cine images were saved for review. Findings/impression: The imaged soft tissues normal, no mass, fluid collection or abnormal vascular flow. This document has been electronically signed by: Venecia Ryan MD on 08/11/2024 14:44:08 Dictated By: Venecia Ryan MD Signed By: <Electronically signed by Venecia Ryan MD in OV> 08/11/241444 DD/ 43 TD/TT: 08/11/241443 Pv Design Engineer: Procedure Note Donotuseinterpreter, Image - 08/11/[address] [place] [address] Ultrasound Report Signed Patient: Yessi Garcia IMR#: [id number] : 1975Acct:[id number] Age/Sex: 48 / FADM Date: 08/10/24 Loc: .US Attending Dr: Nenita Do MD Ordering Physician: Nenita Croft MD Date of Service: 08/10/24 Procedure(s): US abdomen limited Accession Number(s): [id number] cc: Nenita Croft MD CLINICAL HISTORY: PALPABLE MASS LEFT LOWER CHEST WALL Targeted ultrasound of left lower chest wall mass Comparison: None Technique: Targeted sonographic imaging, including color Doppler imaging to the area of interest of left lower chest wall was performed by the vp packaging. Multiple medical office representative static and cine images were saved for review. Findings/impression: The imaged soft tissues normal, no mass, fluid collection or abnormal vascular flow. This document has been electronically signed by: Venecia Ryan MD on 08/11/2024 14:44:08 Dictated By: Venecia Ryan MD Signed By: <Electronically signed by Venecia Ryan MD in OV> 08/11/241444 DD/ 43 TD/TT: 08/11/241443 Pv Design Engineer: us Nenita Do MD IMG US PROCEDURES Edited Result - Final * BI Mammogram Screening Tomosynthesis Bilateral (11/27/2023 2:00 PM EDT) Anatomical Region Laterality Modality Breast Bilateral Mammography 11/27/2023 2:00 PM EDT Narrative 12/09/2023 4:05 PM EDT [address] [place] [address] Mammography Report Signed Patient: Yessi Garcia I MR#: [id number] : 1975 Acct:[id number] Age/Sex: 48 / F ADM Date: 11/27/23 Loc: HO.MAMMO Attending Dr: Joe Alejandra CNM Ordering Physician: JOE ALEJANDRA CNM Results: 2 Benign Findings Date of Service: 11/27/23 Follow Up: 1 Year From Orig inal Mammogram Procedure(s): MM tomosynthesis screening BI Accession Number(s): [id number] cc: Nenita Croft MD; JOE ALEJANDRA CNM [...] for their next mammogram. Electronically signed by: rAlene Little DO 12/09/2023 04:03 PM EDT Dictated By: Arlene Little DO Signed By: <Electronically signed by Arlene Little DO in OV> 12/09/23 1603 DD/ 1400 TD/TT: 11/27/23 1420 Pv Design Engineer: Procedure Note Donotuseinterpreter, Image - [facility] [address] [place] [address] Mammography Report Signed Patient: Yessi Garcia IMR#: [id number] : 1975Acct:[id number] Age/Sex: 48 / FADM Date: 11/27/23 Loc: HO.MAMMO Attending Dr: Joe Alejandra CNM Ordering Physician: JOE ALEJANDRAesults: 2 Benign Findings Date of Service: 11/27/23Follow Up: 1 Year From Orig inal Mammogram Procedure(s): MM tomosynthesis screening BI Accession Number(s): [id number] cc: Nenita Croft MD; JOE ALEJANDRA CNM [...] 12/09/23 1603 DD/ 1400 TD/TT: 11/27/23 1420 Pv Design Engineer: Joe Alejandra CNM IMG BI PROCEDURES Final R esult * ThinPrep Imaging Pap and HPV mRNA E6/E7 (11/25/2023 11:50 AM EDT) HPV nRNA E6/E7 Not Detected Not Detected [facility] Comment:Methodology: Transcr iption-Mediated AmplificationThis assay detects E6/E7 viral messenger RNA (mRNA) from 14high-risk HPV types (16,18,31,33,35,39,45,51,52,56,58,59,66,68).Cervical sources are required for HPV testing.If a vaginal source from a patient who has had atotal hysterectomy with removal of cervix wassubmitted, please contact the testing laboratoryfor alternative testing options.For additional information, please refer [email or web address].Mobbles/faq/DAB928o7(This link if provided for information/educational purposes only.)THIS TEST WAS PERFORMED AT:[employer] [address] [phone] WALTON MD SOURCE: SEE NOTE [facility] Comment:Cervix Report Status: [facility] Clinical Information: SEE NOTE [facility] Comment:None given LMP: SEE NOTE [facility] Comment:NONE GIVEN Prev. PAP: SEE NOTE [facility] Comment:NONE GIVEN Prev. BX: SEE NOTE [facility] Comment:NONE GIVEN Statement Of Adequacy: SEE NOTE [facility] Comment:Satisfactory for micha luation.Endocervical/transformation zone component absent. General Categorization: [facility] Interpretation/Result: SEE NOTE [facility] Comment:Cytology Results: Ne gative for intraepitheliallesion or malignancy. Cytology Comment SEE NOTE [facility] Comment:This Pap test has be en evaluated with computerassisted technology. Phone Banker: SEE NOTE [facility] Comment:[place], [place](ASCP)CT scre ening location: [address] [address] Review Phone Banker: SEE NOTE [facility] Comment:[place], [place](ASCP)CT scre ening location: [place] [address] Pathologist [facility] PAP Infection [facility] See Note SEE NOTE [facility] Comment:EXPLANATORY NOTE:The Pap is a [...] AM EDT 11/25/2023 6:08 PM EDT Narrative [facility] - 12/01/2023 11:20 AM EDT SEE SCANNED RESULTS IN EMRCERVIX us Joe Alejandra CNM LAB PATHOLOGY ORDERABLES Final Result [facility] [address] [place] [phone] * Hm Colonoscopy (01/23/2022 7:33 AM EST) Colonoscopy Normal Normal Narrative Sugar Valdez - 01/23/2022 7:33 AM EST Please see scanned result on 05/29/2023 in digital media producer ,unable to attach report us Historical Provider HEALTH MAINTENANCE Edited Result - Final from Last 3 Months or Most Recently Relevant to Health Maintenance Insurance [facility] C3 Care Teams [employer]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
== END 2024-10-12 14:15 | disposition home or self-care (01) ==
LOC: HO.RHES 13:38
PROVIDERS: PCP Student in an Organized Health Care Education/Training Program; Visit Provider Student in an Organized Health Care Education/Training Program
DX: D89.89 Other specified disorders involving the immune mechanism, not elsewhere classified (principal); I73.00 Raynaud's syndrome without gangrene; Z79.624 Long term (current) use of inhibitors of nucleotide synthesis; Z79.52 Long term (current) use of systemic steroids; Z79.899 Other long term (current) drug therapy
CPT/HCPCS: 99214

== ENCOUNTER → 2024-10-12 13:38 | Outpatient (BNVA) | payer MEDICAID, SELFPAY | PROVIDERS: PCP Student in an Organized Health Care Education/Training Program; Visit Provider Student in an Organized Health Care Education/Training Program | DX: I73.00 Raynaud's syndrome without gangrene (principal); D89.89 Other specified disorders involving the immune mechanism, not elsewhere classified; Z79.624 Long term (current) use of inhibitors of nucleotide synthesis; Z79.899 Other long term (current) drug therapy | CPT/HCPCS: 99212 ==

== ENCOUNTER 2024-11-07 14:08 | Outpatient (REF) | payer MEDICAID, SELFPAY ==
--- NOTE | ~2024-11-07 | US_ITS ---
EXAMINATION: US SOFT TISSUE HEAD AND/OR NECK CLINICAL INFORMATION: Right facial swelling along the jaw line. COMPARISON: None available. TECHNIQUE: Linear transducer massey-scale and color Doppler examination with attention to the region of right facial swelling along the jaw line. FINDINGS: No abnormal mass, abnormal lymph nodes, or fluid collection identified in the region of concern. A few subcentimeter benign-appearing reactive lymph nodes are present. The imaged right parotid and submandibular glands appear normal. US/US soft tiss head and/or neck IMPRESSION: No abnormality detected. Electronically signed by: Jorje Camarillo MD 11/07/2024 02:37 PM EDT
--- OUTSIDE RECORDS SUMMARY | 2024-11-07 15:58 | XMS_ITS | Clinical Summary ---
Author Organization [employer] Address [address] [place] [address] 7 [place] [address] Care Team Providers Care Pt Skilled Name Role Phone Nenita Croft MD Primary Care Pro vider Allergies No known active allergies Medications * This document contains information received from the source organization and may not represent a complete record from that organization. methylPREDNISol one (Medrol) 4 MG tablet Take 4 mg by mouth Once per day. Active hydroxychloroqu ine (Plaquenil) 200 MG tablet Take 300 mg by mouth Once per day. Active mycophenolate (Cellcept) 500 MG tablet Take 500 mg by mouth in the morning and 500 mg in the evening. Active famotidine (Pepcid) 20 MG tablet Take 1 tablet (20 mg) by mouth if needed at bedtime for heartburn. 90 tablet 5 Active Multiple Vitamin (multivitamin) tablet Take 1 tablet by mouth Once per day. 90 tablet 3 5 Active melatonin 5 MG tablet TAKE 1 TABLET BY MOUTH EVERY DAY AT BEDTIME 30 tablet 2 5 Active fluticasone (Flonase Allergy Relief) 50 MCG/ACT nasal spray Administer 1 spray into each nostril Once per day. Shake gently. Before first use, prime pump. After use, clean tip and replace cap. 16 g 12 5 10/04/19 26 Active Nirmatrelvir&Ri tonavir 300/100 (Paxlovid, 300/100,) 20 x 150 MG & 10 x 100MG tablet therapy pack Take 300 mg by mouth 2 times daily. 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 German Other straight-identified cis- female (pronouns she/her/hers) with [...] and still adjusting to her moving from [place] to [place] on 08/2022. PLAN: New/Additional Services needed Off-site services for , Behavioral Health Integration Plan External OP BH therapy referral and OP psychiatry Referral, Patient Self Plan Patient to utilize skills provided in intervention , Patient to reach out to [facility] team as needed, Patient to engage in OP BH therapy , and Patient to reach out to [facility] as needed. Patient provided with [facility] information to contact them and request status of referral submitted in 10/2022. Patient will reach out to this typewriter ribbon winder to provide an update. Assessment & Plan (12/12/2022 9:59 AM EDT): Assessment: Patient presents with anxiety, depression and grief symptoms. Passive SI without plan or intention. Reason for visit was to assess symptoms and provide support to patient. Symptoms are present in the context of 1 year of her , moving to [place] from on 08/2022, not having her own place. Provided psychoeducation around coping mechanisms to manage anxiety and depressive sxs and discuss the grief process. Referral previously made to [facility] for OP services. At this time Yessi Hess meets criteria for Visit Diagnoses: Problem List Items Addressed This Visit Other Moderately severe depression Complicated grief Severe anxiety Patient ready to address current needs Yes Strengths include Yessi is in action stage of change and her motivation will serve as treatment engagement. PLAN: 1. Follow up with [facility]: Recommended for follow-up: Patient will be follow up with [facility]-, per provider request. 2. Patient goal is improve mental health 3. Behavioral Recommendations a. Ind. Therapy, referral submitted b. Use of coping skills provided c. [facility] follow up Assessment & Plan (11/06/2022 10:03 [...] OP individual therapy placed on 10/22/22 with [facility] ([phone]). Pt reported feeling better since our last appointment. She has started incorporating coping mechanisms to bring her back to the present. At this time Yessi Hess meets criteria for Visit Diagnoses: Problem List Items Addressed This Visit Other Depression Complicated grief Patient ready to address current needs Yes Strengths include motivation and readiness to change. PLAN: 1. Follow up with [facility]: Not recommended for follow-up 2. Patient goal [...] individual therapy placed on 10/22/22 with Alejandra ([phone]). Pt reported feeling better since our last appointment. She has started incorporating coping mechanisms to bring her back to the present. At this time Yessi Hess meets criteria for Visit Diagnoses: Problem List Items Addressed This Visit Other Depression Complicated grief Patient ready to address current needs Yes Strengths include motivation and readiness to change. PLAN: 1. Follow up with [facility]: Not recommended for follow-up 2. Patient goal [...] jarquin. PLAN: 1. Follow up with [facility]: Not recommended for follow-up 2. Patient goal [...] Encounters Date Type Department Care Team Description 10/17/2024 Telephone [facility] [address] [place] [phone] Nenita Croft MD Referral 10/03/2024 10:20 AM EDT Office Visit [facility] [address] [place] [phone] Imer Clemens MD COVID-19 (Primary Dx) 10/03/2024 Travel 09/27/2024 Refill [facility] [address] [place] [phone] Nenita Croft MD 09/21/[address] [address] Joe Alejandra CNM November09/12/2024 10:40 AM EDT Office Visit [facility] [address] [address] Sarah Sears NP Swelling of right parotid gland (Primary Dx) 09/12/2024 Travel 09/07/2024 11:30 AM EDT Office Visit [address] [address] Nenita Croft MD Health care maintenance (Primary Dx); Moderately severe depression; Antisynthetase syndrome (CMS/HCC); Housing insecurity; Food insecurity 09/07/2024 Patient Outreach [facility] [address] [place] [phone] Nenita Croft MD Care Coordination ([facility] outreach for [facility] housing search-referral completed ) 09/07/2024 Travel 09/06/2024 Telephone [facility] [address] [place], [place] [address] [address] Nenita Croft MD CHART PREP 08/31/2024 Results Follow-Up [facility] [place] [address] Nenita Croft MD Basic Metabolic Panel, Magnesium 08/31/2024 Orders Only GENERIC EXTERNAL DATA DEPARTMENT Provider, Generic External Data 08/22/2024 Results Follow-Up [facility] [place] [address] Nenita Croft MD CBC, Iron And Total Iron Binding Capacity, Ferritin, Additional followed-up results: 12 08/22/2024 Orders Only [facility] [place] [address] Nenita Croft MD Hypokalemia (Primary Dx) 08/10/2024 Orders Only [facility] [place] [address] Nenita Croft MD 08/10/2024 Refill [facility] [place] [address] Nenita Croft MD from Last 3 Months Immunizations Immunization Administration [...] with others, in a hotel, in a intermediate, living outside on the street, on a [...] Description 11/24/2024 9:45 AM EDT Procedure Visit [facility] [address] [place] [address] Joe Alejandra, CNM [address] [place] [address] 02/23/2025 9:00 AM EST Office Visit [facility] [address] [place] [address] Gale Carvalho, OD [address] [place] [address] Health Maintenance Due Date Last Done Comments [...] Procedure Name Priority Date/Time Associated Diagnosis Comments US HEAD NECK SOFT TISSUE Routine 11/07/2024 2:16 PM EDT Swelling of right parotid gland POCT INFLUENZA B (ID NOW RAPID MOLECULAR) [...] Recently Relevant to Health Maintenance Results * US Head Neck Soft Tissue (11/07/2024 2:16 PM EDT) Anatomical Region Laterality Modality Head, Neck Ultrasound 11/07/2024 2:16 PM EDT Narrative 11/07/2024 2:40 PM EDT [place] [address] Ultrasound Report Signed Patient: Yessi Garcia I MR#: [id number] : 1975 Acct:[id number] Age/Sex: 49 / F ADM Date: 11/07/24 Loc: .US Attending Dr: Sarah Sears Ordering Physician: Sarah Sears Date of Service: 11/07/24 Procedure(s): US soft tiss head and/or neck Accession Number(s): [id number] cc: Sarah Sears; Nenita Croft MD Reason for Exam: right facial swelling along jaw line EXAMINATION: US SOFT TISSUE HEAD AND/OR NECK CLINICAL INFORMATION: Right facial swelling along the jaw line. COMPARISON: None available. TECHNIQUE: Linear transducer massey-scale and color Doppler examination with attention to the region of right facial swelling along the jaw line. FINDINGS: No abnormal mass, abnormal lymph nodes, or fluid collection identified in the region of concern. A few subcentimeter benign-appearing reactive lymph nodes are present. The imaged right parotid and submandibular glands appear normal. US/US soft tiss head and/or neck IMPRESSION: No abnormality detected. Electronically signed by: Jorje Camarillo MD 11/07/2024 02:37 PM EDT RP Dictated By: Jorje Camarillo MD Signed By: <Electronically signed by Jorje Camarillo MD in OV> 11/07/24 1437 DD/ 1416 TD/TT: 11/07/24 1421 Home Maker: Procedure Note Donotuseinterpreter, Image - 11/07/[address] [address] Ultrasound Report Signed Patient: Yessi Garcia IMR#: [id number] : 1975Acct:[id number] Age/Sex: 49 / FADM Date: 11/07/24 Loc: HO.US Attending Dr: Sarah Sears Ordering Physician: Sarah Sears Date of Service: 11/07/24 Procedure(s): US soft tiss head and/or neck Accession Number(s): [id number] cc: Sarah Sears; Nenita Croft MD Reason for Exam: right facial swelling along jaw line EXAMINATION: US SOFT TISSUE HEAD AND/OR NECK CLINICAL INFORMATION: Right facial swelling along the jaw line. COMPARISON: None available. TECHNIQUE: Linear transducer massey-scale and color Doppler examination with attention to the region of right facial swelling along the jaw line. FINDINGS: No abnormal mass, abnormal lymph nodes, or fluid collection identified in the region of concern. A few subcentimeter benign-appearing reactive lymph nodes are present. The imaged right parotid and submandibular glands appear normal. US/US soft tiss head and/or neck IMPRESSION: No abnormality detected. Electronically signed by: Jorje Camarillo MD 11/07/2024 02:37 PM EDT RP Dictated By: Jorje Camarillo MD Signed By: <Electronically signed by Jorje Camarillo MD in OV> 11/07/24 1437 DD/ 1416 TD/TT: 11/07/24 1421 Home Maker: us Sarah Sears LEAD REFINERY SUPERVISOR IMG US PROCEDURES Final Result * Influenza B (ID NOW Rapid Molecular) (10/03/2024 11:08 AM EDT) [facility] Influenza B Negative Negative, Indeterminate [facility] Swab 10/03/2024 11:0 8 AM EDT us Imer Clemens MD POINT OF CARE TEST ENTER/EDIT OR DERABLES Final Result Performing Organization Address [facility] Co de Phone Number [facility] [address] [place] [phone] * Influenza A (ID NOW Rapid Molecular) (10/03/2024 11:08 AM EDT) [facility] Influenza A Negative Negative, Indeterminate [facility] Swab 10/03/2024 11:0 8 AM EDT us Imer Clemens MD POINT OF CARE TEST ENTER/EDIT OR DERABLES Final Result Performing Organization Address [facility] Co de Phone Number [facility] [address] [place] [phone] * (ABNORMAL) POCT Rapid COVID Ag (10/03/2024 11:08 AM EDT) [facility] Rapid COVID Ag Positive [facility] Swab 10/03/2024 11:0 8 AM EDT us Imer Clemens MD POINT OF CARE TEST ENTER/EDIT OR DERABLES Final Result Performing Organization Address [facility] Co de Phone Number [facility] [address] [place] [phone] * Chlamydia/Trichomonas/Neisseria gonorrhoeae, PCR, Urine (08/31/2024 10:14 AM EDT) [facility] CT PCR, Urine NOT DETECTED Not Detect. [facility] Comment:A not detected test result does [...] NG PCR, Urine NOT DETECTED Not Detect. [facility] Comment:A not detected test result does [...] MD LAB URINE ORDERAB LES Final Result [facility] [address] [place] [phone] * (ABNORMAL) CBC auto differential (08/31/2024 10:14 AM EDT) White Blood Count 6.1 4.8 - 10.8 X10*3/uL [facility] Red Blood Count 3.89(L) 4.20 - 5.50 X10*6/uL [facility] Hemoglobin 11.2(L) 12.0 - 16.0 g/dl [facility] Hematocrit 35.1(L) 37.0 - 47.0 % [facility] Mean Corpuscular Volume 90.2 80.0 - 98.0 fL [facility] Mean Corpuscular Hemoglobin 28.8 27.0 - 33.0 pg [facility] Mean Corpuscular HGB Conc 31.9 31.0 - 35.0 g/dl [facility] Red Cell Distribution Width 14.7 11.0 - 16.0 % [facility] Platelet Count 115(L) 160 - 400 X10*3/uL [facility] Mean Platelet Volume 10.1 9.4 - 12.3 fL [facility] Neutrophils Percent Auto 68.7 45 - 73 % [facility] Imm Gran Pct Auto 0.2 0.0 - 0.4 % [facility] Lymphocytes Percent Auto 22.3 20 - 40 % [facility] Monocytes Percent Auto 6.9 2 - 11 % [facility] Eosinophils Percent Auto 1.6 0 - 4 % [facility] Basophils Percent Auto 0.3 0 - 2 % [facility] NRBC Pct Auto 0.0 0.0 - 0.2 /100WBC [facility] Neutrophils Absolute Auto 4.2 2.0 - 8.3 x10*3/uL [facility] Imm Gran Abs Auto 0.01 0.00 - 0.03 X10*3/uL [facility] Lymphocytes Absolute Auto 1.4 1.2 - 4.9 X10*3/uL [facility] Monocytes Absolute Auto 0.4 0.1 - 1.2 X10*3/uL [facility] Eosinophils Absolute Auto 0.1 0.0 - 0.4 X10*3/uL [facility] Basophils Absolute Auto 0.0 0.0 - 0.2 X10*3/uL [facility] NRBC Abs Auto 0.000 0.0 - 0.012 X10*3/uL [facility] 08/31/2024 10:1 4 AM EDT 08/31/2024 11:24 AM EDT us Generic External Data Provider LAB BLOOD ORDERAB LES Final Result Performing Organization Address [facility]/ZIP Co de Phone Number [facility] [address] [place] [phone] * Magnesium (08/31/2024 10:14 AM EDT) [facility] Magnesium 2.0 1.6 - 2.6 mg/dL [facility] Blood Venous blood specimen / Unknown 08/31/2024 10:14 AM EDT 08/31/2024 11:24 AM EDT us Nenita Do MD LAB BLOOD ORDERAB LES Final Result Performing Organization Address [facility] Co de Phone Number [facility] [address] [place] [phone] * Creatine Kinase, Total (08/31/2024 10:14 AM EDT) [facility] Creatine Kinase Total 104 26 - 140 U/L [facility] 08/31/2024 10:1 4 AM EDT 08/31/2024 11:24 AM EDT us Generic External Data Provider LAB BLOOD ORDERAB LES Final Result Performing Organization Address [facility] Co de Phone Number [facility] [address] [place] [phone] * (ABNORMAL) Basic Metabolic Panel (08/31/2024 10:14 AM EDT) [facility] Sodium 143 135 - 145 mmol/L [facility] Potassium 4.0 3.3 - 5.1 mmol/L [facility] Chloride 111(H) 96 - 108 mmol/L [facility] Carbon Dioxide 26 22 - 29 mmol/L [facility] Anion Gap 10(L) 12 - 20 [facility] Urea Nitrogen (BUN) 10 9 - 16 mg/dL [facility] Creatinine, Serum 0.77 0.5 - 1.4 mg/dL [facility] Estimated Glomerular Filt Rate >60 [facility] Comment:Chronic Kidney Disea se: Estimated GFR < 60 mL/min/[id number] Kidney Disease: Estimated GFR < 15 mL/min/1.73m2 Glucose 88 60 - 115 mg/dL [facility] Calcium 8.8 8.4 - 10.2 mg/dL [facility] Blood Venous blood specimen / Unknown 08/31/2024 10:14 AM EDT 08/31/2024 11:24 AM EDT Nenita Do MD LAB BLOOD ORDERAB LES Final Result [facility] [address] [place] [phone] * Syphilis Screen (08/22/2024 9:42 AM EDT) Syphilis Screen Nonreactive Nonreactive [facility] Blood 08/22/2024 9:42 AM EDT 08/22/2024 9:42 AM EDT Nenita Do MD LAB BLOOD ORDERAB LES Final Result Performing Organization Address City/[facility]/ZIP Co de Phone Number [facility] [address] [place] [phone] * Vitamin D, 25-Hydroxy, Total, Immunoassay (08/22/2024 9:42 AM EDT) Vitamin D 25-OH Total 39.4 >30 ng/mL [facility] Comment: Health Based Reference Values*< 20 ng/mL Vuphwaoys31-71 ng/mL Insufficient> 30 ng/mL Sufficient*Efraín SOUZA. N [...] ORDERAB LES Final Result Performing Organization Address [facility]/ZIP Co de Phone Number [facility] [address] [place] [phone] * Vitamin B12 (Cobalamin) and Folate Panel, Serum (08/22/2024 9:42 AM EDT) Vitamin B12 434 200 - 900 pg/mL [facility] Comment:NORMAL 200-900 PG/ML INDETERMINATE 160-199 PG/ML DEFICIENT < 160 PG/ML Folate 13.1 > or = 4.0 ng/mL [facility] Comment:Reference Values:> o r = 4.0 ng/mL< 4.0 ng/mL suggests folate deficiency Methotrexate, aminopterin and folinic acid(leucovorin) are chemotherapeutic agents whose molecularstructures are similar to folate; therefore, the Architectfolate assay cannot be used for patients using these drugs. Blood 08/22/2024 9:42 AM EDT 08/22/2024 9:42 AM EDT Nenita Do MD LAB BLOOD ORDERAB LES Final Result Performing Organization Address [facility]/ZIP Co de Phone Number [facility] [address] [place] [phone] * TSH with Reflex to Free T4 (08/22/2024 9:42 AM EDT) TSH reflex Free T4 0.74 0.32 - 4.0 uIU/mL [facility] Blood 08/22/2024 9:42 AM EDT 08/22/2024 9:42 AM EDT Nenita Do MD LAB BLOOD ORDERAB LES Final Result Performing Organization Address [facility]/ZIP Co de Phone Number [facility] [address] [place] [phone] * Hepatitis C Antibody with Reflex to HCV, RNA, Quantitative, Real-Time PCR (08/22/2024 9:42 AM EDT) Hepatitis C Antibody Nonreactive Nonreactive [facility] Comment:Antibodies to HCV no t detected; does not exclude early acuteHCV infection. Blood Venous blood specimen / Unknown 08/22/2024 9:42 AM EDT 08/22/2024 9:42 AM EDT Nenita Do MD LAB BLOOD ORDERAB LES Final Result Performing Organization Address [facility]/ZIP Co de Phone Number [facility] [address] [place] [phone] * (ABNORMAL) Iron And Total Iron Binding Capacity (08/22/2024 9:42 AM EDT) Iron 74 30 - 160 mcg/dL [facility] Total Iron Binding Capacity 224(L) 228 - 428 mcg/dL [facility] Percent Iron Saturation 33 15 - 50 % [facility] Unsaturated Iron Binding 150 ug/dL [facility] Blood Venous blood specimen / Unknown 08/22/2024 9:42 AM EDT 08/22/2024 9:42 AM EDT Nenita Do MD LAB BLOOD ORDERAB LES Final Result Performing Organization Address [facility]/ZIP Co de Phone Number [facility] [address] [place] [phone] * Hepatitis B surface antigen, EIA (08/22/2024 9:42 AM EDT) Hepatitis B Surface Ag Negative Negative [facility] Blood Venous blood specimen / Unknown 08/22/2024 9:42 AM EDT 08/22/2024 9:42 AM EDT Nenita Do MD LAB BLOOD ORDERAB LES Final Result Performing Organization Address [facility]/ZIP Co de Phone Number [facility] [address] [place] [phone] * Hepatitis B Core Antibody, Total (08/22/2024 9:42 AM EDT) Hepatitis B Core Antibody Nonreactive Nonreactive [facility] Blood Venous blood specimen / Unknown 08/22/2024 9:42 AM EDT 08/22/2024 9:42 AM EDT Nenita Do MD LAB BLOOD ORDERAB LES Final Result Performing Organization Address [facility]/ZIP Co de Phone Number [facility] [address] [place] [phone] * HIV-1/2 Antigen and Antibodies, Fourth Generation, with Reflexes (08/22/2024 9:42 AM EDT) Pathologist [facility] HIV AB/AG Nonreactive Nonreactive [facility] Comment:HIV-1 p24 Ag and/or HIV-1/HIV-2 Ab not detected.A test result that is nonreactive does not exclude thepossibility of exposure to or infection with HIV-1 and/orHIV-2. Nonreactive results in this assay for individualswith prior exposure to HIV-1 and/or HIV-2 may be due toantigen and antibody levels that are below the limit ofdetection of this assay.The [employer] HIV Ag/Ab Combo assay result andsupplemental assay results should be interpreted inconjunction with the patient's clinical presentation,history and other laboratory results. If the results areinconsistent with clinical evidence, additional testing issuggested to confirm the result. Blood Venous blood specimen / Unknown 08/22/2024 9:42 AM EDT 08/22/2024 9:42 AM EDT Nenita Do MD LAB BLOOD ORDERAB LES Final Result Performing Organization Address [facility]/ZIP Co de Phone Number [facility] [address] [place] [phone] * Hepatitis B Surface Antibody, Qualitative (08/22/2024 9:42 AM EDT) ~Hepatitis B Surface Antibody NONREACTIVE Nonreactive [facility] Comment:Nonreactive: < 8.00 mIU/mL Blood Venous blood specimen / Unknown 08/22/2024 9:42 AM EDT 08/22/2024 9:42 AM EDT us Nenita Do MD LAB BLOOD ORDERAB LES Final Result Performing Organization Address [facility] Co de Phone Number [facility] [address] [place] [phone] * (ABNORMAL) CBC (08/22/2024 9:42 AM EDT) White Blood Count 6.6 4.8 - 10.8 X10*3/uL [facility] Red Blood Count 4.00(L) 4.20 - 5.50 X10*6/uL [facility] Hemoglobin 11.2(L) 12.0 - 16.0 g/dl [facility] Hematocrit 36.0(L) 37.0 - 47.0 % [facility] Mean Corpuscular Volume 90.0 80.0 - 98.0 fL [facility] Mean Corpuscular Hemoglobin 28.0 27.0 - 33.0 pg [facility] Mean Corpuscular HGB Conc 31.1 31.0 - 35.0 g/dl [facility] [facility] Red Cell Distribution Width 14.6 11.0 - 16.0 % [facility] Platelet Count 113(L) 160 - 400 X10*3/uL [facility] Mean Platelet Volume 10.0 9.4 - 12.3 fL [facility] NRBC Pct Auto 0.0 0.0 - 0.2 /100WBC [facility] NRBC Abs Auto 0.000 0.0 - 0.012 X10*3/uL [facility] Blood Venous blood specimen / Unknown 08/22/2024 9:42 AM EDT 08/22/2024 9:42 AM EDT Nenita Do MD LAB BLOOD ORDERAB LES Final Result [facility] [address] [place] [phone] * Hemoglobin A1c (08/22/2024 9:42 AM EDT) Hemoglobin A1c 5.5 <6.0 % [facility] Comment:Hemoglobin A1C Refer ence Range Adults: 4.8 - 6.0 % Non diabetic: < 6.0 % Goal: < 7.0 %Additional Action Suggested: > 8.0 %Note: Hemoglobin A1c results are invalid for patients with abnormal amounts of HbF. Blood transfusions may impact the HbA1c concentration in the patient sample. Estimated Average Glucose 111 mg/dL [facility] Comment:eAG = Estimated ave rage glucose which is %A1C expressed asaverage glucose, using the formula of the Q1B-CtwavxyIbuqryy Glucose study (ADAG), Diabetes Care, Vol.31,#8,Sep. 2007 Blood Venous blood specimen / Unknown 08/22/2024 9:42 AM EDT 08/22/2024 9:42 AM EDT us Nenita Do MD LAB BLOOD ORDERAB LES Final Result Performing Organization Address City/[facility]/ZIP Co de Phone Number [facility] [address] [place] [phone] * Ferritin (08/22/2024 9:42 AM EDT) Ferritin 29 10 - 250 ng/mL [facility] Blood Venous blood specimen / Unknown 08/22/2024 9:42 AM EDT 08/22/2024 9:42 AM EDT Nenita Do MD LAB BLOOD ORDERAB LES Final Result Performing Organization Address [facility] Co de Phone Number [facility] [address] [place] [phone] * (ABNORMAL) Lipid Panel, Standard (08/22/2024 9:42 AM EDT) Triglycerides 107 <150 mg/dL [facility] Comment:Desirable Triglyceri de: less than 150 mg/dLBorderline High Triglyceride 150-199 mg/dLHigh Triglyceride: 200-499 mg/dLVery High Triglyceride: greater than or equal to 5OO mg/dL Cholesterol 153 <200 mg/dL [facility] Comment:Desirable Cholestero l: less than 200 mg/dLBorderline High Cholesterol: 200-239 mg/dLHigh Cholesterol: greater than 239 mg/dL LDL Cholesterol Calculated 94 <100 mg/dL [facility] Comment:Desirable LDL: less than 100 mg/dLNear Optimal/Above Optimal LDL: 110- 129 mg/dLBorderline High LDL: 130-159 mg/dLHigh LDL: 160-189 mg/dLVery High LDL: greater than or equal to 190 mg/dL HDL Cholesterol 38(L) >40 mg/dL [facility] Comment:Desirable HDL: great er than 40 mg/dL Note: This HDL assay may give artificially low results in patients with liver disease. Blood Venous blood specimen / Unknown 08/22/2024 9:42 AM EDT 08/22/2024 9:42 AM EDT us Nenita Do MD LAB BLOOD ORDERAB LES Final Result [facility] [address] [place] [phone] * (ABNORMAL) Comprehensive Metabolic Panel (08/22/2024 9:42 AM EDT) Sodium 143 135 - 145 mmol/L [facility] Potassium 3.1(L) 3.3 - 5.1 mmol/L [facility] Chloride 109(H) 96 - 108 mmol/L [facility] Carbon Dioxide 28 22 - 29 mmol/L [facility] Anion Gap 9(L) 12 - 20 [facility] Urea Nitrogen (BUN) 12 9 - 16 mg/dL [facility] Creatinine, Serum 0.85 0.5 - 1.4 mg/dL [facility] Estimated Glomerular Filt Rate >60 [facility] Comment:Chronic Kidney Disea se: Estimated GFR < 60 mL/min/1.99w7Kbakyb Kidney Disease: Estimated GFR < 15 mL/min/1.73m2 Glucose 91 60 - 115 mg/dL [facility] Calcium 9.1 8.4 - 10.2 mg/dL [facility] Bilirubin, Total 0.4 0.0 - 1.0 mg/dL [facility] Aspartate Amino Transferase 17 5 - 31 U/L [facility] Alanine Aminotransferase 14 0 - 31 U/L [facility] Total Protein 7.3 6.5 - 8.0 g/dL [facility] Albumin Level 4.3 3.5 - 5.0 g/dL [facility] Alkaline Phosphatase 78 39 - 117 U/L [facility] Blood Venous blood specimen / Unknown 08/22/2024 9:42 AM EDT 08/22/2024 9:42 AM EDT us Nenita Do MD LAB BLOOD ORDERAB LES Final Result [facility] [address] [place] [phone] * US Abdomen Limited (08/11/2024 2:44 PM EDT) Anatomical Region Laterality Modality Abdomen Ultrasound 08/11/2024 2:44 PM EDT Narrative 08/11/2024 2:45 PM EDT [place] [address] Ultrasound Report Signed Patient: Yessi Garcia I MR#: [id number] : 1975 Acct:[id number] Age/Sex: 48 / F ADM Date: 08/10/24 Loc: HO.US Attending Dr: Nenita Do MD Ordering Physician: Nenita Croft MD Date of Service: 08/10/24 Procedure(s): US abdomen limited Accession Number(s): [id number] cc: Nenita Croft MD CLINICAL HISTORY: PALPABLE MASS LEFT LOWER CHEST WALL Targeted ultrasound of left lower chest wall mass Comparison: None Technique: Targeted sonographic imaging, including color Doppler imaging to the area of interest of left lower chest wall was performed by the room service server. Multiple dental sales representative static and cine images were saved for review. Findings/impression: The imaged soft tissues normal, no mass, fluid collection or abnormal vascular flow. This document has been electronically signed by: Venecia Ryan MD on 08/11/2024 14:44:08 Dictated By: Venecia Ryan MD Signed By: <Electronically signed by Venecia Ryan MD in OV> 08/11/24 1445 DD/ 1444 TD/TT: 08/11/24 1444 Home Maker: Procedure Note Donotuseinterpreter, Image - 08/11/2024 [place] [address] Ultrasound Report Signed Patient: Yessi Garcia IMR#: [id number] : 1975Acct:[id number] Age/Sex: 48 / FADM Date: 08/10/24 Loc: HO.US Attending Dr: Nenita Do MD Ordering Physician: Nenita Croft MD Date of Service: 08/10/24 Procedure(s): US abdomen limited Accession Number(s): [id number] cc: Nenita Croft MD CLINICAL HISTORY: PALPABLE MASS LEFT LOWER CHEST WALL Targeted ultrasound of left lower chest wall mass Comparison: None Technique: Targeted sonographic imaging, including color Doppler imaging to the area of interest of left lower chest wall was performed by the room service server. Multiple dental sales representative static and cine images were saved for review. Findings/impression: The imaged soft tissues normal, no mass, fluid collection or abnormal vascular flow. This document has been electronically signed by: Venecia Ryan MD on 08/11/2024 14:44:08 Dictated By: Venecia Ryan MD Signed By: <Electronically signed by Venecia Ryan MD in OV> 08/11/24 1445 DD/ 43 TD/TT: 08/11/241443 Home Maker: us Nenita Do MD IMG US PROCEDURES Edited Result - Final * BI Mammogram Screening Tomosynthesis Bilateral (11/27/2023 2:00 PM EDT) Anatomical Region Laterality Modality Breast Bilateral Mammography 11/27/2023 2:00 PM EDT Narrative 12/09/2023 4:05 PM EDT [facility] [address] [place] [address] Mammography Report Signed Patient: Yessi Garcia I MR#: [id number] : 1975 Acct:[id number] Age/Sex: 48 / F ADM Date: 11/27/23 Loc: HO.MAMMO Attending Dr: Joe Alejandra CNM Ordering Physician: JOE ALEJANDRA CNM Results: 2 Benign Findings Date of Service: 11/27/23 Follow Up: 1 Year From Orig inal Mammogram Procedure(s): MM tomosynthesis screening BI Accession Number(s): [id number] cc: Nenita Croft MD; JOE ALEJANDRA CNM [...] 12/09/23 1603 DD/ 1400 TD/TT: 11/27/23 1420 Home Maker: Procedure Note Donotuseinterpreter, Image - 12/09/[facility] [address] [place] [address] Mammography Report Signed Patient: Yessi Garcia IMR#: [id number] : 1975Acct:[id number] Age/Sex: 48 / FADM Date: 11/27/23 Loc: HO.MAMMO Attending Dr: Joe Alejandra CNM Ordering Physician: JOE ALEJANDRAesults: 2 Benign Findings Date of Service: 11/27/23Follow Up: 1 Year From Orig inal Mammogram Procedure(s): MM tomosynthesis screening BI Accession Number(s): [id number] cc: Nenita Croft MD; JOE ALEJANDRA CNM [...] Arlene Little DO 12/09/2023 04:03 PM EDT RP Dictated By: Arlene Little DO Signed By: <Electronically signed by Arlene Little DO in OV> 12/09/23 1603 DD/ 1400 TD/TT: 11/27/23 1420 Home Maker: Joe RODRIGUEZ IM BI PROCEDURES Final R esult * ThinPrep Imaging Pap and HPV mRNA E6/E7 (11/25/2023 11:50 AM EDT) HPV nRNA E6/E7 Not Detected Not Detected [facility] Comment:Methodology: Transcr iption-Mediated AmplificationThis assay detects E6/E7 viral messenger RNA (mRNA) from 14high-risk HPV types (16,18,31,33,35,39,45,51,52,56,58,59,66,68).Cervical sources are required for HPV testing.If a vaginal source from a patient who has had atotal hysterectomy with removal of cervix wassubmitted, please contact the testing laboratoryfor alternative testing options.For additional information, please refer [email or web address].Edgar [email or web address]/TSO732b3(This link if provided for information/educational purposes only.)THIS TEST WAS PERFORMED AT:[facility] [address] [phone] WALTON MD SOURCE: SEE NOTE [facility] Comment:Cervix Report Status: [facility] Clinical Information: SEE NOTE [facility] Comment:None given LMP: SEE NOTE [facility] Comment:NONE GIVEN Prev. PAP: SEE NOTE [facility] Comment:NONE GIVEN Prev. BX: SEE NOTE [facility] Comment:NONE GIVEN Statement Of Adequacy: SEE NOTE [facility] Comment:Satisfactory for micha luation.Endocervical/transformation zone component absent. General Categorization: [facility] Interpretation/Result: SEE NOTE [facility] Comment:Cytology Results: Ne gative for intraepitheliallesion or malignancy. Cytology Comment SEE NOTE [facility] Comment:This Pap test has be en evaluated with computerassisted technology. Financial Accounting Analyst: SEE NOTE [facility] Comment:[place], CT(ASCP)CT scre ening location: [address] [address] Review Financial Accounting Analyst: SEE NOTE [facility] Comment:MSM, CT(ASCP)CT scre ening location: [place] [address] Pathologist [facility] PAP Infection [facility] See Note SEE NOTE [facility] Comment:EXPLANATORY NOTE:The Pap is a screening test for cervical cancer. It isnot a diagnostic test and is subject to false negativeand false positive results. It is most reliable when asatisfactory sample, regularly obtained, is submittedwith relevant clinical findings and history, and whenthe Pap result is evaluated along with historic andcurrent clinical information. 11/25/2023 11:5 0 AM EDT 11/25/2023 6:08 PM EDT Narrative [facility] - 12/01/2023 11:20 AM EDT SEE SCANNED RESULTS IN EMRCERVIX us Joe Alejandra CNM LAB PATHOLOGY ORDERABLES Final Result [facility] [address] [place] [phone] * Hm Colonoscopy (01/23/2022 7:33 AM EST) Colonoscopy Normal Normal Narrative Sugar Valdez - 01/23/2022 7:33 AM EST Please see scanned result on 05/29/2023 in media production operator ,unable to attach report us Historical Provider HEALTH MAINTENANCE Edited Result - Final from Last 3 Months or Most Recently Relevant to Health Maintenance Insurance [address] [place] [address] C3 Care Teams Pt Skilled Relationship Specialty Start Date End Date Nenita Croft MD [address] [place] [phone] PCP - General Internal Medicine 09/11/22
--- OUTSIDE RECORDS SUMMARY | 2024-11-07 15:58 | XMS_ITS | Encounter Summary ---
Author Organization [employer] Address [address] [facility] 7 [place] [address] Care Team Providers Care Air Export Operations Agent Name Role Phone Nenita Croft MD Primary Care Pro vider Encounter Details Date Type Department Care Team ([facility] st Contact Info) Description 01/19/2024 Orders Only [facility] [address] [place] [address] Provider, MD Paul Social History Tobacco Use [...] Description 11/24/2024 9:45 AM EDT Procedure Visit [facility] [address] [place] [address] Nena Escobar CNM [address] [place] [address] 02/23/2025 9:00 AM EST Office Visit [facility] [address] [place] [address] Gale Carvalho, OD [address] [place] [address] documented as of this encounter Procedures Procedure Name Priority Date/Time Associated Diagnosis Comments COLONOSCOPY Routine 01/23/2022 7:33 AM EST documented in this encounter Results * Hm Colonoscopy (01/23/2022 7:33 AM EST) Colonoscopy Normal Normal Narrative Sugar Valdez - 01/23/2022 7:33 AM EST Please see scanned result on 05/29/2023 in chief digital media officer ,unable to attach report us Historical Provider HEALTH MAINTENANCE Edited Result - Final documented in this encounter Visit Diagnoses Not on filedocumented in this encounter Additional Health Concerns Assessment Noted Time PHQ-9 Depression Total Score: 17 023 4:18 PM EST documented as of this encounter Care Teams Air Export Operations Agent Relationship Specialty Start Date End Date Nenita Croft MD [address] [place] [phone] PCP - General Internal Medicine 09/11/22 documented as of this encounter
== END 2024-11-07 14:09 | disposition home or self-care (01) ==
LOC: HO.US 14:08
PROVIDERS: PCP Student in an Organized Health Care Education/Training Program; Visit Provider Nurse Practitioner
DX: R22.0 Localized swelling, mass and lump, head (principal)
CPT/HCPCS: 76536

== ENCOUNTER → 2024-11-07 14:10 | Outpatient (BNV) | payer MEDICAID, SELFPAY | PROVIDERS: PCP Student in an Organized Health Care Education/Training Program; Visit Provider Radiology Diagnostic Radiology | DX: M27.2 Inflammatory conditions of jaws (principal); R22.0 Localized swelling, mass and lump, head | CPT/HCPCS: 76536 ==

== ENCOUNTER 2024-11-24 18:47 | Outpatient (REF) | payer MEDICAID, SELFPAY ==
--- OUTSIDE RECORDS SUMMARY | 2024-11-24 09:45 | XMS_ITS | Encounter Summary ---
Author Organization [employer] Address [address] [place] [address] [address], [place] [address] Care Team Providers Care Price Checker Name Role Phone Nenita Crotf MD Primary Care Pro vider Reason for Referral * Consultation (Routine) - Authorized Specialty Diagnoses / Procedures Referred By Santhosh malone Referred To Contact Family Medicine Diagnoses Hidradenitis Nena Escobar CNM [address] [place] [address] Phone: tel: fax: Referral ID Status Reason Start Date Expiration Date Visits Requested Visits Authorized [id number] Authorized Specialty Services Required 11/24/2025 1 1 Scheduling Instructions 49 y old on daily prednisone. Notes recurrent lesions on bilateral inner thighs. On exam today, scarring c/w old hidradenitis. Please evaluate. Thanks! Reason for Visit * Reason Comments pap Encounter Details Date Type Department Care Team (Latest Contact Info) Description 11/24/2024 9:45 AM EDT Procedure Visit [facility] [address] [place], [place] [phone] Nena Escobar CNM [address] [place], [place] [phone] Routine cervical smear (Primary Dx); Hidradenitis Social History Tobacco Use Types Packs/Day Years [...] others, in a hotel, in a senior care, living outside on the street, on a [...] Sign Reading Time Taken Comments Blood Pressure 132/72 11/24/2024 10:02 AM EDT Pulse 85 11/24/2024 10:02 AM EDT Temperature 36.8 C (98.3 F) 11/24/2024 10:02 AM EDT Respiratory Rate 14 11/24/2024 10:02 AM EDT Oxygen Saturation 97% 11/24/2024 10:02 AM EDT Inhaled Oxygen Concentration - - Weight 60.8 kg (134 lb) 11/24/2024 10:02 AM EDT Height - - Body Mass Index 24.51 09/12/2024 10:44 AM EDT documented in this encounter Progress Notes * Nena Escobar, BRENDEN - 11/24/2024 9:45 AM EDT Subjective Patient ID: Yessi Toth is a 49 y.o. female who presents for [employer] visit Pap NIL/HPV neg 11/2023. Pap NIL/HPV pos, neg 16/18/45 in 11/2022. NIL/HPV neg pap 11/2021, preceded by LSIL/HPV pos, neg 16/18 subtypes in 2017. Cotesting due now. No vasomotor symptoms. Hysterectomy for inflammation in her mid 30s, ovaries remain. 2021. Coping okay. No new partners. Lives with family, feels safe at home. On daily prednisone. Mammogram BIRADS 2, cat c 11/2023. She has mammogram scheduled for 12/03/2024. Note recurrent lesions which drain on bilateral inner thighs, would like evaluation for this. Would like breast and pelvic exam today. Review of Systems Genitourinary: Negative for dysuria, frequency, genital sores, hematuria, menstrual problem, pelvicpain, urgency, vaginal bleeding, vaginal discharge and vaginal pain. No abnormal bleeding, no breast pain, no breast mass, no nipple discharge Objective BP 132/72 (BP Location: Left arm, Patient Position: Sitting, BP Cuff Size: Adult) Pulse 85 Temp98.3 ??F (36.8 ??C) (Oral) Resp 14 Wt 134 lb (60.8 kg) SpO2 97% BMI 24.51 kg/m?? 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 Constitutional: Appearance: Normal appearance. Chest: Breasts: Right: Normal. No swelling, bleeding, inverted nipple, mass, nipple discharge, skin change or tenderness. Left: Normal. No swelling, bleeding, inverted nipple, mass, nipple discharge, skin change or tenderness. Genitourinary: General: Normal vulva. Labia: Right: No rash, tenderness, lesion or injury. Left: No rash, tenderness, lesion or injury. Vagina: Normal. No signs of injury and foreign body. No vaginal discharge, erythema, tenderness, bleeding or lesions. Cervix: Friability present. No cervical motion tenderness, discharge, lesion, erythema, cervical bleeding or eversion. Uterus: Absent. Adnexa: Right adnexa normal and left adnexa normal. Right: No mass, tenderness or fullness. Left: No mass, tenderness or fullness. Comments: Ovaries non palpable bilaterally. Atrophic changes vaginally. Scarring on bilateral inner thighs c/w old hidradenitis lesions. No active lesions noted. Lymphadenopathy: Upper Body: Right upper body: No supraclavicular or axillary adenopathy. Left upper body: No supraclavicular or axillary adenopathy. Neurological: Mental Status: She is alert. Psychiatric: Mood and Affect: Mood normal. Behavior: Behavior normal. Assessment/Plan Diagnoses and all orders for this visit: Routine cervical smear - Pap Smear Cotest today. Will contact with results and plan. Continue yearly screening if normal due to immunosuppression. Routine mammography, already scheduled. Mother with bilateral breast cancer at 50, alive and well currently. Will calculate lifetime risk of breast cancer with upcoming mammogram. Report vasomotor symptoms. Hidradenitis - Referral to [facility] Derm Skin Adult; Future Derm referral placed. No active lesions noted. Come [facility] if so. documented in this encounter Plan of Treatment Upcoming Encounters Date Type Department Care Team (Late st Contact Info) Description 02/23/2025 9:00 AM EST Office Visit [facility] [address] [place] [phone] Maia Gale, OD [address] [place] [address] Scheduled Orders Name Type Priority Associated Diagnoses Orde r Schedule Pap Smear Pathology and Cytology Routine Routine cervical smear Ordered: 11/24/2024 Scheduled Referrals Name Type Priority Associated Diagnoses Orde r Schedule Referral to [facility] Derm Skin Adult Outpatient Referral Routine Hidradenitis Expected: 11/24/2024 (Approximate), Expires: 11/24/2025 documented as of this encounter Visit Diagnoses Diagnosis Routine cervical smear- Primary Screening for malignant neoplasm of the cervix Hidradenitis documented in this encounter Additional Health Concerns Assessment Noted Time PHQ-9 Depression Total Score: 9 07/07/19 25 10:56 AM EDT documented as of this encounter Care Teams Price Checker Relationship Specialty Start Date End Date Nenita Croft MD [address] [place] [phone] PCP - General Internal Medicine 09/11/22 documented as of this encounter
--- OUTSIDE RECORDS SUMMARY | 2024-11-24 19:55 | XMS_ITS | Encounter Summary ---
Author Organization [employer] Address [address] [facility] 7 [place] [address] Care Team Providers Care Scientific Laboratory Supervisor Name Role Phone Nenita Croft MD Primary Care Pro vider Encounter Details Date Type Department Care Team (Late st Contact Info) Description 01/19/2024 Orders Only [facility] [address] [place], [place] [phone] Provider, MD Paul Social History Tobacco Use [...] with others, in a hotel, in a group home, living outside on the street, on [...] Description 02/23/2025 9:00 AM EST Office Visit [facility] [address] [place], [place] [phone] Gale Carvalho, OD [address] [place] [address] documented as of this encounter Procedures Procedure Name Priority Date/Time Associated Diagnosis Comments COLONOSCOPY Routine 01/23/2022 7:33 AM EST documented in this encounter Results * Hm Colonoscopy (01/23/2022 7:33 AM EST) Colonoscopy Normal Normal Narrative CourtneySugar - 01/23/2022 7:33 AM EST Please see scanned result on 05/29/2023 in intermediate teacher ,unable to attach report us Historical Provider HEALTH MAINTENANCE Edited Result - Final documented in this encounter Visit Diagnoses Not on filedocumented in this encounter Additional Health Concerns Assessment Noted Time PHQ-9 Depression Total Score: 17 023 4:18 PM EST documented as of this encounter Care Teams Scientific Laboratory Supervisor Relationship Specialty Start Date End Date Nenita Croft MD [address] [place], [place] [phone] PCP - General Internal Medicine 09/11/22 documented as of this encounter
--- OUTSIDE RECORDS SUMMARY | 2024-11-24 19:56 | XMS_ITS | Clinical Summary ---
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 [place] Other straight-identified cis- female (pronouns she/her/hers) with [...] and still adjusting to her moving from [place] to [place] on 08/2022. PLAN: New/Additional Services needed Off-site services for , Behavioral Health Integration Plan External OP BH therapy referral and OP psychiatry Referral, Patient Self Plan Patient to utilize skills provided in intervention , Patient to reach out to [facility] team as needed, Patient to engage in OP BH therapy , and Patient to reach out to [facility] as needed. Patient provided with [facility] information to contact them and request status of referral submitted in 10/2022. Patient will reach out to this medical technical writer to provide an update. Assessment & Plan (12/12/2022 9:59 AM EDT): Assessment: Patient presents with anxiety, depression and grief symptoms. Passive SI without plan or intention. Reason for visit was to assess symptoms and provide support to patient. Symptoms are present in the context of 1 year of her , moving to [place] from on 08/2022, not having her own place. Provided psychoeducation around coping mechanisms to manage anxiety and depressive sxs and discuss the grief process. Referral previously made to [facility] for OP services. At this time Yessi [...] Patient will be follow up with [facility] per provider request. 2. Patient goal is improve mental health 3. Behavioral Recommendations a. Ind. Therapy, referral submitted b. Use of coping skills provided c. [facility] follow up Assessment & Plan (11/06/2022 [...] OP individual therapy placed on 10/22/22 with [facility] ([phone]). Pt reported feeling better since our last [...] individual therapy placed on 10/22/22 with Alejandra ([phone]). Pt reported feeling better since our last [...] Encounters Date Type Department Care Team Description 11/24/2024 9:45 AM EDT Procedure Visit [address] [address] Nena Alejandra CNM Routine cervical smear (Primary Dx); Hidradenitis 11/24/2024 Travel 11/23/[address] [address] Nenita Croft MD chart prep 11/10/2024 Results Follow-Up [facility] MEDICINE [address] [place] [address] Sarah Sears NP US Head Neck Soft Tissue 10/17/[address] [address] Nenita Croft MD Referral 10/03/2024 10:20 AM EDT Office Visit [facility] WALK-IN [address] [address] Imer Clemens MD COVID-19 (Primary Dx) 10/03/2024 Travel 09/27/2024 Refill [facility] [address] [place] [address] Nenita Croft MD 09/21/[address] [address] Nena Alejandra CNM November recall 09/12/2024 10:40 AM EDT Office Visit [facility] WALK-IN [address] [address] Sarah Sears NP Swelling of right parotid gland (Primary Dx) 09/12/2024 Travel 09/07/2024 11:30 AM EDT Office Visit [facility] MEDICINE [address] [place] [address] Nenita Croft MD Health care maintenance (Primary Dx); Moderately severe depression; Antisynthetase syndrome (CMS/HCC); Housing insecurity; Food insecurity 09/07/2024 Patient Outreach [facility] [address] [place] [address] Nenita Croft MD Care Coordination (CHW outreach for SDOH housing search-referral completed ) 09/07/2024 Travel 09/06/2024 Telephone [facility] [address] [place] [address] Nenita Croft MD CHART PREP 08/31/2024 Results Follow-Up [facility] WALK-IN CENTER [address] [place] [address] Nenita Croft MD Basic Metabolic Panel, Magnesium 08/31/2024 Orders Only GENERIC EXTERNAL DATA DEPARTMENT Provider, Generic External Data from Last 3 Months Immunizations Immunization Administration Dates Next Due Pneumococcal Conjugate PCV 20 07/08/2023 Tdap 07/08/2023 Family History Medical History Relation Name Comments Breast cancer Mother alive, aged 80 in 11/2024. Bilateral breast cancer. Diabetes type II Mother htn Mother Relation [...] (134 lb) 11/24/2024 10:02 AM EDT Height 157.5 cm (5' 2 ) 09/12/2024 10:44 AM EDT Body Mass Index 24.51 09/12/2024 10:44 AM EDT Plan of Treatment Upcoming Encounters Date Type Department Care Team (Late st Contact Info) Description 02/23/2025 9:00 AM EST Office Visit [facility] OPTOMETRY [address] [place] [address] Gale Carvalho, OD [address] [place], [place] [phone] Health Maintenance Due Date Last Done Comments [...] 07/06/2024 Disability Screening 07/06/2025 07/06/2024 Tobacco Screening 11/24/2025 11/24/2024 Mammogram 11/26/2025 11/27/2023, 10/28/2022 Colonoscopy 01/23/2027 01/23/2022 [...] PANEL Routine 08/31/2024 10:14 AM EDT Hypokalemia HEPATITIS C AB W/REFL TO HCV RNA, QN, PCR Routine 08/22/2024 9:42 AM EDT Annual physical exam HIV 1/2 ANTIGEN/ANTIBODY, FOURTH GENERATION W/RFL Routine 08/22/2024 9:42 AM EDT Annual physical exam BI MAMMOGRAM SCREENING TOMOSYNTHESIS BILATERAL Routine 11/27/2023 [...] PM EDT Narrative 11/07/2024 2:40 PM EDT [place] [address] Ultrasound Report Signed Patient: Yessi Garcia I MR#: [id number] : 1975 Acct:[id number] Age/Sex: 49 / F ADM Date: 11/07/24 Loc: HO.US Attending Dr: Sarah Sears Ordering Physician: Sarah Sears Date of Service: 11/07/24 Procedure(s): US soft tiss head and/or neck Accession Number(s): [id number] cc: Sarah Sears; Nenita Croft MD Reason [...] Jorje Camarillo MD 11/07/2024 02:37 PM EDT Dictated By: Jorje Camarillo MD Signed By: <Electronically signed by Jorje Camarillo MD in OV> 11/07/24 1437 DD/ 1416 TD/TT: 11/07/24 1421 Tool Salvage Worker: Procedure Note Donotuseinterpreter, Image - 11/07/[address] [address] Ultrasound Report Signed Patient: Yessi Garcia IMR#: [id number] : 1975Acct:[id number] Age/Sex: 49 / FADM Date: 11/07/24 Loc: HO.US Attending Dr: Sarah Sears Ordering Physician: Sarah Sears Date of Service: 11/07/24 Procedure(s): US soft tiss head and/or neck Accession Number(s): [id number] cc: Sarah Sears; Nenita Croft MD Reason [...] Jorje Camarillo MD 11/07/2024 02:37 PM EDT Dictated By: Jorje Camarillo MD Signed By: <Electronically signed by Jorje Camarillo MD in OV> 11/07/24 1437 DD/ 1416 TD/TT: 11/07/24 1421 Tool Salvage Worker: us Sarah Sears NEEDLE LOOM OPERATOR HELPER IMG US PROCEDURES Final Result * Influenza B (ID NOW Rapid Molecular) (10/03/2024 11:08 AM EDT) Influenza B Negative Negative, Indeterminate [facility] Swab 10/03/2024 11:0 8 AM EDT us Imer Clemens MD POINT OF CARE TEST ENTER/EDIT OR DERABLES Final Result Performing Organization Address [facility] Co de Phone Number [facility] [address] [place] [phone] * Influenza A (ID NOW Rapid Molecular) (10/03/2024 11:08 AM EDT) Pathologist [facility] Influenza A Negative Negative, Indeterminate [facility] Swab 10/03/2024 11:0 8 AM EDT us Imer Clemens MD POINT OF CARE TEST ENTER/EDIT OR DERABLES Final Result Performing Organization Address [facility] Co de Phone Number [facility] [address] [place] [phone] * (ABNORMAL) POCT Rapid COVID Ag (10/03/2024 11:08 AM EDT) Pathologist [facility] Rapid COVID Ag Positive [facility] Swab 10/03/2024 11:0 8 AM EDT us Imer Clemens MD POINT OF CARE TEST ENTER/EDIT OR DERABLES Final Result Performing Organization Address [facility] de Phone Number [facility] [address] [place] [phone] * Chlamydia/Trichomonas/Neisseria gonorrhoeae, PCR, Urine (08/31/2024 10:14 AM EDT) [facility] CT PCR, Urine NOT DETECTED Not Detect. [facility] Comment:A not detected test result [...] NG PCR, Urine NOT DETECTED Not Detect. [facility] Comment:A not detected test result [...] MD LAB URINE ORDERAB LES Final Result [facility] [address] [place] [phone] * (ABNORMAL) CBC auto differential (08/31/2024 10:14 AM EDT) White Blood Count 6.1 4.8 - 10.8 X10*3/uL [facility] Red Blood Count 3.89(L) 4.20 - 5.50 X10*6/uL [facility] Hemoglobin 11.2(L) 12.0 - 16.0 g/dl [facility] Hematocrit 35.1(L) 37.0 - 47.0 % [facility] Mean Corpuscular Volume 90.2 80.0 - 98.0 fL [facility] Mean Corpuscular Hemoglobin 28.8 27.0 - 33.0 pg [facility] Mean Corpuscular HGB Conc 31.9 31.0 - 35.0 g/dl [facility] Red Cell Distribution Width 14.7 11.0 - 16.0 % [facility] Platelet Count 115(L) 160 - 400 X10*3/uL [facility] Mean Platelet Volume 10.1 9.4 - 12.3 fL [facility] Neutrophils Percent Auto 68.7 45 - 73 % [facility] Imm Gran Pct Auto 0.2 0.0 - 0.4 % [facility] Lymphocytes Percent Auto 22.3 20 - 40 % [facility] Monocytes Percent Auto 6.9 2 - 11 % [facility] Eosinophils Percent Auto 1.6 0 - 4 % [facility] Basophils Percent Auto 0.3 0 - 2 % [facility] NRBC Pct Auto 0.0 0.0 - 0.2 /100WBC [facility] Neutrophils Absolute Auto 4.2 2.0 - 8.3 x10*3/uL [facility] Imm Gran Abs Auto 0.01 0.00 - 0.03 X10*3/uL [facility] Lymphocytes Absolute Auto 1.4 1.2 - 4.9 X10*3/uL [facility] Monocytes Absolute Auto 0.4 0.1 - 1.2 X10*3/uL [facility] Eosinophils Absolute Auto 0.1 0.0 - 0.4 X10*3/uL [facility] Basophils Absolute Auto 0.0 0.0 - 0.2 X10*3/uL [facility] NRBC Abs Auto 0.000 0.0 - 0.012 X10*3/uL [facility] 08/31/2024 10:1 4 AM EDT 08/31/2024 11:24 AM EDT us Generic External Data Provider LAB BLOOD ORDERAB LES Final Result [facility] [address] [place] [phone] * Magnesium (08/31/2024 10:14 AM EDT) Pathologist [facility] Magnesium 2.0 1.6 - 2.6 mg/dL [facility] Blood Venous blood specimen / Unknown 08/31/2024 10:14 AM EDT 08/31/2024 11:24 AM EDT us Nenita Do MD LAB BLOOD ORDERAB LES Final Result Performing Organization Address City/[facility]/ZIP Co de Phone Number [facility] [address] [place] [phone] * Creatine Kinase, Total (08/31/2024 10:14 AM EDT) [facility] Creatine Kinase Total 104 26 - 140 U/L [facility] 08/31/2024 10:1 4 AM EDT 08/31/2024 11:24 AM EDT us Generic External Data Provider LAB BLOOD ORDERAB LES Final Result Performing Organization Address [facility] Co de Phone Number [facility] [address] [place] [phone] * (ABNORMAL) Basic Metabolic Panel (08/31/2024 10:14 AM EDT) [facility] Sodium 143 135 - 145 mmol/L [facility] Potassium 4.0 3.3 - 5.1 mmol/L [facility] Chloride 111(H) 96 - 108 mmol/L [facility] Carbon Dioxide 26 22 - 29 mmol/L [facility] Anion Gap 10(L) 12 - 20 [facility] Urea Nitrogen (BUN) 10 9 - 16 mg/dL [facility] Creatinine, Serum 0.77 0.5 - 1.4 mg/dL [facility] Estimated Glomerular Filt Rate >60 [facility] Comment:Chronic Kidney Disea se: Estimated GFR < 60 mL/min/1.60x5Rgtjco Kidney Disease: Estimated GFR < 15 mL/min/1.73m2 Glucose 88 60 - 115 mg/dL [facility] Calcium 8.8 8.4 - 10.2 mg/dL [facility] Blood Venous blood specimen / Unknown 08/31/2024 10:14 AM EDT 08/31/2024 11:24 AM EDT us Nenita Do MD LAB BLOOD ORDERAB LES Final Result Performing Organization Address [facility]/ZIP Co de Phone Number [facility] [address] [place] [phone] * Hepatitis C Antibody with Reflex to HCV, RNA, Quantitative, Real-Time PCR (08/22/2024 9:42 AM EDT) Pathologist [facility] Hepatitis C Antibody Nonreactive Nonreactive [facility] Comment:Antibodies to HCV no t detected; does not exclude early acuteHCV infection. Blood Venous blood specimen / Unknown 08/22/2024 9:42 AM EDT 08/22/2024 9:42 AM EDT us Nenita Do MD LAB BLOOD ORDERAB LES Final Result Performing Organization Address [facility] Co de Phone Number [facility] [address] [place] [phone] * HIV-1/2 Antigen and Antibodies, Fourth Generation, with Reflexes (08/22/2024 9:42 AM EDT) Pathologist [facility] HIV AB/AG Nonreactive Nonreactive [facility] Comment:HIV-1 p24 Ag and/or HIV-1/HIV-2 Ab not detected.A test result that is nonreactive does not exclude thepossibility of exposure to or infection with HIV-1 and/orHIV-2. Nonreactive results in this assay for individualswith prior exposure to HIV-1 and/or HIV-2 may be due toantigen and antibody levels that are below the limit ofdetection of this assay.The [employer] HIV Ag/Ab Combo assay result andsupplemental assay results should be interpreted inconjunction with the patient's clinical presentation,history and other laboratory results. If the results areinconsistent with clinical evidence, additional testing issuggested to confirm the result. Blood Venous blood specimen / Unknown 08/22/2024 9:42 AM EDT 08/22/2024 9:42 AM EDT us Nenita Do MD LAB BLOOD ORDERAB LES Final Result [facility] [address] [place] [phone] * BI Mammogram Screening Tomosynthesis Bilateral (11/27/2023 2:00 PM EDT) Anatomical Region Laterality Modality Breast Bilateral Mammography 11/27/2023 2:00 PM EDT Narrative 12/09/2023 4:05 PM EDT [address] [place] [address] Mammography Report Signed Patient: Yessi Garcia I MR#: [id number] : 1975 Acct:[id number] Age/Sex: 48 / F ADM Date: 11/27/23 Loc: HO.MAMMO Attending Dr: Nena Alejandra CNM Ordering Physician: NENA ALEJANDRA CNM Results: 2 Benign Findings Date of Service: 11/27/23 Follow Up: 1 Year From [facility] Mammogram Procedure(s): MM tomosynthesis screening BI Accession Number(s): [id number] cc: Nenita Croft MD; NENA ALEJANDRA CNM EXAMINATION: MM SCREENING DIGITAL BREAST [...] 12/09/23 1603 DD/ 1400 TD/TT: 11/27/23 1420 Tool Salvage Worker: Procedure Note Donotuseinterpreter, Image - 12/09/2023 [facility] [address] [place] [address] Mammography Report Signed Patient: Yessi Garcia IMR#: [id number] : 1975Acct:[id number] Age/Sex: 48 / FADM Date: 11/27/23 Loc: HO.MAMMO Attending Dr: Nena Alejandra CNM Ordering Physician: NENA ALEJANDRAesults: 2 Benign Findings Date of Service: 11/27/23Follow Up: 1 Year From Orig ina Mammogram Procedure(s): MM tomosynthesis screening BI Accession Number(s): [id number] cc: Nenita Croft MD; NENA ALEJANDRA CNM EXAMINATION: MM SCREENING DIGITAL BREAST [...] 12/09/23 1603 DD/ 1400 TD/TT: 11/27/23 1420 Tool Salvage Worker: Nena RODRIGUEZ IM BI PROCEDURES Final R esult * [facility] Imaging Pap and HPV mRNA E6/E7 (11/25/2023 11:50 AM EDT) HPV nRNA E6/E7 Not Detected Not Detected [facility] Comment:Methodology: Transcr iption-Mediated AmplificationThis assay detects E6/E7 viral messenger RNA (mRNA) from 14high-risk HPV types (16,18,31,33,35,39,45,51,52,56,58,59,66,68).Cervical sources are required for HPV testing.If a vaginal source from a patient who has had atotal hysterectomy with removal of cervix wassubmitted, please contact the testing laboratoryfor alternative testing options.For additional information, please refer [email or web address](This link if provided for information/educational purposes only.)THIS TEST WAS PERFORMED AT:[employer] [place] [id number] WALTON MD SOURCE: SEE NOTE [facility] Comment:Cervix Report Status: TNP [facility] Clinical Information: SEE NOTE [facility] Comment:None given LMP: SEE NOTE [facility] Comment:NONE GIVEN Prev. PAP: SEE NOTE [facility] Comment:NONE GIVEN Prev. BX: SEE NOTE [facility] Comment:NONE GIVEN Statement Of Adequacy: SEE NOTE [facility] Comment:Satisfactory for micha luation.Endocervical/transformation zone component absent. General Categorization: [facility] Interpretation/Result: SEE NOTE [facility] Comment:Cytology Results: Ne gative for intraepitheliallesion or malignancy. Cytology Comment SEE NOTE [facility] Comment:This Pap test has be en evaluated with computerassisted technology. Tile Setter Apprentice: SEE NOTE [facility] Comment:[place], [place](ASCP)CT scre ening location: [address] [address] Review Tile Setter Apprentice: SEE NOTE [facility] Comment:[place], [place](ASCP)CT scre ening location: [place] [address] Pathologist [facility] PAP Infection [facility] See Note SEE NOTE [facility] Comment:EXPLANATORY NOTE:The Pap is a [...] AM EDT 11/25/2023 6:08 PM EDT Narrative [facility] - 12/01/2023 11:20 AM EDT SEE SCANNED RESULTS IN EMRCERVIX us Nena Alejandra CNM LAB PATHOLOGY ORDERABLES Final Result [facility] [address] [place] [address] [phone] * Hm Colonoscopy (01/23/2022 7:33 AM EST) Colonoscopy Normal Normal Narrative Sugar Valdez - 01/23/2022 7:33 AM EST Please see scanned result on 05/29/2023 in media reconciliation specialist ,unable to attach report us Historical Provider HEALTH MAINTENANCE Edited Result - Final from Last 3 Months or Most Recently Relevant to Health Maintenance Insurance [facility] C3 Care Teams Pharmaceutical Process Engineer Relationship Specialty Start Date End Date Nenita Croft MD [address] [place] [address] [phone] PCP - General Internal Medicine 09/11/22
--- OUTSIDE RECORDS SUMMARY | 2024-11-24 19:56 | XMS_ITS | Encounter Summary ---
Author Organization [employer] Address [address] [place] [address] [address] [place] [address] Care Team Providers Care Brick Tender Name Role Phone Nenita Croft MD Primary Care Pro vider Encounter Details Date Type Department Care Team (Latest Contact Info) Description 11/24/2024 Travel Social History Tobacco Use Types Packs/Day [...] Description 02/23/2025 9:00 AM EST Office Visit [facility] OPTOMETRY [address] [place] [address] Gale Carvalho, OD [address] [place] [address] documented as of this encounter Visit Diagnoses Not on filedocumented in this encounter Additional Health Concerns Assessment Noted Time PHQ-9 Depression Total Score: 9 07/07/19 25 10:56 AM EDT documented as of this encounter Care Teams Brick Tender Relationship Specialty Start Date End Date Nenita Croft MD [address] [place] [address] PCP - General Internal Medicine 09/11/22 documented as of this encounter
--- OUTSIDE RECORDS SUMMARY | 2024-11-24 19:56 | XMS_ITS | Encounter Summary ---
Author Organization [employer] Address [address] [place] [phone] Care Team Providers Care Tip Out Worker Name Role Phone Nenita Croft MD Primary Care Pro vider Reason for Visit * Reason Onset Date Comments chart prep 11/23/2024 Encounter Details Date Type Department Care Team ([facility] st Contact Info) Description 11/23/2024 Telephone [facility] [address] [place] [address] Nenita Croft MD [address] [place] [address] chart prep Social History Tobacco Use Types Packs/Day Years [...] with others, in a hotel, in a snf, living outside on the street, on a [...] encounter Miscellaneous Notes * Telephone Encounter - Nat Yeh [place] - 11/23/2024 2:43 PM EDT Chart Prep Labs: not applicable Images: Mammogram Screening appointment 12/01/24 AT 2 PM. Screenings: Not Applicable Vaccines due: Covid Due, Hep B Due, Flu Due, and Shingles in pharmacy Due Referrals: Not Applicable Overdue care gaps: LMP documented in this encounter Plan of Treatment Upcoming Encounters Date Type Department Care Team (Late st Contact Info) Description 02/23/2025 9:00 AM EST Office Visit [facility] OPTOMETRY [address] [place] [address] Gale Carvalho OD [address] [place] [address] documented as of this encounter Visit Diagnoses Not on filedocumented in this encounter Additional Health Concerns Assessment Noted Time PHQ-9 Depression Total Score: 9 07/07/19 10:56 AM EDT documented as of this encounter Care Teams Tip Out Worker Relationship Specialty Start Date End Date Nenita Croft MD [address] [place] [phone] PCP - General Internal Medicine 09/11/22 documented as of this encounter
--- OUTSIDE RECORDS SUMMARY | 2024-11-24 19:56 | XMS_ITS | Data Portability ---
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 Her symptoms resolved with Augmentin. Physical examination demonstrates mild diffuse right sided parotid tenderness without obvious mass. Oral mucosa is moist and intact. As patient is asymptomatic, recommend observation. Recommend patient upload her ultrasound results from [facility] to the patient portal or have her primary care provider fax them to our office. If sialadenitis returns, recommend good oral hydration, avoidance of alcohol-based mouthwashes, use of sour sialogogues, and warm compresses 10-15 minutes TID followed by firm qwpn-af-[id number] palpation to increase salivary production. Recommend alternating between acetaminophen and ibuprofen for pain management. Patient aware to return with development of new or worsening symptoms. [email or web address] Not available 11/15/2024 16:55:57 Plan of Treatment Reminders Order Date Submit Date Provider Last Modified By Organization Details Last Modified Time Details Appointments None record ed. Lab None record ed. Referral None record ed. Procedures None record ed. Surgeries None record ed. Imaging None record ed. Medication Orders None record ed. Patient TargetsNo targets recorded. Patient InstructionsNo instructions recorded. Reason for Referral None Reported. 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 Procedures Surgical History Date Name Laterality Status Provider Name and Address Organization Details Recorded Time tonsillectomy completed NOHEMY SAUCEDO PA-C [address] [place] [address],[place] [address], [place], [address], [facility] 11/15/2024 16:51:11 Imaging Results None recorded. Procedure Notes None recorded. Medical Equipment None Reported. Medications Name Sig Start Date Stop Date Status Note LastModified by Organization Details LastModified Time multivitamin tablet TAKE 1 TABLET BY MOUTH ONCE DAILY active Not Available Not Available No t Available cetirizine 10 mg tablet TAKE 1 TABLET BY MOUTH EVERY DAY NEEDED active Not Available Not Available No t Available prednisone 5 mg tablet TAKE 2 TABLETS BY MOUTH EVERY DAY active Not Available Not Available No t Available methylpredni solone 4 mg tablet TAKE 1 TABLET BY MOUTH ONCE DAILY active Not Available Not Available No t Available azathioprine 50 mg tablet TAKE 2 TABLETS (100 MG) BY MOUTH EVERY DAY active Not Available Not Available No t Available omeprazole 40 mg capsule,barron yed release TAKE 1 CAPSULE BY MOUTH EVERY DAY 30 MINUTES BEFORE BREAKFAST active Not Available Not Available No t Available mycophenolat e mofetil 500 mg tablet TAKE 1 TABLET BY MOUTH TWICE DAILY active Not Available Not Available No t Available famotidine 20 mg tablet TAKE 1 TABLET BY MOUTH AT BEDTIME NEEDED FOR HEARTBURN active Not Available Not Available No t Available triamcinolon e acetonide 0.1 % topical ointment APPLY TOPICALLY TWICE DAILY active Not Available Not Available Not Available hydroxychlor oquine 200 mg tablet TAKE 1 AND 1/2 TABLETS BY MOUTH DAILY active Not Available Not Available No t Available estradiol 0.01% (0.1 mg/gram) vaginal cream INSERT 1 GRAM VAGINALLY EVERY DAY FOR FOURTEEN DAYS, THEN DECREASE TO TWICE A WEEK THEREAFTER active Not Available Not Available N ot Available fluticasone propionate 50 mcg/actuatio n nasal spray,suspen herlinda INSTILL 1 SPRAY IN EACH NOSTRIL ONCE DAILY active Not Available Not Available N ot Available amoxicillin 875 mg-potassium clavulanate 125 mg tablet TAKE 1 TABLET BY MOUTH TWICE DAILY FOR 10 DAYS TAKE 1 HOUR APART de cellcept active Not Available Not Available No t Available melatonin 5 mg tablet TAKE 1 TABLET BY MOUTH EVERY DAY AT BEDTIME active Not Available Not Available No t Available Paxlovid 300 mg (150 mg x 2)-100 mg tablets in a dose pack TAKE 2 TABLETS (300 MG) OF NIRMATRELVI R & 1 TABLET (100 MG) OF RITONAVIR BY MOUTH TWICE DAILY FOR 5 DAYS active Not Available Not Available N ot Available Vitals None Recorded Social History None recorded. Functional Status None recorded. Mental Status None recorded. Family History Nothing Reported. Medical History No medical history recorded. Gynecological HistoryNo gynecological history recorded. Obstetrics History GPAL:G 0 P 0 0 0 0 Past Encounters Encounter ID Performer Location Encounter Start Date Encounter Closed Date Diagnosis/Indication Diagnosis SNOMED-CT Code Diagnosis ICD10 Code Diagnosis IMO Codes Diagnosis Note [id number] NOHEMY SAUCEDO PA-C [facility] [address] [address] 11/15/2024 13:39:28 11/15/2024 14:28:11 Recurrent parotitis 905752182 K11.20 [id number] Patient immunocompromised 577695514 D84.9 132842 Health Concerns Section Related Observation LastModified by Organization Detai ls LastModified Time None Recorded Concern Status LastModified by Organization Details LastModified Time None Recorded Advance Directives Directive None Recorded Payers Insurance Date Sequence Insurance Name Policy Number Policy Brown Covered Member ID Brown Member ID Guarantor Name 11/15/2024 1 [place] [facility] Yessi Toth [id number] Yessi Toth Notes Date Note Type Note Provider Name and Address Organization Details Recorded Time 11/15/2024 text/html ROS as noted in the HPI 49yo gabonese-speaking female presents for evaluation of right-sided facial swelling. She reports this has occurred a couple times in the past, most recently 1 month ago. The swelling and discomfort resolved with Augmentin. [place] [facility] but unfortunately the report is not available for review. She reports minimal water intake throughout the day. Denies dry mouth. Patient is immunocompromised on methylprednisolone, mycophenolate, and plaquenil/ hydroxychloroquine for antisynthetase syndrome and rheumatoid arthritis. History of tonsillectomy during adulthood. NOHEMY SAUCEDO PA-C [address] [place] [address], [place], [address], [facility] - [facility] 11/15/2024 16:56:55 OBGyn Episode No OBEpisode recorded.
== END 2024-11-24 18:48 | disposition home or self-care (01) ==
LOC: HO.LNP 18:47
PROVIDERS: Visit Provider Advanced Practice Midwife
DX: Z12.4 Encounter for screening for malignant neoplasm of cervix (principal); Z11.51 Encounter for screening for human papillomavirus (HPV)
CPT/HCPCS: 87626; 88175

== ENCOUNTER 2024-12-01 13:41 | Outpatient (REF) | payer MEDICAID, SELFPAY ==
--- OUTSIDE RECORDS SUMMARY | 2024-12-01 17:38 | XMS_ITS | Data Portability ---
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 Her symptoms resolved with Augmentin. Physical examination demonstrates mild diffuse right sided parotid tenderness without obvious mass. Oral mucosa is moist and intact. As patient is asymptomatic, recommend observation. Recommend patient upload her ultrasound results from [facility] to the patient portal or have her primary care provider fax them to our office. If sialadenitis returns, recommend good oral hydration, avoidance of alcohol-based mouthwashes, use of sour sialogogues, and warm compresses 10-15 minutes TID followed by firm wwce-kv-bolcn palpation to increase salivary production. Recommend alternating [...] Address Organization Details Recorded Time Recurrent parotitis [id number] Active 2024 NOHEMY SHERYL, [address],[place] [address], [place], [address], [facility] - [facility] 16:56:22 Patient immunocompromi sed 574281973 Active [address], [place], [address], [facility] - [facility] 16:56:37 Problem Notes None recorded. Procedures Surgical History Date Name Laterality Status Provider Name and Address Organization Details Recorded Time tonsillectomy completed NOHEMY SAUCEDO PA-C [address] [place] [address],[place] [address], [place], [address], [facility] 11/15/2024 16:51:11 Imaging Results None recorded. Procedure [...] ICD10 Code Diagnosis IMO Codes Diagnosis Note [id number] NOHEMY SAUCEDO PA-C [facility] [address] [address] 11/15/2024 13:39:28 11/15/2024 14:28:11 Recurrent parotitis [id number] K11.20 [id number] Patient immunocompromised 541109716 D84.9 099630 Health Concerns Section Related Observation LastModified by Organization Detai ls LastModified Time None Recorded Concern Status LastModified by Organization Details LastModified Time None Recorded Advance Directives Directive None Recorded Payers Insurance Date Sequence Insurance Name Policy Number Policy Brown Covered Member ID Brown Member ID Guarantor Name 11/15/2024 1 [place]: [facility] [address] Yessi Toth [id number] Yessi Toth Notes Date Note Type Note Provider Name and Address Organization Details Recorded Time 11/15/2024 text/html ROS as noted in the HPI 49yo equatorial guinean-speaking female presents for evaluation of right-sided facial swelling. She reports this has occurred a couple times in the past, most recently 1 month ago. The swelling and discomfort resolved with Augmentin. Ultrasound was performed at [facility], but unfortunately the report is not available for review. She reports minimal water intake throughout the day. Denies dry mouth. Patient is immunocompromised on methylprednisolone, mycophenolate, and plaquenil/ hydroxychloroquine for antisynthetase syndrome and rheumatoid arthritis. History of tonsillectomy during adulthood. NOHEMY SAUCEDO PA-C [address] [place] [address], [place], [address], [facility] - [facility] 11/15/2024 16:56:55 OBGyn Episode No OBEpisode recorded.
--- OUTSIDE RECORDS SUMMARY | 2024-12-01 17:38 | XMS_ITS | Encounter Summary ---
Author Organization [employer] Address [address] [facility] 7 [place] [address] Care Team Providers Care Pneumatic Systems Operator Name Role Phone Nenita Croft MD Primary Care Pro vider Encounter Details Date Type Department Care Team ([facility] st Contact Info) Description 11/24/2024 Orders Only [facility] MEDIC[facility] [address] [place] [address] Nena Escobar CNM [address] [place] [address] Social History Tobacco Use Types Packs/Day Years [...] with others, in a hotel, in a alf, living outside on the street, on a [...] Description 02/23/2025 9:00 AM EST Office Visit [facility] [address] [place] [address] Gale Carvalho, OD [address] [place] [address] documented as of this encounter Procedures Procedure Name Priority Date/Time Associated Diagnosis Comments HPV DNA, LOW/HIGH RISK Routine 11/24/2024 10:45 AM EDT documented in this encounter Results * HPV DNA, Low/High Risk (11/24/2024 10:45 AM EDT) HPV High Risk Negative Negative [facility] HPV Genotype 16 Negative Negative [facility] HPV Genotype 18 Negative Negative [facility] Comment:HPV testing performe d at [facility] (CLIA#[id number]), [address] [place] [address].Testing for HPV was performed using the [employer]system. The presence of HPV in the female genital tract isassociated with a number of diseases, including cervicalcarcinoma. The HPV DNA high risk pool tests for HPV 31, 33,35, 39, 45, 51, 52, 56, 58, 59, 66 and 68. The testing forHPV 16 and 18 genotypes has also been performed. A positiveresult indicates detection of nucleic acid sequences fromone or more subtypes, whereas a negative result indicatessuch sequences were not detected. 11/24/2024 10:4 5 AM EDT 11/25/2024 6:00 AM EDT us Nena Escobar [facility] BLOOD ORDERABLES Camille jackson Result [facility] [address] [place] [address] [phone] documented in this encounter Visit Diagnoses Not on filedocumented in this encounter Additional Health Concerns Assessment Noted Time PHQ-9 Depression Total Score: 9 07/07/19 25 10:56 AM EDT documented as of this encounter Care Teams Pneumatic Systems Operator Relationship Specialty Start Date End Date Nenita Croft MD [address] [place] [id number] PCP - General Internal Medicine 09/11/22 documented as of this encounter
--- OUTSIDE RECORDS SUMMARY | 2024-12-01 17:38 | XMS_ITS | Encounter Summary ---
Author Organization [employer] Address [address] [facility] [address] [place] [address] Care Team Providers Care Plumber Pipe Fitting Name Role Phone Nenita Croft MD Primary Care Pro vider Encounter Details Date Type Department Care Team (Late st Contact Info) Description 01/19/2024 Orders Only [facility] MEDICINE [address] [place], [place] [phone] Provider, MD Paul Social History Tobacco Use [...] with others, in a hotel, in a correction, living outside on the street, on a [...] Description 02/23/2025 9:00 AM EST Office Visit [facility] OPTOM[facility] [address] [place], [place] [phone] Gale Carvalho, OD [address] [place] [address] documented as of this encounter Procedures Procedure Name Priority Date/Time Associated Diagnosis Comments COLONOSCOPY Routine 01/23/2022 7:33 AM EST documented in this encounter Results * Hm Colonoscopy (01/23/2022 7:33 AM EST) Colonoscopy Normal Normal Narrative CourtneySugar - 01/23/2022 7:33 AM EST Please see scanned result on 05/29/2023 in library media assistant ,unable to attach report us Historical Provider HEALTH MAINTENANCE Edited Result - Final documented in this encounter Visit Diagnoses Not on filedocumented in this encounter Additional Health Concerns Assessment Noted Time PHQ-9 Depression Total Score: 17 023 4:18 PM EST documented as of this encounter Care Teams Plumber Pipe Fitting Relationship Specialty Start Date End Date Nenita Croft MD [address] [place], [place] [phone] PCP - General Internal Medicine 09/11/22 documented as of this encounter
--- OUTSIDE RECORDS SUMMARY | 2024-12-01 17:38 | XMS_ITS | Clinical Summary ---
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 Sammarinese Other straight-identified cis- female (pronouns she/her/hers) with [...] and still adjusting to her moving from [place] to [place] on 08/2022. PLAN: New/Additional Services needed Off-site services for , Behavioral Health Integration Plan External OP BH therapy referral and OP psychiatry Referral, Patient Self Plan Patient to utilize skills provided in intervention , Patient to reach out to [facility] team as needed, Patient to engage in OP BH therapy , and Patient to reach out to [facility] as needed. Patient provided with [facility] information to contact them and request status of referral submitted in 10/2022. Patient will reach out to this signwriter to provide an update. Assessment & Plan (12/12/2022 9:59 AM EDT): Assessment: Patient presents with anxiety, depression and grief symptoms. Passive SI without plan or intention. Reason for visit was to assess symptoms and provide support to patient. Symptoms are present in the context of 1 year of her , moving to [place] from on 08/2022, not having her own place. Provided psychoeducation around coping mechanisms to manage anxiety and depressive sxs and discuss the grief process. Referral previously made to [facility] for OP services. At this time Yessi Hess meets criteria for Visit Diagnoses: Problem List Items Addressed This Visit Other Moderately severe depression Complicated grief Severe anxiety Patient ready to address current needs Yes Strengths include Yessi is in action stage of change and her motivation will serve as treatment engagement. PLAN: 1. Follow up with [facility]: Recommended for follow-up: Patient will be follow up with [facility] per provider request. 2. Patient goal is improve mental health 3. Behavioral Recommendations a. Ind. Therapy, referral submitted b. Use of coping skills provided c. [facility] follow up Assessment & Plan [...] OP individual therapy placed on 10/22/22 with [facility] ([phone]). Pt reported feeling better since our last appointment. She has started incorporating coping mechanisms to bring her back to the present. At this time Yessi Hess meets criteria for Visit Diagnoses: Problem List Items Addressed This Visit Other Depression Complicated grief Patient ready to address current needs Yes Strengths include motivation and readiness to change. PLAN: 1. Follow up with [facility]: Not recommended for follow-up 2. Patient goal [...] individual therapy placed on 10/22/22 with Alejandra ([phone]). Pt reported feeling better since our last appointment. She has started incorporating coping mechanisms to bring her back to the present. At this time Yessi Hess meets criteria for Visit Diagnoses: Problem List Items Addressed This Visit Other Depression Complicated grief Patient ready to address current needs Yes Strengths include motivation and readiness to change. PLAN: 1. Follow up with [facility]: Not recommended for follow-up 2. Patient goal [...] family jarquin. PLAN: 1. Follow up with [facility]: Not recommended for follow-up 2. Patient goal [...] Description 11/24/2024 9:45 AM EDT Procedure Visit [facility] [address] [place] [phone] Joe Alejandra CNM Routine cervical smear (Primary Dx); Hidradenitis 11/24/2024 Orders Only [facility] [address] [place] [phone] Joe Alejandra CNM 11/24/2024 Travel 11/23/[address] [phone] Nenita Croft MD chart prep 11/10/2024 Results Follow-Up [facility] [address] [place] [phone] Sarah Sears NP US Head Neck Soft Tissue 10/17/[address] [phone] Nenita Croft MD Referral 10/03/2024 10:20 AM EDT Office Visit [facility] [address] [place] [phone] Imer Clemens MD COVID-19 (Primary Dx) 10/03/2024 Travel 09/27/2024 Refill [facility] [address] [place] [phone] Nenita Croft MD 09/21/[address] [address] Joe Alejandra CNM November recall 09/12/2024 10:40 AM EDT Office Visit [facility] [address] [place] [phone] Sarah Sears NP Swelling of right parotid gland (Primary Dx) 09/12/2024 Travel 09/07/2024 11:30 AM EDT Office Visit [facility] [address] [place] [phone] Nenita Croft MD Health care maintenance (Primary Dx); Moderately severe depression; Antisynthetase syndrome (CMS/HCC); Housing insecurity; Food insecurity 09/07/2024 Patient Outreach [facility] [address] [place] [phone] Nenita Croft MD Care Coordination ([facility] outreach for [facility] housing search-referral completed ) 09/07/2024 Travel 09/06/[address] [address] Nenita Croft MD CHART PREP 08/31/2024 Results Follow-Up [facility] [address] [place] [phone] Nenita Croft MD Basic Metabolic Panel, Magnesium [...] Description 02/23/2025 9:00 AM EST Office Visit [facility] [address] [place] [phone] Gale Carvalho, OD [address] [place] [address] Health Maintenance Due Date Last Done Comments CT Colonography 1977 FIT DNA/Cologuard 1977 FIT 1975 FOBT 1975 Sigmoidoscopy 1977 COVID-19 Vaccine (#1) 1982 Family Planning (PISQ) 1992 Hepatitis B Vaccines (1 of 3 - 19+ 3-dose series) 1996 Zoster Vaccines (1 of 2) 1996 Influenza Vaccine (#1) 2024 Pap Smear 11/24/2024 11/25/2023, 01/12/2023 Depression Monitoring 01/06/2025 07/06/2024, 025 SDOH Screening 06/28/2025 06/28/2024 Alcohol/Substance Use Screening 07/06/2025 07/06/2024 Disability Screening 07/06/2025 07/06/2024 HPV/Cotest 11/24/2025 11/24/2024, 11/09, 01/12/2023 Tobacco Screening 11/24/2025 11/24/2024 Mammogram 11/26/2025 11/27/2023, [...] Diagnosis Comments HPV DNA, LOW/HIGH RISK Routine 10:45 AM EDT US HEAD NECK SOFT TISSUE Routine 11/07/2024 [...] Recently Relevant to Health Maintenance Results * HPV DNA, Low/High Risk (11/24/2024 10:45 AM EDT) HPV High Risk Negative Negative [facility] HPV Genotype 16 Negative Negative [facility] HPV Genotype 18 Negative Negative [facility] Comment:HPV testing performe d at [facility] (CLIA#[id number]), [address] [place] [address].Testing for HPV was performed using the [employer] NERI 6800system. The presence of HPV in the female [...] AM EDT 11/25/2024 6:00 AM EDT us Joe Alejandra [facility] BLOOD ORDERABLES Camille jackson Result [facility] [address] [place] [phone] * US Head Neck Soft Tissue (11/07/2024 2:16 PM EDT) Anatomical Region Laterality Modality Head, Neck Ultrasound 11/07/2024 2:16 PM EDT Narrative 11/07/2024 2:40 PM EDT [address] [address] Ultrasound Report Signed Patient: Yessi Garcia I MR#: [id number] : 1975 Acct:[id number] Age/Sex: 49 / F ADM Date: 11/07/24 Loc: HO.US Attending Dr: Sarah Sears Ordering Physician: Sarah Sears Date of Service: 11/07/24 Procedure(s): US soft tiss head and/or neck Accession Number(s): [id number] cc: Sarah Sears; Nenita Croft MD Reason [...] 11/07/24 1437 DD/ 1416 TD/TT: 11/07/24 1421 Industrial Truck Operator: Procedure Note Donotuseinterpreter, Image - 11/07/[address] [address] Ultrasound Report Signed Patient: Yessi Garcia IMR#: [id number] : 1975Acct:[id number] Age/Sex: 49 / FADM Date: 11/07/24 Loc: HO.US Attending Dr: Sarah Sears Ordering Physician: Sarah Sears Date of Service: 11/07/24 Procedure(s): US soft tiss head and/or neck Accession Number(s): [id number] cc: Sarah Sears; Nenita Croft MD Reason [...] 02:37 PM EDT RP Dictated By: Jorje Camarlilo MD Signed By: <Electronically signed by Jorje Camarillo MD in OV> 11/07/24 1437 DD/ 1416 TD/TT: 11/07/24 1421 Industrial Truck Operator: Sarah Sears FOREPART REDUCER IMG US PROCEDURES Final Result * Influenza B (ID NOW Rapid Molecular) (10/03/2024 11:08 AM EDT) Influenza B Negative Negative, Indeterminate [facility] Swab 10/03/2024 11:0 8 AM EDT Imer Clemens MD POINT OF CARE TEST ENTER/EDIT OR DERABLES Final Result [facility] [address] [place] [phone] * Influenza A (ID NOW Rapid Molecular) (10/03/2024 11:08 AM EDT) Pathologist [facility] Influenza A Negative Negative, Indeterminate [facility] Swab 10/03/2024 11:0 8 AM EDT us Imer Clemens MD POINT OF CARE TEST ENTER/EDIT OR DERABLES Final Result Performing Organization Address City/[facility]/ZIP Co de Phone Number [facility] [address] [place] [address] [phone] * (ABNORMAL) POCT Rapid COVID Ag (10/03/2024 11:08 AM EDT) [facility] Rapid COVID Ag Positive [facility] Swab 10/03/2024 11:0 8 AM EDT us Imer Clemens MD POINT OF CARE TEST ENTER/EDIT OR DERABLES Final Result Performing Organization Address City/[facility] Co de Phone Number [facility] [address] [place] [address] [phone] * Chlamydia/Trichomonas/Neisseria gonorrhoeae, PCR, Urine (08/31/2024 10:14 AM EDT) [facility] CT PCR, Urine NOT DETECTED Not Detect. [facility] Comment:A not detected test result [...] NG PCR, Urine NOT DETECTED Not Detect. [facility] Comment:A not detected test result [...] MD LAB URINE ORDERAB LES Final Result [facility] [address] [place] [phone] * (ABNORMAL) CBC auto differential (08/31/2024 10:14 AM EDT) White Blood Count 6.1 4.8 - 10.8 X10*3/uL [facility] Red Blood Count 3.89(L) 4.20 - 5.50 X10*6/uL [facility] Hemoglobin 11.2(L) 12.0 - 16.0 g/dl [facility] Hematocrit 35.1(L) 37.0 - 47.0 % [facility] Mean Corpuscular Volume 90.2 80.0 - 98.0 fL [facility] Mean Corpuscular Hemoglobin 28.8 27.0 - 33.0 pg [facility] Mean Corpuscular HGB Conc 31.9 31.0 - 35.0 g/dl [facility] Red Cell Distribution Width 14.7 11.0 - 16.0 % [facility] Platelet Count 115(L) 160 - 400 X10*3/uL [facility] Mean Platelet Volume 10.1 9.4 - 12.3 fL [facility] Neutrophils Percent Auto 68.7 45 - 73 % [facility] Imm Gran Pct Auto 0.2 0.0 - 0.4 % [facility] Lymphocytes Percent Auto 22.3 20 - 40 % [facility] Monocytes Percent Auto 6.9 2 - 11 % [facility] Eosinophils Percent Auto 1.6 0 - 4 % [facility] Basophils Percent Auto 0.3 0 - 2 % [facility] NRBC Pct Auto 0.0 0.0 - 0.2 /100WBC [facility] Neutrophils Absolute Auto 4.2 2.0 - 8.3 x10*3/uL [facility] Imm Gran Abs Auto 0.01 0.00 - 0.03 X10*3/uL [facility] Lymphocytes Absolute Auto 1.4 1.2 - 4.9 X10*3/uL [facility] Monocytes Absolute Auto 0.4 0.1 - 1.2 X10*3/uL [facility] Eosinophils Absolute Auto 0.1 0.0 - 0.4 X10*3/uL [facility] Basophils Absolute Auto 0.0 0.0 - 0.2 X10*3/uL [facility] NRBC Abs Auto 0.000 0.0 - 0.012 X10*3/uL [facility] 08/31/2024 10:1 4 AM EDT 08/31/2024 11:24 AM EDT us Generic External Data Provider LAB BLOOD ORDERAB LES Final Result [facility] [address] [place] [address] [phone] * Magnesium (08/31/2024 10:14 AM EDT) Magnesium 2.0 1.6 - 2.6 mg/dL [facility] Blood Venous blood specimen / Unknown 08/31/2024 10:14 AM EDT 08/31/2024 11:24 AM EDT Nenita Do MD LAB BLOOD ORDERAB LES Final Result Performing Organization Address City/[facility]/ZIP Co de Phone Number [facility] [address] [place] [address] [phone] * Creatine Kinase, Total (08/31/2024 10:14 AM EDT) Creatine Kinase Total 104 26 - 140 U/L [facility] 08/31/2024 10:1 4 AM EDT 08/31/2024 11:24 AM EDT Generic External Data Provider LAB BLOOD ORDERAB LES Final Result Performing Organization Address [facility] Co de Phone Number [facility] [address] [place] [phone] * (ABNORMAL) Basic Metabolic Panel (08/31/2024 10:14 AM EDT) Pathologist [facility] Sodium 143 135 - 145 mmol/L [facility] Potassium 4.0 3.3 - 5.1 mmol/L [facility] Chloride 111(H) 96 - 108 mmol/L [facility] Carbon Dioxide 26 22 - 29 mmol/L [facility] Anion Gap 10(L) 12 - 20 [facility] Urea Nitrogen (BUN) 10 9 - 16 mg/dL [facility] Creatinine, Serum 0.77 0.5 - 1.4 mg/dL [facility] Estimated Glomerular Filt Rate >60 [facility] Comment:Chronic Kidney Disea se: Estimated GFR < 60 mL/min/1.44k2Glfqyi Kidney Disease: Estimated GFR < 15 mL/min/1.73m2 Glucose 88 60 - 115 mg/dL [facility] Calcium 8.8 8.4 - 10.2 mg/dL [facility] Blood Venous blood specimen / Unknown 08/31/2024 10:14 AM EDT 08/31/2024 11:24 AM EDT Nenita Do MD LAB BLOOD ORDERAB LES Final Result Performing Organization Address [facility]/ZIP Co de Phone Number [facility] [address] [place] [phone] * Hepatitis C Antibody with Reflex to HCV, RNA, Quantitative, Real-Time PCR (08/22/2024 9:42 AM EDT) Hepatitis C Antibody Nonreactive Nonreactive [facility] Comment:Antibodies to HCV no t detected; does not exclude early acuteHCV infection. Blood Venous blood specimen / Unknown 08/22/2024 9:42 AM EDT 08/22/2024 9:42 AM EDT Nenita Do MD LAB BLOOD ORDERAB LES Final Result Performing Organization Address [facility] Co de Phone Number [facility] [address] [place] [phone] * HIV-1/2 Antigen and Antibodies, Fourth Generation, with Reflexes (08/22/2024 9:42 AM EDT) HIV AB/AG Nonreactive Nonreactive [facility] Comment:HIV-1 p24 Ag and/or HIV-1/HIV-2 Ab not detected.A test result that is nonreactive does not exclude thepossibility of exposure to or infection with HIV-1 and/orHIV-2. Nonreactive results in this assay for individualswith prior exposure to HIV-1 and/or HIV-2 may be due toantigen and antibody levels that are below the limit ofdetection of this assay.The [employer] HIV Ag/Ab Combo assay result andsupplemental assay results should be interpreted inconjunction with the patient's clinical presentation,history and other laboratory results. If the results areinconsistent with clinical evidence, additional testing issuggested to confirm the result. Blood Venous blood specimen / Unknown 08/22/2024 9:42 AM EDT 08/22/2024 9:42 AM EDT us Nenita Do MD LAB BLOOD ORDERAB LES Final Result [facility] [address] [place] [address] [phone] * BI Mammogram Screening Tomosynthesis Bilateral (11/27/2023 2:00 PM EDT) Anatomical Region Laterality Modality Breast Bilateral Mammography 11/27/2023 2:00 PM EDT Narrative 12/09/2023 4:05 PM EDT [address] [place] [address] Mammography Report Signed Patient: Yessi Garcia I MR#: [id number] : 1975 Acct:[id number] Age/Sex: 48 / F ADM Date: 11/27/23 Loc: HO.MAMMO Attending Dr: Joe Alejandra CNM Ordering Physician: JOE ALEJANDRA CNM Results: 2 Benign Findings Date of Service: 11/27/23 Follow Up: 1 Year From Orig ina Mammogram Procedure(s): MM tomosynthesis screening BI Accession Number(s): [id number] cc: Nenita Croft MD; JOE ALEJANDRA CNM [...] 12/09/23 1603 DD/ 1400 TD/TT: 11/27/23 1420 Industrial Truck Operator: Procedure Note Donotuseinterpreter, Image - 12/09/2023 [facility] [address] [place] [address] Mammography Report Signed Patient: Yessi Garcia IMR#: [id number] : 1975Acct:[id number] Age/Sex: 48 / FADM Date: 11/27/23 Loc: HO.MAMMO Attending Dr: Joe Alejandra CNM Ordering Physician: JOE ALEJANDRAesults: 2 Benign Findings Date of Service: 11/27/23Follow Up: 1 Year From Orig inal Mammogram Procedure(s): MM tomosynthesis screening BI Accession Number(s): [id number] cc: Nenita Croft MD; JOE ALEJANDRA CNM [...] 12/09/23 1603 DD/ 1400 TD/TT: 11/27/23 1420 Industrial Truck Operator: us Joe Alejandra CNM IMG BI PROCEDURES Final R esult * [facility]in[facility] Imaging Pap and HPV mRNA E6/E7 (11/25/2023 11:50 AM EDT) HPV nRNA E6/E7 Not Detected Not Detected [facility] Comment:Methodology: Transcr iption-Mediated AmplificationThis assay detects E6/E7 viral messenger RNA (mRNA) from 14high-risk HPV types (16,18,31,33,35,39,45,51,52,56,58,59,66,68).Cervical sources are required for HPV testing.If a vaginal source from a patient who has had atotal hysterectomy with removal of cervix wassubmitted, please contact the testing laboratoryfor alternative testing options.For additional information, please refer tohttp://education.tipple.me/faq/WWJ783w8(This link if provided for information/educational purposes only.)THIS TEST WAS PERFORMED AT:[facility] [place] [phone] WALTON MD SOURCE: SEE NOTE [facility] Comment:Cervix Report Status: [facility] Clinical Information: SEE NOTE [facility] Comment:None given LMP: SEE NOTE [facility] Comment:NONE GIVEN Prev. PAP: SEE NOTE [facility] Comment:NONE GIVEN Prev. BX: SEE NOTE [facility] Comment:NONE GIVEN Statement Of Adequacy: SEE NOTE [facility] Comment:Satisfactory for micha luation.Endocervical/transformation zone component absent. General Categorization: [facility] Interpretation/Result: SEE NOTE [facility] Comment:Cytology Results: Ne gative for intraepitheliallesion or malignancy. Cytology Comment SEE NOTE [facility] Comment:This Pap test has be en evaluated with computerassisted technology. L Tacker: SEE NOTE [facility] Comment:[place], CT(ASCP)CT scre ening location: [address] [address] Review L Tacker: SEE NOTE [facility] Comment:MSM, CT(ASCP)CT scre ening location: [address] [address] Pathologist TNP [facility] PAP Infection TNP [facility] See Note SEE NOTE [facility] Comment:EXPLANATORY NOTE:The Pap is a [...] AM EDT 11/25/2023 6:08 PM EDT Narrative [facility] - 12/01/2023 11:20 AM EDT SEE SCANNED RESULTS IN EMRCERVIX Joe Alejandra CNM LAB PATHOLOGY ORDERABLES Final Result [facility] [address] [place] [address] [phone] * Hm Colonoscopy (01/23/2022 7:33 AM EST) Colonoscopy Normal Normal Narrative Sugar Valdez - 01/23/2022 7:33 AM EST Please see scanned result on 05/29/2023 in multimedia technician ,unable to attach report us Historical Provider HEALTH MAINTENANCE Edited Result - Final from Last 3 Months or Most Recently Relevant to Health Maintenance Insurance [address] [place], [place] [address] C3 Care Teams Cnc Laser Operator Relationship Specialty Start Date End Date Nenita Croft MD [address] [place] [phone] PCP - General Internal Medicine 09/11/22
== END 2024-12-01 13:42 | disposition home or self-care (01) ==
LOC: HO.MAMMO 13:41
PROVIDERS: PCP Student in an Organized Health Care Education/Training Program; Visit Provider Student in an Organized Health Care Education/Training Program
DX: Z12.31 Encounter for screening mammogram for malignant neoplasm of breast (principal)
CPT/HCPCS: 77063; 77067

== ENCOUNTER → 2024-12-01 14:00 | Outpatient (BNV) | payer MEDICAID, SELFPAY | PROVIDERS: PCP Student in an Organized Health Care Education/Training Program; Visit Provider Internal Medicine | DX: Z12.31 Encounter for screening mammogram for malignant neoplasm of breast (principal) | CPT/HCPCS: 77063; 77067 ==